=== PATIENT | female | born 1990 | race African-American/Black ===

== ENCOUNTER 2019-06-02 08:13 | Emergency (ER) | payer OTHER ==
--- OUTSIDE RECORDS SUMMARY | 2019-06-02 08:28 | XMS REPORT ---
:1990 [facility] Address [address] [place] [address] Dr. Ford [address] [place] [id number] Care Team Providers Name Role Phone Unavailable Unavailable Unavailable Problems This patient has no known problems. Allergies, Adverse Reactions, Alerts This patient has no known allergies or adverse reactions. Medications This patient has no known medications.
--- NOTE | 2019-06-02 09:40 | EDPHYS ---
Physician Documentation [facility] Name: Gill Gordon Age: 28 yrs Sex: Female : 1990 Arrival Date: 06/02/2019 Time: 08:19 Bed 17 Private MD: ED Physician Eduardo Serrato HPI: 06/02 08:48 This 28 yrs old Black Female presents to ER via Ambulatory with complaints of Cold jmm Symptoms, Flu Symptoms. 08:48 The patient or guardian reports cough, flu symptoms. Onset: The symptoms/episode jmm began/occurred gradually, 3 day(s) ago. Modifying factors: The symptoms are alleviated by nothing. Associated signs and symptoms: Pertinent positives: fever, rhinorrhea, sore throat. This is a 28 year old female with a history of PCOS that presents to the ED with complaints of cough, congestion, sore throat, body aches, fatigue beginning 3 days ago. patient states having a temp of 101 this past weekend. . 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 - Coronavirus screen:: The patient has NOT traveled to [place], [place], or [place] in the past 14 days. Proceed with normal triage process as indicated. - Social history:: Smoking status: Patient denies any tobacco usage or history of. - Ebola Screening: : Patient negative for fever greater than or equal to 101.5 degrees Fahrenheit, and additional compatible Ebola Virus Disease symptoms Patient denies exposure to infectious person Patient denies travel to an Ebola-affected area in the 21 days before illness onset No symptoms or risks identified at this time. ROS: 08:48 Cardiovascular: Negative for chest pain, palpitations, and edema. jmm 08:48 Constitutional: Positive for body aches, fever. 08:48 ENT: Positive for sore throat. 08:48 Cardiovascular: Positive for chest pain, with cough. 08:48 Respiratory: Positive for cough. 08:48 All other systems are negative. Exam: 08:48 Constitutional: This is a well developed, well nourished patient who is awake, alert, jmm and in no acute distress. Head/Face: atraumatic. Eyes: EOMI, no conjunctival erythema appreciated 08:48 Neck: Trachea midline, Supple Chest/axilla: Normal chest wall appearance and motion. 08:48 Abdomen/GI: Non distended, soft Back: Normal ROM Skin: General appearance color normal MS/ Extremity: Moves all extremities, no obvious deformities appreciated, no edema noted to the lower extremities Neuro: Awake and alert, normal gait Psych: Behavior is normal, Mood is normal, Patient is cooperative and pleasant 08:48 ENT: Posterior pharynx: erythema, that is mild. 08:48 Cardiovascular: Rate: normal, Rhythm: regular. 08:48 Respiratory: the patient does not display signs of respiratory distress, Respirations: normal, Breath sounds: are clear throughout. Vital Signs: 08:32 BP 137 / 86; Pulse 102; Resp 18 S; Temp 97.8; Pulse Ox 100% on R/A; Weight 95.25 kg; iw Height 5 ft. 0 in. (152.40 cm); Pain 7/10; 09:30 BP 132 / 80; Pulse 87; Resp 17; Pulse Ox 100% on R/A; sg 08:32 Body Mass Index 41.01 (95.25 kg, 152.40 cm) iw MDM: 08:37 Patient medically screened. [facility] 09:38 Data reviewed: vital signs, nurses notes. Counseling: I had a detailed discussion with caridad the patient and/or guardian regarding: the historical points, exam findings, and any diagnostic results supporting the discharge/admit diagnosis, the need for outpatient follow up, to return to the emergency department if symptoms worsen or persist or if there are any questions or concerns that arise at home. ED course: Patient is alert and non toxic in appearance in the ED. Patient advised to follow up with pcp and otherwise given strict return precautions. patient understood and agrees with the plan of care. . 06/02 08:42 Order name: Flu; Complete Time: 09:38 [facility] 06/02 08:42 Order name: Strep; Complete Time: 09:38 [facility] 06/02 09:12 Order name: Throat Culture EDMS Administered Medications: No medications were administered Disposition: 14:39 Co-signature as Attending Physician, Eduardo Serrato MD I agree with the assessment and [facility] plan of care. Disposition: 06/02/19 09:39 Discharged to Home. Impression: Acute upper respiratory infection, unspecified. - Condition is Stable. - Discharge Instructions: Upper Respiratory Infection, Adult. - Prescriptions for Prednisone 20 mg Oral Tablet - take 3 tablet by ORAL route once daily for 5 days; 15 tablet. - Work release form, Medication Reconciliation Form, Thank You Letter, Antibiotic Education, Prescription Opioid Use form. - Follow up: Private Physician; When: 2 - 3 days; Reason: Recheck today's complaints, Continuance of care, Re-evaluation by your physician. Signatures: Dispatcher [employer] Reno Song RN RN Eduardo Xiong MD MD cha Mickail, Joel, PA PA Sharla Marte, RN RN iw Corrections: (The following items were deleted from the chart) 09:53 09:39 06/02/2019 09:39 Discharged to Home. Impression: Acute upper respiratory sg infection, unspecified. Condition is Stable. Forms are Medication Reconciliation Form, Thank You Letter, Antibiotic Education, Prescription Opioid Use. Follow up: Private Physician; When: 2 - 3 days; Reason: Recheck today's complaints, Continuance of care, Re-evaluation by your physician. caridad
--- NOTE | 2019-06-02 09:40 | ER ---
Nurse's Notes [facility] Name: Gill Gordon Age: 28 yrs Sex: Female : 1990 Arrival Date: 06/02/2019 Time: 08:19 Bed 17 Private MD: Diagnosis: Acute upper respiratory infection, unspecified Presentation: 06/02 08:30 Presenting complaint: Patient states: cough, runny nose, chest pain with cough, iw pressure in head since Sunday, fever on Sunday but has now resolved. Transition of care: patient was not received from another setting of care. Onset of symptoms was May 30, 2019. Risk Assessment: Do you want to hurt yourself or someone else? Patient reports no desire to harm self or others. Initial Sepsis Screen: Does the patient meet any 2 criteria? No. Patient's initial sepsis screen is negative. Does the patient have a suspected source of infection? No. Patient's initial sepsis screen is negative. Care prior to arrival: None. 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 - Coronavirus screen:: The patient has NOT traveled to [place], [place], or [place] in the past 14 days. Proceed with normal triage process as indicated. - Social history:: Smoking status: Patient denies any tobacco usage or history of. - Ebola Screening: : Patient negative for fever greater than or equal to 101.5 degrees Fahrenheit, and additional compatible Ebola Virus Disease symptoms Patient denies exposure to infectious person Patient denies travel to an Ebola-affected area in the 21 days before illness onset No symptoms or risks identified at this time. Screenin:50 Abuse screen: Denies threats or abuse. Denies injuries from another. Nutritional sg screening: No deficits noted. Tuberculosis screening: No symptoms or risk factors identified. Never had TB. Fall Risk None identified. Assessment: 08:40 General: Appears in no apparent distress. well groomed, well developed, well nourished, sg Behavior is calm, cooperative, appropriate for age. Pain: Complains of pain in body aches Quality of pain is described as aching. Neuro: Level of Consciousness is awake, alert, obeys commands, Oriented to person, place, time, Speech is normal, Facial symmetry appears normal. Cardiovascular: Heart tones S1 S2 present Chest pain is denied. Respiratory: Airway is patent Respiratory effort is even, unlabored, Respiratory pattern is regular, symmetrical. Respiratory: Reports cough that is non-productive, dry. GI: No signs and/or symptoms were reported involving the gastrointestinal system. : No signs and/or symptoms were reported regarding the genitourinary system. EENT: Reports nasal congestion. Derm: Skin is intact, is healthy with good turgor, Skin is dry, Skin is normal. Musculoskeletal: Circulation, motion, and sensation intact. Range of motion: intact in all extremities. Vital Signs: 08:32 BP 137 / 86; Pulse 102; Resp 18 S; Temp 97.8; Pulse Ox 100% on R/A; Weight 95.25 kg; iw Height 5 ft. 0 in. (152.40 cm); Pain 7/10; 09:30 BP 132 / 80; Pulse 87; Resp 17; Pulse Ox 100% on R/A; sg 08:32 Body Mass Index 41.01 (95.25 kg, 152.40 cm) ED Course: 08:19 Patient arrived in ED. fj1 08:20 Ken Dominguez PA is PHCP. jmm 08:20 Eduardo Serrato MD is Attending Physician. jmm 08:30 Patient has correct armband on for positive identification. Bed in low position. Call sg light in reach. Pulse ox on. NIBP on. 08:31 Triage completed. iw 08:32 Arm band placed on. iw 08:55 Flu and/or RSV swab sent to lab. Strep swab sent to lab. sg 09:41 Reno Starks, BREA is Primary Nurse. sg 09:58 No provider procedures requiring assistance completed. Patient did not have IV access sg during this emergency room visit. Administered Medications: No medications were administered Outcome: 09:39 Discharge ordered by . jmm 09:50 Discharged to home ambulatory, with family. sg 09:50 Condition: good 09:50 Discharge instructions given to patient, Instructed on discharge instructions, follow up and referral plans. medication usage, safety practices, Demonstrated understanding of instructions, follow-up care, medications, Prescriptions given X 1. 09:53 Patient left the ED. sg Signatures: Reno Starks RN RN Ken Cartwright PA PA jmm Williams, Irene RN RN Vinicius Gordon fj1 Corrections: (The following items were deleted from the chart) 10:30 08:30 BP 132 / 80; Pulse 87bpm; Resp 17bpm; Pulse Ox 100% RA; sg sg
[2019-06-02 10:05] VITALS: BP 137/86; TEMP 97.8; O2SAT 100
== END 2019-06-02 09:53 | disposition home or self-care (01) ==
LOC: ER 08:13
DX: J06.9 Acute upper respiratory infection, unspecified (principal); Z88.1 Allergy status to other antibiotic agents
CPT/HCPCS: 87070; 87081; 87804; 99283

== ENCOUNTER 2019-12-18 11:02 | Emergency (ER) | payer OTHER ==
--- OUTSIDE RECORDS SUMMARY | 2019-12-18 11:10 | XMS REPORT | Continuity of Care Document ---
:1990 Author Organization [facility] t Address [address] [place] [address] Care Team Providers Name Role Phone Geronimo Arzate MD Attending Clinician Problems This patient has no known problems. Allergies, Adverse Reactions, Alerts This patient has no known allergies or adverse reactions. Medications This patient has no known medications. Procedures This patient has no known procedures. Encounters Start End Encounter Admission Attending Care Care Encounter Source Date/Time Date/Time Type Type Clinicians Facility Department ID 2019-05-24 2019-05-24 Refill Radha Arzate ARBELLE [id number] 00:00:00 00:00:00 Geronimo Rodriguez [id number] Tori [id number] Professnacho [id number] [facility] [address] Results This patient has no known results.
--- NOTE | 2019-12-18 12:08 | RAD REPORT ---
EXAM DESCRIPTION: Hilda Single View12/18/2019 11:38 am CLINICAL HISTORY: Cough COMPARISON: 2007 FINDINGS: The lungs appear clear of acute infiltrate. The heart is normal size IMPRESSION: No acute abnormalities displayed
--- NOTE | 2019-12-18 12:25 | EDPHYS ---
Physician Documentation [facility] Name: Gill Gordon Age: 29 yrs Sex: Female : 1990 Arrival Date: 12/18/2019 Time: 11:04 Bed 4 Private MD: Vinicius Bailey ED Physician Bal De HPI: 12/17 14:10 This 29 yrs old Black Female presents to ER via Ambulatory with complaints of Cough, kb Fever, Dizziness. 14:10 The patient or guardian reports cough, that is intermittent, described as mild, flu kb symptoms, myalgias. Onset: The symptoms/episode began/occurred 2 day(s) ago. Severity of symptoms: At their worst the symptoms were moderate, in the emergency department the symptoms are unchanged. Modifying factors: The symptoms are alleviated by nothing, the symptoms are aggravated by nothing. Associated signs and symptoms: The patient has no apparent associated signs or symptoms. The patient has not experienced similar symptoms in the past. The patient has not recently seen a physician. Pt reports her 's coworker is positive for COVID. States started having symptoms a few days ago, no taste or smell, he went to get tested and they did the blood test and told him it was negative. STates she started having a cough and feeling bad 2 days ago.. 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 - Social history:: Smoking status: Patient denies any tobacco usage or history of. ROS: 14:10 ENT: Negative for injury, pain, and discharge, Neck: Negative for injury, pain, and kb swelling, Cardiovascular: Negative for chest pain, palpitations, and edema, Abdomen/GI: Negative for abdominal pain, nausea, vomiting, diarrhea, and constipation, Back: Negative for injury and pain, MS/Extremity: Negative for injury and deformity, Skin: Negative for injury, rash, and discoloration, Neuro: Negative for headache, weakness, numbness, tingling, and seizure. 14:10 Constitutional: Positive for body aches, fatigue, malaise. 14:10 Respiratory: Positive for cough, Negative for dyspnea on exertion, hemoptysis, orthopnea, pleurisy, shortness of breath, sputum production, wheezing. Exam: 14:10 Constitutional: This is a well developed, well nourished patient who is awake, alert, kb and in no acute distress. Head/Face: Normocephalic, atraumatic. ENT: Nares patent. No nasal discharge, no septal abnormalities noted. Tympanic membranes are normal and external auditory canals are clear. Oropharynx with no redness, swelling, or masses, exudates, or evidence of obstruction, uvula midline. Mucous membranes moist. Neck: Trachea midline, no thyromegaly or masses palpated, and no cervical lymphadenopathy. Supple, full range of motion without nuchal rigidity, or vertebral point tenderness. No Meningismus. Chest/axilla: Normal chest wall appearance and motion. Nontender with no deformity. No lesions are appreciated. Cardiovascular: Regular rate and rhythm with a normal S1 and S2. No gallops, murmurs, or rubs. Normal PMI, no JVD. No pulse deficits. Respiratory: Lungs have equal breath sounds bilaterally, clear to auscultation and percussion. No rales, rhonchi or wheezes noted. No increased work of breathing, no retractions or nasal flaring. Abdomen/GI: Soft, non-tender, with normal bowel sounds. No distension or tympany. No guarding or rebound. No evidence of tenderness throughout. Skin: Warm, dry with normal turgor. Normal color with no rashes, no lesions, and no evidence of cellulitis. MS/ Extremity: Pulses equal, no cyanosis. Neurovascular intact. Full, normal range of motion. Neuro: Awake and alert, GCS 15, oriented to person, place, time, and situation. Cranial nerves II-XII grossly intact. Motor strength 5/5 in all extremities. Sensory grossly intact. Cerebellar exam normal. Normal gait. Vital Signs: 11:16 BP 140 / 87; Pulse 86; Resp 17 S; Temp 99.8(O); Pulse Ox 99% on R/A; Weight 98.43 kg jd3 (R); Height 5 ft. 0 in. (152.40 cm) (R); Pain 10/10; 12:21 BP 128 / 97; Pulse 88; Resp 17 S; Pulse Ox 99% on R/A; jd3 11:16 Body Mass Index 42.38 (98.43 kg, 152.40 cm) jd3 MDM: 11:11 Patient medically screened. kb 14:09 Data reviewed: vital signs, nurses notes. Data interpreted: Pulse oximetry: on room air kb is 99 %. Interpretation: normal. Counseling: I had a detailed discussion with the patient and/or guardian regarding: the historical points, exam findings, and any diagnostic results supporting the discharge/admit diagnosis, radiology results, the need for outpatient follow up, a family practitioner, to return to the emergency department if symptoms worsen or persist or if there are any questions or concerns that arise at home. 12/17 11:17 Order name: COVID-19 kb 12/17 11:17 Order name: Chest Single View XRAY; Complete Time: 12:23 kb Administered Medications: No medications were administered Disposition: 12/18/19 12:25 Discharged to Home. Impression: Acute upper respiratory infection, unspecified. - Condition is Stable. - Discharge Instructions: Viral Respiratory Infection, [id number], COVID-19. - Prescriptions for Albuterol Sulfate 90 mcg/actuation - inhale 1-2 puff by INHALATION route every 4-6 hours; 1 Inhaler. - Medication Reconciliation Form, Thank You Letter, Antibiotic Education, Prescription Opioid Use form. - Follow up: Emergency Department; When: As needed; Reason: Worsening of condition. Follow up: Vinicius Bailey MD; When: 2 - 3 days; Reason: Recheck today's complaints, Continuance of care, Re-evaluation by your physician. Addendum: 12/22/2019 08:24 Co-signature as Attending Physician, Bal De MD I agree with the assessment and k dr plan of care. 09:10 Addendum: Called patient \T\ 0910, notified of + COVID-19 test results, states not rn feeling better, seen at another ER yesterday, given abx/steroids/cough medication/nausea medication, but was not admitted. Return precautions given and understood. . Signatures: Dispatcher [employer] EDJuanis Griffin, NICK-C NICK-Ckb Bal De MD MD kdr Nieto, Roman, MD MD rn Davies, BREA Beyer RN jd3 Corrections: (The following items were deleted from the chart) 12/17 12:40 12:25 12/18/2019 12:25 Discharged to Home. Impression: Acute upper respiratory jd3 infection, unspecified. Condition is Stable. Forms are Medication Reconciliation Form, Thank You Letter, Antibiotic Education, Prescription Opioid Use. Follow up: Emergency Department; When: As needed; Reason: Worsening of condition. Follow up: Vinicius Bailey; When: 2 - 3 days; Reason: Recheck today's complaints, Continuance of care, Re-evaluation by your physician. kb
--- NOTE | 2019-12-18 12:25 | ER ---
Nurse's Notes [facility] Name: Gill Gordon Age: 29 yrs Sex: Female : 1990 Arrival Date: 12/18/2019 Time: 11:04 Bed 4 Private MD: Vinicius Bailey Diagnosis: Acute upper respiratory infection, unspecified Presentation: 12/17 11:18 Chief complaint: Patient states: "One of my husbands co-workers had COVID symptoms and jd3 he started having symptoms. I am now having symptoms. I am having body aches and fevers and a cough.". Coronavirus screen: cough unrelated to allergies, fever, muscle pain, Client presents with at least one sign or symptom that may indicate coronavirus-19. Standard/surgical mask placed on the client. Provider contacted for isolation considerations. Ebola Screen: Patient negative for fever greater than or equal to 101.5 degrees Fahrenheit, and additional compatible Ebola Virus Disease symptoms. Initial Sepsis Screen: Does the patient meet any 2 criteria? No. Patient's initial sepsis screen is negative. Does the patient have a suspected source of infection? No. Patient's initial sepsis screen is negative. Risk Assessment: Do you want to hurt yourself or someone else? Patient reports no desire to harm self or others. Onset of symptoms was December 18, 2019. 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 - Social history:: Smoking status: Patient denies any tobacco usage or history of. Screenin:39 Abuse screen: Denies threats or abuse. Nutritional screening: No deficits noted. jd3 Tuberculosis screening: No symptoms or risk factors identified. Fall Risk Gait- Normal/Bed Rest/Wheelchair (0 pts) Mental Status- Oriented to own ability (0 pts). Total Grant Fall Scale indicates No Risk (0-24 pts). Assessment: 11:21 General: Appears in no apparent distress. uncomfortable, Behavior is calm, cooperative, jd3 appropriate for age. Pain: Complains of pain in generalized aches and pains. Neuro: Level of Consciousness is awake, alert, obeys commands, Oriented to person, place, time, situation. Cardiovascular: Capillary refill < 3 seconds Patient's skin is warm and dry. Respiratory: Airway is patent Respiratory effort is even, unlabored, Respiratory pattern is regular, symmetrical, Denies cough, shortness of breath. GI: No signs and/or symptoms were reported involving the gastrointestinal system. : No signs and/or symptoms were reported regarding the genitourinary system. EENT: No signs and/or symptoms were reported regarding the EENT system. Derm: Skin is intact, Skin is dry, Skin is normal, Skin temperature is warm. Musculoskeletal: Circulation, motion, and sensation intact. Range of motion: intact in all extremities. 12:21 Reassessment: Patient appears in no apparent distress at this time. No changes from jd3 previously documented assessment. Patient and/or family updated on plan of care and expected duration. Pain level reassessed. Patient is alert, oriented x 3, equal unlabored respirations, skin warm/dry/pink. Vital Signs: 11:16 BP 140 / 87; Pulse 86; Resp 17 S; Temp 99.8(O); Pulse Ox 99% on R/A; Weight 98.43 kg jd3 (R); Height 5 ft. 0 in. (152.40 cm) (R); Pain 10/10; 12:21 BP 128 / 97; Pulse 88; Resp 17 S; Pulse Ox 99% on R/A; jd3 11:16 Body Mass Index 42.38 (98.43 kg, 152.40 cm) jd3 ED Course: 11:04 Patient arrived in ED. ag5 11:05 Vinicius Bailey MD is Private Physician. ag5 11:05 Juanis Gordon [facility]-C [facility]. kb 11:05 Bal De MD is Attending Physician. kb 11:15 Pepito Bell, BREA is Primary Nurse. jd3 11:20 Triage completed. jd3 11:21 Arm band placed on. jd3 11:39 Chest Single View XRAY In Process Unspecified. EDMS 12:24 Vinicius Bailey MD is Referral Physician. kb 12:39 Patient has correct armband on for positive identification. Bed in low position. Call jd3 light in reach. Side rails up X 1. Adult w/ patient. Pulse ox on. NIBP on. 12:39 No provider procedures requiring assistance completed. Patient did not have IV access jd3 during this emergency room visit. Administered Medications: No medications were administered Outcome: 12:25 Discharge ordered by . kb 12:39 Discharged to home ambulatory. jd3 12:39 Condition: stable 12:39 Discharge instructions given to patient, Instructed on discharge instructions, follow up and referral plans. medication usage, Demonstrated understanding of instructions, follow-up care, medications, Prescriptions given X 1. 12:40 Patient left the ED. jd3 Signatures: Dispatcher [employer] EDMS Juanis Gordon, DIRECTOR PROSPECT-C DIRECTOR PROSPECT-Pepito Osman RN RN jd3 [place] ag5 Corrections: (The following items were deleted from the chart) 11:21 11:16 BP 140 / 87; Pulse 86bpm; Resp 17bpm; Spontaneous; Pulse Ox 99% RA; Temp 99.8F jd3 Oral; jd3 11:24 11:18 Chief complaint: Patient states: "One of my co-workers had COVID symptoms and got jd3 the antibody test, but it came back negative. I am now having symptoms and think my co-workers test was wrong. I am having body aches and fevers." jd3
[2019-12-18 12:51] VITALS: TEMP 99.8; O2SAT 99
[2019-12-18 12:52] VITALS: BP 128/97
== END 2019-12-18 12:40 | disposition home or self-care (01) ==
LOC: ER 11:02
DX: U07.1 COVID-19 (principal); J98.8 Other specified respiratory disorders; Z88.1 Allergy status to other antibiotic agents; Z88.0 Allergy status to penicillin
CPT/HCPCS: 71045; 99283; U0002

== ENCOUNTER 2020-03-17 13:02 | Emergency (ER) | payer BC, OTHER ==
--- OUTSIDE RECORDS SUMMARY | 2020-03-17 13:05 | XMS REPORT | Clinical Summary ---
:1990 Author Organization [employer] Address [address] [place] [address] Care Team Providers Name Role Phone [facility]illo [facility], [facility] Provider Allergies Active Allergy Reactions Severity Noted Date Comments Amoxicillin Rash Low 12/23/2019 Penicillin V Rash Low 12/23/2019 Medications Medication Sig Dispensed Refills Start Date End Date Status metFORMIN Take 500 mg by 0 Activ e (GLUCOPHAGE) 500 mg mouth 2 (two) tablet times a day with meals. ascorbic acid, Take 1 tablet 30 tablet 0 12/29/2019 01/28/2020 vitamin C, (VITAMIN (500 mg total) C) 500 MG tablet by mouth daily for 30 days. enoxaparin (LOVENOX) Inject 0.4 mL 26 each 0 12/28/2019 09/0 09/2019 40 mg/0.4 mL syringe (40 mg total) under the skin every 12 (twelve) hours for 13 days. zinc sulfate Take 1 capsule 30 capsule 0 12/29/2019 01/28/2020 (ZINCATE) 220 (50) (220 mg total) mg capsule by mouth daily for 30 days. dexamethasone Take 1 tablet (6 9 tablet 0 12/28/2019 01/06/20 20 (DECADRON) 6 MG mg total) by tablet mouth daily with breakfast for 9 days. levoFLOXacin Take 1 tablet 4 tablet 0 12/28/2019 01/01/2020 E xpired (Levaquin) 750 MG (750 mg total) tablet by mouth daily for 4 days. Active Problems Problem Noted Date SOB (shortness of breath) 12/31/2019 COVID-19 virus infection 12/27/2019 Encounters Date Type Specialty Care Team Description 12/27/2019 - Hospital Encounter General Internal HasmukhJose COVID -19 virus 01/01/2020 Medicine Thalakulathu, infection (Ashleigh dail MD Dx) 12/27/2019 Travel 12/23/2019 Emergency Emergency Medicine Kenia Wang Acute bro nchitis due MD Armando to COVID-19 vir us (Primary Dx) 12/23/2019 Travel after 03/17/2019 Medical History Medical History Date Comments Diabetes mellitus (HCC) PCOS (polycystic ovarian syndrome) Social History Tobacco Use Types Packs/Day Years Used Date Never Assessed Alcohol Use Drinks/Week oz/Week Comments Defer Sex Assigned at Date Recorded Not on file Last Filed Vital Signs Vital Sign Reading Time Taken Comments Blood Pressure 98/59 01/01/2020 11:58 AM CDT Pulse 84 01/01/2020 3:00 PM CDT Temperature 36.7 C (98 F) 01/01/2020 11:58 AM CDT Respiratory Rate 16 01/01/2020 11:58 AM CDT Oxygen Saturation 96% 01/01/2020 11:58 AM CDT Inhaled Oxygen Concentration - - Weight 98.4 kg (216 lb 14.9 oz) 12/27/2019 4:08 AM CDT Height 152.4 cm (5') 12/27/2019 4:08 AM CDT Body Mass Index 42.37 12/27/2019 4:08 AM CDT Plan of Treatment Health Maintenance Due Date Last Done Comments DIABETES: RETINAL EYE EXAM 1998 DIABETIC FOOT EXAM 1998 URINE MICROALBUMIN 1998 CERVICAL CANCER SCREENING 2009 INFLUENZA VACCINE 12/06/2019 Procedures Procedure Name Priority Date/Time Associated Comments Diagnosis TTE COMPLETE, WO Routine 01/01/2020 1:50 Results for this CONTRAST, W DOPPLER PM CDT procedur e are in ([id number]) the results section. POC GLUCOSE Routine 01/01/2020 11:59 Results for this AM CDT procedure are i n the results section. POC GLUCOSE Routine 01/01/2020 5:44 Results for this AM CDT procedure are i n the results section. ESTIMATED GFR Routine 01/01/2020 5:23 Results fo r this AM CDT procedure are i n the results section. MAGNESIUM LEVEL Routine 01/01/2020 5:23 Results for this AM CDT procedure are i n the results section. BASIC METABOLIC PANEL Routine 01/01/2020 5:23 Re sults for this AM CDT procedure are i n the results section. POC GLUCOSE Routine 12/31/2019 4:57 Results for this PM CDT procedure are i n the results section. XR CHEST 1 VW PORTABLE Routine 12/31/2019 1:44 R esults for this PM CDT procedure are i n the results section. T4, FREE Routine 12/31/2019 1:00 Results for this PM CDT procedure are i n the results section. THYROID STIMULATING Routine 12/31/2019 1:00 Resu lts for this HORMONE PM CDT procedure are i n the results section. POC GLUCOSE Routine 12/31/2019 12:00 Results for this PM CDT procedure are i n the results section. POC GLUCOSE Routine 12/31/2019 5:53 Results for this AM CDT procedure are i n the results section. ESTIMATED GFR Routine 12/31/2019 4:00 Results fo r this AM CDT procedure are i n the results section. COMPREHENSIVE METABOLIC Routine 12/31/2019 4:00 Results for this PANEL AM CDT procedure are i n the results section. TROPONIN Timed 12/31/2019 12:30 Results for this AM CDT procedure are i n the results section. POC GLUCOSE Routine 12/30/2019 8:47 Results for this PM CDT procedure are i n the results section. TROPONIN Timed 12/30/2019 8:15 Results for this PM CDT procedure are i n the results section. TROPONIN Timed 12/30/2019 5:00 Results for this PM CDT procedure are i n the results section. ECG 12-LEAD Routine 12/30/2019 4:29 Results for this PM CDT procedure are i n the results section. POC GLUCOSE Routine 12/30/2019 4:24 Results for this PM CDT procedure are i n the results section. POC GLUCOSE Routine 12/30/2019 11:25 Results for this AM CDT procedure are i n the results section. MANUAL DIFFERENTIAL Routine 12/30/2019 10:00 Resu lts for this AM CDT procedure are i n the results section. CBC WITH PLATELET AND Routine 12/30/2019 10:00 Re sults for this DIFFERENTIAL AM CDT procedure are i n the results section. POC GLUCOSE Routine 12/30/2019 5:45 Results for this AM CDT procedure are i n the results section. ESTIMATED GFR Routine 12/30/2019 3:50 Results fo r this AM CDT procedure are i n the results section. COMPREHENSIVE METABOLIC Routine 12/30/2019 3:50 Results for this PANEL AM CDT procedure are i n the results section. POC GLUCOSE Routine 12/29/2019 7:36 Results for this PM CDT procedure are i n the results section. POC GLUCOSE Routine 12/29/2019 5:12 Results for this PM CDT procedure are i n the results section. POC GLUCOSE Routine 12/29/2019 11:20 Results for this AM CDT procedure are i n the results section. POC GLUCOSE Routine 12/29/2019 5:59 Results for this AM CDT procedure are i n the results section. ESTIMATED GFR Routine 12/29/2019 4:45 Results fo r this AM CDT procedure are i n the results section. COMPREHENSIVE METABOLIC Routine 12/29/2019 4:45 Results for this PANEL AM CDT procedure are i n the results section. POC GLUCOSE Routine 12/28/2019 8:44 Results for this PM CDT procedure are i n the results section. POC GLUCOSE Routine 12/28/2019 4:46 Results for this PM CDT procedure are i n the results section. POC GLUCOSE Routine 12/28/2019 12:04 Results for this PM CDT procedure are i n the results section. POC GLUCOSE Routine 12/28/2019 5:49 Results for this AM CDT procedure are i n the results section. MANUAL DIFFERENTIAL Routine 12/28/2019 4:40 Resu lts for this AM CDT procedure are i n the results section. ESTIMATED GFR Routine 12/28/2019 4:40 Results fo r this AM CDT procedure are i n the results section. COMPREHENSIVE METABOLIC Routine 12/28/2019 4:40 Results for this PANEL AM CDT procedure are i n the results section. CBC WITH PLATELET AND Routine 12/28/2019 4:40 Re sults for this DIFFERENTIAL AM CDT procedure are i n the results section. POC GLUCOSE Routine 12/27/2019 7:49 Results for this PM CDT procedure are i n the results section. POC GLUCOSE Routine 12/27/2019 5:02 Results for this PM CDT procedure are i n the results section. URINALYSIS SCREEN AND Routine 12/27/2019 4:15 Re sults for this MICROSCOPY, WITH REFLEX PM CDT proc edure are in TO CULTURE the results section. URINE CULTURE Routine 12/27/2019 4:15 Results fo r this PM CDT procedure are i n the results section. TROPONIN Timed 12/27/2019 4:10 Results for this PM CDT procedure are i n the results section. POC GLUCOSE Routine 12/27/2019 11:57 Results for this AM CDT procedure are i n the results section. BLOOD CULTURE, AEROBIC Routine 12/27/2019 7:00 R esults for this & ANAEROBIC AM CDT procedure are i n the results section. LDH Routine 12/27/2019 6:00 Results for this AM CDT procedure are i n the results section. FERRITIN LEVEL Routine 12/27/2019 6:00 Results f or this AM CDT procedure are i n the results section. CRP HIGH SENSITIVITY Routine 12/27/2019 6:00 Res ults for this AM CDT procedure are i n the results section. TROPONIN STAT 12/27/2019 6:00 Results for this AM CDT procedure are i n the results section. THYROID STIMULATING STAT 12/27/2019 6:00 Resu lts for this HORMONE AM CDT procedure are i n the results section. BLOOD CULTURE, AEROBIC Routine 12/27/2019 6:00 R esults for this & ANAEROBIC AM CDT procedure are i n the results section. D-DIMER Routine 12/27/2019 5:50 Results for this AM CDT procedure are i n the results section. LIPID PANEL Routine 12/27/2019 5:50 Results for this AM CDT procedure are i n the results section. HEMOGLOBIN A1C Routine 12/27/2019 5:50 Results f or this AM CDT procedure are i n the results section. ESTIMATED GFR Routine 12/27/2019 5:50 Results fo r this AM CDT procedure are i n the results section. LACTIC ACID LEVEL Routine 12/27/2019 5:50 Result s for this AM CDT procedure are i n the results section. PHOSPHORUS LEVEL Routine 12/27/2019 5:50 Results for this AM CDT procedure are i n the results section. MAGNESIUM LEVEL Routine 12/27/2019 5:50 Results for this AM CDT procedure are i n the results section. AMYLASE LEVEL Routine 12/27/2019 5:50 Results fo r this AM CDT procedure are i n the results section. B NATRIURETIC PEPTIDE Routine 12/27/2019 5:50 Re sults for this AM CDT procedure are i n the results section. CREATINE KINASE, TOTAL Routine 12/27/2019 5:50 R esults for this (CPK) AM CDT procedure are i n the results section. COMPREHENSIVE METABOLIC Routine 12/27/2019 5:50 Results for this PANEL AM CDT procedure are i n the results section. PARTIAL THROMBOPLASTIN Routine 12/27/2019 5:50 R esults for this TIME (PTT) AM CDT procedure are i n the results section. PROTHROMBIN TIME WITH Routine 12/27/2019 5:50 Re sults for this INR AM CDT procedure are i n the results section. HC COMPLETE BLD COUNT Routine 12/27/2019 5:50 Re sults for this W/AUTO DIFF AM CDT procedure are i n the results section. XR CHEST 1 VW PORTABLE Routine 12/27/2019 5:22 R esults for this AM CDT procedure are i n the results section. XR CHEST 1 VW PORTABLE STAT 12/23/2019 8:41 R esults for this PM CDT procedure are i n the results section. BLOOD CULTURE, AEROBIC Routine 12/23/2019 8:05 R esults for this & ANAEROBIC PM CDT procedure are i n the results section. COVID-19 QUALITATIVE STAT 12/23/2019 7:55 Res ults for this PCR PM CDT procedure are i n the results section. ESTIMATED GFR STAT 12/23/2019 7:45 Results fo r this PM CDT procedure are i n the results section. D-DIMER STAT 12/23/2019 7:45 Results for this PM CDT procedure are i n the results section. LACTIC ACID LEVEL, Timed 12/23/2019 7:45 Resul ts for this SEPSIS - NOW AND REPEAT PM CDT proc edure are in 2X EVERY 3 HOURS the results section. TROPONIN STAT 12/23/2019 7:45 Results for this PM CDT procedure are i n the results section. CREATINE KINASE, TOTAL STAT 12/23/2019 7:45 R esults for this (CPK) PM CDT procedure are i n the results section. COMPREHENSIVE METABOLIC STAT 12/23/2019 7:45 Results for this PANEL PM CDT procedure are i n the results section. HC COMPLETE BLD COUNT STAT 12/23/2019 7:45 Re sults for this W/AUTO DIFF PM CDT procedure are i n the results section. BLOOD CULTURE, AEROBIC Routine 12/23/2019 7:45 R esults for this & ANAEROBIC PM CDT procedure are i n the results section. ECG ED PRELIMINARY Routine 12/23/2019 7:38 Resul ts for this INTERPRETATION PM CDT procedure are in the results section. ECG 12-LEAD Routine 12/23/2019 7:37 Results for this PM CDT procedure are i n the results section. after 03/17/2019 Results Transthoracic Echocardiogram Complete, (w Contrast, Strain and 3D if needed) (01/01/2020 1:50 PM CDT) Pathologist Sig nature LA Volume Index 15.78 mL/m2 [facility] RA pressure 5.00 mmHg [facility] LA Vol 4C 29.00 ml [facility] RVSP 22.11 mmHg [facility] LA diam s 3.90 cm [facility] Aortic Root 2.95 cm [facility] D E excurs 1.80 [facility] E f slope 0.08 [facility] E prime lat 0.13 [facility] E cj sept 0.10 [facility] PV acc T slope 8.20 [facility] HCESTER BP EF 62.00 % [facility] LA VOL 2C 27.00 ml [facility] AoV Area, Vmax 3.41 cm2 [facility] AoV Area, VTI 4.02 cm2 [facility] AoV Mean PG 3.93 mmHg [facility] AoV Peak PG 7.79 mmHg [facility] AoV Vmax 1.40 m/s [facility] AoV VTI 0.21 m [facility] IVS,d 1.41 cm [facility] LV,d 4.16 cm [facility] LV EF,A2C 64.35 % [facility] LV EF,A4C 59.00 % [facility] LV EF,BP 62.03 % [facility] [place],d A2C 7.15 cm [facility] [place],d A4C 8.20 cm [facility] [place],s A2C 5.92 cm [facility] [place],s A4C 6.71 cm [facility] LV,s 2.81 cm [facility] LV SV,A2C 38.85 % [facility] LV SV,A4C 43.30 % [facility] LV Vol,d A2C 60.37 mL [facility] LV Vol,d A4C 73.39 ml [facility] LV Vol,d BP 71.13 ml [facility] LV Vol,s A2C 21.52 mL [facility] LV Vol,s A4C 30.09 ml [facility] LV Vol,s BP 27.01 nl [facility] LVOT Diam,S 2.37 cm [facility] LVOT Vmax 1.08 m/s [facility] LVOT VTI 0.19 m [facility] LVPWD,d 1.44 cm [facility] TR Vpeak 2.07 mm/s [facility] MV E A ratio 1.26 [facility] TR pk grad 15.70 mmHg [facility] E wave decelartion time 239.08 msec [facility] MV Peak A [place] 0.58 m/s [facility] MV valve area p 1/2 method 3.57 cm2 [facility] MV Peak E [place] 0.73 m/s [facility] MV stenosis pressure 1/2 time 61.58 ms [facility] AV LVOT peak gradient 4.65 mmHg [facility] LV SYS VOL 29.68 ml [facility] LV GRANGER VOL 77.01 ml [facility] LA area s A4C 13.41 cm2 [facility] LV SV Teich 2D 47.32 ml [facility] LVOT SI 43.39 ml/m2 [facility] AoV Cusp sep 2.32 [facility] AoV Vmn 0.93 [facility] IVS s 2D 1.50 [facility] LA Ao Ratio Mmode 1.33 [facility] LVOT Vmn 0.72 [facility] Pt Size 152.40 [facility] Pt Wt 97.98 [facility] Ao root annulus 2.95 cm [facility] PV AT 111.32 msec [facility] LVOT mean grad 2.30 mmHg [facility] LVPW s PLAX 1.51 cm [facility] MV Decel slope 3.06 m/s2 [facility] LA Vol MOD A4C 28.79 ml [facility] Velocity Ratio (V1/V2) 0.77 m/s [facility] EF 61.46 % [facility] E/A ratio 1.26 [facility] LVOT area 4.41 cm2 [facility] Specimen Narrative Performed At This result has an attachment that is no t available. Left ventricular systolic function is normal. [facility] There is mild left ventricular concentric hypertrop hy. Left Ventricular ejection fraction is 60 - 65%. Performing Organization Address City/State/ZIP Code Phon e Number [facility] [address] [place] [address], POC glucose (01/01/2020 11:59 AM CDT)Only the most recent of20 resultswithin the time period is included. Pathologist Sig nature POC glucose 141 (H) 65 - 99 mg/dL [facility] Comment: [facility] Fire Prevention Inspector Name: Victor Manuel Lee Device ID: [id number] Specimen Blood Performing Organization Address [facility]/ZIP [facility] Phon e Number [facility] DEPARTMENT OF PATHOLOGY AND [id number] [place] [address] Estimated GFR (01/01/2020 5:23 AM CDT)Only the most recent of7 resultswithin the time period is included. Pathologist [facility] Estimated GFR >=90 mL/min/1.73 [facility] Comment: m2 RAINBOW Catergory Units Interpretation HOS PITAL G1 >=90 Normal or high G2 60-89 Mildly decreased G3a 45-59 Mildly to moderately decreas ed G3b 30-44 Moderately to severely decre ased G4 15-29 Severely decreased G5 <15 Kidney failure The eGFR was calculated using the Chronic Kidney Disea se Epidemiology Collaboration (CKD-EPI) equation. Interpretation is based on recommendations of the National Kidney Foundation-Kidney Disease Outcomes Patricio lity Initiative (NKF-KDOQI) published in 2014. Specimen Performing Organization Address [facility] Phon e Number [facility] DEPARTMENT OF PATHOLOGY AND [address] [place] [id number] [place] [address] Magnesium level (01/01/2020 5:23 AM CDT)Only the most recent of2 resultswithin the time period is included. Pathologist Sig [facility] Magnesium 2.2 1.6 - 2.6 mg/dL [facility] Specimen Blood Performing Organization Address City/[facility]/ZIP [facility] Phon e Number [facility] DEPARTMENT OF PATHOLOGY AND [id number] [place] [address] [place], [place] [id number] [place] [id number] [place] [address] Basic metabolic panel (01/01/2020 5:23 AM CDT) Pathologist Sig nature Sodium 139 135 - 148 mEq/L [facility] Potassium 3.8 3.5 - 5.0 mEq/L [facility] Chloride 101 98 - 112 mEq/L [facility] CO2 29 24 - 31 mEq/L [facility] Anion gap 9@ANIO 7 - 15 mEq/L [facility] BUN 19 6 - 20 mg/dL [facility] Creatinine 0.90 0.50 - 0.90 mg/dL [facility] Glucose 100 (H) 65 - 99 mg/dL [facility] Calcium 9.1 8.3 - 10.2 mg/dL [facility] Specimen Blood Performing Organization Address City/[facility] Phon e Number [facility] DEPARTMENT OF PATHOLOGY AND [address] [place] [address] GENOMIC MEDICINE [facility] [address] [place], [place] [address] HOSPITAL XR Chest 1 Vw Portable (12/31/2019 1:44 PM CDT)Only the most recent of3 results within the time period is included. Specimen Narrative Performed At SINGLE VIEW CHEST, 12/31/2019 [facility] Clinical History: Covid pneumonia. Anoma ly of the pleura. Technique: Single, portable AP view ches t. Comparison: 12/27/2019 Impression: 1.Continued low lung volume. There is marginal improve ment in bilateral alveolar opacities consistent with evolving Covid pneu monia and atelectasis. 2.Probable underlying trace left pleural effusion. No sizable right effusion. No pneumothorax.. 3.Normal heart size and mediastinal cont our for technique. 4.Normal pulmonary vasculature. 5.Intact skeleton. Procedure Note Interface, Radiology Results Incoming - 12/31/2019 1:49 PM CDT SINGLE VIEW CHEST, 12/31/2019 Clinical History: Covid pneumonia. Anoma ly of the pleura. Technique: Single, portable AP view ches t. Comparison: 12/27/2019 Impression: 1.Continued low lung volume. There is ma rginal improvement in bilateral alveolar opacities consistent with evolving Covid pneumonia and atelectasis. 2.Probable underlying trace left pleural effusion. No sizable right effusion. No pneumothorax.. 3.Normal heart size and mediastinal cont our for technique. 4.Normal pulmonary vasculature. 5.Intact skeleton. Performing Organization Address City/State/ZIP Code Phon e Number [facility] [address] [place] [address] Thyroid stimulating hormone (12/31/2019 1:00 PM CDT)Only the most recent of2 resultswithin the time period is included. Pathologist Sig nature TSH 0.85 0.27 - 4.20 uIU/mL [facility] Specimen Blood Performing Organization Address City/[facility] Phon e Number [facility] DEPARTMENT OF PATHOLOGY AND [id number] [place] [address] [place], [place] [id number] [place] [address] MEDICINE [facility] [id number] [place] [address] T4, free (12/31/2019 1:00 PM CDT) Pathologist Sig [facility] T4, free 1.68 0.90 - 1.70 ng/dL [facility] Specimen Blood Performing Organization Address [facility] Phon e Number [facility] DEPARTMENT OF PATHOLOGY AND [id number] [place] [address] [place] [address] [facility] [id number] [place] [address] Comprehensive metabolic panel (12/31/2019 4:00 AM CDT)Only the most recent of6 resultswithin the time period is included. Sodium 140 135 - 148 [facility] mEq/L [facility] Potassium 3.9 3.5 - 5.0 [facility] mEq/L [facility] Chloride 101 98 - 112 [facility] mEq/L [facility] CO2 28 24 - 31 mEq/L [facility] Anion gap 11@ANIO 7 - 15 mEq/L [facility] BUN 18 6 - 20 mg/dL [facility] Creatinine 0.80 0.50 - 0.90 [facility] mg/dL [facility] Glucose 97 65 - 99 mg/dL [facility] Calcium 9.0 8.3 - 10.2 [facility] mg/dL [facility] Protein 7.0 6.3 - 8.3 [facility] Comment: g/dL [facility] [place] 4.6-7.0 g/dL 1 week 4.4-7.6 g/dL 7 months-1year 5.1-7.3 g/dL 1-2 years 5.6-7.5 g/dL >3 years 6.0-8.0 g/dL 18-150 6.3-8.3 g/dL Albumin 3.4 (L) 3.5 - 5.0 [facility] g/dL [facility] A/G ratio 0.9 0.7 - 3.8 [facility] Alkaline phosphatase 46 35 - 104 U/L [facility] AST 48 (H) 10 - 35 U/L [facility] ALT 91 (H) 5 - 50 U/L [facility] Total bilirubin 0.3 0.0 - 1.2 [facility] mg/dL [facility] Specimen Blood Performing Organization Address City/State/ZIP Code Phon e Number [facility] DEPARTMENT OF PATHOLOGY AND [address] [place] [address] GENOMIC MEDICINE [facility] [address] [place], [place] [address] HOSPITAL Troponin (12/31/2019 12:30 AM CDT)Only the most recent of6 resultswithin the time period is included. Troponin <0.006 0.000 - 0.040 [facility] Comment: ng/mL [facility] In patients suspected of having a myocardial infarctio n, along with all other appropriate clinical measures and actions includ ing ECG and other diagnostics as appropriate, measure Ultra TnI at 0 hrs and at 3 hrs. Myocardial infarction VERY LIKELY The 0 hr TnI level is > 0.10 ng/mL Myocardial infarction LIKELY The 0 hr TnI level is > 0.04 ng/mL and 3 hr level is i ncreased or decreased by at least 0.020 ng/mL Myocardial infarction VERY UNLIKELY Both the 0 hr and 3 hr TnI levels <= 0.04 ng/mL(within normal limits) OR 0 hr is > 0.04 ng/mL and 3 hr is increased OR decreased by less than 0.020 ng/mL Specimen Blood Performing Organization Address City/[facility]/ZIP [facility] Phon e Number [facility] DEPARTMENT OF PATHOLOGY AND [address] [place] [address] GENOMIC MEDICINE [facility] [address] [place], [place] [address] HOSPITAL ECG 12 lead (12/30/2019 4:29 PM CDT)Only the most recent of2 resultswithin the time period is included. Pathologist Sig nature Ventricular rate 57 [facility] Atrial rate 57 [facility] LA interval 148 [facility] QRSD interval 88 [facility] QT interval 424 [facility] QTC interval 412 [facility] P axis 1 46 [facility] QRS axis 1 -8 [facility] T wave axis -26 [facility] EKG impression Sinus bradycardia-Voltage cr iteria for left ventricular hypertrophy-T wave abnormality, consider anterior ischemia-Abnormal ECG-In automated comparison with ECG of 23-DEC-2019 19:37,-Vent. rate has decr [facility] eased BY 51 BPM-T wave inversion now evident in Anterior leads-Electronicall y Signed By Ede Mera MD ([id number]) on 12/30/2019 5:09:39 PM Specimen Narrative Performed At This result has an attachment that is no t available. Performing Organization Address City/[facility] Phon e Number [facility] MUSE [address] [place] [address] Manual differential (12/30/2019 10:00 AM CDT)Only the most recent of2 results within the time period is included. Manual differential PERFORMED [facility] Neutrophils 58.0 39.0 - 69.0 % [facility] Lymphocytes 31.0 25.0 - 45.0 % [facility] Monocytes 8.0 0.0 - 10.0 % [facility] [facility] Eosinophils 0.0 0.0 - 5.0 % [facility] Basophils 0.0 0.0 - 1.0 % [facility] Metamyelocytes 0 % [facility] Promyelocytes 0 % [facility] Reactive lymphocytes 3.0 [facility] Platelet slide review Mago adequate [facility] Specimen Performing Organization Address City/[facility] Phon e Number [facility] DEPARTMENT OF PATHOLOGY AND [address] [place] [address] GENOMIC MEDICINE [facility] [place] [address] CBC with platelet and differential (12/30/2019 10:00 AM CDT)Only the most recent of4 resultswithin the time period is included. Pathologist Sig nature WBC 10.39 4.50 - 11.00 k/uL [facility] RBC 3.84 (L) 4.20 - 5.50 m/uL [facility] HGB 11.7 (L) 12.0 - 16.0 g/dL [facility] HCT 37.9 37.0 - 47.0 % [facility] MCV 98.7 82.0 - 100.0 fL [facility] MCH 30.5 27.0 - 34.0 pg [facility] MCHC 30.9 (L) 31.0 - 37.0 g/dL [facility] RDW - SD 44.8 37.0 - 55.0 fL [facility] MPV 9.1 8.8 - 13.2 fL [facility] Platelet count 370 150 - 400 k/uL [facility] Nucleated RBC 0.00 /100 WBC [facility] Neutrophils 58.0 39.0 - 69.0 % [facility] Lymphocytes 31.0 25.0 - 45.0 % [facility] Monocytes 8.0 0.0 - 10.0 % [facility] Eosinophils 0.0 0.0 - 5.0 % [facility] Basophils 0.0 0.0 - 1.0 % [facility] Specimen Blood Performing Organization Address City/State/[facility] Phon e Number [facility] DEPARTMENT OF PATHOLOGY AND [address] [place] [address] GENOMIC MEDICINE [facility] [place] [address] Urinalysis screen and microscopy, with reflex to culture (12/27/2019 4:15 PM CDT) Specimen site Clean catch [facility] Color, UA Yellow [facility] Appearance, UA Clear [facility] Specific gravity, UA 1.025 1.001 - 1.035 [facility] pH, UA 5.0 5.0 - 8.5 [facility] Protein, UA 1+ (A) Negative [facility] Glucose, UA Negative Negative [facility] Ketones, UA Negative Negative [facility] Bilirubin, UA Negative Negative [facility] Blood, UA Negative Negative [facility] Nitrite, UA Negative Negative [facility] Urobilinogen, UA Negative <2.0 [facility] Leukocyte esterase, Negative Negative [facility] Epithelial cells, UA Many Few /HPF [facility] WBC, UA 0-5 0 - 4 /HPF [facility] RBC, UA 0-5 0 - 5 /HPF [facility] Bacteria, UA Few None seen [facility] Yeast, UA None seen [facility] Yeast with None seen [facility] pseudohyphae, UA [facility] Specimen Urine Performing Organization Address City/[facility] Phon e Number [facility] DEPARTMENT OF PATHOLOGY AND [address] [place] [address] [place] [address] GENOMIC MEDICINE [address] Urine culture (12/27/2019 4:15 PM CDT) Pathologist Sig nature Urine culture SEE COMMENTComment: [facility] Bacteriuria screen [facility] negative. Specimen Urine Performing Organization Address City/[facility] Phon e Number [facility] DEPARTMENT OF PATHOLOGY AND [address] [place] [address] [place] [address] GENOMIC MEDICINE [address] Blood culture, aerobic & anaerobic (12/27/2019 7:00 AM CDT)Only the most recent of4 resultswithin the time period is included. Blood culture No growth after 5 days of incubation. ANNALISA AMAYA isolate Comment: HOSPITAL Specimen Information Specimen Source: Blood Specimen Site: Unspecified Specimen Blood Performing Organization Address [facility] Phon e Number [facility] DEPARTMENT OF PATHOLOGY AND [address] [place] [address] [phone] [address] CRP high sensitivity (12/27/2019 6:00 AM CDT) CRP, high >30.00 mg/L [place] sensitivity Comment: [facility] Please note this test is different from the C-Reactive Protein HOSPITAL (CRP) assay. CRP is a nonspecific marker of inflammati on and its levels rise in the presence of conditions such as infection and inflammatory disorders. Persistent low levels of C RP can be measured with a high-sensitivity assay (hsCRP) and a re associated with increased risks for atherosclerotic di seases. High-Sensitivity CRP (hsCRP) results are used to assig n risk for stroke, acute myocardial infarction and peripheral vascular disease as follows: Low risk: < 1.00 mg/L Average risk: 1.00 - 3.00 mg/L High risk: > 3.00 - 10.00 mg/L Indeterminate: > 10.00 mg/L * *May be indicative of another source of inflammation or infection Specimen Blood Performing Organization Address [facility] Phon e Number [facility] DEPARTMENT OF PATHOLOGY AND [address] [place] [address] [phone] [address] LDH (12/27/2019 6:00 AM CDT) Pathologist Sig nature LDH 293 (H) 87 - 225 U/L [facility] Specimen Blood Performing Organization Address City/[facility]/ZIP [facility] Phon e Number [facility] DEPARTMENT OF PATHOLOGY AND [address] [place] [address] [facility] [address] [place] [address] HOSPITAL Ferritin level (12/27/2019 6:00 AM CDT) Pathologist Sig nature Ferritin level 762 (H) 13 - 150 ng/mL [facility] Specimen Blood Performing Organization Address City/[facility] Phon e Number [facility] DEPARTMENT OF PATHOLOGY AND [address] [place] [address] [phone] [address] Partial thromboplastin time, activated (12/27/2019 5:50 AM CDT) PTT 23.5 23.0 - 36.0 LAURY AMAYA Comment: [facility] PTT therapeutic range for unfractionated heparin is HOSPITAL 61.0-112.0 seconds which corresponds to Anti-Xa 0.3-0.7 U/ml. Specimen Blood Performing Organization Address City/[facility]/ZIP [facility] Phon e Number [facility] DEPARTMENT OF PATHOLOGY AND [address] [place] [address] [facility] [id number] [place] [address] Prothrombin time with INR (12/27/2019 5:50 AM CDT) [facility] Prothrombin time 14.6 (H) 11.5 - 14.5 [facility] INR 1.1 [place] Comment: [facility] International Normalized Ratio (INR) is a [facility] monitoring tool for patients who are stable on oral anticoagulant therapy. An INR of 2.0-3.0 is suggested for deep vein thrombosis/pulmonary embolism. Specimen Blood Performing Organization Address City/[facility] Phon e Number [facility] DEPARTMENT OF PATHOLOGY AND [address] [place] [address] [facility] [phone] [place] [address] D-dimer (12/27/2019 5:50 AM CDT)Only the most recent of2 resultswithin the time period is included. [facility] D-dimer <0.27 0.00 - 0.40 LAURY AMAYA Comment: ug/mL FEU RAINBOW Units are ug/ml Fibrinogen Equivalent Unit. HOSPITAL When combined with low clinical probability, D-dimer r esults of less than 0.5 ug/ml FEU have a good negative pred ictive value in excluding PE or DVT. For D-dimer results greater than 0.5 ug/ml FEU [facility] testing is indicated if PE or DVT is suspected clini niurka. Elevated D-dimer results have been reported in DVT, PE , and DIC cases and may indicate the presence of a clot. D-dimer results may be elevated due to old age, pregna ncy, inflammatory diseases, trauma, post-operative states, sepsis, and malignancies. Specimen Blood Performing Organization Address City/[facility]/ZIP [facility] Phon e Number [facility] DEPARTMENT OF PATHOLOGY AND [address] [place] [address] [facility] [address] [place] [phone] HOSPITAL Phosphorus level (12/27/2019 5:50 AM CDT) Pathologist Sig nature Phosphorus 3.1 2.4 - 4.5 mg/dL [facility] Specimen Blood Performing Organization Address City/[facility]/ZIP [facility] Phon e Number [facility] DEPARTMENT OF PATHOLOGY AND [address] [place] [address] [facility] [address] [place] [address] B natriuretic peptide (12/27/2019 5:50 AM CDT) Pathologist Sig nature BNP 10 0 - 100 pg/mL [facility] Specimen Blood Performing Organization Address City/[facility]/ZIP [facility] Phon e Number [facility] DEPARTMENT OF PATHOLOGY AND [address] [place] [id number] [facility] [address] [place] [phone] HOSPITAL Lactic acid level (12/27/2019 5:50 AM CDT) Pathologist Sig nature Lactic acid 0.9 0.5 - 2.2 mmol/L [facility] Specimen Blood Performing Organization Address City/[facility]/ZIP [facility] Phon e Number [facility] DEPARTMENT OF PATHOLOGY AND [address] [place] [address] [facility] [address] [place] [address] HOSPITAL Hemoglobin A1c (12/27/2019 5:50 AM CDT) Hemoglobin A1C 6.2 (H) 4.0 - 5.6 % [facility] Comment: RAINBOW HbA1c cutoffs for diagnosing diabetes: ANNALISA GAN 4.0% - 5.6% = normal 5.7% - 6.4% = increased risk for diabetes (prediabetes )9 >=6.5% = diabetes9 Goals for glycemic control (ADA 2016) < 7.0% Target for non adults with diabetes. More or less stringent targets may be appropriate for individual patients. <7.5% Target for Children and adolescents with type 1 diabetes. Specimen Blood Performing Organization Address City/[facility] Phon e Number [facility] DEPARTMENT OF PATHOLOGY AND [address] [place], [place] [phone] [place] [address] [address] [place] [address] Creatine kinase, total (CPK) (12/27/2019 5:50 AM CDT)Only the most recent of2 resultswithin the time period is included. Pathologist Sig nature Creatine kinase 82 26 - 192 U/L [facility] Specimen Blood Performing Organization Address City/[facility]/ZIP [facility] Phon e Number [facility] DEPARTMENT OF PATHOLOGY AND [address] [place] [address] [facility] [address] [place] [address] Amylase level (12/27/2019 5:50 AM CDT) Pathologist Sig nature Amylase 94 (H) 13 - 73 U/L [facility] Specimen Blood Performing Organization Address City/[facility] Phon e Number [facility] DEPARTMENT OF PATHOLOGY AND [address] [place], [place] [phone] [place] [address] [place] [address] Lipid panel (12/27/2019 5:50 AM CDT) Cholesterol 119 <200 mg/dL [facility] Triglycerides 116 <150 mg/dL [facility] HDL cholesterol 52 >40 mg/dL [facility] LDL cholesterol 44Comment: Result <100 mg/dL [place] obtained by direct [facility] LDL measurement [facility] Lipid panel [facility] interpretation Comment: [facility] Total Cholesterol (mg/dL) [facility] <200 Desirable 200-239 Borderline-high >=240 High Triglycerides (mg/dL) <150 Normal 150-199 Borderline-high 200-499 High >=500 Very high HDL Cholesterol (mg/dL) <40 Low (male) <40 Low (female) LDL Cholesterol (mg/dL) <100 Optimal 100-129 Near or above optimal 130-159 Borderline-high 160-189 High >=190 Very high Risk Catergories that modify LDL goals. Risk Catergories LDL goal (mg/d L) CHD and CHD risk equivalent <100 (10-year risk >20%) Multiple (2+) risk factors <130 (10-year risk =<20%) 0-1 risk factors <160 (<10-year risk) Defining levels of lipids in metabolic syndrome Triglycerides >=150 mg/dL HDL Cholesterol Men <40 mg /dL Women <40 mg/ dL Non-HDL cholesterol is a second target for therapy in persons with high triglycerides (>=200 mg/dL) Specimen Blood Performing Organization Address City/[facility] Phon e Number [facility] DEPARTMENT OF PATHOLOGY AND [address] [place] [phone] [place] [address] COVID-19 qualitative PCR (12/23/2019 7:55 PM CDT) Interpretation Positive results [place] are indicative of [facility] active infection HOSPITAL with 2019-nCoV but do not rule out bacterial infection or coinfection with other viruses. The agent detected may not be the definite cause of disease. COVID-19 qualitative Detected (A) Not-Detected [place] PCR result [facility] COVID-19 qualitative See link below for [place] PCR PDF Lab [facility] ReportComment: HOSPITAL Specimen Nasopharyngeal swab Performing Organization Address [facility] Phon e Number [facility] DEPARTMENT OF PATHOLOGY AND [address] [place], [place] [phone] [address] [facility] Lactic acid level, SEPSIS - Now and repeat 2x every 3 hours (12/23/2019 7:45 PM CDT) Pathologist Sig nature Lactic acid 2.0 0.5 - 2.2 mmol/L [facility] Specimen Blood Performing Organization Address [facility] Phon e Number [facility] DEPARTMENT OF PATHOLOGY AND [address] [place] [address] [facility] [phone] [place] [address] ECG ED Preliminary Interpretation - Not an Order (12/23/2019 7:38 PM CDT) Narrative Performed At Kenia Wang MD 12/24/2019 12: 20 PM ECG ED Preliminary Interpretation - Not an Order Performed by: Kenia Wang MD Authorized by: Kenia Wang MD ECG reviewed by ED Physician in the absence of a cardi ologist: yes ([id number]) Interpretation: Interpretation: abnormal Rate: ECG rate: 108 ECG rate assessment: tachycardic Rhythm: Rhythm: sinus tachycardia Ectopy: Ectopy: none QRS: QRS axis: Normal QRS intervals: Normal Conduction: Conduction: normal ST segments: ST segments: Normal T waves: T waves: normal Other findings: Other findings: LVH after 03/17/2019 Advance Directives For more information, please contact: [phone] Type Date Recorded Patient Program Architect Explanati on Advance Directives, Living Will 12/23/2019 7:56 PM and Medical Power of Network Communications Engineer
--- OUTSIDE RECORDS SUMMARY | 2020-03-17 13:07 | XMS REPORT | Continuity of Care Document ---
:1990 Author Organization [facility] t Address [facility] [place] [address] Care Team Providers Name Role Phone Leo Carrillo MD, Edjonnathane Primary Care Physician [phone] Only, Test Attending Clinician Unavailable Doctor Unassigned, Name Attending Clinician Unavailable Hasmukh ANDERSON, Lucy Attending Clinician Nurse, Urgent Attending Clinician Unavailable Obdulio RN, T Attending Clinician Unavailable Felipe ANDERSON, Armando Attending Clinician Human E COMMERCE MANAGER, F Attending Clinician Rodrigo ANDERSON, Akbar Attending Clinician Lori Pan Attending Clinician Huey ANDERSON, Geronimo Attending Clinician HASMUKH Admitting Clinician Unavailable Payers Payer Name Policy Type Policy Effective Date Expiration Date Sour ce Number AETNAAETNA [id number] [facility] [place] [id number] /05/2018-Present MO Problems Condition Condition Condition Status Onset Resolution Last Treating Co mments Source Name Details Category Date Date Treatment Clinician Date SOB SOB Disease Active [place] (shortness (shortness 8-26 Me thodi of breath) of breath) 00:00: st 00 COVID-19 COVID-19 Disease Active 2020-0 [place] virus virus 12-26 [facility] infection infection 00:00: st 00 Allergies, Adverse Reactions, Alerts Allergy Allergy Status Severity Reaction(s) Onset Inactive Treating Comm ents Source Name Type Date Date Clinician Penicill DA Active [place] 2020-0 [facility] [place] [facility] amoxicil DA Active ND 2020-0 [facility] braden 12-24 [place] [facility] d [facility] Amoxicil [place] Active Rash 0 [place] braden ty to 12-22 [facility] adverse 00:00: st reaction 00 s to drug Penicill Propensi Active Rash 2019-0 [place] in V ty to 12-22 [facility] adverse 00:00: st reaction 00 s to drug Social History Social Habit Start Date Stop Date Quantity Comments Source Sex Assigned At [facility] ethodist Alcohol intake 2019-12-27 2019-12-27 [facility] thodist 00:00:00 00:00:00 Medications Ordered Filled Start Stop Current Ordering Indication Dosage Frequency Signature Comments Components Source Medication Medication Date Date Medication? Clinician (SIG) Name Name metFORMIN 2019-0 Yes 500mg Q.5D Take 500 Linda ston (GLUCOPHAGE 8-27 mg by [facility] ) 500 mg 17:03: mouth 2 st tablet 20 (two) times a day with meals. ascorbic 2020-0 2020- No 500mg QD Take 1 [place] acid, 12-28 tablet [facility] vitamin C, 00:00: 23:59 ([address] (VITAMIN C) 00 :00 total) by 500 MG mouth tablet daily for 30 days. zinc 2020-0 2020- No 220mg QD Take 1 Nova sulfate 12-28 capsule [facility] (ZINCATE) 00:00: 23:59 ([address] 220 (50) mg 00 :00 total) by capsule mouth daily for 30 days. enoxaparin 2020-0 2020- No 40mg Q.5D Inject 0.4 Nova (LOVENOX) 12-27 09-05 mL (40 mg Meth fransisca 40 mg/0.4 00:00: 23:59 total) st mL syringe 00 :00 under the skin every 12 (twelve) hours for 13 days. dexamethaso 2020-0 2020- No 6mg QD Take 1 Linda palomo 12-27 tablet (6 [facility] (DECADRON) 00:00: 23:59 mg total) s t 6 MG tablet 00 :00 by mouth daily with breakfast for 9 days. levoFLOXaci 2019- No 750mg QD Take 1 Corwin lopez 12-27 tablet [facility] (Levaquin) 00:00: 23:59 ([address] 750 MG 00 :00 total) by tablet mouth daily for 4 days. Vital Signs Vital Name Observation Time Observation Value Comments Source Heart rate 2020-01-01 15:00:00 84 /min Avtar Echevarria Systolic blood 2020-01-01 11:58:10 98 mm[Hg] Estefanyto n [facility] pressure Diastolic blood 2020-01-01 11:58:10 59 mm[Hg] [place] on [facility] pressure Body temperature 2020-01-01 11:58:10 36.67 Shi Estefany ton [facility] Respiratory rate 2020-01-01 11:58:10 16 /min Estefany ton [facility] Oxygen saturation in 2020-01-01 11:58:10 96 /min [facility]tar Echevarria Arterial blood by Pulse oximetry Body height 2019-12-27 04:08:00 152.4 cm Avtar Echevarria Body weight 2019-12-27 04:08:00 98.4 kg Avtar Echevarria BMI 2019-12-27 04:08:00 42.37 kg/m2 [facility] Echevarria Procedures Procedure Date / Time Performing Clinician Source Performed TTE COMPLETE, WO 2020-01-01 13:50:00 Zachary Sawyer CONTRAST, W DOPPLER ([id number]) POC GLUCOSE 2020-01-01 11:59:00 Henry Noe Thalakulathu POC GLUCOSE 2020-01-01 05:44:00 Henry Noe Thalakularomariou BASIC METABOLIC PANEL 2020-01-01 05:23:00 Zachary Sawyer MAGNESIUM LEVEL 2020-01-01 05:23:00 Zachary Sawyer ESTIMATED GFR 2020-01-01 05:23:00 Zachary Sawyer POC GLUCOSE 2019-12-31 16:57:00 Herny Noe odsocrates Thalakulathu XR CHEST 1 VW PORTABLE 2019-12-31 13:44:13 Jaren Lawson on [facility] THYROID STIMULATING 2019-12-31 13:00:00 Zachary Sawyer [facility] HORMONE T4, FREE 2019-12-31 13:00:00 Zachary Sawyer POC GLUCOSE 2019-12-31 12:00:00 Henry Noe Meth odist Thalakulathu POC GLUCOSE 2019-12-31 05:53:00 Henry Noe Meth odist Thalakulathu COMPREHENSIVE METABOLIC 2019-12-31 04:00:00 Jaren Lawson [facility] PANEL ESTIMATED GFR 2019-12-31 04:00:00 Jaren Lawson Meth odist TROPONIN 2019-12-31 00:30:00 Zachary Sawyer POC GLUCOSE 2019-12-30 20:47:00 Henry Noe Armaan odist Thalakulathu TROPONIN 2019-12-30 20:15:00 Zachary Sawyer TROPONIN 2019-12-30 17:00:00 Zachary Sawyer ECG 12-LEAD 2019-12-30 16:29:25 Henry Noe Meth odist Thalakulathu POC GLUCOSE 2019-12-30 16:24:00 Henry Noe Meth odist Thalakulathu POC GLUCOSE 2019-12-30 11:25:00 Henry Noe Armaan odist Thalakulathu CBC WITH PLATELET AND 2019-12-30 10:00:00 Zachary Sawyer [facility] DIFFERENTIAL MANUAL DIFFERENTIAL 2019-12-30 10:00:00 Zachary Sawyerist POC GLUCOSE 2019-12-30 05:45:00 Henry Noe Meth odist Thalakulathu COMPREHENSIVE METABOLIC 2019-12-30 03:50:00 Jaren Lawson [facility] PANEL ESTIMATED GFR 2019-12-30 03:50:00 Jaren Lawson Meth odist POC GLUCOSE 2019-12-29 19:36:00 Henry Noe Meth odist Thalakulathu POC GLUCOSE 2019-12-29 17:12:00 Henry Noe Meth odist Thalakulathu POC GLUCOSE 2019-12-29 11:20:00 Henry Noe Meth odist Thalakulathu POC GLUCOSE 2019-12-29 05:59:00 Henry Noe Meth odist Thalakulathu COMPREHENSIVE METABOLIC 2019-12-29 04:45:00 Jaren Lawson [facility] PANEL ESTIMATED GFR 2019-12-29 04:45:00 Jaren Lawson Meth odist POC GLUCOSE 2019-12-28 20:44:00 Henry Noe Meth odist Thalakulathu POC GLUCOSE 2019-12-28 16:46:00 Henry Noe Meth odist Thalakulathu POC GLUCOSE 2019-12-28 12:04:00 Henry Noe odist Thalakulathu POC GLUCOSE 2019-12-28 05:49:00 Henry Noe odist Thalakulathu CBC WITH PLATELET AND 2019-12-28 04:40:00 Achuo, Kimberly hardin [facility] DIFFERENTIAL COMPREHENSIVE METABOLIC 2019-12-28 04:40:00 Jairo, Kimberly guadarrama [facility] PANEL ESTIMATED GFR 2019-12-28 04:40:00 Kimberly Gill Me thodist MANUAL DIFFERENTIAL 2019-12-28 04:40:00 Jairo, Kimberly lopez [facility] POC GLUCOSE 2019-12-27 19:49:00 Henry Noe odist Thalakulathu POC GLUCOSE 2019-12-27 17:02:00 Henry Noe odist Thalakulathu URINE CULTURE 2019-12-27 16:15:00 Kimberly Gill Me thodist URINALYSIS SCREEN AND 2019-12-27 16:15:00 [place], Kimberly Echevarria MICROSCOPY, WITH REFLEX TO CULTURE TROPONIN 2019-12-27 16:10:00 Kimberly Gill Me thodist POC GLUCOSE 2019-12-27 11:57:00 Henry Noe odist Thalakulathu BLOOD CULTURE, AEROBIC & 2019-12-27 07:00:00 Kimberly Gill ANAEROBIC BLOOD CULTURE, AEROBIC & 2019-12-27 06:00:00 Achuo, Kimberly Rolle new [facility] ANAEROBIC THYROID STIMULATING 2019-12-27 06:00:00 Achuo, Kimberly Chino n [facility] HORMONE TROPONIN 2019-12-27 06:00:00 Achuo, Kimberly Nova Me thodist CRP HIGH SENSITIVITY 2019-12-27 06:00:00 Achuo, Kimberly Peter on [facility] FERRITIN LEVEL 2019-12-27 06:00:00 Achuo, Kimberly Nova Me thodist LDH 2019-12-27 06:00:00 Achuo, Kimberly Nova Me thodist HC COMPLETE BLD COUNT 2019-12-27 05:50:00 Achuo, Kimberly Allison lashawn [facility] W/AUTO DIFF PROTHROMBIN TIME WITH INR 2019-12-27 05:50:00 Achuo, Kimberly Nova [facility] PARTIAL THROMBOPLASTIN 2019-12-27 05:50:00 Achuo, Kimberly Suazo Linda gibsno [facility] TIME (PTT) COMPREHENSIVE METABOLIC 2019-12-27 05:50:00 Achuo, Kimberly Olivia chiara [facility] PANEL CREATINE KINASE, TOTAL 2019-12-27 05:50:00 Achuo, Kimberly Lakeisha Linda gibson [facility] (CPK) B NATRIURETIC PEPTIDE 2019-12-27 05:50:00 Achuo, Kimberly Allison lashawn [facility] AMYLASE LEVEL 2019-12-27 05:50:00 Achuo, Kimberly Nova Me thodist MAGNESIUM LEVEL 2019-12-27 05:50:00 Achuo, Kimberly Nova Me thodist PHOSPHORUS LEVEL 2019-12-27 05:50:00 Achuo, Kimberly Nova M ethodist LACTIC ACID LEVEL 2019-12-27 05:50:00 Achuo, Kimberly Nova [facility] ESTIMATED GFR 2019-12-27 05:50:00 Achuo, Kimberly Nova Me thodist HEMOGLOBIN A1C 2019-12-27 05:50:00 Achuo, Kimberly Nova Me thodist LIPID PANEL 2019-12-27 05:50:00 Achuo, Kimberly Nova Me thodist D-DIMER 2019-12-27 05:50:00 Kimberly Gill Me thodist XR CHEST 1 VW PORTABLE 2019-12-27 05:22:00 Kimbelry Gillfarhan Echevarria XR CHEST 1 VW PORTABLE 2019-12-23 20:41:50 ReligiousKenia christine [facility] BLOOD CULTURE, AEROBIC & 2019-12-23 20:05:00 ReligiousKenia christine ANAEROBIC COVID-19 QUALITATIVE PCR 2019-12-23 19:55:00 ReligiousKenia christine BLOOD CULTURE, AEROBIC & 2019-12-23 19:45:00 ReligiousKenia christine ANAEROBIC HC COMPLETE BLD COUNT 2019-12-23 19:45:00 Kenia Wang on [facility] W/AUTO DIFF COMPREHENSIVE METABOLIC 2019-12-23 19:45:00 ReligiousKenia christine PANEL CREATINE KINASE, TOTAL 2019-12-23 19:45:00 Kenia Wang (CPK) TROPONIN 2019-12-23 19:45:00 Kenia Wang Met hodist LACTIC ACID LEVEL, SEPSIS 2019-12-23 19:45:00 ReligiousKenia christine - NOW AND REPEAT 2X EVERY 3 HOURS D-DIMER 2019-12-23 19:45:00 Kenia Wang Met hodist ESTIMATED GFR 2019-12-23 19:45:00 Kenia Wang Met hodist ECG ED PRELIMINARY 2019-12-23 19:38:52 Kenia Wang [facility] INTERPRETATION ECG 12-LEAD 2019-12-23 19:37:56 Kenia Wang Met hodist Plan of Care Planned Activity Planned Date Details Comments Source Future Scheduled 2019-12-06 INFLUENZA VACCINE Estefanyto n [facility] Test 00:00:00 [code = INFLUENZA VACCINE] Future Scheduled 2009 Screening for [facility] Me thodist Test 00:00:00 malignant neoplasm of cervix (procedure) [code = 743095203] Future Scheduled 1998 DIABETES: RETINAL EYE [place] [facility] Test 00:00:00 EXAM [code = DIABETES: RETINAL EYE EXAM] Future Scheduled 1998 DIABETIC FOOT EXAM Estefanyt on [facility] Test 00:00:00 [code = DIABETIC FOOT EXAM] Future Scheduled 1998 URINE MICROALBUMIN [place] [facility] Test 00:00:00 [code = URINE MICROALBUMIN] Encounters Start End Encounter Admission Attending Care Care Encounter Source Date/Time Date/Time Type Type Clinicians Facility Department ID 2020-01-16 2020-01-16 Laboratory Only, [facility] [id number] 11:51:57 12:06:57 Only Test [place] [id number] [place] 4.2.7.2.686 [place] [id number] 2020-01-16 2020-01-16 Orders Doctor JOSE [id number] 00:00:00 00:00:00 Only Unassigned, BARBARA 350.1.13.[address] [place] [address]686 [id number] 2019-12-27 2020-01-01 Inpatient HENRY NOE [facility] [id number] [place] 00:00:00 00:00:[address] 2019-12-25 2019-12-25 Telephone Nurse, [facility] [id number] 00:00:00 00:00:00 Urgent HEALTH 350.1.13.[address]68[facility] [id number] Primary & 370 Specialty Care 2019-12-24 2019-12-24 Letter JOSE Mak [id number] 00:00:00 00:00:00 (Out) Anju JIMENEZ 350.1.13.10 [facility] 42.7.2.686 [id number] 2019-12-23 2019-12-23 Telephone Human, [facility] [id number] 00:00:00 00:00:00 Shanice F Health 350.1.13.10 Specialty 2..2.686 [facility] [id number] [place] [id number] 2019-12-23 2019-12-23 Emergency ZOROASTRIAN, [facility] 064 [id number] [place] 00:00:00 00:00:[address] 2019-12-21 2019-12-21 Emergency Carlyle Wallace [facility] 1.2.84 [id number] [id number] 17:38:00 20:52:00 Phil Sylvester Michael 350.1.13.10 [place] 4.2.7.2.686 [place] [id number] 2019-12-21 2019-12-21 Orders Doctor JOSE [id number] 00:00:00 00:00:00 Only Unassigned, BARBARA 350.1.13.10 [place] [facility] 4.2.7.2.686 [id number] 2019-05-24 2019-05-24 Refill Radha Christine [facility] [id number] 00:00:00 00:00:00 Geronimo Rodriguez 350.1.13.10 [place] 4.2.7.2.686 Professio [id number] nal 134 Building Results Test Description Test Time Test Comments Results Result Comments Source Transthoracic Echocardiogram Complete, (w Contrast, St rain and 2020-01-01 15:38:37 3D if needed) Test Item Value Reference Range Interpretation Comme nts LA Volume Index (test code = 15.78 mL/m2 5468114131) RA pressure (test code = 9016294331) 5.00 mmHg LA Vol 4C (test code = 3656950023) 29.00 ml RVSP (test code = 6260941363) 22.11 mmHg LA diam s (test code = 4397484076) 3.90 cm Aortic Root (test code = 0222354410) 2.95 cm D E excurs (test code = 9982104987) 1.80 E f slope (test code = 2407606584) 0.08 E prime lat (test code = 3703214497) 0.13 E cj sept (test code = 5469294751) 0.10 PV acc T slope (test code = 8.20 1364571883) CHESTER BP EF (test code = 7083034364) 62.00 % LA VOL 2C (test code = 4406243194) 27.00 ml AoV Area, Vmax (test code = 3.41 cm2 1065031629) AoV Area, VTI (test code = 9913428481) 4.02 cm2 AoV Mean PG (test code = 3282249530) 3.93 mmHg AoV Peak PG (test code = 3696709712) 7.79 mmHg AoV Vmax (test code = 3374980287) 1.40 m/s AoV VTI (test code = 2957100760) 0.21 m IVS,d (test code = 0561897436) 1.41 cm LV,d (test code = 7612647465) 4.16 cm LV EF,A2C (test code = 5700861709) 64.35 % LV EF,A4C (test code = 5501835172) 59.00 % LV EF,BP (test code = 9215214830) 62.03 % Martinez Sarita,d A2C (test code = 7.15 cm 6208209971) Martinez Sarita,d A4C (test code = 8.20 cm 2154060927) Martinez Sarita,s A2C (test code = 5.92 cm 5732212121) Martinez Sarita,s A4C (test code = 6.71 cm 7139066703) LV,s (test code = 3111095061) 2.81 cm LV SV,A2C (test code = 2285825729) 38.85 % LV SV,A4C (test code = 3839476137) 43.30 % LV Vol,d A2C (test code = 4583052192) 60.37 mL LV Vol,d A4C (test code = 7914153857) 73.39 ml LV Vol,d BP (test code = 0390779282) 71.13 ml LV Vol,s A2C (test code = 4047011415) 21.52 mL LV Vol,s A4C (test code = 7811175594) 30.09 ml LV Vol,s BP (test code = 4897165334) 27.01 nl LVOT Diam,S (test code = 7714733953) 2.37 cm LVOT Vmax (test code = 1016146889) 1.08 m/s LVOT VTI (test code = 4969030561) 0.19 m LVPWD,d (test code = 1026769911) 1.44 cm TR Vpeak (test code = 7085508977) 2.07 mm/s MV E A ratio (test code = 4037241499) 1.26 TR pk grad (test code = 5063018684) 15.70 mmHg E wave decelartion time (test code = 239.08 msec 6521102265) MV Peak A Pablito (test code = 9627349991) 0.58 m/s MV valve area p 1/2 method (test code 3.57 cm2 = 2740335723) MV Peak E Pablito (test code = 5642637460) 0.73 m/s MV stenosis pressure 1/2 time (test 61.58 ms code = 3325841139) AV LVOT peak gradient (test code = 4.65 mmHg 1794171884) LV SYS VOL (test code = 5573237136) 29.68 ml LV GRANGER VOL (test code = 5802620666) 77.01 ml LA area s A4C (test code = 4112846681) 13.41 cm2 LV SV Teich 2D (test code = 47.32 ml 8071075699) LVOT SI (test code = 6293632683) 43.39 ml/m2 AoV Cusp sep (test code = 0380480766) 2.32 AoV Vmn (test code = 8985016158) 0.93 IVS s 2D (test code = 7228025901) 1.50 LA Ao Ratio Mmode (test code = 1.33 9648875684) LVOT Vmn (test code = 6418754998) 0.72 Pt Size (test code = 2793947995) 152.40 Pt Wt (test code = 5776868496) 97.98 Ao root annulus (test code = 2.95 cm 5760923353) PV AT (test code = 0240889036) 111.32 msec LVOT mean grad (test code = 2.30 mmHg 3635860049) LVPW s PLAX (test code = 2722574961) 1.51 cm MV Decel slope (test code = 3.06 m/s2 7978491057) LA Vol MOD A4C (test code = 28.79 ml 0442714425) Velocity Ratio (V1/V2) (test code = 0.77 m/s 4689) EF (test code = 2066970689) 61.46 % E/A ratio (test code = 2907621877) 1.26 LVOT area (test code = 0525419279) 4.41 cm2 TRUNG (test code = TRUNG) Left ventricular systolic function is normal. There is mild left ventricular concentric hypertrophy. Left Ventricular ejection fraction is 60 - 65%. [facility] [place] [place] [id number] 12:09:34 Test Item Value Reference Range Interpretation Comments POC glucose (test code = 141 mg/dL 65-99 H Ope rator Name: Victor Manuel [id number]) CodyDevice ID: [id number] Lab Interpretation (test Abnormal code = 75716-7) [facility] & rblwtfgna4665-10-10 11:03:03 Test Item Value Reference Range Interpretation Comments Blood culture No growth Specimen isolate (test after 5 days InformationSpe cimen code = 600-7) of Source: BloodS pecimen incubation. Site: Unspecifi ed [facility] metabolic [id number] 05:44:42 Test Item Value Reference Range Interpretation Comments Sodium (test code = 2951-2) 139 135- 148 mEq/L Potassium (test code = 2823-3) 3.8 3.5- 5.0 mEq/L Chloride (test code = 2075-0) 101 98- 112 mEq/L CO2 (test code = 8-9) 29 24- 31 mEq/L Anion gap (test code = 54005-8) 9@ANIO 7- 15 mEq/L BUN (test code = 3094-0) 19 mg/dL 6-20 Creatinine (test code = 2160-0) 0.90 mg/dL 0.5-0.9 Glucose (test code = 2345-7) 100 mg/dL 65-99 H Calcium (test code = 74380-3) 9.1 mg/dL 8.3-10.2 Lab Interpretation (test code = Abnormal 35675-8) [facility] [id number] 05:44:42 Test Item Value Reference Range Interpretation Comments Magnesium (test code = 34671-2) 2.2 mg/dL 1.6-2.6 [place] MethodistEstimated [id number] 05:44:42 Test Item Value Reference Range Interpretation Comments Estimated GFR (test >=90 mL/min/1.73 m2 [facility] Units code = 5488) InterpretationG 1 >=90 Normal or highG2 60-89 Mildly zgaxjvvqvS4p 45-59 Mildly to mode rately kobnqyothV3i 30-44 Moderately to severely decreasedG4 15-29 Severely decre asedG5 <15 Kidn ey failureThe eGFR was calculated siomara irizarry the Chronic Kidney Disease Epidemiology Co llaboration (CKD-EPI) equat ion. Interpretation is based on recommendations of the National Kidney Foundation-Kidn ey Disease Outcomes Qualit y Initiative (NKF-KDOQI) pub lished in 2014. [facility] MethodistXR Chest 1 Vw Ndunebpx5652-10-41 13:46:15Hm Interface, Radiology Results - 12/31/2019 1:49 PM CDTSINGLE VIEW CHEST, 12/31/2019Clinical History: Covid pneumonia. Anomaly of the pleura.Technique: Single, portable AP view chest.Comparison: 12/27/2019Impression:1.Continued low lung volume. There is marginal improvement in bilateral alveolar opacities consistent with evolving Covid pneumonia and atelectasis.2.Probable underlying trace left pleural effusion. No sizable right effusion. No pneumothorax..3.Normal heart size and mediastinal contour for technique.4.Normal pulmonary vasculature.5.Intact skeleton.Avtar EchevarriaT4, [id number] 13:44:33 Test Item Value Reference Range Interpretation Comments T4, free (test code = 3024-7) 1.68 ng/dL 0.9-1.7 Avtar EchevarriaThyroid stimulating [id number] 13:44:33 Test Item Value Reference Range Interpretation Comments TSH (test code = 3016-3) 0.85 0.27- 4.20 uIU/mL Avtar EchevarriaComprehensive metabolic [id number] 04:48:55 Test Item Value Reference Range Interpretation Comments Sodium (test code = 140 135- 148 mEq/L 2951-2) Potassium (test code = 3.9 3.5- 5.0 mEq/L 2823-3) Chloride (test code = 101 98- 112 mEq/L 5-0) CO2 (test code = 2027-) 28 24- 31 mEq/L Anion gap (test code = 11@ANIO 7- 15 mEq/L 65250-0) BUN (test code = 3094-0) 18 mg/dL 6-20 Creatinine (test code = 0.80 mg/dL 0.5-0.9 0-0) Glucose (test code = 97 mg/dL 65-99 2345-7) Calcium (test code = 9.0 mg/dL 8.3-10.2 24551-2) Protein (test code = 7.0 g/dL 6.3-8.3 -[place] n 2885-2) 4.6-7.0 g/dL1 week 4.4-7 .6 g/dL7 months-1y ear 5.1-7 .3 g/dL1-2 years 5.6-7 .5 g/dL>3 years 6.0-8 .0 g/tX04-141 6.3-8 .3 g/dL Albumin (test code = 3.4 g/dL 3.5-5 L 1751-7) A/G ratio (test code = 0.9 0.7-3.8 1759-0) Alkaline phosphatase 46 U/L 35-104 (test code = 6768-6) AST (test code = 1920-8) 48 U/L 10-35 H ALT (test code = 1742-6) 91 U/L 5-50 H Total bilirubin (test 0.3 mg/dL 0-1.2 code = 1974-2) Lab Interpretation (test Abnormal code = 49459-2) [place] VpajjhakhXpdswlut5702-36-43 01:24:10 Test Item Value Reference Range Interpretation Comments Troponin (test code = <0.006 0-0.04 [place] [address]-1) having a myocar dial infarction, mayco ng with all other appro priate clinical measur es and actions includi ng ECG and other diagnosti cs as appropriate, ks asure Ultra TnI at 0 hrs and at 3 hrs.Myocardia l infarction VERY LIKELYThe 0 hr TnI level is > 0.10 ng/mL --Myocardial in farction LIKELYThe 0 hr TnI level is > 0.04 ng/mL and 3 hr level is increa sed or decreased by at least 0.020 ng/mL -------Benjamin cardial infarct ion VERY UNLIKELYBoth th e 0 hr and 3 hr TnI levels <= 0.04 ng/mL(within no rmal limits) OR 0 hr is > 0.04 ng/mL and 3 hr is increased OR de creased by less than 0.020 ng/mL [facility] 12 [id number] 17:09:43 Test Item Value Reference Range Interpretation Comments Ventricular rate (test 57 code = 253) Atrial rate (test code 57 = 255) IL interval (test code 148 = 266) QRSD interval (test 88 code = 260) QT interval (test code 424 = 264) QTC interval (test code 412 = 265) P axis 1 (test code = 46 267) QRS axis 1 (test code = -8 268) T wave axis (test code -26 = 270) EKG impression (test Sinus code = 273) bradycardia-Voltage criteria for left ventricular hypertrophy-T wave abnormality, consider anterior ischemia-Abnormal ECG-In automated comparison with ECG of 23-DEC-2019 19:37,-Vent. rate has decreased BY 51 BPM-T wave inversion now evident in Anterior leads- [place] MethodistCB with platelet and bzgjxkvrcbnt1642-30-25 10:50:19 Test Item Value Reference Range Interpretation Comments WBC (test code = 15541-3) 10.39 4.50- 11.00 k/uL RBC (test code = 88628-4) 3.84 m/uL 4.2-5.5 L HGB (test code = 718-7) 11.7 g/dL 12-16 L HCT (test code = 4544-3) 37.9 % 37-47 MCV (test code = 787-2) 98.7 fL 82-100 MCH (test code = 785-6) 30.5 pg 27-34 MCHC (test code = 786-4) 30.9 g/dL 31-37 L RDW - SD (test code = 56394-8) 44.8 fL 37-55 MPV (test code = 61880-8) 9.1 fL 8.8-13.2 Platelet count (test code = 370 150- 400 k/uL 61397-8) Nucleated RBC (test code = 0.00 /100 WBC 00445-1) Neutrophils (test code = 51126-9) 58.0 % 39-69 Lymphocytes (test code = 63381-0) 31.0 % 25-45 Monocytes (test code = 96333-6) 8.0 % 0-10 Eosinophils (test code = 99251-7) 0.0 % 0-5 Basophils (test code = 01039-1) 0.0 % 0-1 Lab Interpretation (test code = Abnormal 90803-4) [place] MethodistManual ykbjepoqieov2812-19-16 10:50:19 Test Item Value Reference Range Interpretation Comments Manual differential (test code = PERFORMED 16485-5) Neutrophils (test code = 58.0 % 39-69 69668-9) Lymphocytes (test code = 31.0 % 25-45 64860-2) Monocytes (test code = 13698-2) 8.0 % 0-10 Eosinophils (test code = 0.0 % 0-5 99949-5) Basophils (test code = 95588-8) 0.0 % 0-1 Metamyelocytes (test code = 0 % 740-1) Promyelocytes (test code = 0 % 783-1) Reactive lymphocytes (test code 3.0 = 733-6) Platelet slide review (test code Mago adequate = 65482-9) [facility] [id number] 16:25:40 Test Item Value Reference Range Interpretation Comments Urine culture (test SEE COMMENT Bacteriu erma screen code = 8617479) negative. [facility], with reflex to culture 2019-12-27 16:25:37 Test Item Value Reference Range Interpretation Comments Specimen site (test code = Clean catch 7432168) Color, UA (test code = 5778-6) Yellow Appearance, UA (test code = Clear 5767-9) Specific gravity, UA (test code = 1.025 1.001-1.035 5811-5) pH, UA (test code = 5803-2) 5.0 5.0-8.5 Protein, UA (test code = 10235-5) 1+ Negative A Glucose, UA (test code = 95615-4) Negative Negative Ketones, UA (test code = 2514-8) Negative Negative Bilirubin, UA (test code = Negative Negative 5770-3) Blood, UA (test code = 5794-3) Negative Negative Nitrite, UA (test code = 5802-4) Negative Negative Urobilinogen, UA (test code = Negative <2.0 90216-1) Leukocyte esterase, UA (test code Negative Negative = 5799-2) Epithelial cells, UA (test code = Many Few /HPF 5787-7) WBC, UA (test code = 5821-4) 0-5 0- 4 /HPF RBC, UA (test code = 46595-3) 0-5 0- 5 /HPF Bacteria, UA (test code = Few None seen 31445-2) Yeast, UA (test code = 12107-3) None seen Yeast with pseudohyphae, UA (test None seen code = 73628-1) Lab Interpretation (test code = Abnormal 85882-0) [facility] high [id number] 14:11:52 Test Item Value Reference Range Interpretation Comments CRP, high sensitivity >30.00 mg/L Please note this test is (test code = 65028-3) differ ent from the C-Reactive Prot ein (CRP) assay. CRP is a nonspecific mar ker of inflammation an d its levels rise in the presence of con ditions such as infecti on and inflammatory di sorders. Persistent low levels of CRP can be min ured with a high-sensitiv ity assay (hsCRP) and ar e associated with increased risks for ather osclerotic diseases.High-S ensitivity CRP (hsCRP) res ults are used to assign risk for stroke, acute m yocardial infarction and peripheral vascular diseas e as follows:Low ris k: < 1.00 mg/LAverage ris k: 1.00 - 3.00 mg/LHigh r isk: > 3.00 - 10.00 mg/LIndetermina te: > 10.00 mg/L * *M ay be indicative of a nother source of infla mmation or infection [facility]Ferritin [id number] 11:44:23 Test Item Value Reference Range Interpretation Comments Ferritin level (test code = 2276-4) 762 ng/mL 13-150 H Lab Interpretation (test code = Abnormal 76453-6) [facility] PidyghaehX-[id number] 07:43:32 Test Item Value Reference Range Interpretation Comments D-dimer (test code <0.27 0.00- 0.40 ug/mL FEU U nits are ug/ml = 12284-2) Fibrinogen Equi valent Unit.When combi suleman with low clinical pr obability, D-dimer results of less than 0.5 ug/ml FEU have a good negative predictive value in exclud ing PE or DVT. For D-dim er results greater than 0. 5 ug/ml FEU further lindsey ting is indicated if PE or DVT is suspected clinically.Elev ated D-dimer results have been reported in DVT , PE, and DIC cases and m ay indicate the pr esence of a clot. D-dimer results may be elevated due to old age, pregna ncy, inflammatory di seases, trauma, post-op erative states, sepsis, and malignancies. [facility] MethodistProthrombin time with [id number] 07:43:32 Test Item Value Reference Range Interpretation Comments Prothrombin time (test 14.6 11.5- 14.5 sec H code = 5902-2) INR (test code = 1.1 The Interna tional 87379-8) Normalized Rati o (INR) is a therapeuti c monitoring tool for patients who ar e stable on oral anticoagulant t herapy. An INR of 2.0-3 .0 is suggested for d eep vein thrombosis/pulm onary embolism. Lab Interpretation Abnormal (test code = 81840-0) [facility]Partial thromboplastin time, lpakrlrep2584-14-45 07:43:32 Test Item Value Reference Range Interpretation Comments PTT (test code = 23.5 23.0- 36.0 [place] [address]-6) unfractionated heparin is61.0-112.0 se conds which corresponds to Anti-Xa0.3-0.7 U/ml. [facility] [id number] 07:08:52 Test Item Value Reference Range Interpretation Comments LDH (test code = 36766-4) 293 U/L 87-225 H Lab Interpretation (test code = Abnormal 09910-4) [facility] MethodistLactic acid [id number] 07:05:51 Test Item Value Reference Range Interpretation Comments Lactic acid (test code = 43513-7) 0.9 mmol/L 0.5-2.2 [facility] MethodistHemoglobin [id number] 07:04:34 Test Item Value Reference Range Interpretation Comments Hemoglobin A1C (test 6.2 % 4-5.6 H HbA1c c utoffs for code = 32477-6) diagnosing diabetes:4.0% - 5.6% = normal5.7% - 6.4% = increased risk for diabetes (prediabetes)9> =6.5% = hedlfuxo8Tmin s for glycemic contro l (ADA 2016)< 7.0% Ta rget for non adults with alejo betes. More or less stringent targe ts may be appropriate for individual radha ents. <7.5% Target for Children and adolescents wit h type 1 diabetes. Lab Interpretation (test Abnormal code = 19163-2) [facility] MethodistLipid [id number] 07:04:06 Test Item Value Reference Interpretation Comments Range Cholesterol (test 119 mg/dL <200 code = 2093-3) Triglycerides (test 116 mg/dL <150 code = 2571-8) HDL cholesterol 52 mg/dL >40 (test code = 2085-9) LDL cholesterol 44 mg/dL <100 Result obtai suleman by direct (test code = 2089-1) LDL rae surement Lipid panel SeeBelow Total Cholester ol (mg/dL) interpretation (test < 200 code = 64077-2) Desirable 200-239 Borderline -high >=240 Hi gh Triglyceri narcisa (mg/dL) <150 No rmal 150-199 Borderline-high 200-499 High >=500 Very high HDL Choles terol (mg/dL) <40 Low (male) < 40 Low (female) L DL Cholesterol (mg /dL) <100 Optimal 1 00-129 Near or above o ptimal 130-159 Borderline-high 160-189 High >=190 Very high Risk Cat ergories that modify LDL goals.Risk Catergories LDL goal (mg/dL )CHD and CHD risk equiva lent <100 (10-year risk >20%)Multiple ( 2+) risk factors < 130 (10-year risk = <20%)0-1 risk factors <160 (<10-ye ar risk) Defining levels of lipids in metabolic syndromeTriglyc erides > =150 mg/dLHDL Choles terol Men <40 mg/dL Women <40 mg/dL Non-HDL cholest magan is a second target f or therapy in personswith high triglycerides ( >=200 mg/dL) [facility]B natriuretic xmdybmi8551-33-14 06:40:48 Test Item Value Reference Range Interpretation Comments BNP (test code = 79268-5) 10 pg/mL 0-100 [facility] MethodistAmylase [id number] 06:39:28 Test Item Value Reference Range Interpretation Comments Amylase (test code = 1798-8) 94 U/L 13-73 H Lab Interpretation (test code = Abnormal 34613-7) [facility] MethodistCreatine kinase, total (CPK)2019-12-27 06:39:28 Test Item Value Reference Range Interpretation Comments Creatine kinase (test code = 2157-6) 82 U/L 26-192 [facility] MethodistPhosphorus [id number] 06:39:28 Test Item Value Reference Range Interpretation Comments Phosphorus (test code = 2777-1) 3.1 mg/dL 2.4-4.5 [facility] MethodistVITAMIN [id number] 18:12:00 Test Item Value Reference Range Interpretation Comments VITAMIN B12 (test code = VITB12) 1715 pg/mL 193-986 H [id number] 17:42:00 Test Item Value Reference Range Interpretation Comments HGBA1C% (test code = HGBA1C%) 6.3 %A1C 4.8-6.0 H ESTIMATED AVERAGE GLUCOSE (test 134 MG/DL code = EAG) - XR CHEST 1 [id number] 16:40:00 FAX: Lakesha Segal [phone] [place]: St: [facility] FAX: Mandi Murrieta MD [phone] Name: LIVE BAILEY [facility] : 1990 Age/S: 29/F [address] [facility] Unit #: [id number] Loc: [address] [place], [place] Phys: Lakesha Mena [address] Acct: [id number] Dis Date: Status: ADM IN PHONE #: [phone] Exam Date: 12/26/2019 1638 FAX #: [phone] Reason: COVID, resp failure EXAMS: CPT CODE: [id number] XR CHEST 1 V 06243 Dictation location: U19. CHEST, FRONTAL VIEW HISTORY: COVID, resp failure COMPARISON: None FINDINGS: The lungs are underinflated. There are bi lateral perihilar and basilar interstitial and airspace opacities. The heart size is normal. The bones are unremarkable. IMPRESSION: Bilateral pulmonary infiltrates greater towards the lung bases could relate to multifocal pneumonia including COVID. at 1640 Reported and signed by: Camille Law M.D. CC: Lakesha PIPER; Mandi Ortega MD Technologist: YENY SMITH Trnnmrd Date/Time/By: 12/26/2019 (1640) : By: [email or web address] PAGE 1 Signed Report FAX: Lakesha Segal [phone] [place]: St: [facility] FAX: Mandi Murrieta MD [phone] Name: LIVE BAILEY [facility] : 1990 Age/S: 29/F [address] [facility] D[facility] Unit #: [id number] Loc: E.[address] [place], [place] Phys: Lakesha Mena [address] Acct: [id number] Dis Date: Status: ADM IN PHONE #: [phone] Exam Date: 12/26/2019 1638 FAX #: [phone] Reason: COVID, resp failure EXAMS: CPT CODE: [id number] XR CHEST1 V 87043 <Continued> Orig Print D/T: S: 12/26/2019 (5826) PAGE 2 Signed ReportCBC W/AUTO [id number] 05:29:00 Test Item Value Reference Range Interpretation Comments WHITE BLOOD CELL (test code = 11.9 K/mm3 4.5-11.0 H WBC) RED BLOOD CELL (test code = 3.86 M/mm3 3.80-5.20 N RBC) HEMOGLOBIN (test code = HGB) 12.0 gm/dL 12.0-16.0 N HEMATOCRIT (test code = HCT) 38.4 % 36.0-48.0 N MEAN CELL VOLUME (test code = 99.5 UM3 82.0-99.0 H MCV) MEAN CELL HGB (test code = MCH) 31.1 UUG 25.5-32.5 N MEAN CELL HGB CONCETRATION 31.3 gm/dL 29.0-35.5 N (test code = MCHC) RED CELL DISTRIBUTION WIDTH 13.0 % 11.5-15.0 N (test code = RDW) RED CELL DISTRIBUTION WIDTH SD 47.5 fL 34.8-50.2 N (test code = RDW-SD) PLATELET COUNT (test code = 200 K/mm3 150-400 N PLT) MEAN PLATELET VOLUME (test code 9.9 fl 7.4-10.4 N = MPV) NEUTROPHIL % (test code = NT%) 87.5 % 49.0-76.0 H IMMATURE GRANULOCYTE % (test 0.8 % 0.0-0.4 H code = IG%) LYMPHOCYTE % (test code = LY%) 8.8 % 23.0-38.0 L MONOCYTE % (test code = MO%) 2.8 % 1.0-10.0 N EOSINOPHIL % (test code = EO%) 0.0 % 1.0-5.0 L BASOPHIL % (test code = BA%) 0.1 % 0.0-1.0 N NEUTROPHIL # (test code = NT#) 10.4 K/mm3 2.4-6.3 H IMMATURE GRANULOCYTE # (test 0.09 x10 3/uL 0.00-0.07 H code = IG#) LYMPHOCYTE # (test code = LY#) 1.1 K/mm3 1.2-4.0 L MONOCYTE # (test code = MO#) 0.3 K/mm3 0.0-0.6 N EOSINOPHIL # (test code = EO#) 0.0 K/MM3 0.0-0.7 N BASOPHIL # (test code = BA#) 0.0 K/mm3 0.0-0.2 N BASIC METABOLIC [id number] 05:17:00 Test Item Value Reference Range Interpretation Comments SODIUM (test code = NA) 138 mmol/l 134.0-147.0 N POTASSIUM (test code = K) 4.2 mmol/L 3.6-5.2 N CHLORIDE (test code = CL) 102 mmol/l 98.0-107.0 N CARBON DIOXIDE (test code = CO2) 29.3 mmol/l 21.0-33.0 N ANION GAP (test code = GAP) 10.9 0-20 N GLUCOSE (test code = GLU) 148 mg/dl 70.0-110.0 H BLOOD UREA NITROGEN (test code = 13 mg/dl 7.0-18.0 N BUN) CREATININE (test code = CREAT) 1.00 mg/dL 0.60-1.30 N GFR NON BLACK (test code = 69 mL/min 105-110 L GFRNONBLACK) GFR BLACK (test code = GFRBLACK) 83 mL/min 127-133 L CALCIUM (test code = CA) 8.6 mg/dl 8.0-10.5 N [id number] 05:17:00 Test Item Value Reference Range Interpretation Comments MAGNESIUM (test code = MAG) 2.0 mg/dl 1.8-2.4 N COVID-19 qualitative [id number] 06:03:16 Test Item Value Reference Range Interpretation Comments Interpretation (test Positive results code = 7728882) are indicative of active infection with 2019-nCoV but do not rule out bacterial infection or coinfection with other viruses. The agent detected may not be the definite cause of disease. COVID-19 qualitative Detected Not-Detected A PCR result (test code = 01004-5) COVID-19 qualitative See link below for C ase Number: PCR (test code = PDF Lab Report [id number]) Lab Interpretation Abnormal (test code = 04479-2) Avtar EchevarriaLactic acid level, SEPSIS - Now and repeat 2x every 3 hours 2019-12-23 20:33:24 Test Item Value Reference Range Interpretation Comments Lactic acid (test code = 26572-4) 2.0 mmol/L 0.5-2.2 [facility] Interpretation - Not an [id number] 19:38:52 Test Item Value Reference Range Interpretation Comments TRUNG (test code = TRUNG) Kenia Wang MD 12/24/2019 12:20 [facility] [place] Interpretation - Not an OrderPerformed by: Kenia Wang MDAuthorized by: Kenia Wang MD ECG reviewed by ED Physician in the absence of a carton counter feeder: yes (193) Interpretation: Interpretation: abnormal Rate: ECG rate: 108 ECG rate assessment: tachycardic Rhythm: Rhythm: sinus tachycardia Ectopy: Ectopy: none QRS: QRS axis: Normal QRS intervals: NormalConduction: Conduction: normal ST segments: ST segments: NormalT waves: T waves: normal Other findings: Other findings: LVH Lab Interpretation Abnormal (test code = 80320-7) Avtar Echevarria
--- OUTSIDE RECORDS SUMMARY | 2020-03-17 13:07 | XMS REPORT | Summary of Care ---
:1990 Author Organization [facility] - [facility] Address [address] [place] [address] Care Team Providers Name Role Phone Radha Arzate MD Primary Care Provider Reason for Referral Radiology Services (STAT) Status Reason Specialty Diagnoses / Referred By Referred To Procedures Contact Contact New Request Diagnostic Diagnoses Cough Phil Sylvester Radiology Procedures XR CHEST 1 VW COVID XR CHEST 1 VW Lori, PAC [id number] [place] [address] Reason for Visit Reason Comments Other "wants COVID swab again" Auth/Cert Status Reason Specialty Diagnoses / Referred By Referred To Procedures Contact Contact Emergency Medicine Diagnoses EXPOSURE TO COVID,SOB [facility] [address] [place] [address] Fax: Encounter Details Date Type Department Care Team Description 12/21/2019 Emergency [facility]-Emergency Carlyle Wallace MD [address] [facility] [id number] [place], [place] [id number] Pneumonia of left lower lobe due to infe ctious organism (Primary Dx); Department Phil Sylvester, PAC [address] [facility] [address] [place] [address] Cough; [address] [place] [address] Dr cross Suspected Covid-19 [place] [address] Allergies Active Allergy Reactions Severity Noted Date Comments Amoxicillin Swelling 01/22/2015 Unsure if it wa s amoxicillin but was taking this med ication when had significant tyron g reaction in 2014. Lips started to swel l. documented as of this encounter (statuses as of 12/21/2019) Medications Medication Sig Dispensed Refills Start Date End Date Status docusate calcium 240 Take 1 capsule by 30 capsule 1 04/15/2018 Active mg capsule mouth once daily as needed for Constipation. ibuprofen 600 mg Take 1 tablet by 30 tablet 1 04/24/2018 Active tablet mouth every 6 (six) hours as needed for Pain (scale 1-3) or Pain (scale 4-6). azithromycin 250 mg TAKE 2 TABLETS BY 0 10/15/2018 Active tablet MOUTH ON DAY 1 AND THEN TAKE 1 TABLET BY MOUTH ONCE A DAY ON DAY 2 THROUGH DAY 5 Nitrofurantoin&Nit. Take 1 capsule by 14 capsule 0 10/18/2018 Active Macrocryst 100 mg mouth 2 (two) capsuleIndications: times daily. Urinary tract infection without hematuria, site unspecified metFORMIN 500 mg Take 1 tablet by 60 tablet 2 04/16/2019 Active tablet mouth 2 (two) times daily with meals. albuterol 2.5 mg /3 mL Inhale 3 mL every 1 Box 0 0 Active (0.083 %) nebulizer 4 (four) hours as solutionIndications: needed for Suspected Covid-19 Wheezing or Virus Infection, Shortness of Pneumonia of left Breath. lower lobe due to infectious organism albuterol 90 Inhale 2 Puffs 8.5 g 0 12/21/2019 A ctive mcg/actuation every 4 (four) inhalerIndications: hours as needed Suspected Covid-19 for Wheezing or Virus Infection, Shortness of Pneumonia of left Breath. lower lobe due to infectious organism ibuprofen 600 mg Take 1 tablet by 30 tablet 0 12/21/2019 Active tabletIndications: mouth every 6 Suspected Covid-19 (six) hours as Virus Infection, needed for Pain Pneumonia of left (scale 4-6). lower lobe due to infectious organism benzonatate 200 mg Take 1 capsule by 20 capsule 0 12/21/2019 Active capsuleIndications: mouth 3 (three) Suspected Covid-19 times daily as Virus Infection, needed for Cough Pneumonia of left for up to 20 lower lobe due to doses. infectious organism predniSONE 20 mg 1 PO BID x 4 days 8 tablet 0 12/21/2019 Active tabletIndications: Suspected Covid-19 Virus Infection, Pneumonia of left lower lobe due to infectious organism azithromycin Take 1 tablet by 1 Package 0 12/21/2019 Active (ZITHROMAX Z-ZENAIDA) 250 mouth mg tabletIndications: SEE-INSTRUCTIONS. Suspected Covid-19 Take 500 mg day Virus Infection, 1, then 250 mg Pneumonia of left days 2 to 5. lower lobe due to infectious organism ondansetron (ZOFRAN Take 1 tablet by 10 tablet 0 12/21/2019 Active ODT) 4 mg mouth every 8 disintegrating (eight) hours as tabletIndications: needed for Nausea Suspected Covid-19 and Vomiting Virus Infection, (N/V). Pneumonia of left lower lobe due to infectious organism documented as of this encounter (statuses as of 12/21/2019) Active Problems Problem Noted Date wound infection 04/22/2018 GDM, class A2 03/11/2018 Previous section 03/11/2018 Left sided sciatica 02/21/2018 Encounter for supervision of high risk with history of , 12/26/2017 antepartum Thyroid disease affecting 08/28/2017 Obesity, Class III, BMI 40-49.9 (morbid obesity) 01/31 PCOS (polycystic ovarian syndrome) 12/30/2015 Family history of ovarian cancer 12/17/2015 documented as of this encounter (statuses as of 12/21/2019) Resolved Problems Problem Noted Date Resolved Date Gestational hypertension, third trimester 04/15/2018 05/16/2018 Liveborn , of vega , born in hospital by 04/12/2018 05/16/2018 delivery 39 weeks gestation of 04/11/2018 05/16/19 19 Abnormal glucose affecting 01/31/201810/2017 Obesity affecting , antepartum 12/26/2017 04/11/2018 Obesity in 08/28/2017 04/11/2018 Abnormal maternal glucose tolerance, antepartum 08/20/2017 04/11/2018 of unknown anatomic location 02/14/2017 0 12/26/2017 SAB (spontaneous ) 02/14/2017 12/26/2017 with uncertain viability, not applicable or 01/30/2017 12/26/2017 unspecified fetus Anovulation 11/28/2016 04/11/2018 Prediabetes 08/27/2016 04/11/2018 Pre-diabetes 02/01/2016 04/11/2018 Amenorrhea 02/01/2016 04/11/2018 Right ovarian cyst 12/30/2015 04/11/2018 Elevated blood pressure reading without diagnosis of 016 04/11/2018 hypertension Absence of menstruation 12/26/2015 04/11/2018 BV (bacterial vaginosis) 09/28/2015 04/11/2018 Screen for STD (sexually transmitted disease) 01/22/2015 04/11/2018 Well woman exam 01/22/2015 12/17/2015 Pre-conception counseling 01/22/2015 04/11/2018 Type 2 diabetes mellitus without complication 01/22/2015 12/26/2017 Morbid obesity 01/22/2015 04/11/2018 documented as of this encounter (statuses as of 12/21/2019) Immunizations Name Administration Dates Next Due Td 01/20/2015 documented as of this encounter Social History Tobacco Use Types Packs/Day Years Used Date Never Smoker 2 Smokeless Tobacco: Never Used Alcohol Use Drinks/Week oz/Week Comments Yes 4-5 Cans of beer 4.0 - 5.0 occasionally Sex Assigned at Date Recorded Not on file COVID-19 Exposure Response Date Recorded In the last month, have you been in contact with Yes 12/21/2019 5:23 PM CDT someone who was confirmed or suspected to have Coronavirus / COVID-19? documented as of this encounter Last Filed Vital Signs Vital Sign Reading Time Taken Comments Blood Pressure 121/90 12/21/2019 8:33 PM CDT Pulse 108 12/21/2019 8:33 PM CDT Temperature 39.5 C (103.1 F) 12/21/2019 8:48 PM CDT Respiratory Rate 25 12/21/2019 8:33 PM CDT Oxygen Saturation 98% 12/21/2019 8:33 PM CDT Inhaled Oxygen Concentration - - Weight 102.1 kg (225 lb) 12/21/2019 5:36 PM CDT Height 152.4 cm (5') 12/21/2019 8:33 PM CDT Body Mass Index 43.94 12/21/2019 5:36 PM CDT documented in this encounter Discharge Instructions AttachmentsThe following attachments cannot be sent through Care Everywhere. Pneumonia, Preventing (Namibian)Coronavirus Disease 2018: Caring for Yourself and Others ([place]amibian)documented in this encounter ED Notes Malka Willams RN - 12/21/2019 5:34 PM CDTPatient has been exposed to multiple people with COVID. States she is experiencing cough, chest wallpain after coughing, body aches and fever. She had a COVID swab 3days ago but states the results are not back yet and is requesting quicker results. Last Tylenol 1530 today. Ambulation test performed-SpO2 maintained at 98% and above during exertion. documented in this encounter Miscellaneous Notes ED Nurse Note - Kinjal Tan RN - 12/21/2019 8:49 PM CDTPt given printed and verbal discharge instructions regarding PNA of left lower lobe, cough, and suspected COVID 19 infection, encouraged hydration. Prescriptions provided. Discussed ibuprofen and to take with food to avoid GI distress. Discussed antibiotic therapy and to take until all completed unless adverse reaction occurs - if occurs, discontinue medication and follow up with pcp/seek medical attention. Pt verbalized understanding of instructions, pt awake alert oriented, resp reg unlabored, skin w/d, color appropriate for race, moves all ext well, pt encouraged to follow up with PCP. Advised to seek medical attention for new/prolonged/worsening of symptoms. Symptoms addressed. No adverse reaction to meds given in ER noted upon discharge. Pt leaving amb with steady gait, in no apparent distress. Patient provided work note for 14 days. documented in this encounter Plan of Treatment Name Type Priority Associated Diagnoses Date/Ti me CORONAVIRUS COVID-19 LAB STAT Cough 020 6:03 PM CDT TESTING Name Type Priority Associated Diagnoses Order S chedule CORONAVIRUS COVID-19 LAB STAT Cough STAT fo r 1 Occurrences TESTING starting 2019 until 12/21/2019 Health Maintenance Due Date Last Done Comments EYE EXAM 1998 LDL-C 1998 URINE MICROALBUMIN 1998 Depression Screening 2000 FOOT EXAM 2006 DTaP,Tdap,and Td Vaccines 07/22/2007 01/20/2015 (1 - Tdap) HgA1C 08/22/2018 02/21/2018, 08/17/2017, 03/20/2016, Additional history exists CREATININE (SERUM) 04/22/2019 04/22/2018, 04/11/2018, 02/07/2017, Additional history exists INFLUENZA VACCINE (#1) 2020 PAP SMEAR 08/17/2020 08/17/2017, 01/22/2015 PNEUMOCOCCAL 0-64 YEARS Aged Out No longe r eligible COMBINED SERIES based on patient 's age to complete this topic documented as of this encounter Procedures Procedure Name Priority Date/Time Associated Diagnosis Comme nts XR CHEST 1 VW COVID STAT 12/21/2019 6:21 PM Cough R esults for this CDT procedure are i n the results section. POCT TEST REY 12/21/2019 6:02 PM Cough R esults for this CDT procedure are i n the results section. EKG-12 LEAD Routine 12/21/2019 5:55 PM CDT NOTICE OF PRIVACY Routine 12/21/2019 5:22 PM PRACTICES CDT documented in this encounter Results XR CHEST 1 VW COVID (12/21/2019 6:21 PM CDT) Specimen Impressions Performed At PACS/VR/DOSE Left lower lobe opacity may represent infection the a ppropriate clinical setting. Disclaimer: Generally, the findings on c hest imaging in COVID-19 are not specific, and overlap with other infecti ons, including influenza, H1N1, SARS and MERS. According to the Centers for Disease Control (CDC) and the [employer], viral testing remains the only specific method of diagnosis even if CXR or CT findings are suggestiv e of COVID-19. Preliminary Report Dictated by Resident: Levy Richards I, Arvin Beltre MD., have reviewe d this study and agree with the above report. Narrative Performed At PROCEDURE: CHEST XRAY , PACS/VR/DOSE CLINICAL INDICATION: chest wall pain wit h cough COMPARISON: None FINDINGS: Lungs: The lungs are well-expanded with a focal consol idation at the left lung base obliterating the left hemidiaphragm. No pneu mothorax or pleural effusion. Prominent bilateral hilar emily ings. The cardiothoracic silhouette is unremar kable. No acute bony abnormality. Procedure Note [facility], Radiant Results Inft User - 2019 7:49 PM CDT PROCEDURE: CHEST XRAY , CLINICAL INDICATION: chest wall pain wit h cough COMPARISON: None FINDINGS: Lungs: The lungs are well-expanded with a focal consolidation at the left lung base obliterating the left hemidiap hragm. No pneumothorax or pleural effusion. Prominent bilateral hilar emily ings. The cardiothoracic silhouette is unremar kable. No acute bony abnormality. IMPRESSION Left lower lobe opacity may represent i nfection the appropriate clinical setting. Disclaimer: Generally, the findings on c hest imaging in COVID-19 are not specific, and overlap with other infecti ons, including influenza, H1N1, SARS and MERS. According to the Centers for Disease Con trol (CDC) and the [employer], viral testing remains the only specific method of diagnosis even if CXR or CT findings are suggestiv e of COVID-19. Preliminary Report Dictated by Resident: Arvin Awan MD., have reviewed this study and agree with the above report. Performing Organization Address City/State/Zipcode Phone Number PACS/VR/DOSE POCT TEST (12/21/2019 6:02 PM CDT) Pathologist Sig nature POCT PREG negative POCT PREG LOT # [id number] POCT PREG TEST DATE 12/04/2020 Specimen Urine - URINE, CLEAN CATCH documented in this encounter Visit Diagnoses Diagnosis Pneumonia of left lower lobe due to infe ctious organism - Primary Cough Suspected Covid-19 Virus Infection documented in this encounter Administered Medications Medication Order MAR Action Action Date Dose Rate Site azithromycin (ZITHROMAX) tablet Given 12/21/2019 8:35 PM CDT 50 0 mg 500 mg 500 mg, Oral, ONCE, 1 dose, 12/21/19 at 2115, REY, Reason for Anti-Infective: Documented Infection, Documented Infection Site: Respiratory, Duration of Therapy: 7 days, Reason for Anti-Infective: Documented Infection, Documented Infection Site: Respiratory ibuprofen (IBU) tablet 600 mg Given 12/21/2019 8:36 PM CDT 600 mg 600 mg, Oral, ONCE, 1 dose, 12/21/19 at 2130, REY documented in this encounter Additional Health Concerns Infection Onset Date Last Indicated Resolved Time COVID-19 Rule Out 12/21/2019 12/21/2019 documented as of this encounter documented as of this encounter
--- OUTSIDE RECORDS SUMMARY | 2020-03-17 13:07 | XMS REPORT | Summary of Care ---
:1990 Author Organization [facility] - Health Address [address] [place] [address] Care Team Providers Name Role Phone Radha Arzate MD Primary Care Provider Encounter Details Date Type Department Care Team Description 12/21/2019 Orders Only [facility] Doctor Unassigned, No [address] [facility] Name [place] [phone] Allergies Active Allergy Reactions Severity Noted Date [...] mouth 2 (two) times daily with meals. documented as of this encounter (statuses as [...] Gestational hypertension, third trimester 04/15/2018 05/16/2018 Liveborn infant, of vega , born in hospital by [...] Assigned at Date Recorded Not on file documented as of this encounter Last Filed Vital Signs Not on filedocumented in this encounter Plan of Treatment Health Maintenance Due Date [...] Name Priority Date/Time Associated Diagnosis Comme nts CONSENT/REFUSAL FOR Routine 12/21/2019 5:22 PM CDT DIAGNOSIS AND TREATMENT documented in this encounter Results Not on filedocumented in this encounter Insurance Payer Benefit Plan / Group Subscriber ID Effective Dates Phone Address Type AETNA AETNA [facility] C[facility] [id number] 2019-Present PPO documented as of this encounter
--- OUTSIDE RECORDS SUMMARY | 2020-03-17 13:07 | XMS REPORT | Summary of Care ---
:1990 Author Organization [facility] - [facility] Address [address] [place] [address] Care Team Providers Name Role Phone Radha Arzate MD Primary Care Provider Reason for Visit Reason Comments Results COVID19 + Encounter Details Date Type Department Care Team Description 12/23/[address] [facility] Adult Human, Jade Nicholas (COVID19 +) Primary Care- [facility] [address] [place] [address] [place] [address] [phone] Allergies Active Allergy Reactions Severity Noted Date Comments Amoxicillin Swelling 01/22/2015 Unsure if it wa s amoxicillin but was taking this med ication when had significant tyron g reaction in 2014. Lips started to swel l. documented as of this encounter (statuses as of 12/23/2019) Medications Medication Sig Dispensed Refills Start Date [...] as of this encounter (statuses as of 12/23/2019) Active Problems Problem Noted Date wound infection 04/22/2018 GDM, class A2 03/11/2018 Previous section 03/11/2018 Left sided sciatica 02/21/2018 Encounter for supervision of high risk with history of , 12/26/2017 antepartum Thyroid disease affecting 08/28/2017 Obesity, Class III, BMI 40-49.9 (morbid obesity) 01/31 PCOS (polycystic ovarian syndrome) 12/30/2015 Family history of ovarian cancer 12/17/2015 documented as of this encounter (statuses as of 12/23/2019) Resolved Problems Problem Noted Date Resolved Date [...] as of this encounter (statuses as of 12/23/2019) Immunizations Name Administration Dates Next Due Td [...] Signs Not on filedocumented in this encounter Miscellaneous Notes Telephone Encounter - Shanice Taylor FNP - 12/23/2019 8:13 PM CDTPhone call to patient for COVID-19 results. No answer. LM to call back at [phone] Shanice Taylor, MSN, CLINICAL APPLICATION SPECIALIST, CAMPAIGN ASSISTANT-C [place], [place] documented in this encounter Plan of Treatment Health [...] this topic documented as of this encounter Results Not on filedocumented in this encounter Additional Health Concerns Infection Onset Date Last Indicated Resolved Time COVID-19 Confirmed 12/21/2019 12/21/2019 documented as of this encounter Insurance Payer Benefit Plan / Group Subscriber ID Effective Dates Phone Address Type AETNA AETNA [facility] [id number] 2019-Present PPO documented as of this encounter
--- OUTSIDE RECORDS SUMMARY | 2020-03-17 13:08 | XMS REPORT | Summary of Care ---
:1990 Author Organization [facility] Address [address] [place] [address] Care Team Providers Name Role Phone Radha Arzate MD Primary Care Provider Reason for Visit Reason Comments Results Encounter Details Date Type Department Care Team Description 12/25/2019 Telephone [facility] Urgent Care Nurse, [facility] [address] [place], [place] [phone] Allergies Active Allergy Reactions Severity Noted Date Comments Amoxicillin Swelling 01/22/2015 Unsure if it wa s amoxicillin but was taking this med ication when had significant tyron g reaction in 2014. Lips started to swel l. documented as of this encounter (statuses as of 12/25/2019) Medications Medication Sig Dispensed Refills Start Date [...] as of this encounter (statuses as of 12/25/2019) Active Problems Problem Noted Date wound infection 04/22/2018 GDM, class A2 03/11/2018 Previous section 03/11/2018 Left sided sciatica 02/21/2018 Encounter for supervision of high risk with history of , 12/26/2017 antepartum Thyroid disease affecting 08/28/2017 Obesity, Class III, BMI 40-49.9 (morbid obesity) 01/31 PCOS (polycystic ovarian syndrome) 12/30/2015 Family history of ovarian cancer 12/17/2015 documented as of this encounter (statuses as of 12/25/2019) Resolved Problems Problem Noted Date Resolved Date [...] as of this encounter (statuses as of 12/25/2019) Immunizations Name Administration Dates Next Due Td [...] this encounter Miscellaneous Notes Telephone Encounter - Kim Collado RN - 12/25/2019 8:11 AM CDTThis Rn called patient. Patient verified identity with name and . Patient states she tested positive for COVID last week. Patient informed of the following. Your COVID 19 testing results were positive. Since this is not the first positive result you received, please be advised that it is unclear, at this time, how long the virus remains detectable in samples. It appears it could be weeks before a sample becomes negative. The date of your first positive test and your current symptoms will determine when you ma y discontinue quarantine. Please work with the [facility] for instructions. . [facility] recommends the symptom-based strategy for those who have symptoms and the time-based strategyfor those who do not have symptoms. Repeat testing is not routinely recommended for any reason due to the prolonged detection of the virus in samples without evidence of transmission. General guidance includes release from quarantine when the following conditions are met: ? At least 24 hours have passed since recovery defined as resolution of fever without the use of fever-reducing medications and ? Improvement in symptoms (e.g., cough, shortness of breath); and, ? At least 10 days have passed since symptoms first appeared or the first positive test if symptoms have not developed or worsened since testing, at which point, use date symptoms began. ? Continue to wear a face mask until 14 days have passed since your first test or first symptoms appeared. ? If you experience a worsening of symptoms or recover and then redevelop symptoms, please speak with a provider for further evaluation. Those in your household should remain in quarantine for 14 days to allow time for incubation, or, iftesting positive, should follow the above guidelines for discontinuing quarantine. Patient verbalized understanding, denies questions and thanked RN. Telephone Encounter - Kim Collado RN - 12/25/2019 6:58 AM CDTPatient as not reviewed lab, Ustreamt message has not been read. COVID positive. documented in this encounter Plan of Treatment [...] Effective Dates Phone Address Type AETNA AETNA [facility] [id number] 2019-Present PPO documented as of this encounter
--- OUTSIDE RECORDS SUMMARY | 2020-03-17 13:08 | XMS REPORT | Summary of Care ---
:1990 Author Organization [facility] - Health Address [address] [place] [address] Care Team Providers Name Role Phone Radha Arzate MD Primary Care Provider Encounter Details Date Type Department Care Team Description 01/16/2020 Orders Only [facility] Doctor Unassigned, No 301 [facility] Name [place] [phone] Allergies Active Allergy Reactions Severity Noted Date Comments Amoxicillin Swelling 01/22/2015 Unsure if it wa s amoxicillin but was taking this med ication when had significant tyron g reaction in 2014. Lips started to swel l. documented as of this encounter (statuses as of 01/16/2020) Medications Medication Sig Dispensed Refills Start Date [...] as of this encounter (statuses as of 01/16/2020) Active Problems Problem Noted Date wound infection 04/22/2018 GDM, class A2 03/11/2018 Previous section 03/11/2018 Left sided sciatica 02/21/2018 Encounter for supervision of high risk with history of , 12/26/2017 antepartum Thyroid disease affecting 08/28/2017 Obesity, Class III, BMI 40-49.9 (morbid obesity) 01/31 PCOS (polycystic ovarian syndrome) 12/30/2015 Family history of ovarian cancer 12/17/2015 documented as of this encounter (statuses as of 01/16/2020) Resolved Problems Problem Noted Date Resolved Date [...] as of this encounter (statuses as of 01/16/2020) Immunizations Name Administration Dates Next Due Td [...] month, have you been in contact with No / Unsure 01/16/2020 11:51 AM CDT someone who was confirmed or suspected [...] Name Priority Date/Time Associated Diagnosis Comme nts ASSIGNMENT OF BENEFITS Routine 01/16/2020 11:53 AM CDT documented in this encounter Results Not on filedocumented in this encounter Additional Health Concerns Infection Onset Date Last Indicated Resolved Time COVID-19 Confirmed 12/21/2019 12/21/2019 documented as of this encounter Insurance Payer Benefit Plan Subscriber ID Effective Dates Phone Address Type / Group BCBS OF BCBS [facility] [id number] 2020-Anthony [phone] [address] PPO/POS [place] [id number] [place] [address] documented as of this encounter
--- OUTSIDE RECORDS SUMMARY | 2020-03-17 13:08 | XMS REPORT | Summary of Care ---
:1990 Author Organization [facility] Address [address] [place] [id number] Care Team Providers Name Role Phone Radha Arzate MD Primary Care Provider Encounter Details Date Type Department Care Team Description 12/24/2019 Letter (Out) [facility] Anju Mak RN [address] [place] [phone] [place] [address] Allergies Active Allergy Reactions Severity Noted Date Comments Amoxicillin Swelling 01/22/2015 Unsure if it wa s amoxicillin but was taking this med ication when had significant tyron g reaction in 2014. Lips started to swel l. documented as of this encounter (statuses as of 12/24/2019) Medications Medication Sig Dispensed Refills Start Date [...] as of this encounter (statuses as of 12/24/2019) Active Problems Problem Noted Date wound infection 04/22/2018 GDM, class A2 03/11/2018 Previous section 03/11/2018 Left sided sciatica 02/21/2018 Encounter for supervision of high risk with history of , 12/26/2017 antepartum Thyroid disease affecting 08/28/2017 Obesity, Class III, BMI 40-49.9 (morbid obesity) 01/31 PCOS (polycystic ovarian syndrome) 12/30/2015 Family history of ovarian cancer 12/17/2015 documented as of this encounter (statuses as of 12/24/2019) Resolved Problems Problem Noted Date Resolved Date [...] as of this encounter (statuses as of 12/24/2019) Immunizations Name Administration Dates Next Due Td [...] Effective Dates Phone Address Type AETNA AETNA [facility] [id number] 2019-Present PPO documented as of this encounter
--- OUTSIDE RECORDS SUMMARY | 2020-03-17 13:09 | XMS REPORT | Summary of Care ---
:1990 Author Organization [facility] Address [address] [place] [address] Care Team Providers Name Role Phone Radha Arzate MD Primary Care Provider Reason for Visit Reason Comments LAB WORK Encounter Details Date Type Department Care Team Description 01/16/2020 Laboratory Only [facility] Giovanny Zimmer MD [address] [place] [address] [address] [place] [address] COVID-19 (Primary Phlebotomy Only, Adc Test Dx) Lab-[address] [id number] Allergies Active Allergy Reactions Severity Noted Date [...] filedocumented in this encounter Plan of Treatment Name Type Priority Associated Diagnoses Date/Ti me COVID-19 (PCR MOLECULAR LAB Routine COVID-19 01/05 12:05 PM CDT TESTING) Name Type Priority Associated Diagnoses Order S chedule COVID-19 (PCR MOLECULAR LAB Routine COVID-19 Expe cted: 01/16/2020, TESTING) Expires: 2020 Health Maintenance Due Date Last Done Comments [...] Results Not on filedocumented in this encounter Visit Diagnoses Diagnosis COVID-19 - Primary documented in this encounter Additional Health Concerns Infection Onset Date Last Indicated Resolved Time COVID-19 Confirmed 12/21/2019 12/21/2019 COVID-19 Rule Out 01/16/2020 01/16/2020 documented as of this encounter Insurance Payer Benefit Plan Subscriber ID Effective Dates Phone Address Type / Group [employer] [facility] [id number] 2020-Anthony [phone] [address] PPO/POS [id number] [place] [address] documented as of this encounter
[2020-03-17] MEDS ORDERED: DIAZEPAM 10 MG/2 ML INJ SYRINGE ONE (17:55)
[2020-03-17] MEDS ORDERED: FENTANYL CITR 100 MCG/2 ML ONE (17:55)
[2020-03-17] MEDS ORDERED: ONDANSETRON 4 MG/2 ML VIAL ONE (17:56)
[2020-03-17] MEDS ORDERED: KETOROLAC 30 MG/ML INJ ONE (17:56)
[2020-03-17] MEDS ORDERED: dexAMETHasone 10 MG/ML VIAL ONE (17:56)
--- NOTE | 2020-03-17 18:12 | RAD REPORT ---
EXAM DESCRIPTION: CT - Spine Lumbar Wo Con - 03/17/2020 5:50 pm CLINICAL HISTORY: back pain, injury, radicular pain COMPARISON: None. TECHNIQUE: Thin section axial imaging of the lumbar spine was performed. Sagittal and coronal recon struction images were generated and reviewed. All CT scans are performed using dose optimization technique as appropriate and may include automated exposure control or mA/KV adjustment according to patient size. FINDINGS: Lumbar bodies are normal in height and normal in alignment. No fracture changes. No lytic, sclerotic or expansile bony destructive change. There are no paraspinal soft tissue mass is present. No muscle hematoma or other paraspinal process seen. Central canal detail is inherently limited on CT imaging. However, no central spinal stenosis is pres ent. No disc herniation suspected. L5-S1 disc bulge changes are suspected. This does not cause a sign ificant degree of foraminal stenosis or appear to contact or displace nerve roots. IMPRESSION: Mild L5-S1 disc bulges suspected without resulting canal or foramen stenosis. No acute vertebral body finding. No perispinal hematoma, muscle injury or other paraspinal abnormalit y identifiable.
--- NOTE | 2020-03-17 19:08 | EDPHYS ---
Physician Documentation [facility] Name: Gill Gordon Age: 29 yrs Sex: Female : 1990 Arrival Date: 03/17/2020 Time: 13:05 Bed 18 Private MD: ED Physician Eduardo Serrato HPI: 03/17 17:22 This 29 yrs old Black Female presents to ER via Ambulatory with complaints of Back jmm Pain, Numbness - R arm and leg. 17:22 The patient presents with pain that is acute. Onset: The symptoms/episode jmm began/occurred acutely, 2 day(s) ago. The pain radiates to the right leg. Associated signs and symptoms: Pertinent negatives: abdominal pain, chest pain, constipation, dysuria, fever, headache, hematuria, incontinence, nausea, numbness, vomiting, weakness. The problem was sustained when bending over. This is a 29 year old female with a history of PCOS that presents to the ED with complaints of lower back pain which occurred while squatting over her toilet. Patient states she heard a loud pop and has had radiation to the right leg since. Denies bowel or bladder issues. . STAMP COLLECTOR: 22:14 LMP N/A - control method ll1 Historical: - Allergies: 13:47 Amoxicillin; aa5 13:47 PENICILLINS; aa5 - Home Meds: 13:47 metformin 500 mg Oral tr24 2 tabs once daily [Active]; aa5 - PMHx: 13:47 PCOS; aa5 - PSHx: 13:47 ; Cholecystectomy; aa5 - Immunization history:: Adult Immunizations up to date. - Social history:: Smoking status: Patient denies any tobacco usage or history of. ROS: 17:22 Constitutional: Negative for fever, chills, and weight loss, Cardiovascular: Negative jmm for chest pain, palpitations, and edema, Respiratory: Negative for shortness of breath, cough, wheezing, and pleuritic chest pain. 17:22 Back: Positive for pain at rest, flank pain. 17:22 MS/extremity: Positive for pain. 17:22 All other systems are negative. Exam: 17:22 Constitutional: This is a well developed, well nourished patient who is awake, alert, jmm and in no acute distress. Head/Face: atraumatic. Eyes: EOMI, no conjunctival erythema appreciated ENT: Moist Mucus Membranes Neck: Trachea midline, Supple Chest/axilla: Normal chest wall appearance and motion. Cardiovascular: Regular rate and rhythm. No edema appreciated Respiratory: Normal respirations, no respiratory distress appreciated Abdomen/GI: Non distended, soft 17:22 Back: pain, that is moderate, of the lumbar area, left low back and right low back. 17:22 Musculoskeletal/extremity: ROM: intact in all extremities. 17:22 Skin: Appearance: Color: normal in color. 17:22 Neuro: Orientation: is normal, Mentation: is normal, Memory: is normal. 17:22 Neuro: extensor hallucis longus intact bilaterally. 17:22 Psych: Behavior/mood is pleasant, cooperative. Vital Signs: 13:45 BP 122 / 71; Pulse 75; Resp 16; Temp 98.7; Pulse Ox 100% on R/A; Pain 10/10; aa5 19:20 BP 131 / 82; Pulse 78; Resp 16; Pulse Ox 98% on R/A; bb MDM: 17:22 Patient medically screened. [facility] 19:05 Data reviewed: vital signs, nurses notes. Counseling: I had a detailed discussion with caridad the patient and/or guardian regarding: the historical points, exam findings, and any diagnostic results supporting the discharge/admit diagnosis, radiology results, the need for outpatient follow up, to return to the emergency department if symptoms worsen or persist or if there are any questions or concerns that arise at home. 19:05 ED course: Patient is alert and non toxic in appearance in the ED. I do not suspect jmm cord compression/cauda equina. Pain relieved in the ED. Patient advised to follow up with pcp and otherwise given strict return precautions. Patient understood and agrees with the plan of care. . 03/17 17:30 Order name: CT Lumbar Spine Wo Con; Complete Time: 18:16 [facility] 03/17 17:30 Order name: Saline Lock; Complete Time: 18:24 [facility] Administered Medications: 18:32 Drug: Decadron - Dexamethasone 10 mg Route: IVP; Site: right antecubital; ll1 22:13 Follow up: Response: No adverse reaction; RASS: Alert and Calm (0) ll1 18:32 Drug: Ketorolac 30 mg Route: IVP; Site: right antecubital; ll1 22:13 Follow up: Response: No adverse reaction; RASS: Alert and Calm (0) ll1 18:33 Drug: fentaNYL (PF) 50 mcg {Note: rass0.} Route: IVP; Site: right antecubital; ll1 22:13 Follow up: Response: No adverse reaction; Pain is decreased; RASS: Alert and Calm (0) ll1 18:33 Drug: Zofran (Ondansetron) 4 mg Route: IVP; Site: right antecubital; ll1 22:13 Follow up: Response: No adverse reaction; RASS: Alert and Calm (0) ll1 18:33 Drug: Valium 2 mg Route: IVP; Site: right antecubital; ll1 22:13 Follow up: Response: No adverse reaction; RASS: Alert and Calm (0) ll1 Disposition: 03/18 05:30 Co-signature as Attending Physician, Eduardo Serrato MD I agree with the assessment and clarita plan of care. Disposition: 03/17/20 19:07 Discharged to Home. Impression: Strain of muscle, fascia and tendon of lower back, Sciatica, right side. - Condition is Stable. - Discharge Instructions: Back Pain, Adult, Sciatica. - Prescriptions for Ibuprofen 800 mg Oral Tablet - take 1 tablet by ORAL route every 8 hours As needed take with food; 30 tablet. Ultracet 37.5- 325 mg Oral Tablet - take 1 tablet by ORAL route every 6 hours - for up to 5 days; do not exceed 8 tablets per day.; 20 tablet. Zanaflex 4 mg Oral Tablet - take 1 tablet by ORAL route every 8 hours As needed; 20 tablet. - Medication Reconciliation Form, Thank You Letter, Antibiotic Education, Prescription Opioid Use, Work release form form. - Follow up: Private Physician; When: 2 - 3 days; Reason: Recheck today's complaints, Continuance of care, Re-evaluation by your physician. Signatures: Dispatcher [employer] Eduardo Coley MD MD cha Mickail, Joel, PA PA jmm Ballard, Brenda, RN RN bb Laura Hernandez RN RN aa5 Leonardo Oneill RN RN ll1 Corrections: (The following items were deleted from the chart) 03/17 19:23 19:07 03/17/2020 19:07 Discharged to Home. Impression: Strain of muscle, fascia and bb tendon of lower back; Sciatica, right side. Condition is Stable. Forms are Medication Reconciliation Form, Thank You Letter, Antibiotic Education, Prescription Opioid Use. Follow up: Private Physician; When: 2 - 3 days; Reason: Recheck today's complaints, Continuance of care, Re-evaluation by your physician. caridad
--- NOTE | 2020-03-17 19:08 | ER ---
Nurse's Notes [facility] Name: Gill Gordon Age: 29 yrs Sex: Female : 1990 Arrival Date: 03/17/2020 Time: 13:05 Bed 18 Private MD: Diagnosis: Strain of muscle, fascia and tendon of lower back;Sciatica, right side Presentation: 03/17 13:45 Chief complaint: [place] and heard a loud pop in lower back when she sat down on the aa5 toilet yesterday, c/o low back pain 02/13 that radiates to right leg. Coronavirus screen: At this time, the client does not indicate any symptoms associated with coronavirus-19. Ebola Screen: No symptoms or risks identified at this time. Initial Sepsis Screen: Does the patient meet any 2 criteria? No. Patient's initial sepsis screen is negative. Does the patient have a suspected source of infection? No. Patient's initial sepsis screen is negative. Risk Assessment: Do you want to hurt yourself or someone else? Patient reports no desire to harm self or others. Onset of symptoms was March 16, 2020. 13:45 Method Of Arrival: Ambulatory [facility] 13:45 Acuity: ÁNGELA 3 aa5 Triage Assessment: 22:12 General: Appears uncomfortable, Behavior is calm, cooperative, appropriate for age. ll1 Pain: Complains of pain in lumbar area. Musculoskeletal: Circulation, motion, and sensation intact. Capillary refill < 3 seconds, Range of motion: intact in all extremities. 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 - Social history:: Smoking status: Patient denies any tobacco usage or history of. Screenin:11 Abuse screen: Denies threats or abuse. Nutritional screening: No deficits noted. ll1 Tuberculosis screening: No symptoms or risk factors identified. Fall Risk Total Grant Fall Scale indicates No Risk (0-24 pts). Assessment: 19:20 Reassessment: Patient is alert, oriented x 3, equal unlabored respirations, skin bb warm/dry/pink. pt verbalized understanding of and agrees to plan of care discharge instructions given pt ambulated with steady gait to exit. 22:12 Neuro: Level of Consciousness is awake, alert, obeys commands, Oriented to person, ll1 place, time, situation, Appropriate for age. Vital Signs: 13:45 BP 122 / 71; Pulse 75; Resp 16; Temp 98.7; Pulse Ox 100% on R/A; Pain 10/10; aa5 19:20 BP 131 / 82; Pulse 78; Resp 16; Pulse Ox 98% on R/A; bb ED Course: 13:05 Patient arrived in ED. ds1 13:47 Triage completed. aa5 13:47 Arm band placed on. aa5 17:19 Ken Dominguez PA is PHCP. jmm 17:19 Eduardo Serrato MD is Attending Physician. jmm 17:21 Leonardo Oneill, BREA is Primary Nurse. ll1 17:50 CT Lumbar Spine Wo Con In Process Unspecified. EDMS 18:20 Inserted saline lock: 20 gauge in right antecubital area, using aseptic technique. dh3 19:23 No provider procedures requiring assistance completed. IV discontinued, intact, bb bleeding controlled, No redness/swelling at site. Pressure dressing applied. 22:12 Patient has correct armband on for positive identification. Bed in low position. Call ll1 light in reach. Side rails up X 1. Administered Medications: 18:32 Drug: Decadron - Dexamethasone 10 mg Route: IVP; Site: right antecubital; ll1 22:13 Follow up: Response: No adverse reaction; RASS: Alert and Calm (0) ll1 18:32 Drug: Ketorolac 30 mg Route: IVP; Site: right antecubital; ll1 22:13 Follow up: Response: No adverse reaction; RASS: Alert and Calm (0) ll1 18:33 Drug: fentaNYL (PF) 50 mcg {Note: rass0.} Route: IVP; Site: right antecubital; ll1 22:13 Follow up: Response: No adverse reaction; Pain is decreased; RASS: Alert and Calm (0) ll1 18:33 Drug: Zofran (Ondansetron) 4 mg Route: IVP; Site: right antecubital; ll1 22:13 Follow up: Response: No adverse reaction; RASS: Alert and Calm (0) 1 18:33 Drug: Valium 2 mg Route: IVP; Site: right antecubital; ll1 22:13 Follow up: Response: No adverse reaction; RASS: Alert and Calm (0) ll1 Outcome: 19:07 Discharge ordered by MD. mclean 19:23 Patient left the ED. january 19:23 Discharged to home ambulatory. [facility] 19:23 Condition: stable 19:23 Discharge instructions given to patient, Instructed on discharge instructions, follow up and referral plans. Demonstrated understanding of instructions, follow-up care. Signatures: Dispatcher [employer] EDKen Vaz PA PA jmm Sanford, Demi ds1 Jaky Scott, RN RN bb Laura Hernandez RN RN aa5 Glory Comer 3 Leonardo Oneill RN RN ll1
[2020-03-17 20:18] VITALS: BP 122/71; TEMP 98.7; O2SAT 100
== END 2020-03-17 19:23 | disposition home or self-care (01) ==
LOC: ER 13:02
DX: S39.012A Strain of muscle, fascia and tendon of lower back, initial encounter (principal); M54.31 Sciatica, right side; Z88.0 Allergy status to penicillin; Z88.1 Allergy status to other antibiotic agents
CPT/HCPCS: 72131; 96375; 96374; 99283; J3360; J3010; J1100; J2405

== ENCOUNTER 2021-06-24 16:07 | Emergency (ER) | payer BC ==
--- OUTSIDE RECORDS SUMMARY | 2021-06-24 16:12 | XMS REPORT | Continuity of Care Document ---
:1990 Author Organization [facility] t Address [address] [place] [address] Care Team Providers Name Role Phone Leo Carrillo MD, [facility] Primary Care Physician [phone] Ektyree, I Attending Clinician Unavailable Aquilino Ortega Attending Clinician Unavailable Kim Villarreal DO Attending Clinician Boubacar Ramirez MD Attending Clinician Only, Test Attending Clinician Unavailable Goran ANDERSON Attending Clinician GORAN Attending Clinician Unavailable Doctor Unassigned, Name Attending Clinician Unavailable Nurse, Urgent Attending Clinician Unavailable Obdulio GUIDRY, T Attending Clinician Unavailable Human MEDICAL CHIEF TECHNICIAN, F Attending Clinician Rodrigo ANDERSON, Akbar Attending Clinician Lori Pan Attending Clinician Huey ANDERSON, Cam Attending Clinician Aquilino Ortega Admitting Clinician Unavailable EKHAESE Admitting Clinician Unavailable Julieta Bailey Admitting Clinician Unavailable Payers Payer Name Policy Type Policy Number Effective Date Expiration Date Que [facility] [id number] 2019 00:00:00 [facility] [id number] 2020 00:00:00 REPLACED BY [facility] [id number] 2018 CHOICE 00:00:00 Problems Condition Condition Condition Status Onset Resolution Last Treating Co mments Source Name Details Category Date Date Treatment Clinician Date S/P S/P Disease Active [facility] gastric gastric 05-29 sleeve sleeve 00:00: Hospita procedure procedure 00 l Morbid Morbid Disease Active [facility] obesity obesity 05-29 st 00:00: Hospita 00 l Preoperati Preoperati Disease Active M ethodi ve testing ve testing 05-27 st 00:00: Hospita 00 l SOB SOB Disease Active [facility] (shortness (shortness 12-30 st of breath) of breath) 00:00: Ho spita 00 l COVID-19 COVID-19 Disease Active Metho di virus virus 12-26 st infection infection 00:00: Hosp jacek 00 l Disease Active 2017-05 [facility]ive rs wound wound 2-17 [place] [address] [place] [address] GDM, class GDM, class Disease Active 2017-05 U nivers A2 A2 1-05 ity of 00:00: [place] [address] Medical Branch Previous Previous Disease Active 2017-05 Unive rs 1-05 ity of section section 00:00: [place] [address] Medical Branch Left sided Left sided Disease Active 2017-05 U nivers sciatica sciatica 0-18 ity of 00:00: [address] Branch Encounter Encounter Disease Active Uni vers for for 8-22 [place] of supervis[place] of high 00 [facility] risk risk Branch with with history of history of , , antepartum antepartum Thyroid Thyroid Disease Active Univers disease disease 4-24 [place] affecting affecting [place] [facility] Obesity, Obesity, Disease Active Unive rs Class III, Class III, 9-27 it y of BMI BMI 00:00: [place] 40-49.9 40-49.9 00 Medical (morbid (morbid Branch obesity) obesity) PCOS PCOS Disease Active Univers (polycysti (polycysti 8-25 [place] of c ovarian c ovarian 00[place] syndrome) syndrome) 00 [facility] Branch Family Family Disease Active Univers history of history of 8-12 it y of ovarian ovarian 00:00: [place] cancer cancer 00 Medical Branch Allergies, Adverse Reactions, Alerts Allergy Allergy Status Severity Reaction(s) Onset Inactive Treating Comm ents Source Name Type Date Date Clinician [facility] DA Active U rash 2020-05 [facility] ins [facility] [place] [facility] d [facility] Penicill DA Active U 2020-05 [facility] ins 0-29 [place] 00:00: d 00 [facility] Center No Known DA Active U 2020-05 [facility] Allergie 0-27 [place] 00:00: d [facility] No Known DA Active U 2020-05 [facility] Allergie 0-27 [place] 00:00: d 00 [facility] Penicill DA Active [place] 2020-0 [facility] ins 8-20 [place] 00:00: d 00 [facility] amoxicil DA Active [place] 2019-0 [facility] braden 8-20 [place] 00:00: d 00 [facility] Penicill DA Active [place] RASH/BREAKOU 2020-0 [facility] ins T 8-20 [place] 00:00: d 00 [facility] amoxicil DA Active [place] RASH/BREAKOU 2020-0 HC A braden T 8-20 [place] 00:00: d 00 [facility] Amoxicil Propensi Active Rash 2019-0 Method i braden ty to 818 st adverse 00:00: Hospita reaction 00 l s to drug Penicill Propensi Active Rash 2019-0 Method i in V ty to 8-18 st adverse 00:00: Hospita reaction 00 l s to drug Amoxicil Propensi Active Swelling Unsure if U nivers braden ty to 01-22 it was ity of adverse 00:00: amoxicill [place] reaction 00 in but Medical s was Branch taking this medicatio n when had significa nt drug reaction in 2014. Lips started to swell. AMOXICIL DRUG Active Swelling Univer s BRADEN INGREDI 01-22 ity of 00:00: [place] 00 Medical Branch Family History Family Member Diagnosis Comments Start Date Stop Date Source Natural father No Known Problems Met [facility] Natural mother No Known Problems Met [facility] Social History Social Habit Start Date Stop Date Quantity Comments Source History SDOH [facility]ospita l History SDOH [facility] Drinks History SDPR [facility] Exposure to Not sure [facility] SARS-CoV-2 Hospital (event) Alcohol intake 2021-05-30 2021-05-30 Current drinker [facility] 00:00:00 00:00:00 of alcohol Hospital (finding) Tobacco use and 2021-05-20 2021-05-20 Smokeless tobacco [facility] exposure 00:00:00 00:00:00 non-user Hospital Alcohol Comment 2021-05-20 2021-05-20 Social [facility] 00:[facility]:00 Hospital Sex Assigned At [birth year] [facility] 00:00:00 [facility]00 [facility] Smoking Status Start Date Stop Date Source Never smoked tobacco [facility] Medications Ordered Filled Start Stop Current Ordering Indication Dosage Frequency Signature Comments Components Source Medication Medication Date Date Medication? Clinician (SIG) Name Name omeprazole 2021- Yes 40mg QD Take 20 mL [facility] (PRILOSEC) 05-30 ([address] 2 mg/mL 00:00: 05:59 total) by Hosp jacek oral 00 :00 mouth l suspension daily for 30 days. sucralfate 2021- Yes 1g Q.25D Take 10 mL [facility] (CARAFATE) 05-29 ([address] 100 mg/mL 00:00: 05:59 total) by Ho spita suspension 00 :00 mouth 4 l (four) times a day before meals and nightly for 30 days. metFORMIN 2021- No 500mg Q.5D Take 500 Me [facility] (GLUCOPHAGE 1-14 01-[address] ) 500 mg 12:36: 00:00 mouth 2 Hospi ta tablet 08 :00 (two) l times a day with meals. ibuprofen 2019- No 600mg 600 mg, Uni vers (IBU) 12-21 Oral, ity of tablet 600 02:30: 01:36 ONCE, 1 [place] mg 00 :00 dose, [facility] 12/21/19 at Branch 2130, REY azithromyci 2020-0 2020- No 500mg 500 mg, U nivers n 8-17 08-17 Oral, ity of (ZITHROMAX) 02:15: 01:35 [place]CE[place] 1 [place] tablet 500 00 :00 dose, [facility] mg 12/20/ at Branch 2115, REY
Re ason for Anti-Infec tive: Documented Infection< br>Documen bushra Infection Site: Respirator y
Durat ion of Therapy: 7 days<br&gt ;Reason for Anti-Infec tive: Documented Infection< br>Documen bushra Infection Site: Respirator y ibuprofen 2019-0 Yes [id number] 600mg Take 1 Univers 600 mg 8-16 tablet by ity of tablet 00:00: mouth [place] 00 every 6 Medical (six) Branch hours as needed for Pain (scale 4-6). benzonatate 2019-0 Yes [id number] 200mg Take 1 Univers 200 mg 8-16 capsule by ity of capsule 00:00: mouth 3 [place] 00 (three) Medical times Branch daily as needed for Cough for up to 20 doses. predniSONE 2019-0 Yes [id number] 1 PO BID x Univers 20 mg 8-16 4 days ity of tablet 00:00: [place] 00 Medical Branch azithromyci 2019-0 Yes [id number] 250mg Take 1 Univers n 8-16 tablet by ity of (ZITHROMAX 00:00: mouth [place] Z-ZENAIDA) 250 00 SEE-INSTRU Med ical mg tablet CTIONS. Branch Take 500 mg day 1, then 250 mg days 2 to 5. ondansetron 2019-0 Yes [id number] 4mg Take 1 Univers (ZOFRAN 8-16 tablet by ity of ODT) 4 mg 00:00: mouth [place] disintegrat 00 every 8 Medic al ing tablet (eight) Branch hours as needed for Nausea and Vomiting (N/V). albuterol 2019-0 Yes [id number] 2.5mg Inhale 3 Univers 2.5 mg /3 8-16 mL every 4 ity of mL (0.083 00:00: (four) [place] %) 00 hours as Medical nebulizer needed for Bran ch solution Wheezing or Shortness of Breath. albuterol 2019-0 Yes [id number] 2{puff} Inhale 2 Univers 90 8-16 Puffs ity of mcg/actuati 00:00: every 4 [place] on inhaler 00 (four) Medical hours as Branch needed for Wheezing or Shortness of Breath. ibuprofen 2020-0 Yes [id number] 600mg Take 1 Univers 600 mg 8-16 tablet by ity of tablet 00:00: mouth [place] 00 every 6 Medical (six) Branch hours as needed for Pain (scale 4-6). benzonatate 2020-0 Yes [id number] 200mg Take 1 Univers 200 mg 8-16 capsule by ity of capsule 00:00: mouth 3 [place] 00 (three) Medical times Branch daily as needed for Cough for up to 20 doses. predniSONE 2020-0 Yes [id number] 1 PO BID x Univers 20 mg 8-16 4 days ity of tablet 00:00: [place] 00 Medical Branch azithromyci 2020-0 Yes [id number] 250mg Take 1 Univers n 8-16 tablet by ity of (ZITHROMAX 00:00: mouth [place] Z-ZENAIDA) 250 00 SEE-INSTRU Med ical mg tablet CTIONS. Branch Take 500 mg day 1, then 250 mg days 2 to 5. ondansetron 2020-0 Yes [id number] 4mg Take 1 Univers (ZOFRAN 8-16 tablet by ity of ODT) 4 mg 00:00: mouth [place] disintegrat 00 every 8 Medic al ing tablet (eight) Branch hours as needed for Nausea and Vomiting (N/V). albuterol 2020-0 Yes [id number] 2.5mg Inhale 3 Univers 2.5 mg /3 8-16 mL every 4 ity of mL (0.083 00:00: (four) [place] %) 00 hours as Medical nebulizer needed for Bran ch solution Wheezing or Shortness of Breath. albuterol 2020-0 Yes [id number] 2{puff} Inhale 2 Univers 90 8-16 Puffs ity of mcg/actuati 00:00: every 4 [place] on inhaler 00 (four) Medical hours as Branch needed for Wheezing or Shortness of Breath. ibuprofen 2020-0 Yes [id number] 600mg Take 1 Univers 600 mg 8-16 tablet by ity of tablet 00:00: mouth [place] 00 every 6 Medical (six) Branch hours as needed for Pain (scale 4-6). benzonatate 2020-0 Yes [id number] 200mg Take 1 Univers 200 mg 8-16 capsule by ity of capsule 00:00: mouth 3 [place] 00 (three) Medical times Branch daily as needed for Cough for up to 20 doses. predniSONE 2020-0 Yes [id number] 1 PO BID x Univers 20 mg 8-16 4 days ity of tablet 00:00: [place] 00 Medical Branch azithromyci 2020-0 Yes [id number] 250mg Take 1 Univers n 8-16 tablet by ity of (ZITHROMAX 00:00: mouth [place] Z-ZENAIDA) 250 00 SEE-INSTRU Med ical mg tablet CTIONS. Branch Take 500 mg day 1, then 250 mg days 2 to 5. ondansetron 2020-0 Yes [id number] 4mg Take 1 Univers (ZOFRAN 8-16 tablet by ity of ODT) 4 mg 00:00: mouth [place] disintegrat 00 every 8 Medic al ing tablet (eight) Branch hours as needed for Nausea and Vomiting (N/V). albuterol 2020-0 Yes [id number] 2.5mg Inhale 3 Univers 2.5 mg /3 8-16 mL every 4 ity of mL (0.083 00:00: (four) [place] %) 00 hours as Medical nebulizer needed for Bran ch solution Wheezing or Shortness of Breath. albuterol 2020-0 Yes [id number] 2{puff} Inhale 2 Univers 90 8-16 Puffs ity of mcg/actuati 00:00: every 4 [place] on inhaler 00 (four) Medical hours as Branch needed for Wheezing or Shortness of Breath. ibuprofen 2020-0 Yes [id number] 600mg Take 1 Univers 600 mg 8-16 tablet by ity of tablet 00:00: mouth [place] 00 every 6 Medical (six) Branch hours as needed for Pain (scale 4-6). benzonatate 2020-0 Yes [id number] 200mg Take 1 Univers 200 mg 8-16 capsule by ity of capsule 00:00: mouth 3 [place] 00 (three) Medical times Branch daily as needed for Cough for up to 20 doses. predniSONE 2020-0 Yes [id number] 1 PO BID x Univers 20 mg 8-16 4 days ity of tablet 00:00: [place] 00 Medical Branch azithromyci 2020-0 Yes [id number] 250mg Take 1 Univers n 8-16 tablet by ity of (ZITHROMAX 00:00: mouth [place] Z-ZENAIDA) 250 00 SEE-INSTRU Med ical mg tablet CTIONS. Branch Take 500 mg day 1, then 250 mg days 2 to 5. ondansetron 2020-0 Yes [id number] 4mg Take 1 Univers (ZOFRAN 8-16 tablet by ity of ODT) 4 mg 00:00: mouth [place] disintegrat 00 every 8 Medic al ing tablet (eight) Branch hours as needed for Nausea and Vomiting (N/V). albuterol 2020-0 Yes [id number] 2.5mg Inhale 3 Univers 2.5 mg /3 8-16 mL every 4 ity of mL (0.083 00:00: (four) [place] %) 00 hours as Medical nebulizer needed for Bran ch solution Wheezing or Shortness of Breath. albuterol 2020-0 Yes [id number] 2{puff} Inhale 2 Univers 90 8-16 Puffs ity of mcg/actuati 00:00: every 4 [place] on inhaler 00 (four) Medical hours as Branch needed for Wheezing or Shortness of Breath. ibuprofen 2020-0 Yes [id number] 600mg Take 1 Univers 600 mg 8-16 tablet by ity of tablet 00:00: mouth [place] 00 every 6 Medical (six) Branch hours as needed for Pain (scale 4-6). benzonatate 2020-0 Yes [id number] 200mg Take 1 Univers 200 mg 8-16 capsule by ity of capsule 00:00: mouth 3 [place] 00 (three) Medical times Branch daily as needed for Cough for up to 20 doses. predniSONE 2020-0 Yes [id number] 1 PO BID x Univers 20 mg 8-16 4 days ity of tablet 00:00: [place] 00 Medical Branch azithromyci 2020-0 Yes [id number] 250mg Take 1 Univers n 8-16 tablet by ity of (ZITHROMAX 00:00: mouth [place] Z-ZENAIDA) 250 00 SEE-INSTRU Med ical mg tablet CTIONS. Branch Take 500 mg day 1, then 250 mg days 2 to 5. ondansetron 2020-0 Yes [id number] 4mg Take 1 Univers (ZOFRAN 8-16 tablet by ity of ODT) 4 mg 00:00: mouth [place] disintegrat 00 every 8 Medic al ing tablet (eight) Branch hours as needed for Nausea and Vomiting (N/V). albuterol 2020-0 Yes [id number] 2.5mg Inhale 3 Univers 2.5 mg /3 8-16 mL every 4 ity of mL (0.083 00:00: (four) [place] %) 00 hours as Medical nebulizer needed for Bran ch solution Wheezing or Shortness of Breath. albuterol 2020-0 Yes [id number] 2{puff} Inhale 2 Univers 90 8-16 Puffs ity of mcg/actuati 00:00: every 4 [place] on inhaler 00 (four) Medical hours as Branch needed for Wheezing or Shortness of Breath. ibuprofen 2020-0 Yes [id number] 600mg Take 1 Univers 600 mg 8-16 tablet by ity of tablet 00:00: mouth [place] 00 every 6 Medical (six) Branch hours as needed for Pain (scale 4-6). benzonatate 2020-0 Yes [id number] 200mg Take 1 Univers 200 mg 8-16 capsule by ity of capsule 00:00: mouth 3 [place] 00 (three) Medical times Branch daily as needed for Cough for up to 20 doses. predniSONE 2020-0 Yes [id number] 1 PO BID x Univers 20 mg 8-16 4 days ity of tablet 00:00: [place] 00 Medical Branch azithromyci 2020-0 Yes [id number] 250mg Take 1 Univers n 8-16 tablet by ity of (ZITHROMAX 00:00: mouth [place] Z-ZENAIDA) 250 00 SEE-INSTRU Med ical mg tablet CTIONS. Branch Take 500 mg day 1, then 250 mg days 2 to 5. ondansetron 2020-0 Yes [id number] 4mg Take 1 Univers (ZOFRAN 8-16 tablet by ity of ODT) 4 mg 00:00: mouth [place] disintegrat 00 every 8 Medic al ing tablet (eight) Branch hours as needed for Nausea and Vomiting (N/V). albuterol 2020-0 Yes [id number] 2.5mg Inhale 3 Univers 2.5 mg /3 8-16 mL every 4 ity of mL (0.083 00:00: (four) [place] %) 00 hours as Medical nebulizer needed for Bran ch solution Wheezing or Shortness of Breath. albuterol 2020-0 Yes [id number] 2{puff} Inhale 2 Univers 90 8-16 Puffs ity of mcg/actuati 00:00: every 4 [place] on inhaler 00 (four) Medical hours as Branch needed for Wheezing or Shortness of Breath. metFORMIN 2018-05 Yes 500mg Take 1 Unive rs 500 mg 2-11 tablet by ity of tablet 00:00: mouth (two) Medical times Branch daily with meals. metFORMIN 2018-05 Yes 500mg Take 1 Unive rs 500 mg 2-11 tablet by ity of tablet 00:00: mouth 2 (two) Medical times Branch daily with meals. metFORMIN 2018-05 Yes 500mg Take 1 Unive rs 500 mg 2-11 tablet by ity of tablet 00:00: mouth 2 (two) Medical times Branch daily with meals. metFORMIN 2018-05 Yes 500mg Take 1 Unive rs 500 mg 2-11 tablet by ity of tablet 00:00: mouth (two) Medical times Branch daily with meals. metFORMIN 2018-05 Yes 500mg Take 1 Unive rs 500 mg 2-11 tablet by ity of tablet 00:00: mouth 2 (two) Medical times Branch daily with meals. metFORMIN 2018-05 Yes 500mg Take 1 Unive rs 500 mg 2-11 tablet by ity of tablet 00:00: mouth (two) Medical times Branch daily with meals. metFORMIN 2018-05 Yes 500mg Take 1 Unive rs 500 mg 2-11 tablet by ity of tablet 00:00: mouth (two) Medical times Branch daily with meals. metFORMIN 2018-05 Yes 500mg Take 1 Unive rs 500 mg 2-11 tablet by ity of tablet 00:00: mouth 2 (two) Medical times Branch daily with meals. Nitrofurant 2019-0 Yes [id number] 100mg Take 1 Univers oin&Nit. 6-14 capsule by ity o f Macrocryst 00:00: mouth 2 [place] 100 mg 00 (two) Medical capsule times Branch daily. Nitrofurant 2019-0 Yes [id number] 100mg Take 1 Univers oin&Nit. 6-14 capsule by ity o f Macrocryst 00:00: mouth 2 [place] 100 mg 00 (two) Medical capsule times Branch daily. Nitrofurant 2019-0 Yes [id number] 100mg Take 1 Univers oin&Nit. 6-14 capsule by ity o f Macrocryst 00:00: mouth 2 [place] 100 mg 00 (two) Medical capsule times Branch daily. Nitrofurant 2019-0 Yes [id number] 100mg Take 1 Univers oin&Nit. 6-14 capsule by ity o f Macrocryst 00:00: mouth 2 [place] 100 mg 00 (two) Medical capsule times Branch daily. Nitrofurant 2018-0 Yes [id number] 100mg Take 1 Univers oin&Nit. 6-14 capsule by ity o f Macrocryst 00:00: mouth 2 [place] 100 mg 00 (two) Medical capsule times Branch daily. Nitrofurant 2018- Yes [id number] 100mg Take 1 Univers oin&Nit. 6-14 capsule by ity o f Macrocryst 00:00: mouth 2 [place] 100 mg 00 (two) Medical capsule times Branch daily. Nitrofurant 2018-0 Yes [id number] 100mg Take 1 Univers oin&Nit. 6-14 capsule by ity o f Macrocryst 00:00: mouth 2 [place] 100 mg 00 (two) Medical capsule times Branch daily. Nitrofurant 2018- Yes [id number] 100mg Take 1 Univers oin&Nit. 6-14 capsule by ity o f Macrocryst 00:00: mouth 2 [place] 100 mg 00 (two) Medical capsule times Branch daily. azithromyci Yes TAKE 2 Univ ers n 250 mg 6-11 TABLETS BY ity o f tablet 00:00: MOUTH ON DAY 1 AND Medical THEN TAKE Branch 1 TABLET BY MOUTH ONCE A DAY ON DAY 2 THROUGH DAY 5 azithromyci 2018-0 Yes TAKE 2 Univ ers n 250 mg 6-11 TABLETS BY ity o f tablet 00:00: MOUTH ON DAY 1 AND Medical THEN TAKE Branch 1 TABLET BY MOUTH ONCE A DAY ON DAY 2 THROUGH DAY 5 azithromyci 2018-0 Yes TAKE 2 Univ ers n 250 mg 6-11 TABLETS BY ity o f tablet 00:00: MOUTH ON DAY 1 AND Medical THEN TAKE Branch 1 TABLET BY MOUTH ONCE A DAY ON DAY 2 THROUGH DAY 5 azithromyci 2018-0 Yes TAKE 2 Univ ers n 250 mg 6-11 TABLETS BY ity o f tablet 00:00: MOUTH ON DAY 1 AND Medical THEN TAKE Branch 1 TABLET BY MOUTH ONCE A DAY ON DAY 2 THROUGH DAY 5 azithromyci 2018-0 Yes TAKE 2 Univ ers n 250 mg 6-11 TABLETS BY ity o f tablet 00:00: MOUTH ON DAY 1 AND Medical THEN TAKE Branch 1 TABLET BY MOUTH ONCE A DAY ON DAY 2 THROUGH DAY 5 azithromyci 2019-0 Yes TAKE 2 Univ ers n 250 mg 6-11 TABLETS BY ity o f tablet 00:00: MOUTH ON DAY 1 AND Medical THEN TAKE Branch 1 TABLET BY MOUTH ONCE A DAY ON DAY 2 THROUGH DAY 5 azithromyci 2019-0 Yes TAKE 2 Univ ers n 250 mg 6-11 TABLETS BY ity o f tablet 00:00: MOUTH ON DAY 1 AND Medical THEN TAKE Branch 1 TABLET BY MOUTH ONCE A DAY ON DAY 2 THROUGH DAY 5 azithromyci 2019-0 Yes TAKE 2 Univ ers n 250 mg 6-11 TABLETS BY ity o f tablet 00:00: MOUTH ON DAY 1 AND Medical THEN TAKE Branch 1 TABLET BY MOUTH ONCE A DAY ON DAY 2 THROUGH DAY 5 ibuprofen 2017-05 Yes 600mg Take 1 Unive rs 600 mg 2-19 tablet by ity of tablet 00:00: mouth every 6 Medical (six) Branch hours as needed for Pain (scale 1-3) or Pain (scale 4-6). ibuprofen 2017-05 Yes 600mg Take 1 Unive rs 600 mg 2-19 tablet by ity of tablet 00:00: mouth every 6 Medical (six) Branch hours as needed for Pain (scale 1-3) or Pain (scale 4-6). ibuprofen 2017-05 Yes 600mg Take 1 Unive rs 600 mg 2-19 tablet by ity of tablet 00:00: mouth every 6 Medical (six) Branch hours as needed for Pain (scale 1-3) or Pain (scale 4-6). ibuprofen 2017-05 Yes 600mg Take 1 Unive rs 600 mg 2-19 tablet by ity of tablet 00:00: mouth every 6 Medical (six) Branch hours as needed for Pain (scale 1-3) or Pain (scale 4-6). ibuprofen 2017-05 Yes 600mg Take 1 Unive rs 600 mg 2-19 tablet by ity of tablet 00:00: mouth 00 every 6 Medical (six) Branch hours as needed for Pain (scale 1-3) or Pain (scale 4-6). ibuprofen 2017-05 Yes 600mg Take 1 Unive rs 600 mg 2-19 tablet by ity of tablet 00:00: mouth [place] 00 every 6 Medical (six) Branch hours as needed for Pain (scale 1-3) or Pain (scale 4-6). ibuprofen 2017-05 Yes 600mg Take 1 Unive rs 600 mg 2-19 tablet by ity of tablet 00:00: mouth [place] 00 every 6 Medical (six) Branch hours as needed for Pain (scale 1-3) or Pain (scale 4-6). ibuprofen 2017-05 Yes 600mg Take 1 Unive rs 600 mg 2-19 tablet by ity of tablet 00:00: mouth [place] 00 every 6 Medical (six) Branch hours as needed for Pain (scale 1-3) or Pain (scale 4-6). docusate 2017-05 Yes 240mg Take 1 Univer s calcium 240 2-10 capsule by it y of mg capsule 00:00: mouth [place] 00 daily as Medical needed for Branch Constipati on. docusate 2017-05 Yes 240mg Take 1 Univer s calcium 240 2-10 capsule by it y of mg capsule 00:00: mouth once [place] 00 daily as Medical needed for Branch Constipati on. docusate 2017-05 Yes 240mg Take 1 Univer s calcium 240 2-10 capsule by it y of mg capsule 00:00: mouth once [place] 00 daily as Medical needed for Branch Constipati on. docusate 2017-05 Yes 240mg Take 1 Univer s calcium 240 2-10 capsule by it y of mg capsule 00:00: mouth once [place] 00 daily as Medical needed for Branch Constipati on. docusate 2017-05 Yes 240mg Take 1 Univer s calcium 240 2-10 capsule by it y of mg capsule 00:00: mouth once [place] 00 daily as Medical needed for Branch Constipati on. docusate 2017-05 Yes 240mg Take 1 Univer s calcium 240 2-10 capsule by it y of mg capsule 00:00: mouth once [place] 00 daily as Medical needed for Branch Constipati on. docusate 2017-05 Yes 240mg Take 1 Univer s calcium 240 2-10 capsule by it y of mg capsule 00:00: mouth once [place] 00 daily as Medical needed for Branch Constipati on. docusate 2017-05 Yes 240mg Take 1 Univer s calcium 240 2-10 capsule by it y of mg capsule 00:00: mouth once [place] 00 daily as Medical needed for Branch Constipati on. Immunizations Ordered Filled Immunization Date Status Comments Sourc e Immunization Name Name Td 2015-01-20 Completed University of 00:00:00 [facility] Td 2015-01-20 Completed University of 00:00:00 [facility] Td 2015-01-20 Completed University of 00:00:00 [facility] Td 2015-01-20 Completed University of 00:00:00 [facility] Td 2015-01-20 Completed University of 00:00:00 [facility] Td 2015-01-20 Completed University of 00:00:00 [facility] Td 2015-01-20 Completed University of 00:00:00 [facility] Td 2015-01-20 Completed University of 00:00:00 [facility] Vital Signs Vital Name Observation Time Observation Value Comments Source Body temperature 2019-12-22 01:48:29 39.5 [facility] Systolic blood 2019-12-22 01:33:05 121 mm[Hg] Univer sity of pressure [facility] Diastolic blood 2019-12-22 01:33:05 90 mm[Hg] Unive rsity of pressure [facility] Heart rate 2019-12-22 01:33:05 108 /min [facility] Respiratory rate 2019-12-22 01:33:05 25 /min [facility] Body height 2019-12-22 01:33:05 152.4 cm [facility] Oxygen saturation in 2019-12-22 01:33:05 98 /min [facility] Arterial blood by [facility] Pulse oximetry Branch Body weight 2019-12-21 22:36:00 102.059 kg [facility] BMI 2019-12-21 22:36:00 43.94 kg/m2 [facility] Body temperature 2019-12-22 01:48:29 [facility].5 [facility] 2019-12-22 01:33:05 121 mm[Hg] Univer sity of pressure [facility] Diastolic blood 2019-12-22 01:33:05 90 mm[Hg] Unive rsity of pressure [facility] Heart rate 2019-12-22 01:33:05 108 /min [facility] Respiratory rate 2019-12-22 01:33:05 25 /min [facility] Body height 2019-12-22 01:33:05 152.4 cm [facility] Oxygen saturation in 2019-12-22 01:33:05 98 /min [facility] Arterial blood by [facility] Pulse oximetry Branch Body weight 2019-12-21 22:36:00 102.059 kg [facility] BMI 2019-12-21 22:36:00 43.94 kg/m2 [facility] Systolic blood 2021-05-29 13:45:03 121 mm[Hg] [facility] pressure Diastolic blood 2021-05-29 13:45:03 67 mm[Hg] [facility] pressure Heart rate 2021-05-29 13:45:03 72 /min [facility] Body temperature 2021-05-29 13:45:03 36.83 Shi [facility] Respiratory rate 2021-05-29 13:45:03 16 /min [facility] Oxygen saturation in 2021-05-29 13:45:03 98 /min [facility] Arterial blood by Pulse oximetry Body height 2021-05-28 13:12:00 152.4 cm [facility] Body weight 2021-05-27 20:55:00 103.42 kg [facility] BMI 2021-05-27 20:55:00 44.53 kg/m2 [facility] Procedures Procedure Date / Time Performing Clinician Source Performed COVID-19 SEROLOGY 2021-05-29 10:45[facility] [place] COVID-19 ANTI-SPIKE IGG 2021-05-29 10:45:00 Lupillo [facility] ANTIBODY TITER [place] BASIC METABOLIC PANEL 2021-05-28 11:29:00 EksolomonseMaria Guadalupe [facility] HC COMPLETE BLD COUNT 2021-05-28 11:29:00 EkMaria Guadalupe clements [facility] W/AUTO DIFF [facility] ESTIMATED GFR 2021-05-28 11:29:00 [facility] POC GLUCOSE 2021-05-28 01:15:00 [facility] SURGICAL PATHOLOGY 2021-05-28 00:48:00 [facility] REQUEST Im[facility] NE AN ELECTIVE 2021-05-27 22:36:00 Delroy Gillespie [facility] ENDOTRACHEAL AIRWAY GASTRECTOMY, SLEEVE, 2021-05-27 22:29:00 [facility] LAPAROSCOPIC [facility] HCG QUALITATIVE, URINE 2021-05-27 21:11:00 [facility] SCREEN [facility] PROTHROMBIN TIME WITH 2021-05-27 21:11:00 [facility] INR [facility] ABO AND RH CONFIRMATION 2021-05-27 21:11:00 [facility] Im[facility] ECG PRE/POST OP 2021-05-23 21:07:22 [facility] BASIC METABOLIC PANEL 2021-05-23 21:01:00 [facility] ESTIMATED GFR 2021-05-23 21:01:00 [facility] COMPREHENSIVE METABOLIC 2021-05-23 21:01:00 [facility] PANEL Im[facility] COVID-19 QUALITATIVE 2021-05-23 21:01:00 [facility] RT-PCR [facility] TYPE AND SCREEN 2021-05-23 21:01:00 [facility] HEMOGLOBIN A1C 2021-05-23 21:01:00 [facility] CBC HEMOGRAM 2021-05-23 21:01:00 [facility] ASSIGNMENT OF BENEFITS 2020-01-16 16:53:23 Doctor Unassigned, No [facility] XR CHEST 1 VW COVID 2019-12-21 23:21:16 Phil Sylvester [facility] POCT TEST 2019-12-21 23:02:00 Phil Sylvester [facility] EKG-12 LEAD 2019-12-21 22:55:25 Phil Sylvester [facility] NOTICE OF PRIVACY 2019-12-21 22:22:54 Doctor Unassigned, No [facility] PRACTICES Name [facility] CONSENT/REFUSAL FOR 2019-12-21 22:22:40 Doctor Unassigned, No [facility] Plan of Care Planned Activity Planned Date Details Comments Source Future Scheduled 2021-06-07 DIABETES: RETINAL EYE [facility] Test 19:05:09 EXAM [code = DIABETES: RETINAL EYE EXAM] Future Scheduled 2021-06-07 DIABETIC FOOT EXAM [facility] Test 19:05:09 [code = DIABETIC FOOT EXAM] Future Scheduled 2021-06-07 URINE MICROALBUMIN [facility] Test 19:05:09 [code = URINE MICROALBUMIN] Future Scheduled 2021-06-07 Hepatitis C screening [facility] Test 19:05:09 (procedure) [code = 897506008] Future Scheduled 2021-06-07 [facility] Test 19:05:09 malignant neoplasm of cervix (procedure) [code = 676184704] Future Scheduled 2021-06-07 [facility]INE [facility] Test 19:05:09 [code = INFLUENZA VACCINE] Encounters Start End Encounter Admission Attending Care Care Encounter Source Date/Time Date/Time Type Type Clinicians Facility Department ID 2021-03-04 Emergency [facility] [id number] Univers 12:43:14 [facility] 2021-03-03 Inpatient Ekhaese, HCAPM ENDO [id number] [facility] 14:15:00 [place] [id number] [facility] 2021-03-02 Inpatient EL Ektyree, HCAPM ENDO [id number] [facility] 15:00:00 [place] [id number] [facility] 2019-12-25 Inpatient EM Ortega, HCAMN AAA [id number] [facility] 18:10:00 Mandi [facility] 2021-05-27 2021-05-29 Hospital Eksolomonse, 1.2.840.1 [id number] Methodi 14:31:00 12:49:00 Encounter Obrosie 80567.1.[address] [facility] 3.430.2.7 Hospi ta .3.710903 l .8 2021-05-27 2021-05-27 Surgery Ekhaese, 1.2.840.1 [id number] Methodi 16:25:00 19:20:[address] [facility] 3.430.2.7 Hospi ta .3.169891 l .8 2021-05-27 2021-05-27 Anesthesia Ashley, 1.2.840.1 [id number] Methodi 16:28:00 19:09:00 Event Lew 87548.1.[address] [place]ar 3.430.2.7 Hospit a .3.360206 l .8 2021-05-27 2021-05-27 Travel 1.2.840.1 1.2.844.381 [id number] Methodi 00:00:00 00:00:[address] 3.430.2.7 0.2.7.3.698 Ho spita .3.440811 084.8 l .8 2021-05-23 2021-05-23 Pre-Admiss Ekhaese, 1.2.840.1 [id number] Methodi 14:54:36 15:11:47 ion [place] [address]676.1.[address] Testing [facility] 3.430.2.7 Hospi ta .3.732918 l .8 2021-05-23 2021-05-23 Travel 1.2.840.1 1.2.188.657 5586 [id number] Methodi 00:00:00 00:00:[address] 3.430.2.7 0.2.7.3.698 Ho spita .3.229665 084.8 l .8 2021-05-20 2021-05-20 Travel 1.2.840.1 1.2.176.018 6216 [id number] Methodi 00:00:00 00:00:[address] 3.430.2.7 0.2.7.3.698 Ho spita .3.560630 084.8 l .8 2021-03-04 2021-03-04 Outpatient EL Cherelle, HCAPM DAYS [id number] [facility] 05:57:00 05:57:00 [place] [id number] [facility] 2021-03-04 2021-03-04 Outpatient EL Cherelle, [facility] DAYS [id number] [facility] 05:57:00 05:57:00 [place] 83 [facility] 2020-08-22 2020-08-22 Outpatient [facility] [id number] Univers 14:20:00 14:20:00 ity [facility] 2020-08-21 2020-08-21 Outpatient [facility] [id number] Univers 14:20:00 14:20:00 ity [facility] 2020-08-01 2020-08-01 Outpatient [facility] [id number] Univers 14:05:00 14:05:[address] [facility] 2020-01-16 2020-01-16 Laboratory Only, [facility] 1.2.840.114 [id number] 11:51:57 12:06:57 Only Test Erskine 350.1.13.10 [place] 4.2.7.2.686 [place] [id number] [facility] 2020-01-16 2020-01-16 Laboratory Only, Adc Test MAMB 1.2.840. 114 [id number] Univers 11:51:57 12:06:57 Only [facility]eness[facility]13.10 [facility] 4.2.7.2.686 [facility] [id number] [address] 2020-01-16 2020-01-16 Outpatient R [facility] [id number] Univers 11:45:00 11:45:00 [id number] ity [facility] 2020-01-16 2020-01-16 Outpatient R VENESSA ZIMMER [facility] [id number] Univers 11:45:00 11:45:[address] [facility] 2020-01-16 2020-01-16 Orders Doctor JOSE 1.2.840.114 [id number] 00:00:00 00:00:00 Only Unassigned, BARBARA 350.1.13.10 [facility] 4.2.7.2.686 [id number] 009 2020-01-16 2020-01-16 Orders Doctor JOES 1.2.840.114 [id number] Univers 00:00:00 00:00:00 Only Unassigned, BARBARA 350.1.13.10 ity of [facility] 4.2.7.2.686 [place] as [id number] [facility] 009 Branch 2019-12-25 2019-12-25 Telephone Nurse, [place] [facility] 1.2.840.114 7 [id number] 00:00:00 00:00:00 Urgent HEALTH 350.1.13.10 [place] 4.2.7.2.686 [facility] [id number] Primary & 370 Specialty Care 2019-12-25 2019-12-25 Telephone Nurse, [facility] 1.2.840.114 [id number] Univers 00:00:00 00:00:00 Urgent HEALTH 350.1.13.10 it y of [place] 4.2.7.2.686 [facility] [id number] [facility] Primary & 370 Branch Specialty Care 2019-12-24 2019-12-24 Letter JOSE Mak 1.2.840.114 [id number] 00:00:00 00:00:00 (Out) Anju CONNOLLYY 350.1.13.10 HOSPITAL 4.2.7.2.686 [id number] 019 2019-12-24 2019-12-24 Letter JOSE Mak 1.2.840.114 [id number] Univers 00:00:00 00:00:00 (Out) Anju King BARBARA 350.1.13.10 it y of HOSPITAL 4.2.7.2.686 [place] as [id number] [facility] 019 Branch 2019-12-23 2019-12-23 Telephone Human, [facility] 1.2.595.836 [id number] 00:00:00 00:00:00 Shanice F Health 350.1.13.10 Specialty 4.2.7.2.686 Care [id number] [place] [address] 2019-12-23 2019-12-23 Telephone Human, [facility] 1.2.955.175 [id number] Univers 00:00:00 00:00:00 [facility] 350.1.13.10 ity of Specialty 4.2.7.2.686 [facility] [id number] [facility] [address] 2019-12-21 2019-12-21 Emergency Carlyle Wallace [facility] 1.2.84 0.114 [id number] 17:38:00 20:52:00 Phil Sylvester 350.1.13.10 [place] 4.2.7.2.686 [place] [id number] [facility] 2019-12-21 2019-12-21 Emergency Carllye Wallace [facility] 1.2.84 0.114 [id number] [facility] 17:38:00 20:52:00 Phil Sylvester 350.1.13.10 ity of [place] 4.2.7.2.686 [facility] [id number] [facility] [address] 2019-12-21 2019-12-21 Orders Doctor JOSE 1.2.840.114 [id number] 00:00:00 00:00:00 Only Unassigned, BARBARA 350.1.13.10 [place] [facility] 4.2.7.2.686 [id number] 009 2019-12-21 2019-12-21 Orders Doctor JOSE 1.2.840.114 [id number] Univers 00:00:00 00:00:00 Only Unassigned, BARBARA 350.1.13.10 ity of [place] [facility] 4.2.7.2.686 [facility] [id number] [facility] 009 Branch 2019-12-18 2019-12-18 Outpatient R [facility] [id number] Univers 13:00:00 13:00:00 ity of [facility] 2019-12-18 2019-12-18 Outpatient R [facility] [id number] Univers 11:40:00 11:40:00 [id number] ity of [facility] 2019-05-24 2019-05-24 Radha Alcala [facility] 1.2.017.597 [id number] 0254 00:00:00 00:00:00 Cam Erskine 350.1.13.10 [place] 4.2.7.2.686 Professio [id number] nal 134 Building 2019-05-24 2019-05-24 RefRadha Ledezma [facility] 1.2.115.609 [id number] 0254 Univers 00:00:00 00:00:00 Cam Erskine 350.1.13.10 i [place] [phone] Pr dical [facility] 134 [facility] Results Test Description Test Time Test Comments Results Result Comments Source Surgical pathology request 2021-05-31 19:31:28 Test Item Value Reference Range Interpretation Comme nts Case number (test code = [id number]) [id number] Surgical pathology report (test code = See link below for PDF Lab R eport 9431) Result status (test code = 9833788) This is Final Report for [id number] 7501-12 [facility] [id number] 01:16:51 Test Item Value Reference Range Interpretation Comments POC glucose (test 97 mg/dL 65-99 Rattling [employer] Tender N denisha: Salgado code = 46243-8) AimeeDevice ID: [id number] [facility] and Rh [id number] 22:30:00 Test Item Value Reference Range Interpretation Comments ABO grouping (test code = 883-9) O Rh type (test code = 29926-3) POS [facility] Pre/Post [id number] 20:21:24 Test Item Value Reference Range Interpretation Comments Ventricular rate (test code = 253) Atrial rate (test code = 255) NE interval (test code = 266) QRSD interval (test code = 260) QT interval (test code = 264) QTC interval (test code = 265) P axis 1 (test code = 267) QRS axis 1 (test code = 268) T wave axis (test code = 270) EKG impression (test Normal sinus code = 273) rhythm-Voltage criteria for left ventricular hypertrophy-In automated comparison with ECG of 30-DEC-2019 16:29,-T wave inversion no longer evident in Anterior leads- [facility] and [id number] 23:00:00 Test Item Value Reference Range Interpretation Comments ABO grouping (test code = 883-9) O Rh type (test code = 67055-8) POS Antibody screen (gel) (test code = NEG 890-4) [facility]2021-11-01 12:00:00 Test Item Value Reference Range Interpretation Comments SURG (test code = SURG) -----RUN DATE: 03/07/21 [facility] PAGE 1 RUN TIME: 1200 Specimen Inquiry RUN USER: INTERFACE -----PATIENT: LIVE BAILEY LOC: JoselitoDSU U #: [id number] AGE/SX: 30/F ROOM: RE03/04/21[facility] DR: Maria Guadalupe Villarreal DO : 88 BED: DIS: STATUS: ANK[facility] TLOC: ----- SPEC #: [id number] RECD: 03/04/21 STATUS: JAILENE PINA #: [id number] JADEN: 03/04/[address] [facility] [address]: Maria Guadalupe Villarreal DO ENTERED: 03/04/21 SP TYPE: SURG OTHR DR: Vinicius Bailey MD ORDERED: ALBLUE/3, SURG PATH LVL 4/3, PATH STAIN GROU/3 COPIES TO: [place] [address] [address] [facility] [address] [place] [address] Vinicius Bailey MD [address] [address] HISTOLOGY: TISSUE ID BLK PCS AYALA LEV PROCEDURE DISPOSITION ____ ___ ___ ___ STOMACH, NOS A 1 2 STOMACH, NOS B 1 2 GE JUNCTION C 1 2 PROCEDURES: ALBLUE (03/04/21) SURG PATH LVL 4 (03/04/21) PATH STAIN GROU (03/04/21) TISSUES: A. STOMACH, NOS - POLYP ON PYLORUS B. STOMACH, NOS - ANTRUM C. GASTROESOPHAGEAL JUNCTION - GE JUNCTION CPT CODES CPT CODE(S): 86539K4 , 68045L3 , 56724P9 , , , , FINAL DIAGNOSIS A. Stomach, pylorus, biopsy: MILD REACTIVE GASTROPATHY NO HELICOBACTER IDENTIFIED NO EVIDENCE OF INTESTINAL METAPLASIA, DYSPLASIA OR MALIGNANCY B. Stomach, antrum, biopsy: CONTINUED ON NEXT PAGE -----RUN DATE: 03/07/21 [facility] PAGE 2 RUN TIME: 1200 Specimen Inquiry RUN USER: INTERFACE -----SPEC #: [id number] PATIENT: LIVE BAILEY #[id number] (Continued) FINAL DIAGNOSIS (Continued) MILD CHRONIC INACTIVE GASTRITIS NO HELICOBACTER IDENTIFIED NO EVIDENCE OF INTESTINAL METAPLASIA, DYSPLASIA OR MALIGNANCY C. Gastroesophageal junction, biopsy: SQUAMOUS MUCOSA WITH NO SIGNIFICANT HISTOPATHOLOGIC FINDINGS GROSS DESCRIPTION A. Polyp on pylorus. Received in formalin is a marcos tissue fragment, 0.4 cm, all as A. /ba/misael B. Antrum. Received in formalin is a marcos tissue fragment, 0.3 cm, all as B. /ba/misael C. GE junction. Received in formalin is a marcos tissue fragment, 0.5 cm, all as C. /ba/misael Grossing performed at [facility] Pathology, [address] [place] [address], [address], [place] [address]. Nutrition Intern: Chandan Obregon M.D. MICROSCOPIC DESCRIPTION A. Polyp on pylorus. Sections of antral-type gastric mucosa with mild foveolar hyperplasia, vascular congestion, and lymphoplasmacytic infiltrate in the lamina propria. No ulcer or active inflammation identified. No evidence of gastric polyp identified. No Helicobacter organisms identified on Diff-Quik stain. No intestinal metaplasia is seen on H E and PAS/Alcian blue stains. No evidence of dysplasia or malignancy. B. Antrum. Fragments of antral-type gastric mucosa with mild increase in lymphoplasmacytic infiltrate in the lamina propria. No active inflammation identified. No Helicobacter organisms identified on H E and Diff-Quik stain. No intestinal metaplasia is seen on H E and PAS/Alcian blue stains. No evidence of dysplasia or malignancy. C. GE junction. Fragments of squamous mucosa with no significant inflammation identified. No columnar mucosa present. No viral inclusions seen. No fungal organisms identified on PAS stain. No intestinal metaplasia identified on Alcian blue stain. No evidence of dysplasia or malignancy. /misael -------- Signed SIGNATURE ON FILE Rachael Chavez 03/07/21 1200 ----- END OF REPORT BASIC METABOLIC [id number] 16:48:00 Test Item Value Reference Range Interpretation Comments SODIUM (test code = NA) 139 mmol/L 134-147 N POTASSIUM (test code = 3.7 mmol/L 3.4-5.0 N K) CHLORIDE (test code = 108 mmol/L 100-108 N CL) CARBON DIOXIDE (test 26 mmol/L 21-32 N code = CO2) ANION GAP (test code = 5.0 GAP calc 4.0-15.0 N GAP) GLUCOSE (test code = 109 MG/DL 70-110 N GLU) BLOOD UREA NITROGEN 11 MG/DL 7-18 N (test code = BUN) GLOMERULAR FILTRATION >=60 max estimate >60 RATE (test code = GFR) estGFR CREATININE (test code = 0.9 MG/DL 0.6-1.0 N CREAT) CALCIUM (test code = CA) 9.1 MG/DL 8.5-10.1 N HCG SERUM [id number] 16:48:00 Test Item Value Reference Range Interpretation Comments HCG SERUM QUAL (test SERUM NEGATIVE SCREEN NEGATIVE code = HCGQL) CBC W/AUTO [id number] 16:42:00 Test Item Value Reference Range Interpretation Comments WHITE BLOOD CELL (test code = 7.2 K/mm3 3.5-11.0 N WBC) RED BLOOD CELL (test code = 4.06 M/mm3 4.70-6.10 L RBC) HEMOGLOBIN (test code = HGB) 12.7 G/DL 10.4-14.9 N HEMATOCRIT (test code = HCT) 41.2 % 31.5-44.1 N MEAN CELL VOLUME (test code = 101.5 Fl 84.5-98.6 H MCV) MEAN CELL HGB (test code = MCH) 31.3 pg 27.0-34.2 N MEAN CELL HGB CONCETRATION 30.8 G/DL 31.5-34.0 L (test code = MCHC) RED CELL DISTRIBUTION WIDTH 12.2 SD 11.5-14.5 N (test code = RDW) PLATELET COUNT (test code = 270 K/mm3 150-450 N PLT) MEAN PLATELET VOLUME (test code 9.50 fL 7.0-10.5 N = MPV) NEUTROPHIL % (test code = NT%) 53.8 % 40-76 N IMMATURE GRANULOCYTE % (test 0.3 % 0.0-5.0 N code = IG%) LYMPHOCYTE % (test code = LY%) 40.1 % 20.5-51.1 N MONOCYTE % (test code = MO%) 5.0 % 1.7-9.3 N EOSINOPHIL % (test code = EO%) 0.4 % 0.0-6.0 N BASOPHIL % (test code = BA%) 0.4 % 0.0-2.0 N NUCLEATED RBC % (test code = 0.0 /100WBC% 0.0-1.0 N NRBC%) NEUTROPHIL # (test code = NT#) 3.8 K/mm3 1.8-7.6 N IMMATURE GRANULOCYTE # (test 0.02 x10 3/uL 0.00-0.03 N code = IG#) LYMPHOCYTE # (test code = LY#) 2.9 K/mm3 0.6-3.2 N MONOCYTE # (test code = MO#) 0.4 K/mm3 0.3-1.1 N EOSINOPHIL # (test code = EO#) 0.0 K/mm3 0.0-0.4 N BASOPHIL # (test code = BA#) 0.0 K/mm3 0.0-0.1 N NUCLEATED RBC # (test code = 0.0 K/mm3 0.0-0.1 N NRBC#) MANUAL DIFF REQUIRED (test code NO DIFF/SCN CRITERIA = MDIFF) COVID 19 INHOUSE [id number] 16:27:00 Test Item Value Reference Range Interpretation Comments COVID 19 INHOUSE AG NEGATIVE Negative Per manu facturer, (test code = negative result s should [id number]) be treated aspr esumptive and, if inconsi stent with clinical signs andsymptoms or necessary for patient man agement, should betested with an alternative mol ecular assay. Negative resultsdo not preclude SA RS-CoV-2 infection and s hould not be usedas the s ole basis for patient man agement decisions. Neg ative results should be considered in t he context of apatient's r ecent exposures, hist ory, presence of cli nicalsigns and symptoms co nsistent with COVID-19. VITAMIN [id number] 18:12:00 Test Item Value Reference Range Interpretation Comments VITAMIN B12 (test code = VITB12) 1715 pg/mL 193-986 H [id number] 17:42:00 Test Item Value Reference Range Interpretation Comments HGBA1C% (test code = HGBA1C%) 6.3 %A1C 4.8-6.0 H ESTIMATED AVERAGE GLUCOSE (test 134 MG/DL code = EAG) - XR CHEST 1 [id number] 16:40:00 FAX: Lakesha Segal [phone] [place]: St: ADM FAX: Mandi Murrieta MD [phone] Name: LIVE BAILEY [facility] : 1990 Age/S: 29/F [address] [facility] [address] Unit #: [id number] Loc: E.240 [place], [place] Phys: Lakesha Mena [address] Acct: E [id number] Dis Date: Status: ADM IN PHONE #: [phone] Exam Date: 12/26/2019 1638 FAX #: [phone] Reason: COVID, resp failure EXAMS: CPT CODE: [id number] XR CHEST 1 V 44599 Dictation location: U19. CHEST, FRONTAL VIEW HISTORY: [...] PIPER; Mandi Ortega MD Technologist: YENY SMITH Trntxrd Date/Time/By: 12/26/2019 (1640) : By: [email or web address] PAGE 1 Signed Report FAX: Lakesha Segal [phone] [place]: St: [facility] FAX: Mandi Murrieta MD [phone] Name: LIVE BAILEY : 1990 Age/S: 29/F [address] [facility] [address] Unit #: [id number] Loc: E.[address] [place], [place] Phys: Lakesha Mena [address] Acct: [id number] Dis Date: Status: ADM IN PHONE #: [phone] Exam Date: 12/26/2019 1638 FAX #: [phone] Reason: COVID, resp failure EXAMS: CPT CODE: [id number] XR CHEST1 V 99009 <Continued> Orig Print D/T: S: 12/26/2019 (8725) PAGE 2 Signed ReportCBC W/AUTO [id number] 05:29:00 Test Item Value Reference Range Interpretation [...] BA#) 0.0 K/mm3 0.0-0.2 N BASIC METABOLIC [id number] 05:17:00 Test Item Value Reference Range Interpretation [...] code = CA) 8.6 mg/dl 8.0-10.5 N [id number] 05:17:00 Test Item Value Reference Range Interpretation Comments MAGNESIUM (test code = MAG) 2.0 mg/dl 1.8-2.4 N XR CHEST 1 VW [id number] 00:47:59 Left lower lobe opacity may represent infection the appropriate clinicalsetting. Disclaimer: Generally, the findings on chest imaging in COVID-19 are notspecific, and overlap with other infections, including influenza, H1N1,SARS and MERS. According to the Centers for Disease Control (CDC) and the [employer], viral testing remains the only specific method of diagnosiseven if CXR orCT findings are suggestive of COVID-19. Preliminary Report Dictated by Resident: Arvin Awan MD., have reviewed this study and agree with theabove report.PROCEDURE: CHEST XRAY , CLINICAL INDICATION: chest wall pain with cough COMPARISON: None FINDINGS: Lungs: The lungs are well-expanded with a focal consolidation at the leftlung base obliterating the left hemidiaphragm. No pneu mothorax or pleuraleffusion. Prominent bilateral hilar markings. The cardiothoracic silhouette is unremarkable. No acute bony abnormality. [facility], Radiant Results Inft User - 12/21/2019 7:49 PM CDTPROCEDURE: CHEST XRAY , CLINICAL INDICATION: chest wall pain with cough COMPARISON: NoneFINDINGS:Lungs: The lungs are well-expanded with a focal consolidation at the leftlung base obliterating the left hemidiaphragm. No pneumothorax or pleuraleffusion. Prominent bilateral hilar markings.The cardiothoracic silhouette is unremarkable.No acute bony abnormality.IMPRESSION Left lower lobe opacity may represent infection the appropriate clinicalsetting.Disclaimer: Generally, the findings on chest imaging in COVID-19 are notspecific, and overlap with other infections, including influenza, H1N1,SARS and MERS.According to the Centers for Disease Control (CDC) and the [employer], viral testing re ochoa the only specific method of diagnosiseven if CXR or CT findings are suggestive of COVID-19. Preliminary Report Dictated by Resident: Arvin Sorto MD., have reviewed this study and agree with theabove report. [facility] [id number] 23:02:00 Test Item Value Reference Range Interpretation Comments POCT PREG (test code = 1605) negative POCT PREG LOT # (test code = 3575) [id number] POCT PREG TEST DATE (test 12/04/2020 code = 3576) Lab Interpretation (test code = Normal 49401-3) [facility]
[2021-06-24 17:19] LABS: Absolute Lymphocytes (CBC) 2.4 K/uL (0.7-4.9); Hematocrit 32.7 % (36.0-45.0); Lymphocytes % 44.4 % (15.3-44.8); MPV 9.2 fL (7.6-11.3); RBC Red Blood Cell Count 3.48 M/uL (3.86-4.86)
[2021-06-24 17:33] LABS: BUN Blood Urea Nitrogen 14 mg/dL (7-18); Bicarbonate 27 mmol/L (21-32); Glucose Level 94 mg/dL (74-106); Potassium 3.6 mmol/L (3.5-5.1); Sodium Level 142 mmol/L (136-145)
--- NOTE | 2021-06-24 18:11 | RAD REPORT ---
EXAM DESCRIPTION: US - Pelvis Complete - 06/24/2021 6:02 pm CLINICAL HISTORY: Vaginal bleeding COMPARISON: 2017 FINDINGS: Limited examination as the bladder is poorly distended. The uterus measures 10 x 4 x 5 centimeters. An obvious fibroid is not seen. The endometrial stripe measures 3 millimeters. Left ovary is normal in size echotexture containing a prominent follicle. A 6.3 x 3.5 x 4 centimeter structure is present within the right adnexal. Left adnexal unremarkable IMPRESSION: 6.3 x 3.5 x 4 centimeter structure within the right adnexa. It is uncertain if this repr esents right ovary. It is recommended that the patient have an endovaginal sonogram for further evalu ation.
--- NOTE | 2021-06-24 19:05 | RAD REPORT ---
EXAM DESCRIPTION: US - Transvaginal Study Probe - 06/24/2021 6:57 pm CLINICAL HISTORY: Vaginal bleeding COMPARISON: Transabdominal pelvic ultrasound same date FINDINGS: Uterus is retroverted. Nabothian cysts within the cervix. Uterus measures 8 x 4 x 5 centim eters. Endometrial stripe is normal thickness. A fibroid is not seen. The ovaries are normal in size and echotexture. Prominent follicle left ovary. 2.1 centimeter right o varian cyst. Right and left adnexal unremarkable No significant free fluid is seen. IMPRESSION: 2.1 centimeter right ovarian cyst without significant free fluid
--- NOTE | 2021-06-24 19:24 | ER ---
Nurse's Notes [facility] Name: Gill Gordon Age: 30 yrs Sex: Female : 1990 Arrival Date: 06/24/2021 Time: 16:12 Bed 14 Private MD: Diagnosis: Other ovarian cysts;Abnormal uterine and vaginal bleeding, unspecified Presentation: 06/24 16:15 Chief complaint: Patient states: Gastric sleeve 05/27/21. I have a control implant ld1 in my arm, I had not had a period in three years. After my gastric sleeve I have been bleeding and passing large blood clots. Pt reports being anemic, feeling dizzy and tired. States she has been on her period for three weeks. Coronavirus screen: At this time, the client does not indicate any symptoms associated with coronavirus-19. Ebola Screen: No symptoms or risks identified at this time. Initial Sepsis Screen: Does the patient meet any 2 criteria? No. Patient's initial sepsis screen is negative. Does the patient have a suspected source of infection? No. Patient's initial sepsis screen is negative. Risk Assessment: Do you want to hurt yourself or someone else? Patient reports no desire to harm self or others. Onset of symptoms was June 24, 2021. 16:15 Method Of Arrival: Ambulatory ld1 16:15 Acuity: ÁNGELA 3 ld1 16:18 Chief complaint:. ld1 Triage Assessment: 16:17 General: Appears in no apparent distress. comfortable, Behavior is calm, cooperative, ld1 appropriate for age. Pain: Denies pain. Neuro: Level of Consciousness is awake, alert, obeys commands, Oriented to person, place, time, situation, Reports dizziness. Respiratory: Airway is patent Respiratory effort is even, unlabored. GI: Abdomen is round non-distended. : Reports vaginal bleeding that is bright red, with clots. 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 - Social history:: Smoking status: Patient denies any tobacco usage or history of. Screenin:05 Abuse screen: Denies threats or abuse. Denies injuries from another. Nutritional ww screening: No deficits noted. Tuberculosis screening: No symptoms or risk factors identified. Fall Risk None identified. Assessment: 17:05 General: Appears in no apparent distress. comfortable, Behavior is calm, cooperative. ww Pain: Complains of pain in groin and suprapubic area. Neuro: Level of Consciousness is awake, alert, obeys commands, Oriented to person, place, time, situation, Moves all extremities. Gait is steady. Cardiovascular: Capillary refill < 3 seconds Patient's skin is warm and dry. Respiratory: Airway is patent Respiratory effort is even, unlabored, Respiratory pattern is regular, symmetrical. GI: Abdomen is non-distended, Reports cramping. : Urine is blood tinged, Reports vaginal bleeding that is. Derm: No signs and/or symptoms reported regarding the dermatologic system. Skin is intact, Skin is pink, warm \T\ dry. 18:23 Reassessment: Patient appears in no apparent distress at this time. No changes from ww previously documented assessment. Patient and/or family updated on plan of care and expected duration. Pain level reassessed. Patient is alert, oriented x 3, equal unlabored respirations, skin warm/dry/pink. transporting to ultrasound. Vital Signs: 16:15 BP 127 / 72; Pulse 79; Resp 18; Temp 98.2(TE); Pulse Ox 99% on R/A; Weight 97.52 kg; ld1 Height 5 ft. 0 in. (152.40 cm); Pain 0/10; 19:34 BP 111 / 65 RA Sitting (auto/lg); Pulse 64 MON; Resp 16 S; Temp 98.9(O); Pulse Ox 100% sv1 on R/A; Pain 0/10; 16:15 Body Mass Index 41.99 (97.52 kg, 152.40 cm) ld1 ED Course: 16:12 Patient arrived in ED. mr 16:17 Triage completed. ld1 16:17 Juanis Gordon FNP-C is [facility]. kb 16:17 Alex Jurado MD is Attending Physician. kb 16:17 Arm band placed on right wrist. ld1 16:48 Wood, Stephani, RN is Primary Nurse. ww 17:03 Basic Metabolic Panel Sent. ww 17:03 CBC with Diff Sent. ww 17:05 Patient has correct armband on for positive identification. Bed in low position. Call ww light in reach. Side rails up X 1. 17:05 Inserted saline lock: 20 gauge in left antecubital area, using aseptic technique. Blood ww collected. 18:02 US Pelvis Complete In Process Unspecified. EDMS 18:57 US Transvaginal Study (Probe) In Process Unspecified. EDMS 19:43 No provider procedures requiring assistance completed. sv1 Administered Medications: No medications were administered Outcome: 19:23 Discharge ordered by MD. kb 19:43 Discharged to home ambulatory. sv1 19:43 Condition: good 19:43 Discharge instructions given to patient. 19:48 Patient left the ED. sv1 Signatures: Dispatcher [employer] EDMS Juanis Gordon, PURNIMA BAR MACHINE OPERATOR MULTIPLE SPINDLE-Citlali Kapadia Lauren, RN RN ld1 Reno Sung RN RN sv1 Stephani Carmichael, RN RN ww Corrections: (The following items were deleted from the chart) 16:19 16:15 Chief complaint: Patient states: Gastric sleeve 05/27/21. I have a control ld1 implant in my arm, I had not had a period in three years. After my gastric sleeve I have been bleeding and passing large blood clots. Pt reports being anemic. ld1
--- NOTE | 2021-06-24 19:24 | EDPHYS ---
Physician Documentation [facility] Name: Gill Gordon Age: 30 yrs Sex: Female : 1990 Arrival Date: 06/24/2021 Time: 16:12 Bed 14 Private MD: ED Physician Alex Jurado HPI: 06/24 19:29 This 30 yrs old Black Female presents to ER via Ambulatory with complaints of Vaginal kb Bleeding. 19:29 The patient presents with vaginal bleeding that is moderate, with clots. Onset: The kb symptoms/episode began/occurred 3 week(s) ago. Modifying factors: The symptoms are alleviated by nothing, the symptoms are aggravated by nothing. Associated signs and symptoms: Pertinent positives: vaginal bleeding. Severity of symptoms: At their worst the symptoms were moderate, in the emergency department the symptoms are unchanged. The patient's method of control includes nexplanon. The patient has not experienced similar symptoms in the past. The patient has not recently seen a physician. Pt reports vaginal bleeding for 3 weeks that is getting worse with more clots. 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 - Social history:: Smoking status: Patient denies any tobacco usage or history of. ROS: 19:27 Constitutional: Negative for fever, chills, and weight loss. kb 19:27 : Positive for vaginal bleeding. 19:27 All other systems are negative. Exam: 19:27 Constitutional: This is a well developed, well nourished patient who is awake, alert, kb and in no acute distress. Head/Face: Normocephalic, atraumatic. Cardiovascular: Regular rate and rhythm with a normal S1 and S2. No gallops, murmurs, or rubs. No pulse deficits. Respiratory: Respirations even and unlabored. No increased work of breathing. Talking in full sentences Abdomen/GI: Soft, non-tender. No distention Skin: Warm, dry with normal turgor. Normal color. MS/ Extremity: Pulses equal, no cyanosis. Neurovascular intact. Full, normal range of motion. Neuro: Awake and alert, GCS 15, oriented to person, place, time, and situation. Moves all extremities. Normal gait. Psych: Awake, alert, with orientation to person, place and time. Behavior, mood, and affect are within normal limits. Vital Signs: 16:15 BP 127 / 72; Pulse 79; Resp 18; Temp 98.2(TE); Pulse Ox 99% on R/A; Weight 97.52 kg; ld1 Height 5 ft. 0 in. (152.40 cm); Pain 0/10; 19:34 BP 111 / 65 RA Sitting (auto/lg); Pulse 64 MON; Resp 16 S; Temp 98.9(O); Pulse Ox 100% sv1 on R/A; Pain 0/10; 16:15 Body Mass Index 41.99 (97.52 kg, 152.40 cm) ld1 MDM: 16:19 Patient medically screened. kb 19:28 Data reviewed: vital signs, nurses notes. Data interpreted: Pulse oximetry: on room air kb is 99 %. Interpretation: normal. Counseling: I had a detailed discussion with the patient and/or guardian regarding: the historical points, exam findings, and any diagnostic results supporting the discharge/admit diagnosis, lab results, radiology results, the need for outpatient follow up, an OB/Gyne specialist, to return to the emergency department if symptoms worsen or persist or if there are any questions or concerns that arise at home. ED course: Pt educated to take iron supplement and keep appt with Dr Emerson scheduled for Sunday. 06/24 16:37 Order name: CBC with Diff kb 06/24 16:37 Order name: Basic Metabolic Panel kb 06/24 16:37 Order name: US Pelvis Complete; Complete Time: 18:17 kb 06/24 16:38 Order name: CBC with Automated Diff; Complete Time: 17:54 EDMS 06/24 16:38 Order name: Basic Metabolic Panel; Complete Time: 17:38 EDMS 06/24 18:17 Order name: US Transvaginal Study (Probe); Complete Time: 19:07 kb 06/24 16:37 Order name: IV Start; Complete Time: 17:02 kb Administered Medications: No medications were administered Disposition: 06/25 07:08 Co-signature as Attending Physician, Alex Jurado MD I agree with the assessment and rn plan of care. Attestation: The patient's history, exam findings, diagnostics, and a summary of any interventions or procedures was reviewed in detail with Juanis FELTON. Disposition Summary: 06/24/21 19:23 Discharge Ordered Location: Home kb Condition: Stable kb Diagnosis - Other ovarian cysts kb - Abnormal uterine and vaginal bleeding, unspecified kb Followup: kb - With: Private Physician - When: 2 - 3 days - Reason: Recheck today's complaints, Continuance of care, Re-evaluation by your physician Followup: kb - With: Emergency Department - When: As needed - Reason: Worsening of condition Discharge Instructions: - Discharge Summary Sheet kb - Ovarian Cyst, [id number] kb - Abnormal Uterine Bleeding, [id number] kb Forms: - Medication Reconciliation Form kb - Thank You Letter kb - Antibiotic Education kb - Prescription Opioid Use kb Signatures: Dispatcher [employer] EDMS Juanis Gordon, PURNIMA ROMERO-CkAlex Trejo MD MD rn Dibbern, Lauren RN RN ld1
[2021-06-24 19:56] VITALS: BP 111/65; TEMP 98.9; O2SAT 100
== END 2021-06-24 19:48 | disposition home or self-care (01) ==
LOC: ER 16:07
DX: N83.291 Other ovarian cyst, right side (principal); Z88.0 Allergy status to penicillin; Z88.1 Allergy status to other antibiotic agents
CPT/HCPCS: 36415; 76830; 76856; 80048; 85025; 99283

== ENCOUNTER 2021-06-25 14:58 | Emergency (ER) | payer BC ==
--- OUTSIDE RECORDS SUMMARY | 2021-06-25 15:04 | XMS REPORT | Continuity of Care Document ---
:1990 Author Organization [facility] t Address 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 2020 00:00:00 [facility] [id number] 2018 CHOICE 00:00:00 Problems Condition Condition Condition Status Onset Resolution Last Treating Co mments Source Name Details Category Date Date Treatment Clinician Date S/P S/P Disease Active Methodi gastric gastric 05-29 sleeve sleeve 00:00: Hospita procedure procedure 00 l Morbid Morbid Disease Active Methodi obesity obesity 05-29 00:00: Hospita 00 l Preoperati Preoperati Disease Active M ethodi ve testing ve testing 05-27 00:00: Hospita 00 l SOB SOB Disease Active Methodi (shortness (shortness 8 st of breath) of breath) 00:00: Ho spita 00 l COVID-19 COVID-19 Disease Active Metho di virus virus 12-26 st infection infection 00:00: Hosp jacek 00 l Disease Active 2017-05 Unive rs wound wound 2-17 [place] GDM, class GDM, class Disease Active 2017-05 U nivers A2 A2 1-05 ity of 00:00: [place] [id number] Medical Branch Previous Previous Disease Active 2017-05 Unive rs 1-05 ity of section section 00:00: [place] [facility] Left sided Left sided Disease Active 2017-05 U jarrod sciatica sciatica 0-18 ity of 00:00: [place] 00 Medical Branch Encounter Encounter Disease Active Uni vers for for 8-22 [place] of supervis[place] of high 00 [facility] risk risk Branch with with history of history of , , antepartum antepartum Thyroid Thyroid Disease Active Univers disease disease 4-24 [place] of affecting affecting [place] [facility] Obesity, Obesity, Disease Active Unive rs Class III, Class III, 9-27 it y of BMI BMI 00:00: [place] 40-49.9 40-49.9 00 Medical (morbid (morbid Branch obesity) obesity) PCOS PCOS Disease Active Univers (polycysti (polycysti 8-25 it y of c ovarian c ovarian 00:[place] syndrome) syndrome) 00 [facility] Branch Family Family Disease Active Univers history of history of 8-12 it y of ovarian ovarian 00:00: [place] cancer cancer 00 Medical Branch Allergies, Adverse Reactions, Alerts Allergy Allergy Status Severity Reaction(s) Onset Inactive Treating Comm ents Source Name Type Date Date Clinician Penicill DA Active U rash 2020-05 [facility] ins 0-29 [place] 00:00: d 00 [facility] Penicill DA Active U 2020-05 [facility] ins 0-29 [place] 00:00: d [facility] No Known DA Active U 2020-05 [facility] Allergie 0-27 [place] s 00:00: d [facility] No Known DA Active U 2020-05 [facility] Allergie 0-27 [place] s 00:00: d 00 [facility] Penicill DA Active [place] 2020-0 [facility] ins 8-20 [place] 00:00: d 00 [facility] amoxicil DA Active [place] 2019-0 [facility] braden 8-20 [place] 00:00: d 00 [facility] Penicill DA Active [place] RASH/BREAKOU 2020-0 HC A ins T 8-20 [place] 00:00: d 00 [facility] amoxicil DA Active [place] RASH/BREAKOU 2020-0 HC A braden T 8-20 [place] 00:00: d 00 [facility] Penicill Propensi Active Rash 0 Method i in V ty to 8-18 st adverse 00:00: Hospita reaction 00 l s to drug Amoxicil Propensi Active Rash 0 Method i braden ty to 818 st [...] Source Natural father No Known Problems [facility] Natural mother No Known Problems [facility] Social History Social Habit Start Date Stop Date Quantity Comments Source History SDOH [facility] Frequency Hospita l History SDOH [facility] Std [facility] Drinks History SDOH [facility] Binge [facility] Exposure to Not sure [facility] SARS-CoV-2 Hospital (event) Alcohol intake 2021-05-30 2021-05-30 Current drinker [facility] dist 00:00:00 00:00:00 of alcohol Hospital (finding) Tobacco use and 2021-05-20 2021-05-20 Smokeless tobacco [facility] exposure 00:00:00 00:00:00 non-user Hospital Alcohol Comment 2021-05-20 2021-05-20 [facility] 00:[facility]:00 Hospital Sex Assigned At [birth year] [facility] 00:00:[facility] Smoking Status Start Date Stop Date Source Never smoked tobacco [facility] Medications Ordered Filled Start Stop [...] Medical 12/21/19 at Branch 2130, REY azithromyci 2019- No 500mg 500 mg, U nivers n 8-17 08-17 Oral, ity of (ZITHROMAX) 02:15: 01:35 [place] 500 [place] :00 dose, [facility] mg 12/21/19 at Branch 2115, REY
Re ason for Anti-Infec tive: Documented Infection< br>Documen bushra Infection Site: Respirator y
Durat ion of Therapy: 7 days<br&gt ;Reason for Anti-Infec tive: Documented Infection< br>Documen bushra Infection Site: Respirator y ibuprofen 2020-0 Yes [id number] 600mg Take 1 Univers 600 mg 8-16 tablet by ity of tablet 00:00: mouth [place] 00 every 6 Medical (six) Branch hours as needed for Pain (scale 4-6). benzonatate 2020-0 Yes [id number] 200mg Take 1 Univers 200 mg 8-16 capsule by ity of capsule 00:00: mouth 3 [place] 00 (three) Medical times Branch daily as needed for Cough for up to 20 doses. predniSONE 2019-0 Yes [id number] 1 PO BID x Univers 20 mg 8-16 4 days ity of tablet 00:00: [place] 00 Medical Branch azithromyci 2020-0 Yes [id number] 250mg Take 1 Univers n 8-16 tablet by ity of (ZITHROMAX 00:00: mouth [place] Z-ZENAIDA) 250 00 SEE-INSTRU Med ical mg tablet CTIONS. Branch Take 500 mg day 1, then 250 mg days 2 to 5. ondansetron 2020-0 Yes [id number] 4mg Take 1 Univers (ZOFRAN 8-16 tablet by ity of ODT) 4 mg 00:00: mouth [place] disintegrat 00 every 8 Medic al ing tablet (eight) Branch hours as needed for Nausea and Vomiting (N/V). albuterol 2020-0 Yes [id number] 2.5mg Inhale 3 Univers 2.5 mg /3 8-16 mL every 4 ity of mL (0.083 00:00: (four) [place] %) 00 hours as Medical nebulizer needed for Bran ch solution Wheezing or Shortness of Breath. albuterol 2020-0 Yes [id number] 2{puff} Inhale 2 Univers 90 8-16 Puffs ity of mcg/actuati 00:00: every 4 [place] as on inhaler 00 (four) Medical hours as Branch needed for Wheezing or Shortness of Breath. ibuprofen 2020-0 Yes [id number] 600mg Take 1 Univers 600 mg 8-16 tablet by ity of tablet 00:00: mouth [place] 00 every 6 Medical (six) Branch hours as needed for Pain (scale 4-6). benzonatate 2020-0 Yes [id number] 200mg Take 1 Univers 200 mg 8-16 capsule by ity of capsule 00:00: mouth 3 [place] 00 (three) Medical times Branch daily as needed for Cough for up to 20 doses. predniSONE 2020-0 Yes [id number] 1 PO BID x Univers 20 mg 8-16 4 days ity of tablet 00:00: [place] 00 Medical Branch azithromyci 2020-0 Yes [id number] 250mg Take 1 Univers n 8-16 tablet by ity of (ZITHROMAX 00:00: mouth [place] Z-ZENAIDA) 250 00 SEE-INSTRU Med ical mg tablet CTIONS. Branch Take 500 mg day 1, then 250 mg days 2 to 5. ondansetron 2020-0 Yes [id number] 4mg Take 1 Univers (ZOFRAN 8-16 tablet by ity of ODT) 4 mg 00:00: mouth [place] disintegrat 00 every 8 Medic al ing tablet (eight) Branch hours as needed for Nausea and Vomiting (N/V). albuterol 2020-0 Yes [id number] 2.5mg Inhale 3 Univers 2.5 mg /3 8-16 mL every 4 ity of mL (0.083 00:00: (four) [place] %) 00 hours as Medical nebulizer needed for Bran ch solution Wheezing or Shortness of Breath. albuterol 2020-0 Yes [id number] 2{puff} Inhale 2 Univers 90 8-16 Puffs ity of mcg/actuati 00:00: every 4 [place] as on inhaler 00 (four) Medical hours as Branch needed for Wheezing or Shortness of Breath. ibuprofen 2020-0 Yes [id number] 600mg Take 1 Univers 600 mg 8-16 tablet by ity of tablet 00:00: mouth [place] 00 every 6 Medical (six) Branch hours as needed for Pain (scale 4-6). benzonatate 2020-0 Yes [id number] 200mg Take 1 Univers 200 mg 8-16 capsule by ity of capsule 00:00: mouth 3 [place] 00 (three) Medical times Branch daily as needed for Cough for up to 20 doses. predniSONE 2020-0 Yes [id number] 1 PO BID x Univers 20 mg 8-16 4 days ity of tablet 00:00: [place] 00 Medical Branch azithromyci 2020-0 Yes [id number] 250mg Take 1 Univers n 8-16 tablet by ity of (ZITHROMAX 00:00: mouth [place] Z-ZENAIDA) 250 00 SEE-INSTRU Med ical mg tablet CTIONS. Branch Take 500 mg day 1, then 250 mg days 2 to 5. ondansetron 2020-0 Yes [id number] 4mg Take 1 Univers (ZOFRAN 8-16 tablet by ity of ODT) 4 mg 00:00: mouth [place] disintegrat 00 every 8 Medic al ing tablet (eight) Branch hours as needed for Nausea and Vomiting (N/V). albuterol 2020-0 Yes [id number] 2.5mg Inhale 3 Univers 2.5 mg /3 8-16 mL every 4 ity of mL (0.083 00:00: (four) [place] %) 00 hours as Medical nebulizer needed for Bran ch solution Wheezing or Shortness of Breath. albuterol 2020-0 Yes [id number] 2{puff} Inhale 2 Univers 90 8-16 Puffs ity of mcg/actuati 00:00: every 4 [place] as on inhaler 00 (four) Medical hours as Branch needed for Wheezing or Shortness of Breath. ibuprofen 2020-0 Yes [id number] 600mg Take 1 Univers 600 mg 8-16 tablet by ity of tablet 00:00: mouth [place] 00 every 6 Medical (six) Branch hours as needed for Pain (scale 4-6). benzonatate 2020-0 Yes [id number] 200mg Take 1 Univers 200 mg 8-16 capsule by ity of capsule 00:00: mouth 3 [place] 00 (three) Medical times Branch daily as needed for Cough for up to 20 doses. predniSONE 2020-0 Yes [id number] 1 PO BID x Univers 20 mg 8-16 4 days ity of tablet 00:00: [place] 00 Medical Branch azithromyci 2020-0 Yes [id number] 250mg Take 1 Univers n 8-16 tablet by ity of (ZITHROMAX 00:00: mouth [place] Z-ZENAIDA) 250 00 SEE-INSTRU Med ical mg tablet CTIONS. Branch Take 500 mg day 1, then 250 mg days 2 to 5. ondansetron 2020-0 Yes [id number] 4mg Take 1 Univers (ZOFRAN 8-16 tablet by ity of ODT) 4 mg 00:00: mouth [place] disintegrat 00 every 8 Medic al ing tablet (eight) Branch hours as needed for Nausea and Vomiting (N/V). albuterol 2020-0 Yes [id number] 2.5mg Inhale 3 Univers 2.5 mg /3 8-16 mL every 4 ity of mL (0.083 00:00: (four) [place] %) 00 hours as Medical nebulizer needed for Bran ch solution Wheezing or Shortness of Breath. albuterol 2020-0 Yes [id number] 2{puff} Inhale 2 Univers 90 8-16 Puffs ity of mcg/actuati 00:00: every 4 [place] as on inhaler 00 (four) Medical hours as Branch needed for Wheezing or Shortness of Breath. ibuprofen 2020-0 Yes [id number] 600mg Take 1 Univers 600 mg 8-16 tablet by ity of tablet 00:00: mouth [place] 00 every 6 Medical (six) Branch hours as needed for Pain (scale 4-6). benzonatate 2020-0 Yes [id number] 200mg Take 1 Univers 200 mg 8-16 capsule by ity of capsule 00:00: mouth 3 [place] 00 (three) Medical times Branch daily as needed for Cough for up to 20 doses. predniSONE 2020-0 Yes [id number] 1 PO BID x Univers 20 mg 8-16 4 days ity of tablet 00:00: [place] 00 Medical Branch azithromyci 2020-0 Yes [id number] 250mg Take 1 Univers n 8-16 tablet by ity of (ZITHROMAX 00:00: mouth [place] Z-ZENAIDA) 250 00 SEE-INSTRU Med ical mg tablet CTIONS. Branch Take 500 mg day 1, then 250 mg days 2 to 5. ondansetron 2020-0 Yes [id number] 4mg Take 1 Univers (ZOFRAN 8-16 tablet by ity of ODT) 4 mg 00:00: mouth [place] disintegrat 00 every 8 Medic al ing tablet (eight) Branch hours as needed for Nausea and Vomiting (N/V). albuterol 2020-0 Yes [id number] 2.5mg Inhale 3 Univers 2.5 mg /3 8-16 mL every 4 ity of mL (0.083 00:00: (four) [place] %) 00 hours as Medical nebulizer needed for Bran ch solution Wheezing or Shortness of Breath. albuterol 2020-0 Yes [id number] 2{puff} Inhale 2 Univers 90 8-16 Puffs ity of mcg/actuati 00:00: every 4 [place] as on inhaler 00 (four) Medical hours as Branch needed for Wheezing or Shortness of Breath. ibuprofen 2020-0 Yes [id number] 600mg Take 1 Univers 600 mg 8-16 tablet by ity of tablet 00:00: mouth [place] 00 every 6 Medical (six) Branch hours as needed for Pain (scale 4-6). benzonatate 2020-0 Yes [id number] 200mg Take 1 Univers 200 mg 8-16 capsule by ity of capsule 00:00: mouth 3 [place] 00 (three) Medical times Branch daily as needed for Cough for up to 20 doses. predniSONE 2019-0 Yes [id number] 1 PO BID x Univers 20 mg 8-16 4 days ity of tablet 00:00: [place] 00 Medical Branch azithromyci 2020-0 Yes [id number] 250mg Take 1 Univers n 8-16 tablet by ity of (ZITHROMAX 00:00: mouth [place] Z-ZENAIDA) 250 00 SEE-INSTRU Med ical mg tablet CTIONS. Branch Take 500 mg day 1, then 250 mg days 2 to 5. ondansetron 2019-0 Yes [id number] 4mg Take 1 Univers (ZOFRAN 8-16 tablet by ity of ODT) 4 mg 00:00: mouth [place] disintegrat 00 every 8 Medic al ing tablet (eight) Branch hours as needed for Nausea and Vomiting (N/V). albuterol 2020-0 Yes [id number] 2.5mg Inhale 3 Univers 2.5 mg /3 8-16 mL every 4 ity of mL (0.083 00:00: (four) [place] %) 00 hours as Medical nebulizer needed for Bran ch solution Wheezing or Shortness of Breath. albuterol 2020-0 Yes [id number] 2{puff} Inhale 2 Univers 90 8-16 Puffs [...] Medical times Branch daily with meals. Nitrofurant 2018-0 Yes [id number] 100mg Take 1 Univers oin&Nit. 6-14 capsule by ity o f Macrocryst 00:00: mouth 2 [place] 100 mg 00 (two) Medical capsule times Branch daily. Nitrofurant 2018-0 Yes [id number] 100mg Take 1 Univers oin&Nit. 6-14 capsule by ity o f Macrocryst 00:00: mouth 2 [place] 100 mg 00 (two) Medical capsule times Branch daily. Nitrofurant 2018-0 Yes [id number] 100mg Take 1 Univers oin&Nit. 6-14 capsule by ity o f Macrocryst 00:00: mouth 2 [place] 100 mg 00 (two) Medical capsule times Branch daily. Nitrofurant 2018-0 Yes [id number] 100mg Take 1 Univers oin&Nit. 6-14 capsule by ity o f Macrocryst 00:00: mouth 2 [place] 100 mg 00 (two) Medical capsule times Branch daily. Nitrofurant 2019-0 Yes [id number] 100mg Take 1 Univers oin&Nit. 6-14 capsule by ity o f Macrocryst 00:00: mouth 2 [place] 100 mg 00 (two) Medical capsule times Branch daily. Nitrofurant 2018- Yes [id number] 100mg Take 1 Univers oin&Nit. 6-14 capsule by ity o f Macrocryst 00:00: mouth 2 [place] 100 mg 00 (two) Medical capsule times Branch daily. Nitrofurant 2018-0 Yes [id number] 100mg Take 1 Univers oin&Nit. 6-14 capsule by ity o f Macrocryst 00:00: mouth 2 [place] mg 00 (two) Medical capsule times Branch daily. Nitrofurant 2018- Yes [id number] 100mg Take 1 Univers oin&Nit. 6-14 capsule [...] ON DAY 2 THROUGH DAY 5 azithromyci 2018- Yes TAKE 2 Univ ers n 250 mg 6-11 TABLETS BY ity o f tablet 00:00: MOUTH ON DAY 1 AND Medical THEN TAKE Branch 1 TABLET BY MOUTH ONCE A DAY ON DAY 2 THROUGH DAY 5 azithromyci 2018- Yes TAKE 2 Univ ers n 250 [...] ON DAY 2 THROUGH DAY 5 azithromyci 2018- Yes TAKE 2 Univ ers n 250 [...] Name Td 2015-01-20 Completed University of 00:00:00 [facility] Branch Td 2015-01-20 Completed University of 00:00:00 [place] [facility] Td 2015-01-20 Completed University of 00:00:00 [facility] Branch Td 2015-01-20 Completed University of 00:00:00 [facility] Branch Td 2015-01-20 Completed University of 00:00:00 [facility] Branch Td 2015-01-20 Completed University of 00:00:00 [facility] Branch Td 2015-01-20 Completed University of 00:00:00 [facility] [place] [facility] Td 2015-01-20 Completed University of 00:00:00 [facility] [place] [facility] Vital Signs Vital Name Observation Time Observation Value Comments Source Body temperature 2019-12-22 01:48:29 39.5 [facility]olic blood 2019-12-22 01:33:05 121 mm[Hg] Univer sity of pressure [facility] [place] [facility] Diastolic blood 2019-12-22 01:33:05 90 mm[Hg] Unive rsity of pressure [facility] [place] [facility] Heart rate 2019-12-22 01:33:05 108 /min [facility] ty [facility] Respiratory rate 2019-12-22 01:33:05 25 /min [facility] Body height 2019-12-22 01:33:05 152.4 cm [facility] Oxygen saturation in 2019-12-22 01:33:05 98 /min [facility] Arterial blood by [facility] Pulse oximetry [place] Body weight 2019-12-21 22:36:00 102.059 kg [facility] BMI 2019-12-21 22:36:00 43.94 kg/m2 [facility] Body temperature 2019-12-22 01:48:29 39.5 Shi Univ ersity of [facility] [place] [facility] Systolic blood 2019-12-22 01:33:05 121 mm[Hg] Univer sity of pressure [facility] [place] [facility] Diastolic blood 2019-12-22 01:33:05 90 mm[Hg] Unive rsity of pressure [facility] [place] [facility] Heart rate 2019-12-22 01:33:05 108 /min Universi ty [facility] Respiratory rate 2019-12-22 01:33:05 25 /min [facility] Body height 2019-12-22 01:33:05 152.4 cm [facility] Oxygen saturation in 2019-12-22 01:33:05 98 /min [facility] Arterial blood by [facility] Pulse oximetry [place] Body weight 2019-12-21 22:36:00 102.059 kg [facility] BMI 2019-12-21 22:36:00 43.94 kg/m2 [facility] Systolic blood 2021-05-29 13:45:03 121 mm[Hg] [facility] pressure Diastolic blood 2021-05-29 13:45:03 67 mm[Hg] [facility] pressure Heart rate 2021-05-29 13:45:03 72 /min [facility] Body temperature 2021-05-29 13:45:03 36.83 Shi [facility] Respiratory rate 2021-05-29 13:45:03 16 /min [facility] Oxygen saturation in 2021-05-29 13:45:03 98 /min [facility] Arterial blood by Pulse oximetry Body height 2021-05-28 13:12:[address] [facility] Body weight 2021-05-27 20:55:[address] [facility] BMI 2021-05-27 20:55:00 44.53 kg/m2 [facility] Procedures Procedure Date / Time Performing Clinician Source Performed COVID-19 SEROLOGY 2021-05-29 10:45:00 [facility] PATIENT SURVEILLANCE [place] COVID-19 ANTI-SPIKE IGG 2021-05-29 10:45:00 [place] ANTIBODY TITER [place] BASIC METABOLIC PANEL 2021-05-28 11:29:00 EkMaria Guadalupe clements [facility] Imariabe HC COMPLETE BLD COUNT 2021-05-28 11:29:00 Maria Guadalupe Villarreal [facility] W/AUTO DIFF [facility] ESTIMATED GFR 2021-05-28 11:29:00 [facility] POC GLUCOSE 2021-05-28 01:15:00 [facility] SURGICAL PATHOLOGY 2021-05-28 00:48:00 [facility] REQUEST Im[facility] HI AN ELECTIVE 2021-05-27 22:36:00 [facility] ENDOTRACHEAL AIRWAY GASTRECTOMY, SLEEVE, 2021-05-27 22:29:00 [facility] [place] [facility] LAPAROSCOPIC [facility] HCG QUALITATIVE, URINE 2021-05-27 21:11:00 [facility] SCREEN Im[facility]abe PROTHROMBIN TIME WITH 2021-05-27 21:11:00 [facility] INR Im[facility] ABO AND RH CONFIRMATION 2021-05-27 21:11:00 [facility] ECG PRE/POST OP 2021-05-23 21:07:22 [facility] Imariabe BASIC METABOLIC PANEL 2021-05-23 21:01:00 [facility] Imariabe ESTIMATED GFR 2021-05-23 21:01:00 [facility] Im[facility] COMPREHENSIVE METABOLIC 2021-05-23 21:01:00 [facility] PANEL Im[facility] COVID-19 QUALITATIVE 2021-05-23 21:01:00 [facility] RT-PCR Im[facility] TYPE AND SCREEN 2021-05-23 21:01:00 [facility] HEMOGLOBIN A1C 2021-05-23 21:01:00 [facility] CBC HEMOGRAM 2021-05-23 21:01:00 [facility] ASSIGNMENT OF BENEFITS 2020-01-16 16:53:23 Doctor Unassigned, No [facility] XR CHEST 1 VW COVID 2019-12-21 23:21:16 Phil Sylvester [facility] POCT TEST 2019-12-21 23:02:00 Phil Sylvester [facility] EKG-12 LEAD 2019-12-21 22:55:25 Higinio, K Lori University o f [facility] [place] [facility] NOTICE OF PRIVACY 2019-12-21 22:22:54 [facility] CONSENT/REFUSAL FOR 2019-12-21 22:22:40 [facility] Unassigned, [facility] Plan of Care Planned Activity Planned Date Details Comments Source Future Scheduled 2021-06-07 DIABETES: RETINAL EYE [facility] Hospital Test 19:05:09 EXAM [code = DIABETES: RETINAL EYE EXAM] Future Scheduled 2021-06-[address] [facility] Hospital Test 19:05:09 [code = DIABETIC FOOT EXAM] Future Scheduled 2021-06-[address] [facility] Hospital Test 19:05:09 [code = URINE MICROALBUMIN] Future Scheduled 2021-06-07 Hepatitis C screening [facility] Test 19:05:09 (procedure) [code = 582689810] Future Scheduled 2021-06-07 [facility] Test 19:05:09 malignant neoplasm of cervix (procedure) [code = 389059404] Future Scheduled 2021-06-07 INFLUENZA VACCINE [facility] Test 19:05:09 [code = INFLUENZA VACCINE] Encounters Start End Encounter Admission Attending Care Care Encounter Source Date/Time Date/Time Type Type Clinicians Facility Department ID 2021-03-04 Emergency [facility] [id number] [facility] Ektyree, HCAPM ENDO [id number] [facility] 14:15:[address] [place] [id number] [facility] 2021-03-02 Inpatient EL Ektyree, HCAPM ENDO [id number] [facility] 15:00:[address] [place] [id number] [facility] 2019-12-25 Inpatient EM Ortega, HCAMN AAA [id number] [facility] 18:10:00 Mandi [facility] 2021-05-27 2021-05-29 Hospital Eksolomonse, 1.2.840.1 [id number] Methodi 14:31:00 12:49:00 Encounter [place] [id number] [facility] 3.430.2.7 Hospi ta .3.634392 l .8 2021-05-27 2021-05-27 Surgery Ekhaese, 1.2.840.1 [id number] Methodi 16:25:00 19:20:[address] [place] [id number] [facility] 3.430.2.7 Hospi ta .3.597621 l .8 2021-05-27 2021-05-27 Anesthesia Ashley, 1.2.840.1 [id number] Methodi 16:28:00 19:09:00 Event [place] 04299.1.[address] Boubacar 3.430.2.7 Hospit a .3.901422 l .8 2021-05-27 2021-05-27 Travel 1.2.840.1 [id number] [id number] Methodi 00:00:00 00:00:[address] 3.430.2.7 0.2.7.3.698 Ho spita .3.644800 084.8 l .8 2021-05-23 2021-05-23 Pre-Admiss Ekhaese, 1.2.840.1 [id number] Methodi 14:54:36 15:11:47 ion [place] 08157.1.[address] Testing [facility] 3.430.2.7 Hospi ta .3.848263 l .8 2021-05-23 2021-05-23 Travel 1.2.840.1 1.2.744.672 [id number] Methodi 00:00:00 00:00:[address] 3.430.2.7 0.2.7.3.698 Ho spita .3.527553 084.8 l .8 2021-05-20 2021-05-20 Travel 1.2.840.1 1.2.094.221 [id number] Methodi 00:00:00 00:00:[address] 3.430.2.7 0.2.7.3.698 Ho spita .3.316955 084.8 l .8 2021-03-04 2021-03-04 Outpatient EL Cherelle, HCAPM DAYS [id number] [facility] 05:57:00 05:57:00 [place] [id number] [facility] 2021-03-04 2021-03-04 Outpatient EL Cherelle, HCAPM DAYS [id number] [facility] 05:57:00 05:57:00 [place] 83 [facility] 2020-08-22 2020-08-22 Outpatient [facility] [id number] Univers 14:20:00 14:20:00 ity [facility] 2020-08-21 2020-08-21 Outpatient [facility] [id number] Univers 14:20:00 [facility]20[facility] 2020-08-01 Outpatient [facility] [id number] Univers 14:05:00 14:05:00 [facility] 2020-01-16 2020-01-16 Laboratory Only, [facility] Test [facility] 1.2.840. 114 [id number] Univers 11:51:57 12:06:57 Only Venessa Zimmer [facility].13.10 [facility] 4.2.7.2.686 [facility] [phone] [address] 2020-01-16 2020-01-16 Laboratory Only, [facility] 1.2.840.114 [id number] 11:51:57 12:06:57 Only Test Michael 350.1.13.10 [place] [address] [place] [address] [phone] [facility] 2020-01-16 2020-01-16 Outpatient R [facility] [id number] Univers 11:45:00 11:45:00 [id number] [facility] 2020-01-16 2020-01-16 Outpatient R VENESSA ZIMMER [facility] [id number] Univers 11:45:00 11:45:00 [facility] 2020-01-16 2020-01-16 Orders Doctor GARCIA 1.2.840.114 [id number] Univers 00:00:00 00:00:00 Only Unassigned, BARBARA 350.1.13.10 ity of [place] [facility] 4.2.7.2.686 [place] as [phone] [facility] [address] 2020-01-16 2020-01-16 Orders Doctor JOSE 1.2.840.114 [id number] 00:00:00 00:00:00 Only Unassigned, BARBARA 350.1.13.10 [place] [facility] 4.2.7.2.686 [id number] 009 2019-12-25 2019-12-25 Telephone Nurse, [place] [facility] 1.2.840.114 [id number] Univers 00:00:00 00:00:00 Urgent HEALTH 350.1.13.10 it y of [place] 4.2.7.2.686 [facility] [phone] [facility] Primary & [address] Branch Specialty Care 2019-12-25 2019-12-25 Telephone Nurse, [place] [facility] 1.2.840.114 [id number] 00:00:00 00:00:00 Urgent HEALTH 350.1.13.10 [place] 4.2.7.2.686 [place] [phone] Primary & 370 Specialty Care 2019-12-24 2019-12-24 Letter JOSE Mak 1.2.840.114 [id number] Univers 00:00:00 00:00:00 (Out) Anju Christine CONNOLLYY 350.1.13.10 it y of HOSPITAL 4.2.7.2.686 [place] [phone] [facility] 0[address] Branch 2019-12-24 2019-12-24 Letter JOSE Mak 1.2.840.114 [id number] 00:00:00 00:00:00 (Out) Anju King BARBAR[facility] 350.1.13.10 HOSPITAL [phone] [id number] 2019-12-23 2019-12-23 Telephone Human, [facility] 1.2.230.407 [id number] Univers 00:00:00 00:00:00 [facility] 350.1.13.10 ity of Specialty 4.2.7.2.686 [place] Care - [phone] [facility] [address] Branch 2019-12-23 2019-12-23 Telephone Human, [facility] 1.2.508.177 [id number] 00:00:00 00:00:00 [facility] 350.1.13.10 Specialty 4.2.7.2.686 [facility] - [phone] [place] 2019-12-21 2019-12-21 Emergency Carlyle Wallace [facility] 1.2.84 0.114 [id number] Univers 17:38:00 20:52:00 Phil Sylvester 350.1.13.10 ity of [place] 4.2.7.2.686 [facility] [phone] [place] 844254 [place] 2019-12-21 2019-12-21 Emergency Carlyle Wallace [facility] 1.2.84 0.114 [id number] 17:38:00 20:52:00 Phil Sylvester 350.1.13.10 [place] 4.2.7.2.686 [place] [phone] [facility] 2019-12-21 2019-12-21 Orders Doctor GARCIA 1.2.840.114 [id number] Univers 00:00:00 00:00:00 Only Unassigned, BARBARA 350.1.13.10 ity of [place] [facility] 4.2.7.2.686 [place] [phone] [facility] 009 [place] 2019-12-21 2019-12-21 Orders Doctor JOSE 1.2.840.114 [id number] 00:00:00 00:00:00 Only Unassigned, BARBARA 350.1.13.10 [place] [facility] 4.2.7.2.686 [id number] 009 2019-12-18 2019-12-18 Outpatient R [facility] [id number] Univers 13:00:00 13:00:00 ity of [facility] [place] [facility] 2019-12-18 2019-12-18 Outpatient R [facility] [id number] Univers 11:40:00 11:40:00 [id number] ity of [facility] [place] [facility] 2019-05-24 2019-05-24 Radha Alcala [facility] 1.2.466.573 [id number] Univers 00:00:00 00:00:00 Geronimo Rodriguez 350.1.13.10 i [place] of [place]7.2.686 [place] [phone] [place] dical nal [address] Building 2019-05-24 2019-05-24 Radha Alcala [facility] 1.2.354.632 [id number] 00:00:00 00:00:00 Geronimo Rodriguez 350.1.13.10 [place] 4.2.7.2.686 Professio [phone] [facility] 134 [facility] Results Test Description Test Time Test Comments Results Result Comments Source Surgical pathology request 2021-05-31 19:31:28 Test Item Value Reference Range Interpretation Comme nts Case number (test code = [id number]) [id number] Surgical pathology report (test code = See link below for PDF Lab R eport 6770) Result status (test code = 9565901) This is Final Report for [id number] 7501-12 [facility] [id number] 01:16:51 Test Item Value Reference Range Interpretation Comments POC glucose (test 97 mg/dL 65-99 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 and [id number] 23:00:00 Test Item Value Reference Range Interpretation Comments ABO grouping (test code = 883-9) O Rh type (test code = 03188-0) POS Antibody screen (gel) (test code = NEG 890-4) [facility]2021-11-01 12:00:00 Test Item Value Reference Range Interpretation Comments SURG (test code = SURG) -----RUN DATE: 03/07/21 [facility] PAGE 1 RUN TIME: 1200 Specimen Inquiry RUN USER: INTERFACE -----PATIENT: LIVE BAILEY LOC: BIGG U #: [id number] AGE/SX: 30/F ROOM: RE03/04/21[facility] DR: Maria Guadalupe Villarreal DO : 86 BED: DIS: STATUS: ANKITA [facility] TLOC: ----- SPEC #: [id number] RECD: 03/04/21 STATUS: JAILNEE PINA #: [id number] JADEN: 03/04/21 [facility] DR: Maria Guadalupe Villarreal I DO ENTERED: 03/04/21 SP TYPE: SURG OTHR DR: Vinicius Bailey MD ORDERED: ALBLUE/3, SURG PATH LVL 4/3, PATH STAIN GROU/3 COPIES TO: [place] [address] [facility] [address] [place] [address] Vinicius Bailey MD [address] [place] [address] HISTOLOGY: TISSUE ID BLK PCS AYALA LEV PROCEDURE DISPOSITION ____ ___ ___ ___ STOMACH, NOS A 1 2 STOMACH, NOS B 1 2 GE JUNCTION C 1 2 PROCEDURES: ALBLUE (03/04/21) SURG PATH LVL 4 (03/04/21) PATH STAIN GROU (03/04/21) TISSUES: A. STOMACH, NOS - POLYP ON PYLORUS B. STOMACH, NOS - ANTRUM C. GASTROESOPHAGEAL JUNCTION - GE JUNCTION CPT CODES CPT CODE(S): 72603D7 , 29824T8 , 66601X4 , , , , FINAL DIAGNOSIS A. Stomach, pylorus, biopsy: MILD REACTIVE GASTROPATHY NO HELICOBACTER IDENTIFIED NO EVIDENCE OF INTESTINAL METAPLASIA, DYSPLASIA OR MALIGNANCY B. Stomach, antrum, biopsy: CONTINUED ON NEXT PAGE -----RUN DATE: 03/07/21 [facility] PAGE 2 RUN TIME: 1200 Specimen Inquiry RUN USER: INTERFACE -----SPEC #: [id number] PATIENT: LIVE BAILEY #[id number] (Continued) FINAL DIAGNOSIS (Continued) MILD CHRONIC INACTIVE [...] all as C. /ba/misael Grossing performed at [facility] Pathology, [address] [place] [address], [address], [place] [address]. Nursing Center Tutor: Chandan Obregon M.D. MICROSCOPIC DESCRIPTION A. Polyp [...] 1200 ----- END OF REPORT BASIC METABOLIC [id number] 16:48:00 Test Item Value Reference Range Interpretation [...] CA) 9.1 MG/DL 8.5-10.1 N HCG SERUM [id number] 16:48:00 Test Item Value Reference Range Interpretation Comments HCG SERUM QUAL (test SERUM NEGATIVE SCREEN NEGATIVE code = HCGQL) CBC W/AUTO [id number] 16:42:00 Test Item Value Reference Range Interpretation [...] DIFF/SCN CRITERIA = MDIFF) COVID 19 INHOUSE [id number] 16:27:00 Test Item Value Reference Range Interpretation Comments COVID 19 INHOUSE AG NEGATIVE Negative Per manu facturer, (test code = negative result s should [id number]) be treated aspr esumptive and, if inconsi [...] and symptoms co nsistent with COVID-19. VITAMIN [id number] 18:12:00 Test Item Value Reference Range Interpretation Comments VITAMIN B12 (test code = VITB12) 1715 pg/mL 193-986 H [id number] 17:42:00 Test Item Value Reference Range Interpretation Comments HGBA1C% (test code = HGBA1C%) 6.3 %A1C 4.8-6.0 H ESTIMATED AVERAGE GLUCOSE (test 134 MG/DL code = EAG) - XR CHEST 1 [id number] 16:40:00 FAX: Lakesha Segal [phone] [place]: St: [facility] FAX: Mandi Murrieta MD [phone] Name: LIVE BAILEY [facility] : 1990 Age/S: 29/F [address] [facility] Unit #: [id number] Loc: E.240 [place], [place] Phys: Lakesha Mena [address] Acct: [id number] Dis Date: Status: ADM IN PHONE #: [phone] Exam Date: 12/26/2019 1638 FAX #: [phone] Reason: COVID, resp failure EXAMS: CPT CODE: [id number] XR CHEST 1 V 18271 Dictation location: U19. CHEST, FRONTAL VIEW HISTORY: [...] Camille Law M.D. CC: Lakesha PIPER; Mandi Otrega MD Technologist: YENY SMITH [facility] Date/Time/By: 12/26/2019 (1640) : By: [email or web address] PAGE 1 Signed Report FAX: Lakesha Segal [phone] [place]: St: [facility] FAX: Mandi Murrieta MD [phone] Name: LIVE BAILEY [facility] : 1990 Age/S: 29/F [address] [employer] Unit #: [id number] Loc: E.[address] [place], [place] Phys: Lakesha Mena [address] Acct: [id number] Dis Date: Status: ADM IN PHONE #: [phone] Exam Date: 12/26/2019 1638 FAX #: [phone] Reason: COVID, resp failure EXAMS: CPT CODE: [id number] XR CHEST1 V 00287 <Continued> Orig Print D/T: S: 12/26/2019 (8977) PAGE 2 Signed ReportCBC W/AUTO [id number] 05:29:00 Test Item Value Reference Range Interpretation [...] BA#) 0.0 K/mm3 0.0-0.2 N BASIC METABOLIC [id number] 05:17:00 Test Item Value Reference Range Interpretation [...] code = CA) 8.6 mg/dl 8.0-10.5 N [id number] 05:17:00 Test Item Value Reference Range Interpretation Comments MAGNESIUM (test code = MAG) 2.0 mg/dl 1.8-2.4 N XR CHEST 1 VW [id number] 00:47:59 Left lower lobe opacity may represent infection the appropriate clinicalsetting. Disclaimer: Generally, the findings on chest imaging in COVID-19 are notspecific, and overlap with other infections, including influenza, H1N1,SARS and MERS. According to the Centers for Disease Control (CDC) and the [employer], viral testing remains the only specific method of diagnosiseven if CXR orCT findings are suggestive of COVID-19. Preliminary Report Dictated by Resident: Levy Richards I, Peeyush ?Patt, MD., have reviewed this study and agree [...] Centers for Disease Control (CDC) and the [place], viral testing re ochoa the only specific method of diagnosiseven if CXR or CT findings are suggestive of COVID-19. Preliminary Report Dictated by Resident: Arvin Sorto MD., have reviewed this study and agree with theabove report. [facility] [id number] 23:02:00 Test Item Value Reference Range Interpretation Comments POCT PREG (test code = 1605) negative POCT PREG LOT # (test code = 3575) [id number] POCT PREG TEST DATE (test 12/04/2020 code = 3576) Lab Interpretation (test code = Normal 73944-8) [facility]
[2021-06-25 15:55] LABS: Absolute Lymphocytes (CBC) 2.7 K/uL (0.7-4.9); Hematocrit 31.2 % (36.0-45.0); RBC Red Blood Cell Count 3.29 M/uL (3.86-4.86)
[2021-06-25 15:57] LABS: BUN Blood Urea Nitrogen 14 mg/dL (7-18); Bicarbonate 28 mmol/L (21-32); Glucose Level 111 mg/dL (74-106); Potassium 3.4 mmol/L (3.5-5.1); Sodium Level 141 mmol/L (136-145)
[2021-06-25] MEDS ORDERED: ESTROGENS,CONJ 25 MG IV ONE (16:46)
[2021-06-25] MEDS ORDERED: POTASSIUM CL SA 10 MEQ TAB PO ONE (16:46)
--- NOTE | 2021-06-25 17:20 | EDPHYS ---
Physician Documentation [facility] Name: Gill Gordon Age: 30 yrs Sex: Female : 1990 Arrival Date: 06/25/2021 Time: 15:01 Bed 30 Private MD: Vinicius Bailey ED Physician Alex Jurado HPI: 06/25 16:06 This 30 yrs old Black Female presents to ER via Ambulatory with complaints of Vaginal jr8 Bleeding. 16:06 The patient has not experienced similar symptoms in the past. The patient has been jr8 recently seen by a physician:. This is a 30-year-old female that was recently seen yesterday in the emergency room for dysfunctional uterine bleeding. Had a CBC and chemistries completed along with ultrasound without significant finding. No structural abnormality of the uterus or adnexa noted. Hemoglobin at that time was 10.9. Went to [place] today for follow-up as she was still having bleeding with having to change pads every 30 minutes. Office blood work showed a hemoglobin of 9.2. Was referred to the emergency room at that time to make sure she did not need a transfusion.. 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 - Social history:: Smoking status: Patient denies any tobacco usage or history of. ROS: 16:06 Eyes: Negative for injury, pain, redness, and discharge, ENT: Negative for injury, jr8 pain, and discharge, Neck: Negative for injury, pain, and swelling, Cardiovascular: Negative for chest pain, palpitations, and edema, Respiratory: Negative for shortness of breath, cough, wheezing, and pleuritic chest pain, Abdomen/GI: Negative for abdominal pain, nausea, vomiting, diarrhea, and constipation, Back: Negative for injury and pain, MS/Extremity: Negative for injury and deformity, Skin: Negative for injury, rash, and discoloration, Neuro: Negative for headache, weakness, numbness, tingling, and seizure. 16:06 : Positive for vaginal bleeding, menstrual abnormality. Exam: 16:06 Constitutional: This is a well developed, well nourished patient who is awake, alert, jr8 and in no acute distress. Eyes: Pupils equal round and reactive to light, extra-ocular motions intact. Lids and lashes normal. Conjunctiva and sclera are non-icteric and not injected. Cornea within normal limits. Periorbital areas with no swelling, redness, or edema. ENT: Nares patent. No nasal discharge, no septal abnormalities noted. Tympanic membranes are normal and external auditory canals are clear. Oropharynx with no redness, swelling, or masses, exudates, or evidence of obstruction, uvula midline. Mucous membranes moist. Cardiovascular: Regular rate and rhythm with a normal S1 and S2. No gallops, murmurs, or rubs. Normal PMI, no JVD. No pulse deficits. Respiratory: Lungs have equal breath sounds bilaterally, clear to auscultation and percussion. No rales, rhonchi or wheezes noted. No increased work of breathing, no retractions or nasal flaring. Abdomen/GI: Soft, non-tender, with normal bowel sounds. No distension or tympany. No guarding or rebound. No evidence of tenderness throughout. Back: No spinal tenderness. No costovertebral tenderness. Full range of motion. Skin: Warm, dry with normal turgor. Normal color with no rashes, no lesions, and no evidence of cellulitis. MS/ Extremity: Pulses equal, no cyanosis. Neurovascular intact. Full, normal range of motion. Neuro: Awake and alert, GCS 15, oriented to person, place, time, and situation. Cranial nerves II-XII grossly intact. Motor strength 5/5 in all extremities. Sensory grossly intact. Vital Signs: 15:05 BP 125 / 69; Pulse 72; Resp 18; Temp 98.4(TE); Pulse Ox 100% on R/A; Weight 97.07 kg; ab2 Height 5 ft. 0 in. (152.40 cm); Pain 8/10; 16:35 BP 99 / 64; Pulse 61; Resp 16; Pulse Ox 95% on R/A; ss7 17:00 BP 107 / 72; Pulse 62; Resp 18; Pulse Ox 95% ; ss7 15:05 Body Mass Index 41.79 (97.07 kg, 152.40 cm) ab2 MDM: 15:14 Patient medically screened. 8 17:17 Data reviewed: vital signs, nurses notes, lab test result(s), and as a result, I will jr8 discharge patient. Data interpreted: Pulse oximetry: on room air is 95 %. Interpretation: normal. Counseling: I had a detailed discussion with the patient and/or guardian regarding: the historical points, exam findings, and any diagnostic results supporting the discharge/admit diagnosis, lab results, the need for outpatient follow up, an OB/Gyne specialist, to return to the emergency department if symptoms worsen or persist or if there are any questions or concerns that arise at home. ED course: No gross hemorrhage hear. Only 0.5 drop in H/H from yesterday which is quite a bit different from [facility] labs. Patient given IV premarin here. If still bleeding told to come back within 12 hours for another IV infusion of premarin. Otherwise if decreasing to f/u with OB which she is suppose to have an appointment with this Sunday . 06/25 15:16 Order name: CBC with Diff; Complete Time: 15:59 06/25 15:16 Order name: Basic Metabolic Panel; Complete Time: 15:59 [facility] 06/25 15:16 Order name: TS; Complete Time: 16:28 [facility] 06/25 15:18 Order name: IV; Complete Time: 15:33 [facility] Administered Medications: 17:00 Drug: Premarin 25 mg Route: IV; Rate: calculated rate; Site: right antecubital; [facility] 17:52 Follow up: Response: No adverse reaction; IV Status: Completed infusion [facility] 17:17 Drug: Potassium Chloride Liquid 40 mEq Route: PO; 7 17:51 Follow up: Response: No adverse reaction 7 Disposition: 18:25 Co-signature as Attending Physician, Alex Jurado MD I agree with the assessment and rn plan of care. Attestation: The patient's history, exam findings, diagnostics, and a summary of any interventions or procedures was reviewed in detail with Champ PIPER. Disposition Summary: 06/25/21 17:19 Discharge Ordered Location: Home jr Problem: new jr8 Symptoms: have improved jr8 Condition: Stable jr8 Diagnosis - Abnormal uterine and vaginal bleeding, unspecified jr8 Followup: jr8 - With: Elly Emerson MD - When: 2 - 3 days - Reason: Recheck today's complaints, Continuance of care, Re-evaluation by your physician Discharge Instructions: - Discharge Summary Sheet jr8 - Abnormal Uterine Bleeding jr8 - Dysfunctional Uterine Bleeding jr8 Forms: - Medication Reconciliation Form jr8 - Thank You Letter jr8 - Antibiotic Education jr8 - Prescription Opioid Use jr8 Signatures: Dispatcher [employer] EDMS Alex Jurado MD MD rn Roszak, Josh, PA PA jr8 Lucas Mcclellan 2 Inna Smith RN RN ss7
--- NOTE | 2021-06-25 17:20 | ER ---
Nurse's Notes [facility] Name: Gill Gordon Age: 30 yrs Sex: Female : 1990 Arrival Date: 06/25/2021 Time: 15:01 Bed 30 Private MD: Vinicius Bailey Diagnosis: Abnormal uterine and vaginal bleeding, unspecified Presentation: 06/25 15:05 Chief complaint: Patient states: " I have been having bleeding for 3 weeks, began after ab2 my gastric sleeve surgery. I was seen here yesterday for the same thing but you guys didn't find anything. Over the night I thought the bleeding got worse so I went to [place] this morning and they sent me here telling me I needed blood. Im changing my pad every 30 minutes". Coronavirus screen: Vaccine status: Patient reports receiving the 2nd dose of the covid vaccine. Client denies travel out of the [place] in the last 14 days. At this time, the client does not indicate any symptoms associated with coronavirus-19. Ebola Screen: Patient negative for fever greater than or equal to 101.5 degrees Fahrenheit, and additional compatible Ebola Virus Disease symptoms Patient denies exposure to infectious person. Patient denies travel to an Ebola-affected area in the 21 days before illness onset. No symptoms or risks identified at this time. Initial Sepsis Screen: Does the patient meet any 2 criteria? No. Patient's initial sepsis screen is negative. Does the patient have a suspected source of infection? No. Patient's initial sepsis screen is negative. Risk Assessment: Do you want to hurt yourself or someone else? Patient reports no desire to harm self or others. Onset of symptoms is unknown. 15:05 Method Of Arrival: Ambulatory ab2 15:05 Acuity: ÁNGELA 3 ab2 Triage Assessment: 15:12 General: Appears in no apparent distress. comfortable, Behavior is calm, cooperative, ab2 appropriate for age. Pain: Complains of pain in right lower quadrant and left lower quadrant. : Reports vaginal bleeding that is bright red, with clots, heavy flow. 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 - Social history:: Smoking status: Patient denies any tobacco usage or history of. Screenin:41 Abuse screen: Denies threats or abuse. Nutritional screening: No deficits noted. ss7 Tuberculosis screening: No symptoms or risk factors identified. Fall Risk IV access (20 points). Assessment: 15:39 General: Appears in no apparent distress. comfortable, Behavior is calm, cooperative, ss7 appropriate for age. Cardiovascular: No deficits noted. Heart tones S1 S2. Respiratory: No deficits noted. Breath sounds are clear bilaterally. GI: No deficits noted. Abdomen is round obese, Bowel sounds present X 4 quads. : Reports vaginal bleeding that is bright red, with clots, Pt states from 9pm to 3am she soaked 5 pads. Currently wearing a diaper due to persistent vaginal bleeding. EENT: No deficits noted. Derm: No deficits noted. Musculoskeletal: No deficits noted. Vital Signs: 15:05 BP 125 / 69; Pulse 72; Resp 18; Temp 98.4(TE); Pulse Ox 100% on R/A; Weight 97.07 kg; ab2 Height 5 ft. 0 in. (152.40 cm); Pain 8/10; 16:35 BP 99 / 64; Pulse 61; Resp 16; Pulse Ox 95% on R/A; ss7 17:00 BP 107 / 72; Pulse 62; Resp 18; Pulse Ox 95% ; ss7 15:05 Body Mass Index 41.79 (97.07 kg, 152.40 cm) ab2 ED Course: 15:01 Patient arrived in ED. mr 15:01 Vinicius Bailey MD is Private Physician. mr 15:12 Triage completed. ab2 15:13 Arm band placed on right wrist. ab2 15:14 Champ Arias PA is PHCP. jr8 15:14 Alex Jurado MD is Attending Physician. jr8 15:32 TS Sent. ss7 15:32 Basic Metabolic Panel Sent. ss7 15:33 CBC with Diff Sent. ss7 15:39 TS Sent. ss7 15:39 Basic Metabolic Panel Sent. ss7 15:39 CBC with Diff Sent. ss7 15:41 Patient has correct armband on for positive identification. Bed in low position. Call 7 light in reach. 15:41 Inserted saline lock: 20 gauge in right antecubital area, using aseptic technique. 7 15:42 No provider procedures requiring assistance completed. ss7 17:19 Elly Emerson MD is Referral Physician. jr8 17:53 Patient did not have IV access during this emergency room visit. intact. ss7 Administered Medications: 17:00 Drug: Premarin 25 mg Route: IV; Rate: calculated rate; Site: right antecubital; 7 17:52 Follow up: Response: No adverse reaction; IV Status: Completed infusion ss7 17:17 Drug: Potassium Chloride Liquid 40 mEq Route: PO; 7 17:51 Follow up: Response: No adverse reaction 7 Outcome: 17:19 Discharge ordered by . jr8 17:35 Discharged to home ambulatory. ss7 17:35 Condition: good 17:35 Discharge instructions given to patient. 17:54 Patient left the ED. 7 Signatures: Citlali Bustamante Josh, PA PA jr8 Lucas Mcclellan Shana, RN RN ss7
[2021-06-25 18:19] VITALS: TEMP 98.4
[2021-06-25 18:22] VITALS: O2SAT 95
[2021-06-25 18:23] VITALS: BP 107/72
== END 2021-06-25 17:54 | disposition home or self-care (01) ==
LOC: ER 14:58
DX: N93.9 Abnormal uterine and vaginal bleeding, unspecified (principal); Z88.0 Allergy status to penicillin; Z88.1 Allergy status to other antibiotic agents
CPT/HCPCS: 96365; 85025; 80048; 36415; 86900; 86850; 86901; 99283; J1410

== ENCOUNTER 2023-01-05 17:44 | Emergency (ER) | payer BC, OTHER ==
--- OUTSIDE RECORDS SUMMARY | 2023-01-05 17:53 | XMS REPORT | Continuity of Care Document ---
:[address] [facility] t Address [address] [place] [address] Care Team Providers Name Role Phone Leo Carrillo MD, Vinicius Márquez Primary Care Physician [phone] [email or web address] Attending Clinician Unavailable Doctor Unassigned, Agenda Attending Clinician Unavailable JAYESH OAKES Attending Clinician Unavailable Jayesh Oakes MD Attending Clinician Jayesh Oakes Attending Clinician Unavailable Luke Werner DO Attending Clinician [phone] Ashley ANDERSON, Lew Hamlin Attending Clinician [phone] DO LUKE WERNER Attending Clinician Unavailab le Luke Werner I Attending Clinician Unavailable Only, Adc Test Attending Clinician Unavailable Giovanny Zimmer MD Attending Clinician GIOVANNY ZIMMER Attending Clinician Unavailable Mandi Ortega Attending Clinician Unavailable HENRY GUTIERREZ Attending Clinician Unavailable Nurse, [place] [facility] Attending Clinician Unavailable Obdulio GUIDRY, Anju King Attending Clinician Unavailable MD KEISHA ROPER Attending Clinician Unavailable KEISHA ROPER Attending Clinician Unavailable 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, Shanice Waterman Attending Clinician Carlyle Wallace MD Attending Clinician Phil Pan Attending Clinician Radha Arzate MD Attending Clinician [email or web address] Admitting Clinician Unavailable JAYESH OAKES Admitting Clinician Unavailable Jayesh Oakes Admitting Clinician Unavailable Vinicius Bailey Admitting Clinician Unavailable EKHAESE, OBONORUMA Admitting Clinician Unavailable EKBRANDONSE DO OBONORUMA IMARIABE Admitting Clinician UnavailMandi Lemus Admitting Clinician Unavailable HENRY GUTIERREZ Admitting Clinician Unavailable MD KEISHA ROPER Admitting Clinician Unavailable Payers Payer Name Policy Type Policy Number Effective Date Expiration Date Que BACK [facility] [id number] 2019 00:00:00 [facility] [id number] 2022 PLANS - OPEN 00:00:00 ACCESS [facility] [id number] 2020 00:00:00 ON LICENSE OF [facility] [id number] 2018 CHOICE 00:00:00 Problems Condition Condition Condition [...] SOB SOB Disease Active [facility] (shortness (shortness 8-26 st of breath) of breath) 00:00: [facility] 00 l COVID-19 COVID-19 Disease Active Metho di virus virus 8-22 st infection infection 00:00: [facility] 00 l Disease Active 2017-05 Unive rs wound wound 2-17 [place] [facility] [place] GDM, class GDM, class Disease Active 2017-05 U nivers A2 A2 1-05 ity of 00:00: [place] [facility] Previous Previous Disease Active 2017-05 Unive rs 1-05 ity of section section 00:00: [place] [id number] Medical Branch Left sided Left sided Disease Active 2017-05 U nivers sciatica sciatica 0-18 ity of 00:00: [place] [address] Medical Branch Encounter Encounter Disease Active Uni vers for for 8-22 ity of supervisio supervisio 00:00: Abraham francis n of high n of high 00 [facility] risk risk [place] with with history of history of , , antepartum antepartum Thyroid Thyroid Disease Active [facility] disease disease 4-24 [place] of affecting affecting [place] [facility] Obesity, Obesity, Disease Active Unive rs Class III, Class III, 9-27 it y of BMI BMI 00:00: [place] 40-49.9 40-49.9 00 Medical (morbid (morbid Branch obesity) obesity) Obesity, Obesity, Disease Active Unive rs Class III, Class III, 9-27 it y of BMI BMI 00:00: [place] 40-49.9 40-49.9 00 Medical (morbid (morbid Branch obesity) obesity) PCOS PCOS Disease Active Univers (polycysti (polycysti 8-25 it y of c ovarian c ovarian 00:[place] syndrome[place] syndrome[place] 00 [facility] Family Family Disease Active Univers history of history of 8-12 it y of ovarian ovarian 00:00: [place] cancer cancer 00 [facility] Allergies, Adverse Reactions, Alerts Allergy Allergy Status Severity Reaction(s) Onset Inactive Treating Comm ents Source Name Type Date Date Clinician amoxicil DA Active U UNKNOWN [facility] 4[facility]03 [place] 00:00: d 00 Medical [place] Penicill DA Active U rash 2020-05 [facility] ins 0-29 [place] 00:00: d 00 [facility] Penicill DA Active U 2020-05 [facility] ins 0-29 [place] 00:[facility]: d 00 [facility] No Known DA Active U 2020-05 [facility] Allergie 0-27 [place] [facility] 00:[facility]: d [facility] No Known DA Active U 2020-05 [facility] Allergie 0-27 [place] [facility] 00:[facility]: d 00 [facility] Penicill DA Active IN 2020-0 [facility] ins 8-20 [place] 00:[facility]: d 00 [facility] amoxicil DA Active IN 2020-0 [facility] braden 8-20 [place] 00:[facility]: d 00 [facility] Penicill DA Active IN RASH/BREAKOU 2020-0 HC A ins T 8-20 [place] 00:00: d 00 [facility] Center amoxicil DA Active IN RASH/BREAKOU 2019-0 HC A braden T 8-20 [place] 00:00: d 00 [facility] Center Amoxicil Propensi Active Rash 2019-0 Method i braden ty to 12-22 st adverse 00:00: Hospita reaction 00 l s to drug Penicill Propensi Active Rash 2019-0 Method i in V ty to 18 st adverse 00:00: Hospita reaction 00 l [...] s BRADEN INGREDI 01-22 ity of 00:00: [place] 00 Medical Branch Family History Family Member Diagnosis Comments Start Date Stop Date Source Natural father No Known Problems Met [facility] Natural mother No Known Problems Met [facility] Social History Social Habit Start Date Stop Date Quantity Comments Source History SDOH [facility]ism Alcohol Frequency Hospita l History SDOH [facility] Alcohol Std Drinks Hospit al History SDOH [facility] Alcohol Binge Hospital Exposure to Not sure [facility] SARS-CoV-2 (event) Hospit al History of tobacco Cigarette Smoker [facility] Gender identity [facility] Sexual orientation [facility] History of Social 2022-07-22 2022-07-[address] function 00:00:00 00:00:00 Hospital Alcohol intake 2021-05-30 2021-05-30 Current drinker Metho dist 00:00:00 00:00:00 of alcohol Hospital (finding) Tobacco use and 2021-05-20 2021-05-20 Smokeless Zoroastrianism exposure 00:00:00 00:00:00 tobacco non-user Hospital Alcohol Comment 2021-05-20 2021-05-20 Social [facility]rianism 00:00:00 00:00:00 Hospital Sex Assigned At [birth year] [facility] 00:00:00 00:00:00 Hospital Smoking Status Start Date Stop Date Source Never smoked tobacco [facility]spital Medications Ordered Filled Start Stop Current Ordering Indication Dosage Frequency Signature Comments Components Source Medication Medication Date Date Medication? Clinician (SIG) Name Name iopamidol No [id number] 70mL 70 mL, Univers (ISOVUE 08-18 Intravenou ity o f 370-500 mL) 18:44: 18:45 s, ONCE, 1 [place] injection 00 :00 dose, On Medica l 70 mL Fri Branch 08/18/22 at 1400, Routine omeprazole No 40mg QD Take 20 mL Methodi (PRILOSEC) 05-30- ([address] 2 mg/mL 00:00: 05:59 total) by Hosp j[facility] oral 00 :00 mouth l suspension daily for 30 days. omeprazole 2021- No 40mg QD Take 20 mL [facility] (PRILOSEC) 05-30-24 ([address] 2 mg/mL 00:00: 05:59 total) by Hosp jace[facility] oral 00 :00 mouth l suspension daily for 30 days. sucralfate 2021- No 1g Q.25D Take 10 mL [facility] (CARAFATE) 05-29- ([address] 100 mg/mL 00:00: 05:59 total) by Ho sp[facility] suspension 00 :00 mouth 4 l (four) times a day before meals and nightly for 30 days. sucralfate 2021- No 1g Q.25D Take 10 mL [facility] (CARAFATE) 05-29-23 ([address] 100 mg/mL 00:00: 05:59 total) by Ho [facility] suspension 00 :00 mouth 4 l (four) times a day before meals and nightly for 30 days. metFORMIN 2021- No 500mg Q.5D Take 500 Me thodi (GLUCOPHAGE 1-14 01-[address] ) 500 mg 12:36: 00:00 mouth 2 Hospi ta tablet 08 :00 (two) l times a day with meals. metFORMIN 0 2021- No 500mg Q.5D Take 500 Me thodi (GLUCOPHAGE 1-14 01-[address] ) 500 mg 12:36: 00:00 mouth 2 Hospi ta tablet 08 :00 (two) l times a day with meals. ibuprofen 2019-2019- No 600mg 600 mg, Uni vers (IBU) 12-21 Oral, ity of tablet 600 02:30: 01:36 ONCE, 1 [place] mg 00 :00 dose, [place] [facility] 12/21/19 at Branch 2130, REY azithromyci 2019- No 500mg 500 mg, U nivers n 12-21 Oral, ity of (ZITHROMAX) 02:15: 01:35 [place]CE[place] 1 [place] tablet 500 00 :00 dose, [facility] mg 12/21/19 at Branch 2115, REY
Re ason for Anti-Infec tive: Documented Infection< br>Documen bushra Infection Site: Respirator y
Durat ion of Therapy: 7 days<br&gt ;Reason for Anti-Infec tive: Documented Infection< br>Documen bushra Infection Site: Respirator y ibuprofen 2019-0 Yes [id number] 600mg Take 1 Univers 600 mg 8-16 tablet by ity of tablet 00:00: mouth [place] 00 every 6 Medical (six) Branch hours as needed for Pain (scale 4-6). benzonatate 2019-0 Yes [id number] 200mg Take 1 Univers 200 mg 8-16 capsule by ity of capsule 00:00: mouth 3 [place] 00 (three) Medical times Branch daily as needed for Cough for up to 20 doses. predniSONE 2019-0 Yes [id number] 1 PO BID x Univers 20 mg 8-16 4 days ity of tablet 00:00: [place] 00 Medical Branch azithromyci 2019-0 Yes [id number] 250mg Take 1 Univers n 8-16 tablet by ity of (ZITHROMAX 00:00: mouth [place] Z-ZENAIDA) 250 00 SEE-INSTRU Med ical mg tablet CTIONS. Branch Take 500 mg day 1, then 250 mg days 2 to 5. ondansetron 2020-0 Yes [id number] 4mg Take 1 Univers (ZOFRAN 8-16 tablet by ity of ODT) 4 mg 00:00: mouth [place] disintegrat 00 every 8 Medic al ing tablet (eight) Branch hours as needed for Nausea and Vomiting (N/V). albuterol 2020-0 Yes [id number] 2.5mg Inhale 3 Univers 2.5 mg /3 8-16 mL every 4 ity of mL (0.083 00:00: (four) [place] %) 00 hours as Medical nebulizer needed for Bran ch solution Wheezing or Shortness of Breath. albuterol 2020-0 Yes [id number] 2{puff} Inhale 2 Univers 90 8-16 Puffs ity of mcg/actuati 00:00: every 4 [place] on inhaler 00 (four) Medical hours as Branch needed for Wheezing or Shortness of Breath. ibuprofen 2020-0 Yes [id number] 600mg Take 1 Univers 600 mg 8-16 tablet by ity of tablet 00:00: mouth [place] 00 every 6 Medical (six) Branch hours as needed for Pain (scale 4-6). benzonatate 2020-0 Yes [id number] 200mg Take 1 Univers 200 mg 8-16 capsule by ity of capsule 00:00: mouth 3 [place] 00 (three) Medical times Branch daily as needed for Cough for up to 20 doses. predniSONE 2020-0 Yes [id number] 1 PO BID x Univers 20 mg 8-16 4 days ity of tablet 00:00: [place] 00 Medical Branch azithromyci 2020-0 Yes [id number] 250mg Take 1 Univers n 8-16 tablet by ity of (ZITHROMAX 00:00: mouth [place] Z-ZENAIDA) 250 00 SEE-INSTRU Med ical mg tablet CTIONS. Branch Take 500 mg day 1, then 250 mg days 2 to 5. ondansetron 2020-0 Yes [id number] 4mg Take 1 Univers (ZOFRAN 8-16 tablet by ity of ODT) 4 mg 00:00: mouth [place] disintegrat 00 every 8 Medic al ing tablet (eight) Branch hours as needed for Nausea and Vomiting (N/V). albuterol 2020-0 Yes [id number] 2.5mg Inhale 3 Univers 2.5 mg /3 8-16 mL every 4 ity of mL (0.083 00:00: (four) [place] %) 00 hours as Medical nebulizer needed for Bran ch solution Wheezing or Shortness of Breath. albuterol 2020-0 Yes [id number] 2{puff} Inhale 2 Univers 90 8-16 Puffs ity of mcg/actuati 00:00: every 4 [place] on inhaler 00 (four) Medical hours as Branch needed for Wheezing or Shortness of Breath. ibuprofen 2020-0 Yes [id number] 600mg Take 1 Univers 600 mg 8-16 tablet by ity of tablet 00:00: mouth [place] 00 every 6 Medical (six) Branch hours as needed for Pain (scale 4-6). benzonatate 2020-0 Yes [id number] 200mg Take 1 Univers 200 mg 8-16 capsule by ity of capsule 00:00: mouth 3 [place] 00 (three) Medical times Branch daily as needed for Cough for up to 20 doses. predniSONE 2019-0 Yes [id number] 1 PO BID x Univers 20 mg 8-16 4 days ity of tablet 00:00: [place] 00 Medical Branch azithromyci 2020-0 Yes [id number] 250mg Take 1 Univers n 8-16 tablet by ity of (ZITHROMAX 00:00: mouth [place] Z-ZENAIDA) 250 00 SEE-INSTRU Med ical mg tablet CTIONS. Branch Take 500 mg day 1, then 250 mg days 2 to 5. ondansetron 2020-0 Yes [id number] 4mg Take 1 Univers (ZOFRAN 8-16 tablet by ity of ODT) 4 mg 00:00: mouth [place] disintegrat 00 every 8 Medic al ing tablet (eight) Branch hours as needed for Nausea and Vomiting (N/V). albuterol 2020-0 Yes [id number] 2.5mg Inhale 3 Univers 2.5 mg /3 8-16 mL every 4 ity of mL (0.083 00:00: (four) [place] %) 00 hours as Medical nebulizer needed for Bran ch solution Wheezing or Shortness of Breath. albuterol 2020-0 Yes [id number] 2{puff} Inhale 2 Univers 90 8-16 Puffs ity of mcg/actuati 00:00: every 4 [place] on inhaler 00 (four) Medical hours as Branch needed for Wheezing or Shortness of Breath. ibuprofen 2020-0 Yes [id number] 600mg Take 1 Univers 600 mg 8-16 tablet by ity of tablet 00:00: mouth [place] 00 every 6 Medical (six) Branch hours as needed for Pain (scale 4-6). benzonatate 2020-0 Yes [id number] 200mg Take 1 Univers 200 mg 8-16 capsule by ity of capsule 00:00: mouth 3 [place] 00 (three) Medical times Branch daily as needed for Cough for up to 20 doses. predniSONE 2020-0 Yes [id number] 1 PO BID x Univers 20 mg 8-16 4 days ity of tablet 00:00: [place] 00 Medical Branch azithromyci 2020-0 Yes [id number] 250mg Take 1 Univers n 8-16 tablet by ity of (ZITHROMAX 00:00: mouth [place] Z-ZENAIDA) 250 00 SEE-INSTRU Med ical mg tablet CTIONS. Branch Take 500 mg day 1, then 250 mg days 2 to 5. ondansetron 2020-0 Yes [id number] 4mg Take 1 Univers (ZOFRAN 8-16 tablet by ity of ODT) 4 mg 00:00: mouth [place] disintegrat 00 every 8 Medic al ing tablet (eight) Branch hours as needed for Nausea and Vomiting (N/V). albuterol 2020-0 Yes [id number] 2.5mg Inhale 3 Univers 2.5 mg /3 8-16 mL every 4 ity of mL (0.083 00:00: (four) [place] %) 00 hours as Medical nebulizer needed for Bran ch solution Wheezing or Shortness of Breath. albuterol 2020-0 Yes [id number] 2{puff} Inhale 2 Univers 90 8-16 Puffs ity of mcg/actuati 00:00: every 4 [place] as on inhaler 00 (four) Medical hours as Branch needed for Wheezing or Shortness of Breath. ibuprofen 2020-0 Yes [id number] 600mg Take 1 Univers 600 mg 8-16 tablet by ity of tablet 00:00: mouth [place] 00 every 6 Medical (six) Branch hours as needed for Pain (scale 4-6). benzonatate 2020-0 Yes [id number] 200mg Take 1 Univers 200 mg 8-16 capsule by ity of capsule 00:00: mouth 3 [place] 00 (three) Medical times Branch daily as needed for Cough for up to 20 doses. predniSONE 2020-0 Yes [id number] 1 PO BID x Univers 20 mg 8-16 4 days ity of tablet 00:00: [place] 00 Medical Branch azithromyci 2020-0 Yes [id number] 250mg Take 1 Univers n 8-16 tablet by ity of (ZITHROMAX 00:00: mouth [place] Z-ZENAIDA) 250 00 SEE-INSTRU Med ical mg tablet CTIONS. Branch Take 500 mg day 1, then 250 mg days 2 to 5. ondansetron 2020-0 Yes [id number] 4mg Take 1 Univers (ZOFRAN 8-16 tablet by ity of ODT) 4 mg 00:00: mouth [place] disintegrat 00 every 8 Medic al ing tablet (eight) Branch hours as needed for Nausea and Vomiting (N/V). albuterol 2020-0 Yes [id number] 2.5mg Inhale 3 Univers 2.5 mg /3 8-16 mL every 4 ity of mL (0.083 00:00: (four) [place] %) 00 hours as Medical nebulizer needed for Bran ch solution Wheezing or Shortness of Breath. albuterol 2020-0 Yes [id number] 2{puff} Inhale 2 Univers 90 8-16 Puffs ity of mcg/actuati 00:00: every 4 [place] as on inhaler 00 (four) Medical hours as Branch needed for Wheezing or Shortness of Breath. ibuprofen 2020-0 Yes [id number] 600mg Take 1 Univers 600 mg 8-16 tablet by ity of tablet 00:00: mouth [place] 00 every 6 Medical (six) Branch hours as needed for Pain (scale 4-6). benzonatate 2020-0 Yes [id number] 200mg Take 1 Univers 200 mg 8-16 capsule by ity of capsule 00:00: mouth 3 [place] 00 (three) Medical times Branch daily as needed for Cough for up to 20 doses. predniSONE 2020-0 Yes [id number] 1 PO BID x Univers 20 mg 8-16 4 days ity of tablet 00:00: [place] 00 Medical Branch azithromyci 2020-0 Yes [id number] 250mg Take 1 Univers n 8-16 tablet by ity of (ZITHROMAX 00:00: mouth [place] Z-ZENAIDA) 250 00 SEE-INSTRU Med ical mg tablet CTIONS. Branch Take 500 mg day 1, then 250 mg days 2 to 5. ondansetron 2020-0 Yes [id number] 4mg Take 1 Univers (ZOFRAN 8-16 tablet by ity of ODT) 4 mg 00:00: mouth [place] disintegrat 00 every 8 Medic al ing tablet (eight) Branch hours as needed for Nausea and Vomiting (N/V). albuterol 2020-0 Yes [id number] 2.5mg Inhale 3 Univers 2.5 mg /3 8-16 mL every 4 ity of mL (0.083 00:00: (four) [place] %) 00 hours as Medical nebulizer needed for Bran ch solution Wheezing or Shortness of Breath. albuterol 2020-0 Yes [id number] 2{puff} Inhale 2 Univers 90 8-16 Puffs ity of mcg/actuati 00:00: every 4 [place] as on inhaler 00 (four) Medical hours as Branch needed for Wheezing or Shortness of Breath. ibuprofen 2020-0 Yes [id number] 600mg Take 1 Univers 600 mg 8-16 tablet by ity of tablet 00:00: mouth [place] 00 every 6 Medical (six) Branch hours as needed for Pain (scale 4-6). benzonatate 2020-0 Yes [id number] 200mg Take 1 Univers 200 mg 8-16 capsule by ity of capsule 00:00: mouth 3 [place] 00 (three) Medical times Branch daily as needed for Cough for up to 20 doses. predniSONE 2020-0 Yes [id number] 1 PO BID x Univers 20 mg 8-16 4 days ity of tablet 00:00: [place] 00 Medical Branch azithromyci 2020-0 Yes [id number] 250mg Take 1 Univers n 8-16 tablet by ity of (ZITHROMAX 00:00: mouth [place] Z-ZENAIDA) 250 00 SEE-INSTRU Med ical mg tablet CTIONS. Branch Take 500 mg day 1, then 250 mg days 2 to 5. ondansetron 2020-0 Yes [id number] 4mg Take 1 Univers (ZOFRAN 8-16 tablet by ity of ODT) 4 mg 00:00: mouth [place] disintegrat 00 every 8 Medic al ing tablet (eight) Branch hours as needed for Nausea and Vomiting (N/V). albuterol 2020-0 Yes [id number] 2.5mg Inhale 3 Univers 2.5 mg /3 8-16 mL every 4 ity of mL (0.083 00:00: (four) [place] %) 00 hours as Medical nebulizer needed for Bran ch solution Wheezing or Shortness of Breath. albuterol 2020-0 Yes [id number] 2{puff} Inhale 2 Univers 90 8-16 Puffs ity of mcg/actuati 00:00: every 4 [place] as on inhaler 00 (four) Medical hours as Branch needed for Wheezing or Shortness of Breath. ibuprofen 2020-0 Yes [id number] 600mg Take 1 Univers 600 mg 8-16 tablet by ity of tablet 00:00: mouth [place] 00 every 6 Medical (six) Branch hours as needed for Pain (scale 4-6). benzonatate 2020-0 Yes [id number] 200mg Take 1 Univers 200 mg 8-16 capsule by ity of capsule 00:00: mouth 3 [place] 00 (three) Medical times Branch daily as needed for Cough for up to 20 doses. predniSONE 2020-0 Yes [id number] 1 PO BID x Univers 20 mg 8-16 4 days ity of tablet 00:00: [place] 00 Medical Branch azithromyci 2020-0 Yes [id number] 250mg Take 1 Univers n 8-16 tablet by ity of (ZITHROMAX 00:00: mouth [place] Z-ZENAIDA) 250 00 SEE-INSTRU Med ical mg tablet CTIONS. Branch Take 500 mg day 1, then 250 mg days 2 to 5. ondansetron 2020-0 Yes [id number] 4mg Take 1 Univers (ZOFRAN 8-16 tablet by ity of ODT) 4 mg 00:00: mouth [place] disintegrat 00 every 8 Medic al ing tablet (eight) Branch hours as needed for Nausea and Vomiting (N/V). albuterol 2020-0 Yes [id number] 2.5mg Inhale 3 Univers 2.5 mg /3 8-16 mL every 4 ity of mL (0.083 00:00: (four) [place] %) 00 hours as Medical nebulizer needed for Bran ch solution Wheezing or Shortness of Breath. albuterol 2020-0 Yes [id number] 2{puff} Inhale 2 Univers 90 8-16 Puffs ity of mcg/actuati 00:00: every 4 [place] as on inhaler 00 (four) Medical hours as Branch needed for Wheezing or Shortness of Breath. ibuprofen 2020-0 Yes [id number] 600mg Take 1 Univers 600 mg 8-16 tablet by ity of tablet 00:00: mouth [place] 00 every 6 Medical (six) Branch hours as needed for Pain (scale 4-6). benzonatate 2020-0 Yes [id number] 200mg Take 1 Univers 200 mg 8-16 capsule by ity of capsule 00:00: mouth 3 [place] 00 (three) Medical times Branch daily as needed for Cough for up to 20 doses. predniSONE 2019-0 Yes [id number] 1 PO BID x Univers 20 mg 8-16 4 days ity of tablet 00:00: [place] 00 Medical Branch azithromyci 2020-0 Yes [id number] 250mg Take 1 Univers n 8-16 tablet by ity of (ZITHROMAX 00:00: mouth [place] Z-ZENAIDA) 250 00 SEE-INSTRU Med ical mg tablet CTIONS. Branch Take 500 mg day 1, then 250 mg days 2 to 5. ondansetron 2019-0 Yes [id number] 4mg Take 1 Univers (ZOFRAN 8-16 tablet by ity of ODT) 4 mg 00:00: mouth [place] disintegrat 00 every 8 Medic al ing tablet (eight) Branch hours as needed for Nausea and Vomiting (N/V). albuterol 2019-0 Yes [id number] 2.5mg Inhale 3 Univers 2.5 mg /3 8-16 mL every 4 ity of mL (0.083 00:00: (four) [place] %) 00 hours as Medical nebulizer needed for Bran ch solution Wheezing or Shortness of Breath. albuterol 2019-0 Yes [id number] 2{puff} Inhale 2 Univers 90 8-16 Puffs ity of mcg/actuati 00:00: every 4 [place] as on inhaler 00 (four) Medical hours as Branch needed for Wheezing or Shortness of Breath. metFORMIN 2018-05 Yes 500mg Take 1 Unive rs 500 mg 2-11 tablet by ity of tablet 00:00: mouth 2 [place] 00 (two) Medical times Branch daily with meals. metFORMIN 2018-05 Yes 500mg Take 1 Unive rs 500 mg 2-11 tablet by ity of tablet 00:00: mouth 2 [place] 00 (two) Medical times Branch daily with meals. metFORMIN 2018-05 Yes 500mg Take 1 Unive rs 500 mg 2-11 tablet by ity of tablet 00:00: mouth 2 [place] 00 (two) Medical times Branch daily with meals. [...] Branch daily with meals. Nitrofurant 2018-0 Yes [id number] 100mg Take 1 Univers oin&Nit. 6-14 capsule by ity o f Macrocryst 00:00: mouth [place] 100 mg 00 (two) Medical capsule times Branch daily. Nitrofurant 2018-0 Yes [id number] 100mg Take 1 Univers oin&Nit. 6-14 capsule by ity o f Macrocryst 00:00: mouth 2 [place] 100 mg 00 (two) Medical capsule times Branch daily. Nitrofurant 2018-0 Yes [id number] 100mg Take 1 Univers oin&Nit. 6-14 capsule by ity o f Macrocryst 00:00: mouth 2 [place] 100 mg 00 (two) Medical capsule times Branch daily. Nitrofurant 2018-0 Yes [id number] 100mg Take 1 Univers oin&Nit. 6-14 capsule by ity o f Macrocryst 00:00: mouth 2 [place] 100 mg 00 (two) Medical capsule times Branch daily. Nitrofurant 2019-0 Yes [id number] 100mg Take 1 Univers oin&Nit. 6-14 capsule by ity o f Macrocryst 00:00: mouth 2 [place] 100 mg 00 (two) Medical capsule times Branch daily. Nitrofurant 2019-0 Yes [id number] 100mg Take 1 Univers oin&Nit. 6-14 capsule by ity o f Macrocryst 00:00: mouth 2 [place] 100 mg 00 (two) Medical capsule times Branch daily. Nitrofurant 2019-0 Yes [id number] 100mg Take 1 Univers oin&Nit. 6-14 capsule by ity o f Macrocryst 00:00: mouth 2 [place] 100 mg 00 (two) Medical capsule times Branch daily. Nitrofurant 2019-0 Yes [id number] 100mg Take 1 Univers oin&Nit. 6-14 capsule by ity o f Macrocryst 00:00: mouth 2 [place] 100 mg 00 (two) Medical capsule times Branch daily. Nitrofurant 2019-0 Yes [id number] 100mg Take 1 Univers oin&Nit. 6-14 capsule by ity o f Macrocryst 00:00: mouth 2 [place] 100 mg 00 (two) Medical capsule times Branch daily. Nitrofurant 2018-0 Yes [id number] 100mg Take 1 Univers oin&Nit. 6-14 capsule by ity o f Macrocryst 00:00: mouth 2 [place] 100 mg 00 (two) Medical capsule times Branch daily. Nitrofurant 2019-0 Yes [id number] 100mg Take 1 Univers oin&Nit. 6-14 capsule by ity o f Macrocryst 00:00: mouth 2 [place] 100 mg 00 (two) Medical capsule times Branch daily. azithromyci 2019-0 Yes TAKE 2 Univ ers [...] ON DAY 2 THROUGH DAY 5 azithromyci 0 Yes TAKE 2 Univ ers n 250 mg 6-11 TABLETS BY ity o f tablet 00:00: MOUTH ON DAY 1 AND Medical THEN TAKE Branch 1 TABLET BY MOUTH ONCE A DAY ON DAY 2 THROUGH DAY 5 azithromyci Yes TAKE 2 Univ ers n [...] ON DAY 2 THROUGH DAY 5 ibuprofen 2018- Yes 600mg Take 1 Unive rs 600 [...] (scale 1-3) or Pain (scale 4-6). ibuprofen 2018- Yes 600mg Take 1 Unive rs 600 mg 2-19 tablet by ity of tablet 00:00: mouth [place] 00 every 6 Medical (six) Branch hours as needed for Pain (scale 1-3) or Pain (scale 4-6). ibuprofen 2017- Yes 600mg Take 1 Unive rs 600 [...] Immunizations Ordered Filled Immunization Date Status Comments [facility] e Immunization Name Name SARS-COV-2 COVID-19 2020-08-21 Completed Unive rsity of PFIZER VACCINE 00:00:00 [facility] [place] [facility] SARS-COV-2 COVID-19 2020-08-21 Completed Unive rsity of PFIZER VACCINE 00:00:00 [facility] [place] [facility] SARS-COV-2 COVID-19 2020-08-21 Completed Unive rsity of PFIZER VACCINE 00:00:00 [facility] [place] [facility] SARS-COV-2 COVID-19 2020-08-01 Completed Unive rsity of PFIZER VACCINE 00:00:00 [facility] [place] [facility] SARS-COV-2 COVID-19 2020-08-01 Completed Unive rsity of PFIZER VACCINE 00:00:00 [facility] SARS-COV-2 COVID-19 2020-08-01 Completed Unive rsity of PFIZER VACCINE 00:00:00 [facility] Td 2015-01-20 Completed University of 00:00:00 [facility] Td 2015-01-20 Completed University of 00:00:00 [facility] Td 2015-01-20 Completed University of 00:00:00 [facility] Td 2015-01-20 Completed University of 00:00:00 [facility] TD, NOS 2015-01-20 Completed University of 00:00:00 [facility] TD, NOS 2015-01-20 Completed University of 00:00:00 [facility] TD, NOS 2015-01-20 Completed University of 00:00:00 [facility] Td 2015-01-20 Completed University of 00:00:00 [facility] Td 2015-01-20 Completed University of 00:00:00 [facility] Td 2015-01-20 Completed University of 00:00:00 [facility] Td 2015-01-20 Completed University of 00:00:00 [facility] Vital Signs Vital Name Observation Time Observation Value Comments Source Body temperature 2019-12-22 01:48:29 39.5 Shi [facility] [place] [facility] Systolic blood 2019-12-22 01:33:05 121 mm[Hg] Univer sity of pressure [facility] Diastolic blood 2019-12-22 01:33:05 90 mm[Hg] Unive rsity of pressure [facility] Heart rate 2019-12-22 01:33:05 108 /min [facility] Respiratory rate 2019-12-22 01:33:05 25 /min [facility] [place] [facility] Body height 2019-12-22 01:33:05 152.4 cm [facility] Oxygen saturation in 2019-12-22 01:33:05 98 /min University of Arterial blood by [facility] Pulse oxim[facility] Branch Body weight 2019-12-21 22:36:00 102.059 kg [facility] BMI 2019-12-21 22:36:00 43.94 kg/m2 [facility] Body temperature 2019-12-22 01:48:29 39.5 Shi [facility] [place] [facility] Systolic blood 2019-12-22 01:33:05 121 mm[Hg] Univer sity of pressure [facility] Diastolic blood 2019-12-22 01:33:05 90 mm[Hg] Unive rsity of pressure [facility] Heart rate 2019-12-22 01:33:05 108 /min [facility] Respiratory rate 2019-12-22 01:33:05 25 /min [facility] Body height 2019-12-22 01:33:05 152.4 cm [facility] [place] [facility] Oxygen saturation in 2019-12-22 01:33:05 98 /min [facility] Arterial blood by [facility]xim[facility] Body weight 2019-12-21 22:36:00 102.059 kg [facility] [place] [facility] BMI 2019-12-21 22:36:00 43.94 kg/m2 [facility] Systolic blood 2021-05-29 13:45:03 121 mm[Hg] [facility] pressure Diastolic blood 2021-05-29 13:45:03 67 mm[Hg] [facility] pressure Heart rate 2021-05-29 13:45:03 72 /min [facility] Body temperature 2021-05-29 13:45:03 36.83 Shi [facility] Respiratory rate 2021-05-29 13:45:03 16 /min [facility] Oxygen saturation in 2021-05-29 13:45:03 98 /min [facility] Arterial blood by Pulse oximetry Body height 2021-05-28 13:12:00 152.4 cm [facility] Body weight 2021-05-27 20:55:00 103.42 kg [facility] BMI 2021-05-27 20:55:00 44.53 kg/m2 [facility] Procedures Procedure Date / Time Performing Clinician Source Performed REFERRAL- 2022-08-23 05:01:00 Doctor Unassigned, No [facility] REQUEST/RESPONSE Name Medical Branch CT CHEST PULMONARY 2022-08-18 18:53:56 Jayesh Oakes [facility] ANGIOGRAM Medical Branch HB CREATININE 2022-08-18 18:31:00 Jayesh Oakes [facility] SERUM/BLOOD FOR IMAGING Medical Branch ASSIGNMENT OF BENEFITS 2022-08-18 17:58:53 Doctor Unassigned, No [facility] Name Medical Branch [id number] 2022-08-10 00:00:00 BOB [facility] [id number] 2022-08-10 00:00:00 BOB [facility] [id number] 2022-08-10 [facility] ZZCOVID-19 SEROLOGY 2021-05-29 10:45:00 Drarel Wesley [facility] PATIENT SURVEILLANCE [place] VALORIE-19 ANTI-SPIKE 2021-05-29 10:45:00 Darrel Wesley [facility] IGG ANTIBODY TITER [place] BASIC METABOLIC PANEL 2021-05-28 11:29:00 Ekhaese, [place] Met [facility] HC COMPLETE BLD COUNT 2021-05-28 11:29:00 Ekhaese, [place] Met [facility] W/AUTO DIFF [facility] ESTIMATED GFR 2021-05-28 11:29:00 [facility] POC GLUCOSE 2021-05-28 01:15:00 [facility] SURGICAL PATHOLOGY 2021-05-28 00:48:00 [facility] REQUEST [facility] GA AN ELECTIVE 2021-05-27 22:36:00 Delroy Gillespie ospital ENDOTRACHEAL AIRWAY GASTRECTOMY, SLEEVE, 2021-05-27 22:29:00 [facility] LAPAROSCOPIC [facility] HCG QUALITATIVE, URINE 2021-05-27 21:11:00 [facility] SCREEN [facility] PROTHROMBIN TIME WITH 2021-05-27 21:11:00 [facility] INR [facility] ABO AND RH CONFIRMATION 2021-05-27 21:11:00 [facility] BY PROTOCOL [facility] ECG PRE/POST OP 2021-05-23 21:07:22 [facility] BASIC METABOLIC PANEL 2021-05-23 21:01:00 [facility] ESTIMATED GFR 2021-05-23 21:01:00 [facility] COMPREHENSIVE METABOLIC 2021-05-23 21:01:00 [facility] PANEL [facility] COVID-19 QUALITATIVE 2021-05-23 21:01:00 [facility] RT-PCR [facility] TYPE AND SCREEN 2021-05-23 21:01:00 [facility] HEMOGLOBIN A1C 2021-05-23 21:01:00 [facility] CBC HEMOGRAM 2021-05-23 21:01:00 [facility] ASSIGNMENT OF BENEFITS 2020-01-16 16:53:23 Doctor Unassigned, No [facility] XR CHEST 1 VW COVID 2019-12-21 23:21:16 Phil Sylvester [facility] POCT TEST 2019-12-21 23:02:00 Phil Sylvester [facility] EKG-12 LEAD 2019-12-21 22:55:25 Phil Sylvester [place] [facility] NOTICE OF PRIVACY 2019-12-21 22:22:54 Doctor Unassigned, No [facility] CONSENT/REFUSAL FOR 2019-12-21 22:22:40 Doctor Unassigned, No [facility] Plan of Care Planned Activity Planned Date Details Comments Source Future Scheduled 2023-01-01 [facility] Test 03:28:55 (procedure) [code = 707310329] Future Scheduled 2023-01-01 [facility] Test 03:28:55 malignant neoplasm of cervix (procedure) [code = 213041335] Future Scheduled 2023-01-01 COVID-19 VACCINE (4 - [facility] Test 03:28:55 Pfizer series) [code = COVID-19 VACCINE (4 - Pfizer series)] Future Scheduled 2023-01-01 INFLUENZA VACCINE (#1) [facility] 03:28:55 [code = INFLUENZA VACCINE (#1)] Future Scheduled 2022-08-07 [facility] Test 09:57:16 (procedure) [code = 608726939] Future Scheduled 2022-08-07 [facility] Test 09:57:16 malignant neoplasm of cervix (procedure) [code = 154035292] Future Scheduled 2022-08-07 COVID-19 VACCINE (4 - [facility] Test 09:57:16 Booster for Pfizer series) [code = COVID-19 VACCINE (4 - Booster for Pfizer series)] Future Scheduled 2022-08-07 [facility]ACCINE [facility] Test 09:57:16 [code = INFLUENZA VACCINE] Future Scheduled 2022-05-15 Pneumococcal Vaccine: [facility] Test 11:17:31 Pediatrics (0 to 5 Years) and At-Risk Patients (6 to 64 Years) (1 - PCV) [code = Pneumococcal Vaccine: Pediatrics (0 to 5 Years) and At-Risk Patients (6 to 64 Years) (1 - PCV)] Future Scheduled 2022-05-15 DIABETES: RETINAL EYE [facility] Test 11:17:31 EXAM [code = DIABETES: RETINAL EYE EXAM] Future Scheduled 2022-05-15 DIABETIC FOOT EXAM [facility] Test 11:17:31 [code = DIABETIC FOOT EXAM] Future Scheduled 2022-05-15 URINE MICROALBUMIN [facility] Test 11:17:31 [code = URINE MICROALBUMIN] Future Scheduled 2022-05-15 [facility] C [facility] Test 11:17:31 (procedure) [code = 565501866] Future Scheduled 2022-05-15 [facility] Test 11:17:31 malignant neoplasm of cervix (procedure) [code = 511707037] Future Scheduled 2022-05-15 COVID-19 VACCINE (4 - [facility] Test 11:17:31 Booster for Pfizer series) [code = COVID-19 VACCINE (4 - Booster for Pfizer series)] Future Scheduled 2022-05-15 INFLUENZA [facility]ACCINE [facility] Test 11:17:31 [code = INFLUENZA VACCINE] Future Scheduled 2021-06-07 [facility]ABETES: [facility] 19:05:09 EXAM [code = DIABETES: RETINAL EYE EXAM] Future Scheduled 2021-06-07 DIABETIC FOOT EXAM [facility] Test 19:05:09 [code = DIABETIC FOOT EXAM] Future Scheduled 2021-06-07 [facility] 19:05:09 [code = URINE MICROALBUMIN] Future Scheduled 2021-06-07 [facility] 19:05:09 (procedure) [code = 620305450] Future Scheduled 2021-06-07 [facility] Test 19:05:09 malignant neoplasm of cervix (procedure) [code = 526158365] Future Scheduled 2021-06-07 INFLUENZA VACCINE [facility] Test 19:05:09 [code = INFLUENZA VACCINE] Encounters Start End Encounter Admission Attending Care Care Encounter Source Date/Time Date/Time Type Type Clinicians Facility Department ID 2021-03-04 Emergency [facility] [id number] Univers 12:43:14 [facility] 2022-12-01 2022-12-01 Outpatient GC_GCBZW_Arslan PRIV PRIV [id number] [facility] 00:00:00 00:00:00 diyala_S [id number] Medic al 2022-11-30 2022-11-30 Outpatient GC_GCBZW_Arslan PRIV PRIV [id number] [facility] 00:00:00 00:00:00 diyala_S [id number] Medic al 2022-08-23 2022-08-23 Orders Doctor JOSE 1.2.840.114 [id number] Univers 00:00:00 00:00:00 Only Unassigned, BARBARA 350.1.13.10 ity of Agenda [facility] 4.2.7.2.686 [place] [id number] [facility] 009 Branch 2022-08-18 2022-08-18 [id number] Univers 12:59:57 23:59:00 JAYESH ity [facility] 2022-08-18 2022-08-18 [facility] 1.2.840.114 [id number] Univers 12:59:57 23:59:00 Encounter Jayeshbecky PLATA 350.1.13.10 ity [facility] 4.2.7.2.686 [facility] [id number] [facility] 801 Branch 2022-08-18 2022-08-18 Orders Doctor JOSE 1.2.840.114 [id number] Univers 00:00:00 00:00:00 Only Unassigned, BARBARA 350.1.13.10 ity of Agenda [facility] 4.2.7.2.686 [place] [id number] [facility] 009 Branch 2022-08-10 2022-08-12 Inpatient RADHA Oakes HCAPM MEDI.01 [id number] [facility] 08:25:00 18:39:00 Jayesh 26 [facility] 2022-05-18 2022-05-18 Outpatient [facility] [id number] [facility] 05:50:00 05:50:00 Jayesh 70 [facility] 2021-05-27 2021-05-29 [facility], 1.2.840.1 [id number] Methodi 14:31:00 12:49:00 Encounter [place] [address].1.[address] [facility] 3.430.2.7 Hospi ta .3.789131 l .8 2021-05-27 2021-05-27 Surgery Ekhaese, 1.2.840.1 [id number] [facility] 16:25:00 19:20:[address] [facility] 3.430.2.7 Hospi ta .3.589102 l .8 2021-05-27 2021-05-27 Anesthesia Ashley, 1.2.840.1 [id number] [facility] 16:28:00 19:09:00 Event [place] 49603.1.[address] [facility] 3.430.2.7 Hospit a .3.720455 l .8 2021-05-27 2021-05-27 Travel 1.2.840.1 1.2.739.293 4334 [id number] [facility] 00:00:00 00:00:[address] 3.430.2.7 0.2.7.3.698 Ho spita .3.291560 084.8 l .8 2021-05-23 2021-05-23 Pre-Admiss Ekhaese, 1.2.840.1 [id number] Methodi 14:15:00 15:11:47 ion [place] [address]994.1.[address] Testing [facility] 3.430.2.7 Hospi ta .3.987873 l .8 2021-05-23 2021-05-23 Travel 1.2.840.1 1.2.696.860 5505 [id number] Methodi 00:00:00 00:00:[address] 3.430.2.7 0.2.7.3.698 Ho spita .3.733227 084.8 l .8 2021-05-20 2021-05-20 Travel 1.2.840.1 1.2.630.259 7044 764583 Methodi 00:00:00 00:00:[address] 3.430.2.7 0.2.7.3.698 Ho spita .3.074114 084.8 l .8 2021-03-04 2021-03-04 Inpatient RADHA Werner, [id number] [facility] 05:57:00 05:57:00 [place] 83 [facility] 2020-08-22 2020-08-22 Outpatient [facility] [id number] Univers 14:20:00 14:20:00 ity [facility] 2020-08-21 2020-08-21 Outpatient [facility] [id number] Univers 14:20:00 14:20:00 ity [facility] 2020-08-01 2020-08-01 Outpatient [facility] [id number] Univers 14:05:00 14:05:00 ity [facility] 2020-01-16 2020-01-16 Laboratory Only, [facility] 1.2.840.114 7 [id number] 11:51:57 12:06:57 Only Test [place] 350.1.13.10 [place] 4.2.7.2.686 [place] [id number] [facility] 2020-01-16 2020-01-16 Laboratory Only, Adc Test [facility] 1.2.840. 114 [id number] Univers 11:51:57 12:06:57 Only Giovanny Zimmer 350.1.13.10 ity [facility] 4.2.7.[address] [place] [id number] 2020-01-16 2020-01-16 Outpatient R GIOVANNY ZIMMER [facility] [id number] Univers 11:45:00 11:45:00 ity [facility] 2020-01-16 2020-01-16 Orders Doctor GARCIA 1.2.840.114 [id number] 00:00:00 00:00:00 Only Unassigned, BARBARA 350.1.13.10 Agenda [facility] 4.2.7.2.686 [id number] 009 2020-01-16 2020-01-16 Orders Doctor JOSE 1.2.840.114 [id number] Univers 00:00:00 00:00:00 Only Unassigned, BARBARA 350.1.13.10 ity of [place] 4.2.7.2.686 [place] [phone] [facility] 009 Branch 2019-12-25 2020-01-01 Inpatient PAKO Ortega, HCAMN AAA [id number] [facility] 18:10:00 23:03:02 Mandi 11 [facility] 2019-12-27 2020-01-01 Inpatient [facility] [id number] [place] 00:00:00 00:00:[address] 2019-12-25 2019-12-25 Telephone Nurse, [facility] 1.2.840.114 [id number] [facility] 00:00:00 00:00:00 Urgent HEALTH 350.1.13.10 it y [facility] [place] 4.2.7.2.686 [facility] [id number] [facility] Primary & 370 Branch Specialty Care 2019-12-25 2019-12-25 Telephone Nurse, [facility] 1.2.840.114 [id number] 00:00:00 00:00:00 Urgent HEALTH 350.1.13.[address] [place] [address] [place] [address] [id number] Primary & 370 Specialty Care 2019-12-24 2019-12-24 Letter JOSE Mak 1.2.840.114 [id number] [facility] 00:00:00 00:00:00 (Out) Anju JIMENEZ 350.1.13.10 it y of HOSPITAL 4.2.7.2.686 [place] [phone] [facility] 019 Branch 2019-12-24 2019-12-24 Letter JOSE Mak 1.2.840.114 [id number] 00:00:00 00:00:00 (Out) Anju JIMENEZ 350.1.13.10 HOSPITAL 4.2.7.2.686 [id number] [facility] 2019-12-23 2019-12-23 Emergency DRUZE[facility] [id number] 99 [place] 00:00:00 00:00:[address] 2019-12-23 2019-12-23 Telephone Human, [facility] 1.2.442.696 [id number] [facility] 00:00:00 00:00:00 Shanice Waterman [facility] 350.1.13.10 ity of Specialty 4.2.7.2.686 [place] - [phone] [address] 2019-12-23 2019-12-23 Telephone Human, [facility] 1.2.549.014 [id number] 00:00:00 00:00:00 Shanice Waterman [facility] 350.1.13.10 Specialty 4.2.7.2.686 Care - [id number] [place] [address] 2019-12-21 2019-12-21 Emergency Carlyle Wallace [facility] 1.2.84 0.114 [id number] [facility] 17:38:00 20:52:00 Phil Sylvester 350.1.13.10 ity of [place] 4.2.7.2.686 [facility] [id number] [address] 2019-12-21 2019-12-21 Emergency Carlyle Wallace [facility] 1.2.84 0.114 [id number] 17:38:00 20:52:00 Phil Sylvester 350.1.13.10 [place] 4.2.7.2.686 [place] [id number] [facility] 2019-12-21 2019-12-21 Orders Doctor JOSE 1.2.840.114 [id number] Univers 00:00:00 00:00:00 Only Unassigned, BARBARA 350.1.13.10 ity of [place] [facility] 4.2.7.2.686 [facility] [id number] [address] 2019-12-21 2019-12-21 Orders Doctor JOSE 1.2.840.114 [id number] 00:00:00 00:00:00 Only Unassigned, BARBARA 350.1.13.10 [facility] 4.2.7.2.686 [id number] 009 2019-12-18 2019-12-18 Outpatient R [facility] [id number] Univers 13:00:00 13:00:00 ity of [facility] 2019-05-24 2019-05-24 Radha Alcala [facility] 1.2.154.892 [id number] Univers 00:00:00 00:00:00 Geronimo Plata 350.1.13.10 i ty of [place] 4.2.7.2.686 Shahram millard Professio [id number] Ok dical nal 134 [facility] 2019-05-24 2019-05-24 Refill Radha Arzate [facility] 1.2.516.328 [id number] 00:00:00 00:00:00 Geronimo [place] 350.1.13.10 [place] 4.2.7.2.686 Professio [id number] [address] Results Test Description Test Time Test Comments Results Result Comments Source POCT CREATININE 2022-08-18 20:35:14 Test Item Value Reference Range Interpretation Comme nts POCT Creatinine (test code = 9248903522) 0.8 mg/dL 0.5-1.1 Lab Interpretation (test code = 16389-4) [facility] [id number] 13:33:00 Test Item Value Reference Range Interpretation Comments WHITE BLOOD CELL (test code = 5.1 K/mm3 3.5-11.0 N WBC) RED BLOOD CELL (test code = 2.96 M/mm3 4.70-6.10 L RBC) HEMOGLOBIN (test code = HGB) 9.2 G/DL 10.4-14.9 L HEMATOCRIT (test code = HCT) 28.6 % 31.5-44.1 L MEAN CELL VOLUME (test code = 96.6 Fl 84.5-98.6 N MCV) MEAN CELL HGB (test code = MCH) 31.1 pg 27.0-34.2 N MEAN CELL HGB CONCETRATION 32.2 G/DL 31.5-34.0 N (test code = MCHC) RED CELL DISTRIBUTION WIDTH 13.0 SD 11.5-14.5 N (test code = RDW) PLATELET COUNT (test code = 195 K/mm3 150-450 N PLT) MEAN PLATELET VOLUME (test code 10.60 fL 7.0-10.5 H = MPV) NEUTROPHIL % (test code = NT%) 33.2 % 40-76 L IMMATURE GRANULOCYTE % (test 0.2 % 0.0-5.0 N code = IG%) LYMPHOCYTE % (test code = LY%) 57.0 % 20.5-51.1 H MONOCYTE % (test code = MO%) 7.2 % 1.7-9.3 N EOSINOPHIL % (test code = EO%) 1.6 % 0.0-6.0 N BASOPHIL % (test code = BA%) 0.8 % 0.0-2.0 N NUCLEATED RBC % (test code = 0.0 /100WBC% 0.0-1.0 N NRBC%) NEUTROPHIL # (test code = NT#) 1.7 K/mm3 1.8-7.6 L IMMATURE GRANULOCYTE # (test 0.01 x10 3/uL 0.00-0.03 N code = IG#) LYMPHOCYTE # (test code = LY#) 2.9 K/mm3 0.6-3.2 N MONOCYTE # (test code = MO#) 0.4 K/mm3 0.3-1.1 N EOSINOPHIL # (test code = EO#) 0.1 K/mm3 0.0-0.4 N BASOPHIL # (test code = BA#) 0.0 K/mm3 0.0-0.1 N NUCLEATED RBC # (test code = 0.0 K/mm3 0.0-0.1 N NRBC#) MANUAL DIFF REQUIRED (test code NO DIFF/SCN CRITERIA = MDIFF) [id number] 14:45:00 Test Item Value Reference Range Interpretation Comments SURGICAL (test code = SR) RUN DATE: 08/11/22 [facility] PAGE 1 RUN TIME: 1445 Specimen Inquiry RUN USER: INTERFACE PATIENT: LIVE GORDON LOC: MARIAH Reynolds #: [id number] AGE/SX: 32/F ROOM: MARQUISE RE08/10/22REG DR: Jayesh Oakes MD : 88 BED: 1 DIS: STATUS: ADM IN TLOC: SPEC #: [id number] RECD: 08/10/22 STATUS: JAILENE RE #: [id number] JADEN: 08/10/[address]: Jayesh Oakes MD ENTERED: 08/10/22 SP TYPE: SURGICAL OTHR DR: Vinicius Bailey MD, Christina O NPORDERED: [id number], ANATOMIC SPEC, SPECIMEN TRACK COPIES TO: Jayesh Oakes MD [address] [id number] Vinicius Bailey MD [address] [place] [id number] Ariana Garces NYLON OPERATOR [facility] [place] [address] PROCEDURES: [id number] (08/11/22-1443) SPECIMEN TRACK (08/10/22) TISSUES: A. UTERUS - UTERUS W/ CERVIX, RIGHT OVARY FINAL DIAGNOSIS UTERUS, CERVIX, RIGHT OVARY AND PARTIAL FALLOPIAN TUBE, TOTAL HYSTERECTOMY AND RIGHTSALPINGO/OOPHORECTOMY: - Cervix without dysplasia. - Benign endocervical polyp, 1.8 cm in greatest dimension. - No endometrium present. - No myometrial lesion.- Unremarkable serosa.- Right ovary with multiple follicles. - Unremarkable fimbriated fallopian tube. - Specimen 84 g. GROSS DESCRIPTION Uterus with right ovary. Received is a uterus with attached right ovary and partialfallopian tube. The uterus weighs 84 g and measures cornu to cornu 6 cm, posterior toanterior 4.5 cm and fundus to cervix 9.5 cm. The cervix measures 2.5 x 2.2 cm with acervical os transverse diameter of 0.6 cm. The uterus is bivalved to reveal a cervical CONTINUED ON NEXT PAGE RUN DATE: 08/11/22 [facility] PAGE 2 RUN TIME: 1445 Specimen Inquiry RUN USER: INTERFACE SPEC #: [id number] PATIENT: LIVE GORDON #[id number] (Continued) GROSS DESCRIPTION (Continued) canal of 3.5 cm in length. T here is a cervical canal polyp attached to the posterior canal measuring 1.8 x 1.2 x 1 cm.The lower cervical canal is stenosis. The endometrial cavity measures 3.2 x 2 cm andcovered by a nonviable appearing endometrium of 0.2 cm. The uterine wall has a maximumthickness of 2.3 cm. Sectioning of the uterine wall reveals no lesions. Uterine wall isslightly trabeculated. The right ovary measures 3.8 x 2.7 x 1.3 cm. There are multiplemicrocyst filled with clear fluid measuring up to 0.5 cm. No papillary excrescences are. There is a adhered segment of tube with fimbriated end measuring 2.5 cm in length and has adiameter 0.5. The serosal surface is smooth along the posterior reflection. A1 posterior cervixA2 anterior cervixA3 posterior endomyometriumA4 anterior endomyometrium A 5-A6 cervical canal polypA7 trabeculated surfaceA8 posterior reflection A9-A11 multiple sections of ovary including cyst and corpus luteum A 12 fallopian tube cut surface with fimbriated end Technical tissue processing and slide preparation performed at [facility],[place] [address] , [place] [address] Immunohistochemistry: This test was developed and its performance characteristicsdetermined by this laboratory. It has not been approved nor does it need approval by the USFDA. Appropriate positive and negative controls are reviewed and judged to be acceptable.This laboratory is certified under the Clinical Laboratory Improvement Amendments (CLIA-88)as qualified to perform high complexity clinical laboratory testing. MICROSCOPIC DESCRIPTION Microscopic examination is performed and the findings are incorporated into the finaldiagnosis. Please see diagnosis for findings. Signed SIGNATURE ON FILE Maira Lua 08/11/22 1445 END OF REPORT CBC W/AUTO [id number] 04:24:00 Test Item Value Reference Range Interpretation Comments WHITE BLOOD CELL (test code = 8.0 K/mm3 3.5-11.0 N WBC) RED BLOOD CELL (test code = 2.91 M/mm3 4.70-6.10 L RBC) HEMOGLOBIN (test code = HGB) 9.2 G/DL 10.4-14.9 L HEMATOCRIT (test code = HCT) 27.8 % 31.5-44.1 L MEAN CELL VOLUME (test code = 95.5 Fl 84.5-98.6 N MCV) MEAN CELL HGB (test code = MCH) 31.6 pg 27.0-34.2 N MEAN CELL HGB CONCETRATION 33.1 G/DL 31.5-34.0 N (test code = MCHC) RED CELL DISTRIBUTION WIDTH 12.5 SD 11.5-14.5 N (test code = RDW) PLATELET COUNT (test code = 159 K/mm3 150-450 N PLT) MEAN PLATELET VOLUME (test code 9.70 fL 7.0-10.5 N = MPV) NEUTROPHIL % (test code = NT%) 55.3 % 40-76 N IMMATURE GRANULOCYTE % (test 0.3 % 0.0-5.0 N code = IG%) LYMPHOCYTE % (test code = LY%) 38.1 % 20.5-51.1 N MONOCYTE % (test code = MO%) 5.5 % 1.7-9.3 N EOSINOPHIL % (test code = EO%) 0.5 % 0.0-6.0 N BASOPHIL % (test code = BA%) 0.3 % 0.0-2.0 N NUCLEATED RBC % (test code = 0.0 /100WBC% 0.0-1.0 N NRBC%) NEUTROPHIL # (test code = NT#) 4.4 K/mm3 1.8-7.6 N IMMATURE GRANULOCYTE # (test 0.02 x10 3/uL 0.00-0.03 N code = IG#) LYMPHOCYTE # (test code = LY#) 3.0 K/mm3 0.6-3.2 N MONOCYTE # (test code = MO#) 0.4 K/mm3 0.3-1.1 N EOSINOPHIL # (test code = EO#) 0.0 K/mm3 0.0-0.4 N BASOPHIL # (test code = BA#) 0.0 K/mm3 0.0-0.1 N NUCLEATED RBC # (test code = 0.0 K/mm3 0.0-0.1 N NRBC#) MANUAL DIFF REQUIRED (test code NO DIFF/SCN CRITERIA = MDIFF) URINALYSIS [id number] 15:21:00 Test Item Value Reference Range Interpretation Comments UA GLUCOSE DIPSTICK (test NEGATIVE mg/dL NEG code = DGLUU) UA BILIRUBIN DIPSTICK (test NEGATIVE mg/dL NEG code = BILU) UA KETONE DIPSTICK (test 1+ mg/dL NEG code = KETU) UA SPECIFIC GRAVITY (test 1.025 SG 1.005-1.030 code = SGU) UA BLOOD DIPSTICK (test TRACE mg/DL NEG A code = ISRAEL) UA PH DIPSTICK (test code = 6.0 pH UNITS 5.0-7.0 CHUCK) UA PROTEIN DIPSTICK (test NEGATIVE mg/dL NEG code = PROU) UA UROBILINIOGEN DIPSTICK 0.2 mg/dL <2.0 (test code = URO) UA NITRITE DIPSTICK (test NEGATIVE SCREEN NEG code = LADONNA) UA LEUKOCYTE ESTERASE NEGATIVE Leuk/mcL NEGATIVE DIPSTICK (test code = LEUU) Urine Specimen Type: Clean CatchUR HCG [id number] 15:21:00 Test Item Value Reference Range Interpretation Comments UR HCG QUAL (test code = HCGQLU) NEGATIVE NEGATIVE Urine Specimen Type: Clean CatchCBC W/AUTO [id number] 15:11:00 Test Item Value Reference Range Interpretation Comments WHITE BLOOD CELL (test code = 7.2 K/mm3 3.5-11.0 N WBC) RED BLOOD CELL (test code = 4.04 M/mm3 4.70-6.10 L RBC) HEMOGLOBIN (test code = HGB) 12.9 G/DL 10.4-14.9 N HEMATOCRIT (test code = HCT) 39.1 % 31.5-44.1 N MEAN CELL VOLUME (test code = 96.8 Fl 84.5-98.6 N MCV) MEAN CELL HGB (test code = MCH) 31.9 pg 27.0-34.2 N MEAN CELL HGB CONCETRATION 33.0 G/DL 31.5-34.0 N (test code = MCHC) RED CELL DISTRIBUTION WIDTH 12.3 SD 11.5-14.5 N (test code = RDW) PLATELET COUNT (test code = 264 K/mm3 150-450 N PLT) MEAN PLATELET VOLUME (test code 9.10 fL 7.0-10.5 N = MPV) NEUTROPHIL % (test code = NT%) 36.4 % 40-76 L IMMATURE GRANULOCYTE % (test 0.1 % 0.0-5.0 N code = IG%) LYMPHOCYTE % (test code = LY%) 56.3 % 20.5-51.1 H MONOCYTE % (test code = MO%) 6.8 % 1.7-9.3 N EOSINOPHIL % (test code = EO%) 0.1 % 0.0-6.0 N BASOPHIL % (test code = BA%) 0.3 % 0.0-2.0 N NUCLEATED RBC % (test code = 0.0 /100WBC% 0.0-1.0 N NRBC%) NEUTROPHIL # (test code = NT#) 2.6 K/mm3 1.8-7.6 N IMMATURE GRANULOCYTE # (test 0.01 x10 3/uL 0.00-0.03 N code = IG#) LYMPHOCYTE # (test code = LY#) 4.0 K/mm3 0.6-3.2 H MONOCYTE # (test code = MO#) 0.5 K/mm3 0.3-1.1 N EOSINOPHIL # (test code = EO#) 0.0 K/mm3 0.0-0.4 N BASOPHIL # (test code = BA#) 0.0 K/mm3 0.0-0.1 N NUCLEATED RBC # (test code = 0.0 K/mm3 0.0-0.1 N NRBC#) MANUAL DIFF REQUIRED (test code NO DIFF/SCN CRITERIA = MDIFF) [id number] 11:08:00 Test Item Value Reference Range Interpretation Comments SURGICAL (test code = SR) RUN DATE: 05/23/22 [facility] PAGE 1 RUN TIME: 1108 Specimen Inquiry RUN USER: INTERFACE PATIENT: LIVE GORDON LOC: JoselitoRACQUEL U #: [id number] AGE/SX: 31/F ROOM: RE05/18/22[facility] DR: Jayesh Oakes MD : 88 BED: DIS: STATUS: [place] [facility] [place]: SPEC #: [id number] RECD: 05/18/22 STATUS: JAILENE PINA #: [id number] JADEN: 05/18/[address] [facility] [address]: Jayesh Oakes MD ENTERED: 05/18/221042 SP TYPE: SURGICAL OTHR DR: Vinicius Bailey MD, Christina O NPORDERED: 51994/2, ANATOMIC SPEC, SPECIMEN TRACK COPIES TO: Jayesh Oakes MD [address] [address] Vinicius Bailey MD [address] [place] [address] Ariana Garces NP [address] [place] [address] PROCEDURES: 88751 (05/23/22-1108) SPECIMEN TRACK (05/18/22-104) TISSUES: A. FALLOPIAN TUBE, BILATERAL - BILATERAL TUBES FINAL DIAGNOSIS FALLOPIAN TUBES, BILATERAL, STERILIZATION:- Fallopian tubes, cross-sectioned without pathologic alteration. GROSS DESCRIPTION Bilateral fallopian tubes. Received in the same container are two segments of fallopiantubes with fimbriated ends. Laterality not specified. The first segment measures 4 cm inlength and has a diameter of 0.8 cm. Cut section of fallopian tube with entire bisectedfimbriated end is submitted as A1. The second segment of fallopian tube with fimbriatedend measures 5 cm in length and has a diameter of 1 cm. Cut section of second fallopiantube with entire bisected fimbriated end are submitted as A2. Technical tissue processing and slide preparation performed at [employer], [place] [address] CONTINUED ON NEXT PAGE RUN DATE: 05/23/22 [facility] PAGE 2 RUN TIME: 1108 Specimen Inquiry RUN USER: INTERFACE SPEC #: [id number]:[id number] PATIENT: LIVE GORDON #[id number] (Continued) MICROSCOPIC DESCRIPTION Microscopic examination is performed and the findings are incorporated into the finaldiagnosis. Please see diagnosis for findings. Signed SIGNATURE ON FILE Maira Lua 05/23/22 1108 END OF REPORT COVID 19 INHOUSE [id number] 15:57:00 Test Item Value Reference Range Interpretation Comments COVID 19 INHOUSE AG NEGATIVE Negative Per manu facturer, (test code = negative result s should [id number]) be treated aspr esumptive and, if inconsi stent with clinical signs andsymptoms or necessary for patient man agement, should betested with an alternative mol ecular assay. Negative resultsdo not preclude SA RS-CoV-2 infection and s hould not be usedas the s ole basis for patient man agement decisions. Nega tive results should be considered in t he context of apatient's r ecent exposures, hist ory, presence of cli nicalsigns and symptoms co nsistent with COVID-19. URINALYSIS [id number] 15:51:00 Test Item Value Reference Range Interpretation Comments UA GLUCOSE DIPSTICK (test NEGATIVE mg/dL NEG code = DGLUU) UA BILIRUBIN DIPSTICK (test NEGATIVE mg/dL NEG code = BILU) UA KETONE DIPSTICK (test NEGATIVE mg/dL NEG code = KETU) UA SPECIFIC GRAVITY (test 1.020 SG 1.005-1.030 code = SGU) UA BLOOD DIPSTICK (test 2+ mg/DL NEG A code = ISRAEL) UA PH DIPSTICK (test code = 6.0 pH UNITS 5.0-7.0 CHUCK) UA PROTEIN DIPSTICK (test NEGATIVE mg/dL NEG code = PROU) UA UROBILINIOGEN DIPSTICK 0.2 mg/dL <2.0 (test code = URO) UA NITRITE DIPSTICK (test NEGATIVE SCREEN NEG code = LADONNA) UA LEUKOCYTE ESTERASE NEGATIVE Leuk/mcL NEGATIVE DIPSTICK (test code = LEUU) Urine Specimen Type: Clean CatchUR HCG [id number] 15:51:00 Test Item Value Reference Range Interpretation Comments UR HCG QUAL (test code = HCGQLU) NEGATIVE NEGATIVE Urine Specimen Type: Clean CatchCBC W/AUTO [id number] 15:47:00 Test Item Value Reference Range Interpretation Comments WHITE BLOOD CELL (test code = 5.4 K/mm3 3.5-11.0 N WBC) RED BLOOD CELL (test code = 3.83 M/mm3 4.70-6.10 L RBC) HEMOGLOBIN (test code = HGB) 12.1 G/DL 10.4-14.9 N HEMATOCRIT (test code = HCT) 37.1 % 31.5-44.1 N MEAN CELL VOLUME (test code = 96.9 Fl 84.5-98.6 N MCV) MEAN CELL HGB (test code = MCH) 31.6 pg 27.0-34.2 N MEAN CELL HGB CONCETRATION 32.6 G/DL 31.5-34.0 N (test code = MCHC) RED CELL DISTRIBUTION WIDTH 13.1 SD 11.5-14.5 N (test code = RDW) PLATELET COUNT (test code = 236 K/mm3 150-450 N PLT) MEAN PLATELET VOLUME (test code 9.80 fL 7.0-10.5 N = MPV) NEUTROPHIL % (test code = NT%) 34.6 % 40-76 L IMMATURE GRANULOCYTE % (test 0.2 % 0.0-5.0 N code = IG%) LYMPHOCYTE % (test code = LY%) 56.6 % 20.5-51.1 H MONOCYTE % (test code = MO%) 7.6 % 1.7-9.3 N EOSINOPHIL % (test code = EO%) 0.4 % 0.0-6.0 N BASOPHIL % (test code = BA%) 0.6 % 0.0-2.0 N NUCLEATED RBC % (test code = 0.0 /100WBC% 0.0-1.0 N NRBC%) NEUTROPHIL # (test code = NT#) 1.9 K/mm3 1.8-7.6 N IMMATURE GRANULOCYTE # (test 0.01 x10 3/uL 0.00-0.03 N code = IG#) LYMPHOCYTE # (test code = LY#) 3.1 K/mm3 0.6-3.2 N MONOCYTE # (test code = MO#) 0.4 K/mm3 0.3-1.1 N EOSINOPHIL # (test code = EO#) 0.0 K/mm3 0.0-0.4 N BASOPHIL # (test code = BA#) 0.0 K/mm3 0.0-0.1 N NUCLEATED RBC # (test code = 0.0 K/mm3 0.0-0.1 N NRBC#) MANUAL DIFF REQUIRED (test code NO DIFF/SCN CRITERIA = MDIFF) Surgical pathology [id number] 19:31:28 Test Item Value Reference Range Interpretation Comments Case number (test code = [id number]) Surgical pathology See link below for report (test code = PDF Lab Report 2255) Result status (test code This is Final Report = [id number]) [id number] [facility] [id number] 19:31:28 Test Item Value Reference Range Interpretation Comments Case number (test code = [id number]) Surgical pathology See link below for report (test code = PDF Lab Report 2255) Result status (test code This is Final Report = [id number]) for [id number] [facility] [id number] 01:16:51 Test Item Value Reference Range Interpretation Comments POC glucose (test 97 mg/dL 65-99 Wool Dyer N denisha: Salgado code = 86109-7) AimeeDevice ID: [id number] [facility] [id number] 01:16:51 Test Item Value Reference Range Interpretation Comments POC glucose (test 97 mg/dL 65-99 Wool Dyer N denisha: Salgado code = 42463-8) AimeeDevice ID: [id number] [facility] and [id number] 22:30:00 Test Item Value Reference Range Interpretation Comments ABO grouping (test code = 883-9) O Rh type (test code = 97495-0) POS [facility] and [id number] 22:30:00 Test Item Value Reference Range Interpretation Comments ABO grouping (test code = 883-9) O Rh type (test code = 99003-0) POS [facility] Pre/Post [id number] 20:21:24 Test Item Value Reference Range Interpretation Comments Ventricular rate (test code = 253) Atrial rate (test code = 255) GA interval (test code = 266) QRSD interval [...] inversion no longer evident in Anterior leads- [facility] Pre/Post [id number] 20:21:24 Test Item Value Reference Range Interpretation Comments Ventricular rate (test code = 253) Atrial rate (test code = 255) GA interval (test code = 266) QRSD interval [...] inversion no longer evident in Anterior leads- [facility] RNA [Presence] in Respiratory specimen by DEEPALI with probe [id number] 03:42:30 Test Item Value Reference Range Interpretation Comments SARS-CoV-2 (COVID-19) RNA Not detected Not-Detected [Presence] in Respiratory specimen by DEEPALI with probe detection (test code = 14887-6) Whether patient is employed in a healthcare setting (test code = 46219-0) Whether the patient has symptoms related to condition of interest (test code = 32522-8) Patient was hospitalized because of this condition (test code = 39390-2) Whether the patient was admitted to intensive care unit (ICU) for condition of interest (test code = 87829-6) Whether patient resides in a congregate care setting (test code = 58069-6) [facility] and [id number] 23:00:00 Test Item Value Reference Range Interpretation Comments ABO grouping (test code = 883-9) O Rh type (test code = 30917-2) POS Antibody screen (gel) (test code = NEG 890-4) [facility] and [id number] 23:00:00 Test Item Value Reference Range Interpretation Comments ABO grouping (test code = 883-9) O Rh type (test code = 98874-6) POS Antibody screen (gel) (test code = NEG 890-4) [facility]2021-11-01 12:00:00 Test Item Value Reference Range Interpretation Comments SURG (test code = SURG) -----RUN DATE: 03/07/21 [facility] - LAB PAGE 1 RUN TIME: 1200 Specimen Inquiry RUN USER: INTERFACE -----PATIENT: LIVE GORDON LOC: BIGG U #: [id number] AGE/SX: 30/F ROOM: RE03/04/21[facility] DR: Luke Werner DO : 86 BED: DIS: STATUS: [facility] TLOC: ----- SPEC #: [id number] RECD: 03/04/21 STATUS: JAILENE REQ #: [id number] JADEN: 03/04/[address] [facility] [address]: Luke Werner DO ENTERED: 03/04/21 SP TYPE: SURG OTHR DR: Vinicius Bailey MD ORDERED: ALBLUE/3, SURG PATH LVL 4/3, PATH STAIN GROU/3 COPIES TO: [place] [address] [facility] [address] [place] [address] Vinicius Bailey MD [address] [place] [address] HISTOLOGY: TISSUE ID BLK PCS AYALA LEV PROCEDURE DISPOSITION ____ ___ ___ ___ STOMACH, NOS A 1 2 STOMACH, NOS B 1 2 GE JUNCTION C 1 2 PROCEDURES: ALBLUE (03/04/21) SURG PATH LVL 4 (03/04/21) PATH STAIN GROU (03/04/21) TISSUES: A. STOMACH, NOS - POLYP ON PYLORUS B. STOMACH, NOS - ANTRUM C. GASTROESOPHAGEAL JUNCTION - GE JUNCTION CPT CODES CPT CODE(S): 28655T2 , 05109V5 , 34303J7 , , , , FINAL DIAGNOSIS A. Stomach, pylorus, biopsy: MILD REACTIVE GASTROPATHY NO HELICOBACTER IDENTIFIED NO EVIDENCE OF INTESTINAL METAPLASIA, DYSPLASIA OR MALIGNANCY B. Stomach, antrum, biopsy: CONTINUED ON NEXT PAGE -----RUN DATE: 03/07/21 [facility] PAGE 2 RUN TIME: 1200 Specimen Inquiry RUN USER: INTERFACE -----SPEC #: [id number] PATIENT: LIVE GORDON #[id number] (Continued) FINAL DIAGNOSIS (Continued) MILD CHRONIC INACTIVE [...] all as C. /ba/misael Grossing performed at [facility] Pathology, [address] [place] [address], [address], [place] [address]. Rodbuster: Chandan Obregon M.D. MICROSCOPIC DESCRIPTION A. Polyp [...] 1200 ----- END OF REPORT BASIC METABOLIC [id number] 16:48:00 Test Item Value Reference Range Interpretation [...] CA) 9.1 MG/DL 8.5-10.1 N HCG SERUM [id number] 16:48:00 Test Item Value Reference Range Interpretation Comments HCG SERUM QUAL (test SERUM NEGATIVE SCREEN NEGATIVE code = HCGQL) CBC W/AUTO [id number] 16:42:00 Test Item Value Reference Range Interpretation [...] DIFF/SCN CRITERIA = MDIFF) COVID 19 INHOUSE [id number] 16:27:00 Test Item Value Reference Range Interpretation Comments COVID 19 INHOUSE AG NEGATIVE Negative Per manu facturer, (test code = negative result s should [id number]) be treated aspr esumptive and, if inconsi stent with clinical signs andsymptoms or necessary for patient man agement, should betested with an alternative mol ecular assay. Negative resultsdo not preclude SA RS-CoV-2 infection and s hould not be usedas the s ole basis for patient man agement decisions. Nega tive results should be considered in t he context of apatient's r ecent exposures, hist ory, presence of cli nicalsigns and symptoms co nsistent with COVID-19. VITAMIN [id number] 18:12:00 Test Item Value Reference Range Interpretation Comments VITAMIN B12 (test code = VITB12) 1715 pg/mL 193-986 H [id number] 17:42:00 Test Item Value Reference Range Interpretation Comments HGBA1C% (test code = HGBA1C%) 6.3 %A1C 4.8-6.0 H ESTIMATED AVERAGE GLUCOSE (test 134 MG/DL code = EAG) - XR CHEST 1 [id number] 16:40:00 FAX: Lakesha Segal [phone] [place]: St: [facility] FAX: Mandi Murrieta MD [phone] ---- Name: LIVE GORDON [facility] : 1990 Age/S: 29/F [address] [facility] Unit #: [id number] Loc: [address] Phys: Lakesha Mena [address] Acct: [id number] Dis Date: Status: ADM IN PHONE #: [phone] Exam Date: 12/26/2019 1638 FAX #: [phone] Reason: COVID, resp failure EXAMS: CPT CODE: [id number] XR CHEST 1 V 19225 Dictation location: U19. CHEST, FRONTAL VIEW HISTORY: COVID, resp failure COMPARISON: None FINDINGS: The lungs are underinflated. There are bilateral perihilar and basilar interstitial and airspace opacities. The heart size is normal. The bones are unremarkable. IMPRESSION: Bilateral pulmonary infiltrates greater towards the lung bases could relate to multifocal pneumonia including COVID. at 1640 Reported and signed by: Camille Law M.D. CC: Lakesha PIPER; Mandi Ortega MD Techno logist: YENY CHURCHILLICOTT Trnscrd Date/Time/By: 12/26/2019 (1640) : By: [email or web address] PAGE 1 Signed ReportFAX: Lakesha Segal [phone] [place]: St: ADM FAX: Mandi Murrieta MD [phone] ----- Name: LIVE GORDON [facility] : 1990 Age/S: 29/F [address] [facility] Unit #: [id number] Loc: [address] [place] [address] Phys: Lakesha Mena [address] Acct: [id number] Dis Date: Status: ADM IN PHONE #: [phone] Exam Date: 12/26/2019 1638 FAX #: [phone] Reason: COVID, resp failure EXAMS: CPT CODE: [id number] XR CHEST 1 V 91259 (Continued) Orig Print D/T: S: 12/26/2019 (1643) PAGE 2 Signed ReportCBC W/AUTO [id number] 05:29:00 Test Item Value Reference Range Interpretation [...] BA#) 0.0 K/mm3 0.0-0.2 N BASIC METABOLIC [id number] 05:17:00 Test Item Value Reference Range Interpretation [...] code = CA) 8.6 mg/dl 8.0-10.5 N [id number] 05:17:00 Test Item Value Reference Range Interpretation Comments MAGNESIUM (test code = MAG) 2.0 mg/dl 1.8-2.4 N SARS-CoV-2 (COVID-19) RNA [Presence] in Respiratory specimen by DEEPALI with probe [id number] 06:02:40 Test Item Value Reference Range Interpretation Comments SARS-CoV-2 (COVID-19) RNA [Presence] Detected Not-Detected in Respiratory specimen by DEEPALI with probe detection (test code = 75173-2) [facility] CHE[facility] 1 VW [id number] 00:47:59 Left lower lobe opacity may represent infection the appropriate clinicalsetting. Disclaimer: Generally, the findings on chest imaging in COVID-19 are notspecific, and overlap with other infections, including influenza, H1N1,SARS and MERS. According to the Centers for Disease Control (CDC) and the [employer], viral testing remains the only [...] No pneumothorax or pleuraleffusion. Prominent bilateral hilar markings. The cardiothoracic silhouette is unremar kable. No acute bony abnormality. [facility], Radiant Results Inft User - 12/21/2019 7:49 PM CDTPROCEDURE:CHEST XRAY , CLINICAL INDICATION: chest wall pain [...] Centers for Disease Control (CDC) and the [employer], viral testing remains the only specific method of diagnosiseven if CXR or CT findings are suggestive of COVID-19. Preliminary Report Dictated by Resident: Arvin Sorto MD., have reviewed this study and agree with theabove report.[facility] [id number] 23:02:00 Test Item Value Reference Range Interpretation Comments POCT PREG (test code = 1605) negative POCT PREG LOT # (test code = 3575) [id number] POCT PREG TEST DATE (test 12/04/2020 code = 3576) Lab Interpretation (test code = Normal 64029-7) [facility] Notes Date/Time Note Provider Source 2022-09-24 19:47:00-00:00 [id number] [address] PATIENT NAME: LIVE GORDON ADMIT DATE: 08/10/22 ACCOUNT NO: [id number] ROOM NO: [facility] AGE: 32 REPORT TYPE: DISCHARGE SUMMARY SEX: F ADMITTING PHYSICIAN: Jayesh Oakes MD ATTENDING PHYSICIAN: Jayesh Oakes MD ADMISSION DATE: 08/10/2022 08:25:00 DISCHARGE DATE: 08/12/2022 18:39:00 The patient was electively admitted afte r an abdominal hysterectomy, bilateral salpingectomy. On postop day #1, she was getting intravenous pain control. Her Grayson catheter was removed with voiding. She was given a regular diet. Her pain control has not been adequate on day #2, sh e continued to have a significant amount of pain. She need IV and oral pain control with narcotics and NSAIDs. She was able to walk around and ambu lated and voids without any problems; however, her pain control was suboptim al, and so we started her on round the clock NSAIDs followed by oral narcotic and p.r.n. intravenous pain medication. On postop day#2, she was passing fla tus, able to ambulate well. Incision looked clean, dry and intact. H er hemoglobin was stable. She was then discharged home with oral pain medication. DISCHARGE MEDICATIONS: Discharge medications wer e Dauphin 1-2 tablets every 6 hours as needed for pain. NSAIDs, ibuprofen 400- 600 mg with food every 6 hours as needed for pain as well, 1-week postop. Appointment was made for followup and she was given all the appropriate d ischarge instructions and added in sheet and discharged home. Dictated By: Jayesh Oakes MD Date Dictated: 09/24/2022 19:47:27 Date Transcribed: 09/24/2022 22:55:25 MERRITT/MARCELLUS/TICO/GRACIE Receipt ID: [id number] Authenticated and Edited by Jayesh Oakes MD On 10/05/22 3:42:10 PM at 0343 PATIENT NAME: LIVE GORDON 026 2022-08-12 12:36:00-00:00 [id number] [address] PATIENT NAME: LIVE GORDON ADMIT DATE: 08/10/22 ACCOUNT NO: [id number] ROOM NO: L.PO7 AGE: 32 REPORT TYPE: PROGRESS NOTE SEX: F ADMITTING PHYSICIAN: Jayesh Oakes MD ATTENDING PHYSICIAN: Jayesh Oakes MD DATE: 08/11/2022 HISTORY OF PRESENT ILLNESS: Postop day #2, statu s post abdominal hysterectomy and right oophorectomy. Pain control has been mo derate with oral pain medication using hydrocodone . On postop day #1, the patient was on Dilaudid and this was discontinued from IV to oral pain meds, ibuprofen q. 6 hours p.r.n., tolerating diet, voiding, complaining of mild va ginal bleeding, has changed 2 pads today with mild bleeding on them, has used a few pads yesterday as well, but no heavy bleeding, emptying, and notices blo od when wiping. No bowel movement and passing flatus. No nausea, vomiting . She thinks that she has some nausea only when sh e takes her pain medication. PHYSICAL EXAMINATION: VITAL SIGNS: Temperature 97.9, pulse is 79, bloo d pressure 92/60, respiratory rate 15, and pulse ox 100 on room air. GENERAL: The patient appears to be in no acute d istress. No significant pain either. NECK: Unremarkable. ABDOMEN: Soft, nondistended. Minimally and appro priately tender around the incision. EXTREMITIES: No edema or calf tenderness. The abdominal binder and zuly ssing were removed and then the patient was examined vaginally. Some very small amount of blood on e glove. Vaginal cuff intact. No clots. ASSESSMENT AND PLAN: Postop day #2 from abdomina l hysterectomy. Pain control is moderate. Continue oral pain medicati on. The patient has requested Dilaudid because that actually worked for her in the past and she reports that her pain is not as optimally well controlled on oral pain medication as it was on IV Dilaudid, but this was explained that as a proce ss towards recovery and discharge. The patient understands this and she will get narcotic oral pain medication for home; every 6-hour ibuprofen use is highly encouraged. Mild vaginal bleeding, not concerned at this time; however, we will check CBC, start her on oral iron once her bowel start movi ng at home and monitor the bleeding. She has been given instructions that i f she soaks a pad in an hour, then she will call me and re ach us through the office phone number or go to the nearest ER. All the instruct ions have been printed out for the patient; has not had a bowel movement and is complaining that she has not had a bowel movement even since Sunday, which was 3 days prior to her procedure, so we will give her PATIENT NAME: LIVE GORDON 026 Senokot 2 tablets and start her on Colace. Ambul ation with assistance, can shower today, and she will b e discharged after her blood count results have come back and as discussed that her pain control is a dequate. She has a 1-week followup appointment at the office. All the inst ructions printed out for the patient. No other concerns at this time. If the blood count is lower, and we want to monitor this, she may stay over 1 more d ay. Dictated By: Jayesh Oakes MD Date Dictated: 08/12/2022 12:36:10 Date Transcribed: 08/12/2022 15:26:20 [facility] Receipt ID: [id number] Authenticated by Jayesh Oakes MD On 08/31 05:18:08 PM at 0518 PATIENT NAME: LIVE GORDON 026 2022-08-11 08:21:00-00:00 [phone] [address] PATIENT NAME: LIVE GORDON ADMIT DATE: 08/10/22 ACCOUNT NO: [id number] ROOM NO: L.PO7 AGE: 32 REPORT TYPE: OPERATIVE REPORT SEX: F ADMITTING PHYSICIAN: Jayesh Oakes MD ATTENDING PHYSICIAN: Jayesh Oakes MD OPERATION DATE: 08/10/2022 PREOPERATIVE DIAGNOSES: AUB-A/O, dysmenorrhea, r ight lower quadrant pain and pelvic pain. POSTOPERATIVE DIAGNOSES: AUB-A/O, dysmenorrhea, right lower quadrant pain and pelvic pain. PROCEDURES PERFORMED: Total abdominal hysterecto my, right oophorectomy, lysis of bladder and uterine adhesions to the anterior abdominal wall. SURGEON: Jayesh Oakes MD EQUIPMENT SUPERINTENDENT: Goldie Forde. ANESTHESIA: General endotracheal. FINDINGS: Bladder adhesions significant, right ovary unremarkable. No evidence of any gross endometriosis, which is consistent with her previous findings. Left ovary completely unremarkable and left inta ct. A lower midline incision was made and closure was done with the help of 0 PDS, double-looped on the fascia, subcutaneous tissues with 3-0 ch romic, and 4-0 Vicryl for subcuticular closure. COMPLICATIONS: No complications. SPECIMENS REMOVED: Uterus and right ovary. FLUIDS: 1000. URINE OUTPUT: 100 mL APPROACH: Open laparotomy. WOUND CLASS: Clean, contaminated. PATIENT CONDITION: Stable and sent to Med/Surg. INDICATIONS: A 32-year-old with significant blee ding and pain, underwent an ablation after failing an IUD and medical treatm ent, laparoscopy for salpingectomy and then exploration for endometri osis, which was negative. PATIENT NAME: LIVE GORDON 026 DESCRIPTION OF PROCEDURE: After the ablation and the salpingectomy, the patient's bleeding did not improve, significant bleeding and pain was present throughout the time. She was given depot medroxyprogesterone, despite which her bleeding has not slowed down, but has no t stopped. More than 3 months from her ablation, she requested to have definitive treat ment with hysterectomy though discussed this and she had significant concerns about doing the laparoscopic procedure due to past experi ences in her family who had complications from this. She was explained that this procedure was [TIME: 03:03] performed despite understanding the complication rates. The patien t wanted to proceed with an open hysterectomy, which she was then consented for understanding the complications of laparotomy scar and hea ling pain. She was then brought to the hospital [TIME: 03:27] taken back to the OR and placed in supine fashion on the operating table. General anesthes ia was given. She was placed in supine fashion on the operating table. A frog leg prep was done in the periurethral area. A Grayson was placed and then she was placed in a fully supine position. Abdomen prepped with ChloraP rep. Ancef was given and the procedure was started. She was draped in a sterile fashion. A lower mi dline incision made with a 10 blade. Fascia was incised in a similar fashion, [TIME: 04:06] and the Bovie. Significant scar seen at the fascial level, especially in the lower part where the skin seemed to be attached to the fasc ia, there were some fascial defect in the left lateral m ost aspect of the prior Pfannenstiel scar. I stayed above the scar for the most part excepti ng for the lowest portion of the [TIME: 04:33] incision causing the scar. The fascia was held with Ana clamps on both s ides to make sure that the rectus muscle was also divided appropria tely before making posterior incision, entering the peritoneum and taking this extensio n on the way to encompass the entire length of the incision. Once the peritoneal cavity was entered, a small Lucas retractor was used an d inserted in placed. Bowel was tucked with 2 moist laps. The patient was placed in T-ema and proce dure was started. A 0 Vicryl suture was placed for retraction of the fundus i n the rtziah-uz-pruxl fashion and held on a clamp and then started with the right round ligament [TIME: 05:32] LigaSure was used to take this do wn. The peritoneal [TIME: 05:41] superior and inferior to it to make windows, taking the full round ligament down and pedicle was completely isolated. Then, in a similar fashion, posterior peritoneum was opened up. Th e peritoneum between the broad ligament on the side and the peritoneum posteriorly to isolate the IP after identifying the ureter and giving [TIME: 06:15] laterally . This was taken down with the help of the LigaSure again, and the ovary had become rhoda e, the rest of the peritoneal dissection performed with monopolar caut yumiko. Then, the broad ligament inferior to the round ligament was ta jeannine down with the help of the Bovie after dissecting it open and from the bladder adhesion s. After entering the cavity, omental adhesions were present and these were ta jeannine down with the help of the monopolar and uterine adhesions were present to the anterior abdominal wall, which were taken down again with the Bovie, care fully dissecting the bladder away from the uterus and all the bladder adhesio ns taken down, then the round ligament was taken down as dictated above. Coming down to the anterior wall of the vagina, here the peritoneum was opened up to create a bladder flap in the usual fashion. Dissection was performed with monopolar as well as [TIME: 07:13] develop a nice bladder flap and retracted inferiorly. The spleen was quite nice and the bladder pillars were carefully dissected free from the adhesions and the entire bladder dissected away on both sides and the l eft round ligament was isolated, peritoneal openings PATIENT NAME: LIVE GORDON 026 were made as needed, taken d own with the help of the LigaSure. The uteroovarian ligament on the left side wa s taken down with the help of the LigaSure as well. Peritoneum was dissected posteriorly all the way to the level of the uterosacrals and then went on dissecting the ant erior peritoneum where there were adhesions of the anterior portion of the bl adder. These were taken down and [TIME: 07:57] dissection on both sides went down all the way to the level of the lower part of the vagina on the per itoneum. Then, vessels taken down with the help of Mona clamps on both side s, cut and tied with 0 Vicryl sutures and using Mona stitch. Once both of th luci were tied, the cardinal ligaments were taken down with the help of Koche r clamps; 3 bites on the left side, 2 bites on the right side and then Mona clamp pedicles were tied down with the help of 0 Vicryl sutures. Then, the vag inal cuff was taken with the help of curved Heaneys on th e cuff, first on the right side. Once the colpotomy was performed with the Farnaz scissor s and this was taken towards the left. The left was clamped as well including the utero sacral, maintaining as much vaginal length as possible. The uterus was separ ated from the vagina, and specimen handed out with the right ovary advertising sales associate d. Ana clamps were used to h old the anterior and posterior wall of the vagina in the center. Then, a Mona stitch on both ends w ere placed. Then, the vaginal wall was sutured together in cluding the fascial structures on both anterior and posterior fay so as to maintain a good support. Zcvjgd-gw-aauwy sutures were placed here x3 in the center. Hemostasis was alfredo cked after loosing the angles from the retracting sutures. There was e xcellent hemostasis. Pressure was held and wound was irrigated and suctioned. Then, the Lucas retractor and sponges were removed and counts were correct. Peritoneum was closed with the help of 3-0 Vicryl in a continuous running fashion. Fasc ia closed with the help of looped PDS in a continuous running fashi on, irrigated the subcutaneous tissue, it was closed with the help of 3-0 chromic in 2 layers. Three interrupted sutures at each layer and then 4-0 Vicryl contin uous running subcuticular suture. The patient was recovered from anesthesi a. COUNTS: Instrument and sponge counts were correc t. ESTIMATED BLOOD LOSS: 25 mL. She was taken to PACU in stable condition with a Grayson in place. PLAN: Plan is to keep her for 2 days and discharge her after she has good pain control. Grayson was removed and she has been read y. Dictated By: Jayesh Oakes MD Date Dictated: 08/11/2022 08:21:52 Date Transcribed: 08/11/2022 16:13:26 MERRITT/MARCELLUS/CLAUDIA/KOL Receipt ID: [id number] Authenticated by Jayesh Oakes MD On 08/31 05:18:04 PM at 0518 PATIENT NAME: LIVE GORDON 026 2022-08-10 10:09:00-00:00 [facility] ([facility]) Brief Op Note REPORT#:[id number] REPORT STATUS: Signed DATE:08/10/22 TIME:1009 PATIENT: LIVE GORDON UNIT #: [id number] ROOM/BED: [place] [address] : 88 AGE: 32 SEX: F ATTEND: Sa sathish Oakes MD ADM AUTHOR: Jayesh Oakes MD * ALL edits or amendments must be made on the [employer]/computer document * Op/Inv Proc Note - Brief Pre-procedure diagnosis: AUB-A/O/, Dysmenorrhea, RLQ pain, pelvic pain Post-procedure diagnosis: same as pre procedure dx Procedures performed: YYEO, Right oophorectomy, lysis of bladder uterin e adhesions Primary Surgeon: idania Tyre Builder(s): Goldie Forde Anesthesia: general anesthesia Findings: bladder adhesions Complications: none Estimated blood loss in ml's: 25 Specimens removed/altered: none (uterus and rt o vary) Fluids: 1000 Urine output: 100 Approach: open Wound class: clean-contaminated Disposition: MEDSURG Counts: Sponge count: correct Instrument count: correct Needle count: correct Electronically Signed by Jayesh Oakes MD o n 08/10/22 at 1013 [facility] #: [id number] END OF REPORT 2022-05-18 10:43:00-00:00 [id number] [facility] [address] [place] [address] PATIENT NAME: LIVE GORDON ADMIT DATE: 05/18/22 ACCOUNT NO: [id number] ROOM NO: AGE: 31 REPORT TYPE: OPERATIVE REPORT SEX: F ADMITTING PHYSICIAN: ATTENDING PHYSICIAN: Jayesh Oakes MD OPERATION DATE: 05/18/2022 PREOPERATIVE DIAGNOSES: Menorrhagia (AUB-O/A), d ysmenorrhea, dyspareunia, expansion of 5 days, and iron deficiency anemia. POSTOPERATIVE DIAGNOSES: Menorrhagia (AUB-O/A), dysmenorrhea, dyspareunia, expansion of 5 days, iron deficiency anemia, and uterine adhesions. PROCEDURES PERFORMED: 1. Hysteroscopy, endometrial ablation with MyoSu re. 2. Diagnostic laparoscopy, bilateral salpingecto my. SURGEON: Jayesh Oakes MD EQUIPMENT SUPERINTENDENT: Romina Stewart. ANESTHESIA: General endotracheal. FINDINGS: 1. Myometrial adhesions to the anterior abdomina l wall and left lateral wall, most likely contributing to her pain. No endomet riosis. 2. Ablation was optimal, length, 4 cm, width 2.6 cm, power 57 young and T was 120 seconds equals 2 minutes. Ovaries were unrem arkable and tubes as well. ESTIMATED BLOOD LOSS: 25 mL. COMPLICATIONS: None. DRAINS: None. SPECIMENS: Tubes. URINE OUTPUT: 100. FLUIDS: 1700 mL. APPROACH: Laparoscopic. PATIENT CONDITION: Stable. INDICATIONS: The patient is a 31-year-old female, 2 C-sections, has significant bleeding. Transvaginal ultrasound for en dometrial evaluation was unremarkable. PATIENT NAME: LIVE GORDON 070 She had an IUD that was inserted and this did no t help her bleeding. She has iron deficiency anemia from her bleeding. Discussed about benefits and risks of medical treatments. She did decide to have a kahlil gical procedure. Ablation versus hysterectomy were all reviewed. Definitely the most conservative ways to start with an ablation; however, in a 31 -year-old. It was discussed that there is a higher chance of recurrence of bleeding or persistence or recurrence of pain. After understanding this, the radha ent still wanted to proceed with this. She also wanted permanent sterilization with yassine pingectomy. DESCRIPTION OF PROCEDURE: After informed consent was reverified, she was taken back to the OR, placed in a supine fashion on th e operating table. General anesthesia was given. She was placed in dorsal l ithotomy position using Alexx stirrups. Timeout was done. Abdomen was prepped with ChloraPrep and the vulva, vagina, and perineum with Betadine. The patient was draped in a sterile fashion. Then, after timeout was done, positioni ng was checked and SCDs were started. Speculum placed to expose th e cervix and grasped with a single tooth tenaculum. Diagnostic hysteroscope was introduced into the uterine cavity with measurements. The cavity length was 4 cm after m easuring the mesh into the fundus and to the internal os and calculation. T his was entered. The NovaSure device was primed, then placed into the uterine cavity and deployed. The width was 2.6 cm. The cervical os was occluded with oc cluder. Cavity integrity test was done and passed without any issues. Then, th e ablation cycle was started and completed without any interruption for 2 min utes. After the device was undeployed and removed, hysteroscope was reintro duced. There was excellent ablation effect in the global endometrial cavity . Scope was pulled out after rinsing out the clots and the diagnostic VCare i ntroduced into the uterus and fixed in place. A Grayson was placed to drain the bladder and odette ched for drainage. This area was draped. A 1 cm infraumbilical incision made with a scalp el using open laparoscopy technique. Fascia was incised, tagged wi th 0 Vicryl sutures and the peritoneum entered sharply. There were adhesions right belo w the umbilical incision, but once the trocar was pulled out slightly, I was a ble to get past it. Five suprapubic and left lower qu adrant ports were placed under direct vision. Then, salpingectomy was performed in the usual fashion using the LigaSure and the specimen was handed off for permanent pathology. Ovaries were unremarkable. Posterior peritoneum was completely unremarkable . No evidence of any endometriosis. However, significant myometrial tissue was tethe red to the anterior abdominal wall to the lateral wall, especially on the left side and this could be likely the reason for her pain and so this is nothing t hat could be taken care of at this time. No endometriosis in the anterior cul- de-sac as well. All the peritoneal cavity was irrigated and suctioned. A ll the trocars were removed under direct vision. Marcaine was inject ed at the fascia and skin, both at the entry and exit of the trocars. The umbil ical incision was closed after gas was desufflated and Libra was removed with a 0 Vicr yl sutures tied to each other that were used for tagging the edges. All skin i ncisions closed with interrupted 4-0 Vicryl sutures. Grayson and VCare were removed. Instrument, needle, and sponge counts were correct at the en d of case. The patient PATIENT NAME: LIVE GORDON 070 tolerated the procedure well. She was recovered from anesthesia and taken to the PACU in stable condition. The family debrief ed about her findings. We will discuss during her postoperative period that if her pain has not significantly improved, then she may be a good c andidate for considering hysterectomy because of the myometrial adhesions that were tethered to the anterior abdominal wall and left lateral wall. Dictated By: Jayesh Oakes MD Date Dictated: 05/18/2022 10:43:14 Date Transcribed: 05/18/2022 18:10:27 MERRITT/LEIGH ANN/TICO Receipt ID: [id number] Authenticated by Jayesh Oakes MD On 05/25 06:06:44 PM at 0606 PATIENT NAME: LIVE GORDON 070 2022-05-18 10:01:00-00:00 [facility] ([facility]) Brief Op Note REPORT#:[id number] REPORT STATUS: Signed DATE:05/18/22 TIME:1001 PATIENT: LIVE GORDON UNIT #: [id number] ROOM/BED: : 88 AGE: 31 SEX: F ATTEND: Sa sathish Oakes MD ADM AUTHOR: Jayesh Oakes MD * ALL edits or amendments must be made on the [employer]/computer document * Op/Inv Proc Note - Brief Pre-procedure diagnosis: Menorrhagia(AUB-O/A), dysmenorrhea, REJI, dyspare unia Post-procedure diagnosis: same as pre procedure dx, uterine adhesions Procedures performed: Hysteroscopy Endometrial ablation with Novasure, Laparoscopy, bilateral salpingectomy Primary Surgeon: Idania Tyre Builder(s): Nat Anesthesia: general anesthesia Findings: myometrial adhesions to anterior abdominal wall and the left lateral wall, no endometriosis, ablation optimal L=4, W=2.6 P=57W T=2min, ovaries normal Complications: none Estimated blood loss in ml's: none Specimens removed/altered: tubes Drain(s): None Fluids: 1700 lr Urine output: 100 Approach: laparoscopic Wound class: clean Disposition: plan to D/C home Counts: Sponge count: correct Instrument count: correct Electronically Signed by Jayesh Oakes MD o n 05/18/22 at 1005 [facility] #: [id number] END OF REPORT 2021-03-04 07:34:00-00:00 [id number] [address] PATIENT NAME: LIVE GORDON ADMIT DATE: 1 ACCOUNT NO: [id number] ROOM NO: AGE: 30 REPORT TYPE: ENDOSCOPY REPORT SEX: F ADMITTING PHYSICIAN: ATTENDING PHYSICIAN: Luke Werner I DO Patient Name: Live Gordon Procedure Date: 02/05 7:34 AM Date of : 1990 Gender: Female Attending MD: Luke Werner MD Procedure: Upper GI endoscopy Indications: Heartburn Providers: Luke Werner MD (Doctor) Referring MD: Luke Werner MD Requesting Provider: Complications: No immediate complications. Procedure: Pre-Anesthesia Assessment: - The risks and benefits of the procedure and t he sedation options and risks were discussed with the patient. All questions were answered and inform ed consent was obtained. - Patient identification and proposed procedure were verified prior to the procedure by the physici an. The procedure was verified in the endoscopy suite. - The anesthesia plan was to use moderate sedation/analgesia (conscious sedation). After obtaining informed consent, the endoscope was passed under direct vision. Throughout the proc edure, the patient's blood pressure, pulse, and oxygen saturations were monitored continuously. The En doscope was introduced through the mouth, and advanced to the second part of duodenum. The upper GI endoscopy was accomplished with ease. The patient tolerated t he procedure well. The patient tolerated the proce dure fairly well. Findings: The [Site] was normal. Biopsies were taken with a cold forceps for histology. A medium-sized hiatal hernia was present. Biops ies were taken with a cold forceps for histology. Polyp at the Pyloru s. Estimated blood loss was minimal. The second portion of the duodenum was normal. The examined duodenum was normal. PATIENT NAME: LIVE GORDON 683 Impression: - Normal lower third of esophagus. B iopsied. - Medium-sized hiatal hernia. Biopsy taken at t he Antrum. Polyp at the Pylorus. Biopsy taken. - Normal second portion of the duodenum. - Normal examined duodenum. Dr. Luke Werner Luke Werner MD 03/04/2021 8:24:04 AM This report has been signed electronically. Number of Addenda: 0 Note Initiated On: 03/04/2021 7:34 AM Estimated Blood Loss: Estimated blood loss was minimal. [id number] [facility] [place] [address] Provation {[id number] ProVation FT PDF at 0824 PATIENT NAME: LIVE GORDON 683 2019-12-26 15:05:00-00:00 [facility] ([facility]) Hospitalist History Physical REPORT#:[id number] REPORT STATUS: Signed DATE:12/26/19 TIME: 1505 PATIENT: LIVE GORDON UNIT #: [id number] ROOM/BED: [place] [address] : 88 AGE: 29 SEX: F ATTEND: Yaima Ortega MD ADM AUTHOR: Lakesha Mena * ALL edits or amendments must be made on the [facility]/computer document * History of Present Illness HPI Chief complaint: COVID PNA Resp failure HPI: Ms. Gordon is a 29-year-old female who is a dir ect admit for reports of Jonathan positive and shortness of br eath with respiratory failure. Patient reports this has been ongoing for the las t several days and she is having failed improvement. [facility] she could not tolerate being at home without any further help. There is limited infor mation on arrival as patient was admitted and not gone to the emergency room. BMP this morning was unremarkable and CBC showed a elevated w rodolfo blood cell count of 11.9. Patient was admitted has been seen and examined and bertram t reviewed. Patient is complaining of pain and aski ng for more pain medication. Patient denies feeling any better and still relies on supplemental oxyg en at 2 to 4 L/min.. Informant/historian: patient History Past medical history: Reports: Diabetes mellitus. Additional surgical history: Denies Family history: Reports: Hypertension. Alcohol use: Denies EtOH use Drug use: Denies recreational drugs Smoking status for patients 13 years old or olde r: Never Smoker Medication/Allergy-Vaccine Hx Home Medications: metFORMIN (GLUCOPHAGE) 500 MG PO BID Allergies: Coded Allergies: Penicillins (Mild, RASH/BREAKOUT 12/25/19) amoxicillin (Mild, RASH/BREAKOUT 12/25/19) Review of Systems Constitutional: Reports: fever, generalized weakness. Denies: ch ills, fatigue, lethargy. Skin: Denies: abrasion, bruising, diaphoresis. Allergy/Immun: Denies: allergic reaction, anaphylaxis, itching. Eyes: Denies: redness, discharge, itching. ENT: Denies: earache, mouth pain, nose bleeding, sore throat. Respiratory: Reports: JUDGE (dyspnea on exertion), non producti ve cough, SOB. Cardiovascular: Denies: JUDGE (dyspnea on exertion), edema, palpit ations. GI: Denies: abdominal pain, nausea, vomiting. : Denies: flank pain, frequency, hematuria, noctur ia. Musculoskeletal: Denies: arthritis, extremity pain, extremity swe lling, joint swelling. Heme: Denies: adenopathy, bleeding, bruising. Endocrine: Denies: cold intolerance, heat intolerance, poly dipsia, polyphagia. Neuro: Reports: headache. Denies: bladder dysfunction, confusion, dizziness, focal weakness, lightheaded, numbness, seizure. Psych: Denies: agitation, anxiety, change in mental sta tus. All systems rev neg: except as marked Objective General VS/I O: Vital Signs: Date Time Temp Pulse Resp B/P B/P Pulse O2 O2 Flow FiO2 Mean Ox Delivery Rate 12/25 1505 98.6 79 18 100/68 79.1 96 Room air 12/25 1236 98.2 85 18 95/70 78.7 97 Nasal cannula 12/25 0944 93 Nasal 5.496030 40 cannula 12/25 0643 98.6 81 18 128/84 98.3 93 Nasal 4.00 0000 cannula 12/25 0347 98.4 86 19 116/83 93.8 94 12/25 0046 98.4 85 18 107/71 83.1 94 12/24 2341 93 Nasal 3.308626 cannula 12/24 2258 96.8 87 18 108/73 84 Nasal 3.761714 94 cannula 12/24 2046 Nasal 3.329434 cannula 12/24 1835 98.5 103 20 129/79 95 94 Nasal 3.000 000 cannula 24 hour I O ending at 0700: 12/25 0700 12/24 1900 Intake Total 240 Output Total 350 Balance -110 Intake, Oral 240 Output, Urine 350 Patient 98.63 kg 98.636 kg Weight Weight Bed scale Stated/Reported Measurement Method Patient Weight Weight (lb): 217 Weight (oz): 7.07 Weight (kg): 98.630 Physical Exam General appearance: alert, awake Head/Eyes: atraumatic, EOMI, normocephalic ENT: moist mucosal membranes, normal nose, mary l sinus Neck: non-tender, no masses or swelling Cardiovascular: normal heart sounds, regular rat e rhythm, no murmur Respiratory: aerating well, clear to auscultatio n, symmetric expansion Abdomen: non-tender, soft, no distention Rectal: deferred Extremities: no calf tenderness, no edema Musculoskeletal: no midline vertebral tend, no m uscle spasm, no paraspinal tenderness Neuro/NAVAL AIRCREWMAN AVIONICS: alert, oriented X 3, CNII-XII intact Skin: dry, intact, no rash Psychiatry: normal affect Results Findings/Data: Laboratory Tests 12/25 344 Chemistry Sodium (134.0 - 147.0 mmol/l) 138 Potassium (3.6 - 5.2 mmol/L) 4.2 Chloride (98.0 - 107.0 mmol/l) 102 Carbon Dioxide (21.0 - 33.0 mmol/l) 29.3 Anion Gap (0 - 20) 10.9 BUN (7.0 - 18.0 mg/dl) 13 Creatinine (0.60 - 1.30 mg/dL) 1.00 Est GFR ( Amer) (127 - 133 mL/min) 83 L Est GFR (Non-Af Amer) (105 - 110 mL/min) 69 L Glucose (70.0 - 110.0 mg/dl) 148 H Calcium (8.0 - 10.5 mg/dl) 8.6 Magnesium (1.8 - 2.4 mg/dl) 2.0 Laboratory Tests 12/25 0345 Hematology WBC (4.5 - 11.0 K/mm3) 11.9 H RBC (3.80 - 5.20 M/mm3) 3.86 Hgb (12.0 - 16.0 gm/dL) 12.0 Hct (36.0 - 48.0 %) 38.4 MCV (82.0 - 99.0 UM3) 99.5 H MCH (25.5 - 32.5 UUG) 31.1 MCHC (29.0 - 35.5 gm/dL) 31.3 RDW (11.5 - 15.0 %) 13.0 Plt Count (150 - 400 K/mm3) 200 MPV (7.4 - 10.4 fl) 9.9 Neut % (Auto) (49.0 - 76.0 %) 87.5 H Lymph % (Auto) (23.0 - 38.0 %) 8.8 L Bingham % (Auto) (1.0 - 10.0 %) 2.8 Eos % (Auto) (1.0 - 5.0 %) 0.0 L Baso % (Auto) (0.0 - 1.0 %) 0.1 Neut # (Auto) (2.4 - 6.3 K/mm3) 10.4 H Lymph # (Auto) (1.2 - 4.0 K/mm3) 1.1 L Bingham # (Auto) (0.0 - 0.6 K/mm3) 0.3 Eos # (Auto) (0.0 - 0.7 K/MM3) 0.0 Baso # (Auto) (0.0 - 0.2 K/mm3) 0.0 Immature Gran % (0.0 - 0.4 %) 0.8 H Immature Gran # (0.00 - 0.07 x10 3/uL) 0.09 H Diagnosis, Assessment Plan Hospital course to date: 1. Acute Resp failure- COVID +. Suppl O2 with weaning. Dexamethasone. Lovenox. 2. PNA- COVID; as above. 3. DM2- Home meds and ISS. Check A1c. Plan discussed with: patient, nurse Electronically Signed by Lakesha Mena on 0 12/26/19 at 1516 [facility] #:[id number] END OF REPORT
[2023-01-05] MEDS ORDERED: NA CHLORIDE 0.9% 1,000 ML ONE (18:21)
[2023-01-05 18:26] LABS: Absolute Lymphocytes (CBC) 3.1 K/uL (0.7-4.9); Hematocrit 31.8 % (36.0-45.0); Lymphocytes % 53.8 % (15.3-44.8); MPV 7.1 fL (7.6-11.3); Platelets 193 thou/uL (152-406); RBC Red Blood Cell Count 3.35 M/uL (3.86-4.86)
[2023-01-05 18:30] LABS: Protime INR 1.05
[2023-01-05 18:50] LABS: ALT/SGPT 24 U/L (13-56); AST/SGOT 11 U/L (15-37); Albumin 3.4 g/dL (3.4-5.0); Alkaline Phosphatase 53 U/L (45-117); BUN Blood Urea Nitrogen 10 mg/dL (7-18); Bicarbonate 27 mEq/L (21-32); Bilirubin Total 0.1 mg/dL (0.2-1.0); Glomerular Filtration Rate 98 ml/min (=/>90); Glucose Level 112 mg/dL (74-106); Magnesium 2.1 mg/dL (1.6-2.4); Potassium 3.6 mEq/L (3.5-5.1); Protein, Total 6.6 g/dL (6.4-8.2); Sodium Level 142 mEq/L (136-145); Troponin High Sensitivity 3.2 pg/mL (<58.9)
[2023-01-05 18:51] LABS: Bilirubin Direct < 0.1 mg/dL (0-0.2); Bilirubin Indirect, Calculated ND mg/dL (0.2-0.8)
--- NOTE | 2023-01-05 19:25 | RAD REPORT ---
EXAM DESCRIPTION: CT - Head Brain Wo Cont - 01/05/2023 6:45 pm CLINICAL HISTORY: Dizziness;Syncope Headache, drowsiness, dizziness COMPARISON: <Comparisons> TECHNIQUE: All CT scans are performed using dose optimization technique as appropriate and may inclu de automated exposure control or mA/KV adjustment according to patient size. FINDINGS: No intracranial hemorrhage, hydrocephalus or extra-axial fluid collection.Subtle diminishe d density measuring 3 cm is noted right occipital pole. The paranasal sinuses and mastoids are clear. The calvarium is intact. IMPRESSION: No acute intracranial abnormality. Subtle diminished density measuring 3 cm in the righ t occipital pole could be related to artifact or a true abnormality. Recommend MRI brain followup, wh ich could be performed on a nonemergent basis.
--- NOTE | 2023-01-05 19:28 | RAD REPORT ---
EXAM DESCRIPTION: RAD - Chest Single View - 01/05/2023 6:56 pm CLINICAL HISTORY: syncope Chest pain. COMPARISON: Chest Single View dated 12/18/2019; CHEST SINGLE VIEW dated 09/30/2007 FINDINGS: Portable technique limits examination quality. The lungs are grossly clear. The heart is normal in size. No displaced fractures. IMPRESSION: No acute intrathoracic process suspected.
[2023-01-05] MEDS ORDERED: HYDROCODONE/APAP 5/325 MG TAB ONE (19:54)
--- NOTE | 2023-01-05 20:51 | RAD REPORT ---
EXAM DESCRIPTION: CT - Head angio - 01/05/2023 8:37 pm CLINICAL HISTORY: SYNCOPE Headache, drowsiness COMPARISON: <Comparisons> TECHNIQUE: CT angiography of the head was performed with MIPs. All CT scans are performed using dose optimization technique as appropriate and may include automated exposure control or mA/KV adjustment according to patient size. FINDINGS: No evidence of large vessel occlusion. No evidence of aneurysm is detected. No flow-limiti ng stenosis or vascular malformation identified. Antegrade flow is seen in the vertebral arteries. The vertebral arteries are codominant. The visualized dural venous sinuses are patent. IMPRESSION: No significant flow abnormality is detected.
[2023-01-05 20:58] LABS: Specific Gravity 1.014 (1.005-1.030); Urine Bilirubin NEGATIVE (Negative); Urine Blood Negative (Negative); Urine Clarity Clear (Clear); Urine Color Colorless (Yellow); Urine Glucose NEGATIVE (Negative); Urine Protein NEGATIVE (Negative); Urine Urobilinogen Normal (Normal)
--- NOTE | 2023-01-05 21:00 | EDPHYS ---
Physician Documentation [facility] Name: Gill Gordon Age: 32 yrs Sex: Female : 1990 Arrival Date: 01/05/2023 Time: 17:44 Bed 7 Private MD: ED Physician Alex Jurado HPI: 01/05 19:20 This 32 yrs old Black Female presents to ER via EMS with complaints of Syncope. rn 19:20 The patient has experienced syncope. Onset: The symptoms/episode began/occurred just rn prior to arrival. Duration: This was a single episode. Associated injury: The patient did not suffer any apparent associated injury. Associated signs and symptoms: Pertinent positives: weakness, Pertinent negatives: abdominal pain, chest pain, seizure, shortness of breath. Current symptoms: Currently, the patient is not experiencing any symptoms. The patient has experienced similar episodes in the past. reports got home from work and patient had a syncopal episode. Patient has had multiple syncopal episodes in past. Patient states 3 days of feeling ill, thought she had COVID but tested negative today. Reports headache, nasal congestion, cough, diarrhea and nausea. No injuries from syncope. Son and deny any seizure-like activity.. Historical: - Allergies: 18:02 Amoxicillin; ko1 18:02 PENICILLINS; ko1 - PMHx: 18:02 PCOS; ko1 - PSHx: 18:02 gastric sleeve; ko1 - Immunization history:: Adult Immunizations up to date. - Social history:: Smoking status: Patient denies any tobacco usage or history of. - Family history:: not pertinent. - Hospitalizations: : No recent hospitalization is reported. ROS: 19:20 Constitutional: Negative for fever, chills, and weight loss, Eyes: Negative for injury, rn pain, redness, and discharge, ENT: Positive for congestion Neck: Negative for injury, pain, and swelling, Cardiovascular: Negative for chest pain, palpitations, and edema, Respiratory: Positive for cough, negative for shortness of breath Abdomen/GI: Positive for nausea and diarrhea, negative for abdominal pain Back: Negative for injury and pain, MS/Extremity: Negative for injury and deformity, Skin: Negative for injury, rash, and discoloration, Neuro: Positive for headache and generalized weakness Exam: 19:20 Constitutional: This is a well developed, well nourished patient who is awake, alert, rn and in no acute distress. Head/Face: Normocephalic, atraumatic. Eyes: Pupils equal round and reactive to light, extra-ocular motions intact ENT: Dry mucous membranes Cardiovascular: Bradycardic, regular. No pulse deficits. Respiratory: No increased work of breathing, no retractions or nasal flaring. Abdomen/GI: Soft, nontender Skin: Warm, dry MS/ Extremity: Pulses equal, no cyanosis. Neuro: Awake and alert, GCS 15, oriented to person, place, time, and situation. Cranial nerves II-XII grossly intact. Motor strength 5/5 in all extremities. Sensory grossly intact. Cerebellar exam normal. 20:08 ECG was reviewed by the Attending Physician. rn Vital Signs: 18:02 BP 118 / 66; Pulse 53; Resp 16; Temp 98.8(T); Pulse Ox 100% ; ko1 19:00 BP 108 / 77; Pulse 55; Resp 16; Pulse Ox 96% ; bp 19:45 Weight 73.94 kg (M); rv 20:01 BP 104 / 69; Pulse 58; Resp 15; Pulse Ox 100% ; bp 21:55 BP 123 / 81; Pulse 61; Resp 16; Temp 98; Pulse Ox 100% on R/A; rv [place] Coma Score: 21:55 Eye Response: spontaneous(4). Motor Response: obeys commands(6). Verbal Response: rv oriented(5). Total: 15. MDM: 17:49 Patient medically screened. rn 20:53 Differential Diagnosis: cardiac arrhythmia, cerebrovascular accident, idiopathic rn syncope, vasovagal episode, dehydration. Data reviewed: vital signs, nurses notes, lab test result(s), EKG, radiologic studies, CT scan, and as a result, I will admit patient. 20:59 Counseling: I had a detailed discussion with the patient and/or guardian regarding the rn historical points, exam findings, and any diagnostic results supporting the discharge/admit diagnosis, lab results, radiology results, the need for outpatient follow up, to return to the emergency department if symptoms worsen or persist or if there are any questions or concerns that arise at home. Special discussion: I discussed with the patient/guardian in detail that at this point there is no indication for admission to the hospital. It is understood, however, that if the symptoms persist or worsen the patient needs to return immediately for re-evaluation. 01/05 18:01 Order name: Basic Metabolic Panel; Complete Time: 19:17 rn 01/05 18:01 Order name: CBC with Diff; Complete Time: 19:17 rn 01/05 18:01 Order name: Hepatic Function; Complete Time: 19:17 rn 01/05 18:01 Order name: Magnesium; Complete Time: 19:17 rn 01/05 18:01 Order name: Protime (+inr); Complete Time: 19:17 rn 01/05 18:01 Order name: Ptt, Activated; Complete Time: 19:17 rn 01/05 18:01 Order name: Troponin High Sensitivity; Complete Time: 19:17 rn 01/05 18:01 Order name: Urinalysis w/ reflexes; Complete Time: 21:12 rn 01/05 18:01 Order name: CT Head Brain wo Cont; Complete Time: 19:36 rn 01/05 18:01 Order name: Chest Single View XRAY; Complete Time: 19:36 rn 01/05 19:37 Order name: CT Head Angio; Complete Time: 20:53 rn 01/05 18:01 Order name: EKG; Complete Time: 18:02 rn 01/05 18:01 Order name: Cardiac monitoring; Complete Time: 18:08 rn 01/05 18:01 Order name: EKG - Nurse/Tech; Complete Time: 18:52 rn 01/05 18:01 Order name: IV Saline Lock; Complete Time: 18:08 rn 01/05 18:01 Order name: Labs collected and sent; Complete Time: 18:17 rn 01/05 18:01 Order name: O2 Per Protocol; Complete Time: 18:08 rn 01/05 18:01 Order name: O2 Sat Monitoring; Complete Time: 18:08 rn EC:08 Rate is 60 beats/min. Rhythm is regular. QRS [place] is Normal. CT interval is normal. QRS rn interval is normal. QT interval is normal. No Q waves. T waves are Normal. No ST changes noted. Clinical impression: Normal ECG. Interpreted by me. Reviewed by me. Administered Medications: 18:17 Drug: NS 0.9% IV 1000 ml Route: IV; Rate: 1000 ml; Site: left antecubital; ko1 21:55 Follow up: IV Status: Completed infusion; IV Intake: 1000ml rv 19:46 Drug: HYDROcodone-acetaminophen PO 5 mg-325 mg 1 tabs Route: PO; rv 21:55 Follow up: Response: No adverse reaction rv Disposition Summary: 01/05/23 21:00 Discharge Ordered Location: Home rn Problem: new rn Symptoms: have improved rn Condition: Stable rn Diagnosis - Syncope rn Followup: rn - With: Private Physician - When: As needed - Reason: Recheck today's complaints, Re-evaluation by your physician Discharge Instructions: - Discharge Summary Sheet rn - Syncope rn Forms: - Medication Reconciliation Form rn - Thank You Letter rn - 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
--- NOTE | 2023-01-05 21:00 | ER ---
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 She has been having cold like symptoms for a week. She came home and sat down at the table and the next thing she knew she woke up to EMS and her standing over her. Coronavirus screen: congestion, fatigue, headache. Ebola Screen: No symptoms or risks identified at this time. Initial Sepsis Screen: Does the patient meet any 2 criteria? No. Patient's initial sepsis screen is negative. Does the patient have a suspected source of infection? No. Patient's initial sepsis screen is negative. Risk Assessment: Do you want to hurt yourself or someone else? Patient reports no desire to harm self or others. Onset of symptoms was January 05, 2023. 15:45 Method Of Arrival: EMS: [facility] ko1 15:45 Acuity: ÁNGELA 3 ko1 18:07 Care prior to arrival: IV initiated. 20 GA, in the left antecubital area. ko1 Triage Assessment: 18:02 General: Appears in no apparent distress. comfortable, Behavior is calm, cooperative, ko1 appropriate for age. Pain: Complains of pain in top of head and forehead. Historical: - Allergies: 18:02 Amoxicillin; ko1 18:02 PENICILLINS; ko1 - PMHx: 18:02 PCOS; ko1 - PSHx: 18:02 gastric sleeve; ko1 - Immunization history:: Adult Immunizations up to date. - Social history:: Smoking status: Patient denies any tobacco usage or history of. - Family history:: not pertinent. - Hospitalizations: : No recent hospitalization is reported. Screenin:[address] [facility] ED Fall Risk Assessment (Adult) History of falling in the last 3 months, ko1 including since admission No falls in past 3 months (0 pts) Confusion or Disorientation No (0 pts) Intoxicated or Sedated No (0 pts) Impaired Gait No (0 pts) Mobility Assist Device Used No (0 pt) Altered Elimination No (0 pt) Score/Fall Risk Level 0 - 2 = Low Risk Oriented to surroundings, Maintained a safe environment, Educated pt \T\ family on fall prevention, incl call for assistance when getting out of bed, Assessed \T\ reinforced patient's understanding of fall precautions, Provided non-skid footwear, Hourly rounding (assess needs \T\ fall precautionary measures) done, Used ambulatory aids as needed (educated on \T\ assisted with), Used gait belt as appropriate. Abuse screen: Denies threats or abuse. Denies injuries from another. Nutritional screening: No deficits noted. Tuberculosis screening: No symptoms or risk factors identified. Assessment: 18:06 Neuro: Reports headache frontal area. Cardiovascular: No deficits noted. ko1 Cardiovascular: Reports syncope. Respiratory: No deficits noted. GI: Reports diarrhea. : No deficits noted. EENT: No deficits noted. Derm: No deficits noted. Musculoskeletal: No deficits noted. 19:00 Reassessment: Patient appears in no apparent distress at this time. Patient is alert, bp oriented x 3, equal unlabored respirations, skin warm/dry/pink. Vital Signs: 18:02 BP 118 / 66; Pulse 53; Resp 16; Temp 98.8(T); Pulse Ox 100% ; ko1 19:00 BP 108 / 77; Pulse 55; Resp 16; Pulse Ox 96% ; bp 19:45 Weight 73.94 kg (M); rv 20:01 BP 104 / 69; Pulse 58; Resp 15; Pulse Ox 100% ; bp 21:55 BP 123 / 81; Pulse 61; Resp 16; Temp 98; Pulse Ox 100% on R/A; rv [place] Coma Score: 21:55 Eye Response: spontaneous(4). Motor Response: obeys commands(6). Verbal Response: rv oriented(5). Total: 15. ED Course: 17:47 Patient arrived in ED. eb 17:49 Alex Jurado MD is Attending Physician. rn 17:57 Camila Dhaliwal, BREA is Primary Nurse. ko1 18:02 Triage completed. ko1 18:02 Arm band placed on right wrist. Patient placed in an exam room, on a stretcher, on ko1 pulse oximetry, Patient notified of wait time. 18:05 Patient has correct armband on for positive identification. Placed in gown. Bed in low ko1 position. Call light in reach. Side rails up X2. Pulse ox on. NIBP on. Door closed. Noise minimized. Lights dimmed. Warm blanket given. 18:05 Maintain EMS IV. Dressing intact. Good blood return noted. Site clean \T\ dry. Gauge \T\ ko 1 site: 20g Left AC. 18:17 Basic Metabolic Panel Sent. ko1 18:17 CBC with Diff Sent. ko1 18:17 Hepatic Function Sent. ko1 18:17 Magnesium Sent. ko1 18:17 Protime (+inr) Sent. ko1 18:17 Ptt, Activated Sent. ko1 18:17 Troponin High Sensitivity Sent. ko1 18:48 CT Head Brain wo Cont In Process Unspecified. EDMS 18:58 Chest Single View XRAY In Process Unspecified. EDMS 20:37 CT Head Angio In Process Unspecified. EDMS 21:55 No provider procedures requiring assistance completed. IV discontinued, intact, rv bleeding controlled, No redness/swelling at site. Pressure dressing applied. 21:56 Provided Education on: migraine. rv Administered Medications: 18:17 Drug: NS 0.9% IV 1000 ml Route: IV; Rate: 1000 ml; Site: left antecubital; ko1 21:55 Follow up: IV Status: Completed infusion; IV Intake: 1000ml rv 19:46 Drug: HYDROcodone-acetaminophen PO 5 mg-325 mg 1 tabs Route: PO; rv 21:55 Follow up: Response: No adverse reaction rv Medication: 21:56 VIS not applicable for this client. rv Intake: 21:55 IV: 1000ml; Total: 1000ml. rv Outcome: 21:00 Discharge ordered by . rn 21:55 Discharged to home ambulatory, with family. rv 21:55 Condition: improved 21:55 Discharge instructions given to patient, Instructed on discharge instructions, follow up and referral plans. Demonstrated understanding of instructions, follow-up care. 21:56 Patient left the ED. rv Signatures: Dispatcher [employer] EDMS Alex Jurado MD MD rn Peltier, Brian, RN RN Caridad Simeon Ronaldo RN RN rv Camila Dhaliwal, RN RN ko1
[2023-01-05 22:10] VITALS: O2SAT 100
[2023-01-05 22:11] VITALS: BP 123/81; TEMP 98
--- NOTE | 2023-01-06 14:37 | EKG ---
Test Date: 2023-01-05 Test Time: 18:38:26 Staffing Coordinator: BRIDGETTE MEASUREMENT RESULTS: Intervals: Rate: 60 DC: 162 QRSD: 74 QT: 384 QTc: 384 [place]: P: 54 DC: 162 QRS: 15 T: 17 INTERPRETIVE STATEMENTS: Normal sinus rhythm Normal ECG Compared to ECG 05/01/2011 09:01:11 Left ventricular hypertrophy no longer present ST (T wave) deviation no longer present Electronically Signed On 01-06-23 14:36:13 CDT by Roberto Uribe
== END 2023-01-05 21:56 | disposition home or self-care (01) ==
LOC: ER 17:44
DX: R55 Syncope and collapse (principal); R51.9 Headache, unspecified; R53.1 Weakness; Z88.0 Allergy status to penicillin; Z88.1 Allergy status to other antibiotic agents
CPT/HCPCS: 96361; 93005; 85025; 80048; 36415; 83735; 85610; 80076; 85730; 81003; 84484; 70450; 70496; 71045; 96360; 99284; J7030

== ENCOUNTER 2023-11-27 14:49 | Emergency (ER) | payer OTHER ==
[2023-11-27] MEDS ORDERED: DIAZEPAM 5 MG TABLET ONE ×2 (15:35→20:39)
[2023-11-27] MEDS ORDERED: HYDROCODONE/APAP 5/325 MG TAB ONE (15:35)
[2023-11-27] MEDS ORDERED: LORazepam 2 MG/ML VIAL ONE (18:45)
--- NOTE | 2023-11-27 20:23 | ER ---
Nurse's Notes [facility] Name: Gill Gordon Age: 33 yrs Sex: Female : 1990 Arrival Date: 11/27/2023 Time: 14:49 Bed 12 Private MD: Diagnosis: Low back pain;Other intervertebral disc degeneration, lumbar region;Other intervertebral disc displacement, lumbosacral region Presentation: 11/26 15:01 Initial Sepsis Screen: Does the patient meet any 2 criteria? No. Patient's initial mb9 sepsis screen is negative. Does the patient have a suspected source of infection? No. Patient's initial sepsis screen is negative. 15:05 Coronavirus screen: Vaccine status: Patient reports receiving the 2nd dose of the covid mb9 vaccine. Ebola Screen: No symptoms or risks identified at this time. Risk Assessment: Do you want to hurt yourself or someone else? Patient reports no desire to harm self or others. Onset of symptoms was November 27, 2023. 15:05 Acuity: ÁNGELA 4 9 15:05 Method Of Arrival: Ambulatory [facility] 15:05 Chief complaint: Patient states: c/o back pain causing unsteady gait and has fallen me1 twice in the past two weeks. 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 Rec'd a steroid injection at [facility]. Coronavirus screen:. Ebola Screen: No symptoms or risks identified at this time. Risk Assessment: Do you want to hurt yourself or someone else? Patient reports no desire to harm self or others. Onset of symptoms is unknown. 15:05 Method Of Arrival: Ambulatory [facility] 15:05 Acuity: ÁNGELA 4 me1 Historical: - Allergies: 15:00 Amoxicillin; mb9 15:00 PENICILLINS; mb9 - PMHx: 15:00 PCOS; mb9 - PSHx: 15:00 gastric sleeve; mb9 - Immunization history:: Adult Immunizations up to date. - Infectious Disease History:: Denies. - Social history:: Smoking status: Patient denies any tobacco usage or history of. Screenin:04 [facility] ED Fall Risk Assessment (Adult) History of falling in the last 3 months, mb9 including since admission Yes- fall prone (multiple falls) (3 pts) Confusion or Disorientation No (0 pts) Intoxicated or Sedated No (0 pts) Impaired Gait No (0 pts) Mobility Assist Device Used No (0 pt) Altered Elimination No (0 pt) Score/Fall Risk Level 3 or more points = High Risk Oriented to surroundings, Maintained a safe environment, Educated pt \\T\\ family on fall prevention, incl call for assistance when getting out of bed. Abuse screen: Denies threats or abuse. Nutritional screening: No deficits noted. Tuberculosis screening: No symptoms or risk factors identified. Assessment: 15:05 General: Appears in no apparent distress. Behavior is calm, cooperative. Pain: mb9 Complains of pain in back Pain currently is 10 out of 10 on a pain scale. Quality of pain is described as sharp, shooting, Pain began gradually, Is continuous. Neuro: [place] Agitation-Sedation Scale (RASS): 0 - Alert and Calm Level of Consciousness is awake, alert, obeys commands, Oriented to person, place, time, situation, Appropriate for age. Cardiovascular: Patient's skin is warm and dry. Respiratory: Airway is patent Respiratory effort is even, unlabored, Respiratory pattern is regular, symmetrical. GI: No signs and/or symptoms were reported involving the gastrointestinal system. : No signs and/or symptoms were reported regarding the genitourinary system. EENT: No signs and/or symptoms were reported regarding the EENT system. Derm: Skin is pink, warm \\T\\ dry. Musculoskeletal: Range of motion: intact in all extremities. 17:39 Reassessment: No changes from previously documented assessment. Patient and/or family mb9 updated on plan of care and expected duration. Pain level reassessed. Patient is alert, oriented x 3, equal unlabored respirations, skin warm/dry/pink. 18:51 Reassessment: MRI at bedside to take pt. pt states, "I'm claustrophobic." ERP notified. mb9 New orders at this time. 18:54 Reassessment: Spoke to Cody from MRI about pt being ready for scan. mb9 19:30 Reassessment: Pt taken to MRI via wheelchair. mb9 20:26 Reassessment: No changes from previously documented assessment. Patient and/or family mb9 updated on plan of care and expected duration. Pain level reassessed. Patient is alert, oriented x 3, equal unlabored respirations, skin warm/dry/pink. 20:26 Reassessment: Discharge pending MRI results. mb9 Vital Signs: 15:04 BP 143 / 87; Pulse 84; Resp 16; Temp 98; Pulse Ox 100% ; Pain 10/10; mb9 15:05 Weight 72.57 kg; Height 5 ft. 0 in. ; Pain 10/10; me1 16:34 BP 128 / 74; Pulse 80; Resp 16; Pulse Ox 100% on R/A; mb9 20:47 BP 146 / 86; Pulse 74; Resp 18; Pulse Ox 100% on R/A; mb9 15:05 Body Mass Index 31.25 (72.57 kg, 152.4 cm) me1 15:04 Pain Scale: Adult mb9 15:05 Pain Scale: Adult me1 ED Course: 14:52 Patient arrived in ED. mg5 14:58 Luiz Brewster DO is Attending Physician. ms3 15:00 Citlali Jacob, BREA is Primary Nurse. mb9 15:00 Arm band placed on. mb9 15:01 Placed in gown. Bed in low position. Call light in reach. Side rails up X 1. Provided mb9 Education on: press call light if needing anything. Client placed on continuous cardiac and pulse oximetry monitoring. NIBP monitoring applied. Door closed. Noise minimized. Warm blanket given. Pillow given. 15:06 Triage completed. mb9 15:06 No provider procedures requiring assistance completed. mb9 17:57 Attending Physician role handed off by Luiz Brewster DO ms3 17:57 Eduardo Serrato MD is Attending Physician. ms3 18:31 Patient requests pain medication. mb9 18:53 Inserted saline lock: 20 gauge in right antecubital area, using aseptic technique. mb9 Blood collected. Flushed with 10 mL NS. 19:30 Patient moved to MRI via wheelchair. mb9 20:15 MRI Lumbar Spine wo Con In Process Unspecified. EDMS 20:46 Reuben Sequeira MD is Referral Physician. clarita 20:46 Den Falcon MD is Referral Physician. clarita 21:15 IV discontinued, intact, bleeding controlled, No redness/swelling at site. Pressure mb9 dressing applied. Administered Medications: 15:37 Drug: HYDROcodone-acetaminophen PO 5 mg-325 mg 1 tabs PO once Route: PO; mb9 16:33 Follow up: Response: No adverse reaction mb9 15:37 Drug: Diazepam PO 5 mg PO once Route: PO; mb9 16:34 Follow up: Response: No adverse reaction mb9 18:53 Drug: Ativan IVP 2 mg IVP once Route: IVP; Site: right antecubital; mb9 20:33 Follow up: Response: No adverse reaction mb9 20:38 Drug: Ondansetron IVP 4 mg IVP once; over 2 minutes Route: IVP; Site: right antecubital;mb9 21:15 Follow up: Response: No adverse reaction mb9 20:40 Drug: Decadron - Dexamethasone IVP 10 mg IVP once Route: IVP; Site: right antecubital; mb9 21:15 Follow up: Response: No adverse reaction mb9 20:46 Drug: Ketorolac IVP 30 mg IVP once Route: IVP; Site: right antecubital; mb9 21:15 Follow up: Response: No adverse reaction mb9 20:46 Drug: Diazepam PO 5 mg PO once Route: PO; mb9 21:15 Follow up: Response: No adverse reaction mb9 20:47 Drug: morphine IVP or IV 4 mg IVP once over 4 mins Route: IVP; Infused Over: 4 mins; mb9 Site: right antecubital; 21:15 Follow up: Response: No adverse reaction mb9 Medication: 15:01 VIS not applicable for this client. mb9 Outcome: 20:22 Discharge ordered by . clarita 21:16 Discharged to home via wheelchair, with family, mb9 21:16 Condition: stable 21:16 Discharge instructions given to patient, family, Instructed on discharge instructions, follow up and referral plans. Demonstrated understanding of instructions, follow-up care, medications, Prescriptions given X 4, 21:16 Patient left the ED. mb9 Signatures: Dispatcher [employer] Eduardo Coley MD MD cha Sims, Marcus, DO DO ms3 Citlali Jacob RN RN mb9 Denise Dunn RN RN 1 Paulina Alexis mg5 Corrections: (The following items were deleted from the chart) 15:09 15:05 Chief complaint: Patient states: c/o back pain causing unsteady gait and has me1 fallen twice in the past two weeks. me1
--- NOTE | 2023-11-27 20:23 | EDPHYS ---
Physician Documentation [facility] Name: Gill Gordon Age: 33 yrs Sex: Female : 1990 Arrival Date: 11/27/2023 Time: 14:49 Bed 12 Private MD: YESSI Physician Eduardo Serrato HPI: 11/26 15:29 This 33 yrs old Black Female presents to ER via Ambulatory with complaints of Back Pain.ms3 16:45 This 33 yrs old Black Female presents to ER via Ambulatory with complaints of Back Pain.ms3 16:45 33-year-old female with past medical history of PCOS presents to the pain and numbness ms3 in her back that goes to her legs has been ongoing for months. Patient states the discomfort is a 9/10. Patient states she was seen at [facility] today and given a steroid and Toradol injection. Patient was told she needed an MRI as she has bulging disks. Patient states she has seen Dr. Farrell and was recommended to have injections and they were not covered by her insurance. She denies any alleviating factors. Patient states she has taken pain medication and muscle relaxers without relief.. Historical: - Allergies: 15:00 Amoxicillin; mb9 15:00 PENICILLINS; mb9 - PMHx: 15:00 PCOS; mb9 - PSHx: 15:00 gastric sleeve; mb9 - Immunization history:: Adult Immunizations up to date. - Infectious Disease History:: Denies. - Social history:: Smoking status: Patient denies any tobacco usage or history of. ROS: 16:45 Constitutional: Negative for fever, and chills. Cardiovascular: Negative for chest ms3 pain, and palpitations. Respiratory: Negative for shortness of breath, cough, wheezing, and pleuritic chest pain, Abdomen/GI: Negative for abdominal pain, nausea, vomiting, diarrhea, and constipation, 16:45 MS/Extremity: Negative for injury and deformity, 16:45 Back: Positive for Pain, Exam: 16:45 Constitutional: This is a well developed, well nourished patient who is awake, alert, ms3 and in no acute distress. Head/Face: Normocephalic, atraumatic. Cardiovascular: Regular rate and rhythm with a normal S1 and S2. No gallops, murmurs, or rubs. Normal PMI, no JVD. No pulse deficits. Respiratory: Lungs have equal breath sounds bilaterally, clear to auscultation and percussion. No rales, rhonchi or wheezes noted. No increased work of breathing, no retractions or nasal flaring. Abdomen/GI: Soft, non-tender, with normal bowel sounds. No distension or tympany. No guarding or rebound. No evidence of tenderness throughout. MS/ Extremity: Pulses equal, no cyanosis. Neurovascular intact. Full, normal range of motion. Vital Signs: 15:04 BP 143 / 87; Pulse 84; Resp 16; Temp 98; Pulse Ox 100% ; Pain 10/10; mb9 15:05 Weight 72.57 kg; Height 5 ft. 0 in. ; Pain 10/10; me1 16:34 BP 128 / 74; Pulse 80; Resp 16; Pulse Ox 100% on R/A; mb9 20:47 BP 146 / 86; Pulse 74; Resp 18; Pulse Ox 100% on R/A; mb9 15:05 Body Mass Index 31.25 (72.57 kg, 152.4 cm) me1 15:04 Pain Scale: Adult mb9 15:05 Pain Scale: Adult me1 MDM: 15:22 Patient medically screened. ms3 16:45 Differential diagnosis: Neoplasm Osteoarthritis ruptured disc, vertebral fracture. ms3 17:15 External Records Reviewed: Outside ED record: CT lumbar without contrast performed ms3 11/27/2023 at 12:21 PM at [facility] [place] impression: Diffuse spondylosis without acute abnormality. Arthrosis and possible sacroiliitis of the left SI joint. MRI may be of further benefit. Likely intraosseous hemangioma measuring 14 mm involving the right side of L3 although nonemergent MRI may be of further benefit. 17:57 Transition of care: After a detail discussion of the patient's case, care is ms3 transferred to Eduardo Serrato MD. 20:37 Data reviewed: vital signs, nurses notes, lab test result(s), radiologic studies, MRI. clarita Consideration of Admission/Observation Escalation of care including admission/observation considered. I considered the following discharge prescriptions or medication management in the emergency department Medications were administered in the Emergency Department. See MAR. Independent interpretation of the following test(s) in the Emergency Department MRI: My interpretation is mri lumbar. Test considered but Not performed: Labs: no cbc , no comp met. Care significantly affected by the following chronic conditions: Obesity, pcos. Counseling: I had a detailed discussion with the patient and/or guardian regarding the historical points, exam findings, and any diagnostic results supporting the discharge/admit diagnosis. 11/26 15:22 Order name: MRI Lumbar Spine wo Con; Complete Time: 20:34 ms3 11/26 18:53 Order name: IV Saline Lock; Complete Time: 18:53 mb9 Administered Medications: 15:37 Drug: HYDROcodone-acetaminophen PO 5 mg-325 mg 1 tabs PO once Route: PO; mb9 16:33 Follow up: Response: No adverse reaction mb9 15:37 Drug: Diazepam PO 5 mg PO once Route: PO; mb9 16:34 Follow up: Response: No adverse reaction mb9 18:53 Drug: Ativan IVP 2 mg IVP once Route: IVP; Site: right antecubital; mb9 20:33 Follow up: Response: No adverse reaction mb9 20:38 Drug: Ondansetron IVP 4 mg IVP once; over 2 minutes Route: IVP; Site: right antecubital;mb9 21:15 Follow up: Response: No adverse reaction mb9 20:40 Drug: Decadron - Dexamethasone IVP 10 mg IVP once Route: IVP; Site: right antecubital; mb9 21:15 Follow up: Response: No adverse reaction mb9 20:46 Drug: Ketorolac IVP 30 mg IVP once Route: IVP; Site: right antecubital; mb9 21:15 Follow up: Response: No adverse reaction mb9 20:46 Drug: Diazepam PO 5 mg PO once Route: PO; mb9 21:15 Follow up: Response: No adverse reaction mb9 20:47 Drug: morphine IVP or IV 4 mg IVP once over 4 mins Route: IVP; Infused Over: 4 mins; mb9 Site: right antecubital; 21:15 Follow up: Response: No adverse reaction mb9 Disposition Summary: 11/27/23 20:22 Discharge Ordered Notes: Location: Home clarita Condition: Stable clarita Diagnosis - Low back pain clarita - Other intervertebral disc degeneration, lumbar region clarita - Other intervertebral disc displacement, lumbosacral region clarita Followup: ms3 - With: Private Physician - When: 2 - 3 days - Reason: Recheck today's complaints Followup: clarita - With: Reuben Sequeira MD - When: 2 - 3 days - Reason: Recheck today's complaints, Re-evaluation by your physician Followup: clarita - With: Den Falcon MD - When: 2 - 3 days - Reason: Recheck today's complaints, Re-evaluation by your physician Discharge Instructions: - Herniated Disk clarita - Musculoskeletal Pain clarita - Sciatica clarita - Degenerative Disk Disease clarita - Sciatica, [id number] clarita - Discharge Summary Sheet ms3 - Acute Back Pain, Adult ms3 Forms: - Medication Reconciliation Form [facility] - Antibiotic Education clarita - Prescription Opioid Use [facility] - Patient Portal Instructions [facility] - Leadership Thank You Letter [facility] Prescriptions: - acetaminophen-codeine 300-30 mg Oral tablet - take 2 tablet ORAL route every 6 hours; 20 tablet; Refills: 0, Product [facility] Selection Permitted - dexamethasone 4 mg Oral tablet - take 1 tablet ORAL route once daily; 4 tablet; Refills: 0, Product Selection clarita Permitted - diclofenac sodium 25 mg Oral tablet, delayed release (enteric coated) - take 1 tablet ORAL route 3 times per day; 21 tablet; Refills: 0, Product [facility] Selection Permitted - Cyclobenzaprine 5 mg Oral tablet - take 1 tablet ORAL route 3 times per day As needed; 21 tablet; Refills: 0, [facility] Product Selection Permitted Signatures: Dispatcher [employer] EDEduardo Dos Santos MD MD cha Sims, Marcus, DO DO ms3 Citlali Jacob, RN RN mb9 Corrections: (The following items were deleted from the chart) 15:23 15:23 Lumbar Spine Wo Con+MRI.RAD.BRZ ordered. EDMS EDMS 16:47 15:29 . ms3 ms3
--- NOTE | 2023-11-27 20:30 | RAD REPORT ---
EXAM DESCRIPTION: MRI - Lumbar Spine Wo Mk - 11/27/2023 8:14 pm CLINICAL HISTORY: PAIN COMPARISON: No comparisons TECHNIQUE: Multiplanar multisequence MRI of the lumbar spine performed, withoutintravenous gadoliniu m contrast. FINDINGS: Preserved lumbar lordosis without spondylolisthesis. Vertebral body heights are well main tained. Small hemangiomas seen within body of L3, and the left aspect of S1, where the lesion demonst rates some preserved T2 signal, suggesting atypical features. No suspicious marrow signal. No paraspi nal masses or edema. Conus terminates at the appropriate level. Cauda equina roots are unremarkable, with no clumping or t hickening. T12-L1: No significant findings. L1-L2: No significant findings. L2-L3: No significant findings. L3-L4 level: No significant findings. L4-L5 level: Mild broad-based disc bulge. Mild facet arthropathy bilaterally. No central canal or for aminal stenosis. L5-S1 level: Minimal anterolisthesis of L5 over S1 not exceeding 3 mm. Broad-based posterior disc bul ge with superimposed left subarticular disc protrusion with an associated annular hyperintensity zone . Moderate facet changes worse on the left. No significant central canal stenosis. Mild left neural f oraminal narrowing. IMPRESSION: Spondylotic changes of the lower lumbar spine, most notably at L5-S1, where findings con tribute to mild left neural foraminal narrowing. Left subarticular zone annular hyperintensity zone/t ear at that level.
[2023-11-27] MEDS ORDERED: MORPHINE 4 MG/ML SYR ONE (20:39)
[2023-11-27] MEDS ORDERED: KETOROLAC 30 MG/ML INJ ONE (20:39)
[2023-11-27] MEDS ORDERED: dexAMETHasone 10 MG/ML VIAL ONE (20:39)
[2023-11-27] MEDS ORDERED: ONDANSETRON 4 MG/2 ML VIAL ONE (20:39)
[2023-11-29 17:56] VITALS: BP 146/86; TEMP 98; O2SAT 100
== END 2023-11-27 21:16 | disposition home or self-care (01) ==
LOC: ER 14:49
DX: M54.50 Low back pain, unspecified (principal); M51.36 Other intervertebral disc degeneration, lumbar region; M51.26 Other intervertebral disc displacement, lumbar region; Z88.0 Allergy status to penicillin; Z98.84 Bariatric surgery status
CPT/HCPCS: 72148; 96375; 96374; 99285; J1100; J2405

== ENCOUNTER 2024-02-17 12:02 | Emergency (ER) | payer OTHER ==
[2024-02-17] MEDS ORDERED: FLEET ENEMA ADULT PR ONE (12:41)
--- NOTE | 2024-02-17 13:15 | ER ---
Nurse's Notes [facility] Name: Gill Gordon Age: 33 yrs Sex: Female : 1990 Arrival Date: 02/17/2024 Time: 12:02 Bed 20 Private MD: Diagnosis: Constipation Presentation: 02/16 12:10 Chief complaint: Patient states: Constipation for 2 weeks with N/V and abdominal pain. ll1 Coronavirus screen: Client denies travel out of the [place] in the last 14 days. At this time, the client does not indicate any symptoms associated with coronavirus-19. Ebola Screen: Patient denies travel to an Ebola-affected area in the 21 days before illness onset. Initial Sepsis Screen: Does the patient meet any 2 criteria? No. Patient's initial sepsis screen is negative. Does the patient have a suspected source of infection? No. Patient's initial sepsis screen is negative. Risk Assessment: Do you want to hurt yourself or someone else? Patient reports no desire to harm self or others. Onset of symptoms was February 04, 2024. 12:10 Method Of Arrival: Ambulatory ll1 12:10 Acuity: ÁNGELA 3 ll1 Triage Assessment: 12:14 General: Appears uncomfortable, Behavior is calm, cooperative, appropriate for age. ll1 Pain: Complains of pain in abdomen Pain currently is 10 out of 10 on a pain scale. Quality of pain is described as aching, crampy. Neuro: No deficits noted. GI: Reports lower abdominal pain, upper abdominal pain, constipation, cramping, nausea, vomiting. 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 - Infectious Disease History:: Denies. - Social history:: Smoking status: Patient denies any tobacco usage or history of. Screenin:15 [facility] ED Fall Risk Assessment (Adult) History of falling in the last 3 months, me1 including since admission No falls in past 3 months (0 pts) Confusion or Disorientation No (0 pts) Intoxicated or Sedated No (0 pts) Impaired Gait No (0 pts) Mobility Assist Device Used No (0 pt) Altered Elimination No (0 pt) Score/Fall Risk Level 0 - 2 = Low Risk Maintained a safe environment, Provided non-skid footwear, Hourly rounding (assess needs \T\ fall precautionary measures) done. Abuse screen: Denies threats or abuse. Nutritional screening: No deficits noted. Tuberculosis screening: No symptoms or risk factors identified. Assessment: 12:15 General: Appears uncomfortable, ill, well groomed, well developed, well nourished, me1 Behavior is calm, cooperative, appropriate for age, Reports Constipation for 2 weeks with N/V and abdominal pain. Pain: Complains of pain in abdomen Pain does not radiate. Pain currently is 4 out of 10 on a pain scale. Quality of pain is described as crampy, Pain began gradually, 2 weeks ago, worsened over time Is intermittent. 12:15 Neuro: Level of Consciousness is awake, alert, obeys commands, Oriented to person, me1 place, time, situation, Appropriate for age. Cardiovascular: Patient's skin is warm and dry. Respiratory: Airway is patent Respiratory effort is even, unlabored, Respiratory pattern is regular, symmetrical. GI: Abdomen is round distended, Bowel sounds present X 4 quads. Abd is soft and non tender X 4 quads. : No signs and/or symptoms were reported regarding the genitourinary system. EENT: No signs and/or symptoms were reported regarding the EENT system. Derm: Skin is intact, is healthy with good turgor, Skin is pink, warm \T\ dry. Musculoskeletal: No signs and/or symptoms reported regarding the musculoskeletal system. Vital Signs: 12:10 BP 133 / 99; Pulse 100; Resp 17; Temp 98.8; Pulse Ox 100% ; Weight 71.67 kg; Height 5 ll1 ft. 0 in. ; Pain 10/10; 13:00 BP 128 / 87; Pulse 98; Resp 17; Temp 98.4; Pulse Ox 100% ; me1 12:10 Body Mass Index 30.86 (71.67 kg, 152.4 cm) ll1 12:10 Pain Scale: Adult ll1 ED Course: 12:04 Patient arrived in ED. ra3 12:06 Arm band placed on. ll1 12:08 Juanis Gordon FNP-C [facility]. kb 12:08 Dawit Mckinney MD is Attending Physician. kb 12:11 Triage completed. ll1 12:15 Patient has correct armband on for positive identification. Bed in low position. Call me1 light in reach. Side rails up X2. Provided Education on: POC. Verbalized understanding.. Client placed on continuous cardiac and pulse oximetry monitoring. NIBP monitoring applied. Pulse ox on. NIBP on. 12:15 No provider procedures requiring assistance completed. Patient did not have IV access me1 during this emergency room visit. 12:37 Denise Dunn, RN is Primary Nurse. me1 Administered Medications: 12:46 Drug: Fleet Enema KS 133 ml KS once; may repeat once Route: KS; me1 13:03 Follow up: Response: No adverse reaction; Marked relief of symptoms; patient had a me1 large bowel movement and verbalizes relief Medication: 12:15 VIS not applicable for this client. me1 Intake: Outcome: 13:15 Discharge ordered by MD. kb 13:38 Discharged to home ambulatory, me1 13:38 Condition: stable 13:38 Discharge instructions given to patient, Instructed on discharge instructions, follow up and referral plans. Demonstrated understanding of instructions, follow-up care, 13:39 Patient left the ED. me1 Signatures: Juanis Gordon FNP-C REGISTERED NURSE CARDIAC TELEMETRY-Leonardo Moody RN RN ll1 Denise Dunn, RN RN me1 Monica Layne ra3 Corrections: (The following items were deleted from the chart) 13:05 12:10 Chief complaint: Patient states: Constipation for 2 weeks with N/V and abdominal me1 pain ll1
--- NOTE | 2024-02-17 13:15 | EDPHYS ---
Physician Documentation [facility] Name: Gill Gordon Age: 33 yrs Sex: Female : 1990 Arrival Date: 02/17/2024 Time: 12:02 Bed 20 Private MD: ED Physician Dawit Mckinney HPI: 02/16 13:13 This 33 yrs old Black Female presents to ER via Ambulatory with complaints of kb Constipation - x2wks. 13:13 Pt is a 33 year old female who presents for constipation for 2 weeks. States she has a kb large amount of stool at her rectum, has been able to remove some digitally, but there is still a large formed amount. States she would like to try an enema vs digital disimpaction. . 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 - Infectious Disease History:: Denies. - Social history:: Smoking status: Patient denies any tobacco usage or history of. ROS: 13:11 Constitutional: As per HPI kb Exam: 13:11 Constitutional: This is a well developed, well nourished patient who is awake, alert, kb and in no acute distress. Head/Face: Normocephalic, atraumatic. ENT: Moist Mucous membranes Cardiovascular: Regular rate Respiratory: Respirations even and unlabored. No increased work of breathing. Talking in full sentences Abdomen/GI: Soft, non-tender. No distention Skin: Warm, dry with normal turgor. Normal color. MS/ Extremity: Pulses equal, no cyanosis. Neurovascular intact. Full, normal range of motion. Neuro: Awake and alert, GCS 15, oriented to person, place, time, and situation. Moves all extremities. Normal gait. Vital Signs: 12:10 BP 133 / 99; Pulse 100; Resp 17; Temp 98.8; Pulse Ox 100% ; Weight 71.67 kg; Height 5 ll1 ft. 0 in. ; Pain 10/10; 13:00 BP 128 / 87; Pulse 98; Resp 17; Temp 98.4; Pulse Ox 100% ; me1 12:10 Body Mass Index 30.86 (71.67 kg, 152.4 cm) ll1 12:10 Pain Scale: Adult ll1 MDM: 12:08 Patient medically screened. kb 13:12 Differential diagnosis: constipation, fecal impaction, bowel obstruction. Data kb reviewed: vital signs, nurses notes. Test considered but Not performed: Labs: cbc, cmp considered but pt is nontoxic in appearance with normal vs. CT: ct abd considered but pt has no abd pain or tenderness. Counseling: I had a detailed discussion with the patient and/or guardian regarding the historical points, exam findings, and any diagnostic results supporting the discharge/admit diagnosis, the need for outpatient follow up, a family practitioner, to return to the emergency department if symptoms worsen or persist or if there are any questions or concerns that arise at home. ED course: Pt had large BM after enema and is feeling much better. . Administered Medications: 12:46 Drug: Fleet Enema IA 133 ml IA once; may repeat once Route: IA; me1 13:03 Follow up: Response: No adverse reaction; Marked relief of symptoms; patient had a me1 large bowel movement and verbalizes relief Disposition Summary: 02/17/24 13:15 Discharge Ordered Notes: Location: Home kb Condition: Stable kb Diagnosis - Constipation kb Followup: kb - With: Emergency Department - When: As needed - Reason: Worsening of condition Followup: kb - With: Private Physician - When: 2 - 3 days - Reason: Recheck today's complaints, Continuance of care, Re-evaluation by your physician Discharge Instructions: - Discharge Summary Sheet kb - Constipation, Adult, [id number] kb - Fecal Impaction kb Forms: - Medication Reconciliation Form kb - Antibiotic Education kb - Prescription Opioid Use kb - Patient Portal Instructions kb - Leadership Thank You Letter kb Addendum: 02/19/2024 17:55 I was immediately available for consultation during this patient's visit. I did not e c2 personally see the patient or discuss the patient with the TONE. . Signatures: Juanis Gordon, NICK-C NICK-Leonardo Moody RN RN ll1 Denise Dunn RN RN me1 Dawit Mckinney MD MD 2
[2024-02-17 13:59] VITALS: O2SAT 100
[2024-02-17 14:01] VITALS: BP 133/99; TEMP 98.8
== END 2024-02-17 13:39 | disposition home or self-care (01) ==
LOC: ER 12:02
DX: K59.00 Constipation, unspecified (principal)

== ENCOUNTER 2024-05-19 11:59 | Emergency (ER) | payer OTHER ==
--- NOTE | 2024-05-19 12:45 | RAD REPORT ---
EXAMINATION: ONE VIEW CHEST XR CLINICAL INDICATION: Female, 33 years old.,CHEST PAIN TECHNIQUE: Frontal chest projection is submitted. Examination is limited by patient positioning and t echnique. COMPARISON: 01/05/2023 FINDINGS: The lungs are well inflated and clear. No pneumothorax or sizable effusion. The heart is normal in s ize. Mediastinal contours are unremarkable. IMPRESSION: No acute intrathoracic abnormalities.
[2024-05-19 12:53] LABS: Absolute Lymphocytes (CBC) 2.1 K/uL (0.7-4.9); Absolute Monocytes 0.3 K/uL (0.1-1.3); Absolute Neutrophil 2.6 K/uL (1.8-8.0); Basophils % 0.3 % (0-1.3); Eosinophils % 0.2 % (0-4.4); Hematocrit 37.3 % (36.0-45.0); Hemoglobin 12.7 g/dL (12.0-15.0); Lymphocytes % 41.9 % (15.3-44.8); MCH 32.3 pg (27.0-35.0); MPV 7.6 fL (7.6-11.3); Monocytes % 6.4 % (3.3-12.3); Neutrophils % 51.2 % (41.7-73.7); Platelets 204 thou/uL (152-406); RBC Red Blood Cell Count 3.93 M/uL (3.86-4.86); Red Cell Distribution Width 13.1 % (12.1-15.2)
[2024-05-19] MEDS ORDERED: IPRATROPIUM BROM 0.5MG/2.5ML ONE (12:54)
[2024-05-19] MEDS ORDERED: ALBUTEROL 2.5 MG/3 ML NEB SOL ONE (12:54)
[2024-05-19 13:11] LABS: ALT/SGPT 18 U/L (13-56); AST/SGOT 14 U/L (15-37); Albumin 3.6 g/dL (3.4-5.0); Albumin/Globulin Ratio 0.9 (1.1-1.8); Alkaline Phosphatase 48 U/L (45-117); Anion Gap 9.1 mEq/L (5.0-15.0); BUN Blood Urea Nitrogen 12 mg/dL (7-18); Bicarbonate 24 mEq/L (21-32); Bilirubin Total 0.4 mg/dL (0.2-1.0); Globulin 3.9 g/dL (2.3-3.5); Glomerular Filtration Rate 79 ml/min (=/>90); Glucose Level 85 mg/dL (74-106); Magnesium 1.9 mg/dL (1.6-2.4); NT PRO-BNP 36 pg/mL (<125); Potassium 3.1 mEq/L (3.5-5.1); Protein, Total 7.5 g/dL (6.4-8.2); Sodium Level 137 mEq/L (136-145)
[2024-05-19 13:13] LABS: Bilirubin Direct < 0.2 mg/dL (0-0.2); Bilirubin Indirect, Calculated 0.2 mg/dL (0.2-0.8)
[2024-05-19 13:25] LABS: PT Prothrombin Time 12.7 SECONDS (9.4-12.5); Protime INR 1.21
[2024-05-19] MEDS ORDERED: POTASSIUM 25 MEQ EFFERV TAB ONE (13:38)
[2024-05-19] MEDS ORDERED: DIAZEPAM 10 MG/2 ML INJ SYRINGE ONE (14:47)
[2024-05-19] MEDS ORDERED: LEVETIRACETAM 500 MG/5 ML VIAL IV ONE (15:19)
[2024-05-19] MEDS ORDERED: NA CHLORIDE 0.9% 100 ML ONE (15:20)
--- NOTE | 2024-05-19 16:22 | RAD REPORT ---
EXAM: CT Head Brain Wo Cont HISTORY: SZ COMPARISON: 01/05/2023 TECHNIQUE: Multiple contiguous axial images were obtained for a CT of the brain without contrast. Sag ittal and coronal reformats were performed. One or more of the following dose reduction techniques were used: Automated exposure control, adjus tment of the mA and kV according to patient size, and iterative reconstruction. Unless otherwise specified, incidental findings do not require dedicated imaging follow-up. FINDINGS: No evidence of hydrocephalus, intracranial hemorrhage, or extra-axial fluid collection. The brain is normal in morphology. Expanded partially empty sella again seen. The calvarium is intact. The visualized paranasal sinuses and mastoid air cells are essentially clear . IMPRESSION: No evidence of acute intracranial abnormality.
[2024-05-19] MEDS ORDERED: NA CHLORIDE 0.9% 1,000 ML ONE (16:24)
--- NOTE | 2024-05-19 16:33 | EDPHYS ---
Physician Documentation [facility] Name: Gill Gordon Age: 33 yrs Sex: Female : 1990 Arrival Date: 05/19/2024 Time: 11:59 Bed 24 Private MD: ED Physician Alex Jurado HPI: 05/19 14:12 This 33 yrs old Black Female presents to ER via EMS with complaints of Chest Pain. sb4 14:12 Patient reports chest pain after running after a child outside in the cold. Feels like sb4 she inhaled a lot of cold air and that is causing her chest to hurt. Is also complaining of tingling in her hands and feet. Does not report any heart or lung issues. Does report a history of chronic migraines and bulging disks in her lower back. 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 - Infectious Disease History:: Denies. - Social history:: Smoking status: Patient denies any tobacco usage or history of. ROS: 14:56 Constitutional: Negative for fever, chills, and weight loss, sb4 14:56 Cardiovascular: Positive for chest pain, 14:56 Neuro: Positive for tingling, of the right arm, left arm, right leg and left leg, 14:56 All other systems are negative, Exam: 14:58 Head/Face: Normocephalic, atraumatic. Eyes: Extra-ocular motions intact. Periorbital sb4 areas with no swelling, redness, or edema. ENT: Mucous membranes moist. Cardiovascular: Regular rate and rhythm with a normal S1 and S2. Abdomen/GI: Soft, non-tender, no distension. Neuro: Awake and alert, GCS 15, oriented to person, place, time, and situation. Motor strength 5/5 in all extremities. Sensory grossly intact. 14:58 Constitutional: The patient appears alert, awake, well groomed, anxious, 14:58 Respiratory: the patient does not display signs of respiratory distress, Respirations: normal, Breath sounds: wheezing: expiratory is heard diffusely, Vital Signs: 12:08 BP 130 / 91; Pulse 88; Resp 16; Temp 97.4; Pulse Ox 100% ; Weight 70.31 kg; Height 4 me1 ft. 11 in. ; Pain 10/10; 13:00 BP 117 / 72; Pulse 83; Resp 18; Pulse Ox 100% on R/A; me1 14:00 BP 104 / 74; Pulse 91; Resp 17; Pulse Ox 100% on R/A; me1 14:30 BP 117 / 77; Pulse 88; Resp 11; Pulse Ox 100% ; me1 15:16 BP 116 / 80; Pulse 86; Resp 14; Pulse Ox 100% on R/A; me1 16:00 BP 117 / 79; Pulse 96; Resp 11; Pulse Ox 100% ; me1 17:00 BP 110 / 75; Pulse 75; Resp 15; Pulse Ox 100% ; me1 18:00 BP 112 / 78; Pulse 82; Resp 15; Pulse Ox 100% ; me1 19:00 BP 112 / 84; Pulse 81; Resp 12; Pulse Ox 100% on R/A; me1 19:30 BP 106 / 79; Pulse 85; Resp 14; Pulse Ox 100% on R/A; me1 20:16 BP 118 / 79; Pulse 83; Resp 17; Temp 98.3; Pulse Ox 100% on R/A; me1 12:08 Body Mass Index 31.31 (70.31 kg, 149.86 cm) me1 12:08 Pain Scale: Adult me1 MDM: 12:04 Medical Screening Exam initiated sb4 14:58 ED course: patient was incontinent of urine twice. she complains of chronic lower back sb4 pain secondary to bulging discs, nothing new/acute. she did fall today while chasing the children. states she "cannot feel her legs" will order MRI lumbar spine to rule out spinal cord pathology. 15:45 ED course: staff nuclear medicine technologist reported seizure like activity while patient was in MRI- sb4 generalized body shaking, legs flailing. after that stopped, she states that patient was gasping for air. I went to MRI to assess patient, she was obtunded, partially following commands- appeared post ictal. MRI was unable to be completed. 16:33 Data reviewed: vital signs, nurses notes, lab test result(s), EKG, radiologic studies, [facility] I have discussed the patient's presentation/case with the attending Emergency Department Physician;. Management of patient was discussed with the following: Java Architect: Dr. Sequeira, recommends transfer for EEG . Counseling: I had a detailed discussion with the patient and/or guardian regarding the historical points, exam findings, and any diagnostic results supporting the discharge/admit diagnosis, lab results, radiology results, the need to transfer to another facility, for higher level of care. ED course: discussed with patient and family need for transfer, they request restorationism. 16:35 ED course: reassessed patient- sleepy but responsive to verbal stimuli. answers [facility] questions and follows commands appropriately. complains of headache and her body feeling weird. denies any chest pain. 18:16 Management of patient was discussed with the following: Java Architect: neurologist at [address], agrees to consult . 05/19 12:13 Order name: Basic Metabolic Panel; Complete Time: 13:14 [facility] 05/19 12:13 Order name: CBC with Diff; Complete Time: 12:57 [facility] 05/19 12:13 Order name: LFT's; Complete Time: 13:14 [facility] 05/19 12:13 Order name: Magnesium; Complete Time: 13:14 [facility] 05/19 12:13 Order name: NT PRO-BNP; Complete Time: 13:14 [facility] 05/19 12:13 Order name: PT-INR; Complete Time: 13:25 [facility] 05/19 12:13 Order name: Troponin HS; Complete Time: 13:14 [facility] 05/19 12:13 Order name: Test, Serum; Complete Time: 13:23 [facility] 05/19 16:27 Order name: Lactate w/ 2H reflex if indic.; Complete Time: 17:09 [facility] 05/19 16:27 Order name: CK; Complete Time: 17:09 [facility] 05/19 12:13 Order name: XRAY Chest (1 view); Complete Time: 12:47 [facility] 05/19 15:18 Order name: Head Brain Wo Cont; Complete Time: 16:23 [facility] 05/19 12:13 Order name: EKG; Complete Time: 12:14 [facility] 05/19 12:13 Order name: Cardiac monitoring; Complete Time: 12:46 [facility] 05/19 12:13 Order name: EKG - Nurse/Tech; Complete Time: 12:46 sb4 05/19 12:13 Order name: IV Saline Lock; Complete Time: 12:48 sb4 05/19 12:13 Order name: Labs collected and sent; Complete Time: 12:48 sb4 05/19 12:13 Order name: O2 Per Protocol; Complete Time: 12:48 sb4 05/19 12:13 Order name: O2 Sat Monitoring; Complete Time: 12:48 sb4 EC:59 Rate is 74 beats/min. Rhythm is regular, Normal Sinus Rhythm. VA interval is normal at sb4 146 msec. QRS interval is normal at 78 msec. QT interval is normal at 376 msec. No Q waves. T waves are Normal. No ST changes noted. Clinical impression: Normal ECG. Interpreted by me. Reviewed by me. Administered Medications: 12:58 Drug: DuoNeb Nebulize (3:1) (2.5 mg - 0.5 mg) 3 ml Nebulizer once Route: Nebulizer; me1 13:15 Follow up: Response: No adverse reaction; Wheezing diminished me1 13:39 Drug: Potassium PO Effervescent Tablet 50 mEq PO once; dissolve in 4 ounces of water or me1 juice Route: PO; 14:44 Follow up: Response: No adverse reaction me1 14:52 Drug: Diazepam IVP 5 mg IVP once; pre MRI Route: IVP; Site: right antecubital; me1 15:13 Follow up: Response: No adverse reaction; Anxiety decreased me1 15:25 Drug: Keppra IV 1000 mg IV at calculated rate once Route: IV; Rate: calculated rate; me1 Site: right antecubital; 15:34 Follow up: Response: No adverse reaction; IV Status: Completed infusion; IV Intake: me1 100ml 16:26 Drug: NS 0.9% IV 1000 ml IV at 1 bolus Per protocol; to be given as a bolus over 60 me1 minutes Route: IV; Rate: 1 bolus; Site: right antecubital; 18:28 Follow up: Response: No adverse reaction; IV Status: Completed infusion; IV Intake: me1 1000ml 18:34 Drug: fentaNYL (PF) IVP 50 mcg IVP once Route: IVP; Site: right antecubital; me1 19:01 Follow up: Response: No adverse reaction; Pain is decreased me1 20:01 Drug: Ativan IVP 2 mg IVP once Route: IVP; Site: right antecubital; me1 20:07 Follow up: Response: No adverse reaction; Other; Other: seizure stopped me1 20:06 CANCELLED (Physician Discretion): ativan1 mg IVP once sb4 Disposition Summary: 05/19/24 16:32 Transfer Ordered Notes: Reason: Higher level of care sb4 Condition: Fair sb4 Problem: new sb4 Symptoms: are unchanged sb4 Transfer Location: [facility](05/19/24 16:49) sb4 Accepting Physician: Dr. Sawant(05/19/24 20:18) me1 Diagnosis - Other seizures - new onset sb4 Forms: - Medication Reconciliation Form sb4 - SBAR form sb4 Addendum: 05/23/2024 09:38 Co-signature as Attending Physician, Alex Jurado MD I reviewed the patient's care r n provided by the Advanced Practice Provider and agree with the diagnosis and treatment plan. Signatures: Dispatcher [employer] EDAlex Driscoll MD MD rn Brown, Sophia, PA-C PA-C sb4 Denise Dunn RN RN me1 Corrections: (The following items were deleted from the chart) 05/19 16:15 15:45 ED course: staff nuclear medicine technologist reported seizure like activity while patient was in MRI- sb4 generalized body shaking, legs flailing. after that stopped, she states that patient was gasping for air. I went to MRI to assess patient, she was obtunded, partially following commands- appeared post ictal. sb4 16:27 16:27 LACTATE+C.LAB.BRZ ordered. EDMS EDMS 16:27 16:27 CREATINE PHOSPHOKINASE+C.LAB.BRZ ordered. EDMS EDMS 16:49 16:32 neuro sb4 sb4 16:49 16:32 [facility] [facility] sb4 sb4 17:21 17:21 URINE DRUG SCREEN+UC.LAB.BRZ ordered. EDMS EDMS 17:21 17:21 Urinalysis W/Microscopic+U.LAB.BRZ ordered. EDMS EDMS 18:25 16:49 neuro sb4 sb4 20:06 20:02 Ativan IVP 1 mg IVP once ordered. sb4 sb4 20:18 18:25 Dr. Sawant sb4 me1
--- NOTE | 2024-05-19 16:33 | ER ---
Nurse's Notes [facility] Name: Gill Gordon Age: 33 yrs Sex: Female : 1990 Arrival Date: 05/19/2024 Time: 11:59 Bed 24 Private MD: Diagnosis: Other seizures-new onset Presentation: 05/19 12:08 Chief complaint: EMS states: toned out to [employer] school for chest pain. A student was me1 running off and patient sprinted about 50-100 yards and then started having tightness/burning to chest 02/13. Coronavirus screen: Vaccine status: Patient reports receiving the 2nd dose of the covid vaccine. Ebola Screen: No symptoms or risks identified at this time. Initial Sepsis Screen: Does the patient meet any 2 criteria? No. Patient's initial sepsis screen is negative. Does the patient have a suspected source of infection? No. Patient's initial sepsis screen is negative. Risk Assessment: Do you want to hurt yourself or someone else? Patient reports no desire to harm self or others. Onset of symptoms was May 19, 2024 at 11:00. 12:08 Method Of Arrival: EMS: [facility] ct1 12:08 Acuity: ÁNGELA 3 me1 Triage Assessment: 12:11 General: Appears uncomfortable, well groomed, well developed, well nourished, Behavior me1 is calm, cooperative, appropriate for age, Reports chest pain after running 50-100 yards after a student. Pain: Complains of pain in chest Pain does not radiate. Pain currently is 10 out of 10 on a pain scale. Quality of pain is described as burning, tight Pain began suddenly, Is continuous. EENT: No signs and/or symptoms were reported regarding the EENT system. Neuro: Level of Consciousness is awake, alert, obeys commands, Oriented to person, place, time, situation, Appropriate for age. Cardiovascular: Reports chest pain, shortness of breath, Patient's skin is warm and dry. Respiratory: Airway is patent Trachea midline Respiratory effort is even, unlabored, Respiratory pattern is regular, symmetrical. GI: No signs and/or symptoms were reported involving the gastrointestinal system. : No signs and/or symptoms were reported regarding the genitourinary system. Derm: Skin is intact, is healthy with good turgor, Skin is pink, warm \T\ dry. Musculoskeletal: No signs and/or symptoms reported regarding the musculoskeletal system. 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 - Infectious Disease History:: Denies. - Social history:: Smoking status: Patient denies any tobacco usage or history of. Screenin:15 [facility] ED Fall Risk Assessment (Adult) History of falling in the last 3 months, me1 including since admission No falls in past 3 months (0 pts) Confusion or Disorientation No (0 pts) Intoxicated or Sedated No (0 pts) Impaired Gait No (0 pts) Mobility Assist Device Used No (0 pt) Altered Elimination No (0 pt) Score/Fall Risk Level 0 - 2 = Low Risk Maintained a safe environment, Provided non-skid footwear, Hourly rounding (assess needs \T\ fall precautionary measures) done. Abuse screen: Denies threats or abuse. Nutritional screening: No deficits noted. Tuberculosis screening: No symptoms or risk factors identified. Assessment: 12:15 General: See triage assessment.. me1 13:48 Reassessment: Patient has been incontinent of urine x2 since arrival. Pericare done, me1 sheets and gown changed and purewick applied at this time. VERONIQUE Floyd informed. Pain: Complains of pain in chest Pain currently is 5 out of 10 on a pain scale. 19:19 Reassessment: Called to give report. No answer. me1 19:47 Reassessment: nurse to nurse report given to BREA Starkey. 1 20:00 Reassessment:. me1 20:15 General: Patient seizing, rec'd order for ativan, seizing stopped. EMS at bedside for ct1 transfer to [facility]. at bedside. Vital Signs: 12:08 BP 130 / 91; Pulse 88; Resp 16; Temp 97.4; Pulse Ox 100% ; Weight 70.31 kg; Height 4 me1 ft. 11 in. ; Pain 10/10; 13:00 BP 117 / 72; Pulse 83; Resp 18; Pulse Ox 100% on R/A; me1 14:00 BP 104 / 74; Pulse 91; Resp 17; Pulse Ox 100% on R/A; me1 14:30 BP 117 / 77; Pulse 88; Resp 11; Pulse Ox 100% ; me1 15:16 BP 116 / 80; Pulse 86; Resp 14; Pulse Ox 100% on R/A; me1 16:00 BP 117 / 79; Pulse 96; Resp 11; Pulse Ox 100% ; me1 17:00 BP 110 / 75; Pulse 75; Resp 15; Pulse Ox 100% ; me1 18:00 BP 112 / 78; Pulse 82; Resp 15; Pulse Ox 100% ; me1 19:00 BP 112 / 84; Pulse 81; Resp 12; Pulse Ox 100% on R/A; me1 19:30 BP 106 / 79; Pulse 85; Resp 14; Pulse Ox 100% on R/A; me1 20:16 BP 118 / 79; Pulse 83; Resp 17; Temp 98.3; Pulse Ox 100% on R/A; me1 12:08 Body Mass Index 31.31 (70.31 kg, 149.86 cm) me1 12:08 Pain Scale: Adult ct1 ED Course: 12:03 Patient arrived in ED. me1 12:04 Lou Natarajan PA-C is PHCP. sb4 12:04 Alex Jurado MD is Attending Physician. sb4 12:11 Triage completed. me1 12:11 Arm band placed on Patient placed in an exam room. me1 12:15 Patient has correct armband on for positive identification. Bed in low position. Call [facility] light in reach. Side rails up X2. Provided Education on: POC. Verbalized understanding.. Client placed on continuous cardiac and pulse oximetry monitoring. NIBP monitoring applied. bulk sugar handler on. Pulse ox on. NIBP on. 12:15 No provider procedures requiring assistance completed. Patient maintains SpO2 me1 saturation greater than 95% on room air. 12:40 Denise Dunn, RN is Primary Nurse. me1 12:43 XRAY Chest (1 view) In Process Unspecified. EDMS 12:48 Test, Serum Sent. me1 12:48 Basic Metabolic Panel Sent. me1 12:48 CBC with Diff Sent. me1 12:48 LFT's Sent. me1 12:48 Magnesium Sent. me1 12:48 NT PRO-BNP Sent. me1 12:48 PT-INR Sent. me1 12:48 Troponin HS Sent. me1 12:48 Initial lab(s) drawn, by me, sent to lab. Inserted saline lock: 22 gauge in right me1 antecubital area, using aseptic technique. 15:18 Head Brain Wo Cont In Process Unspecified. EDMS 16:36 initiated transfer to [facility]. bd 16:40 pt denied due to no capacity at this time Per Randa. bd 16:42 Lactate w/ 2H reflex if indic. Sent. me1 16:42 CK Sent. me1 16:53 initiated transfer to [facility]. bd 18:55 pt accepted in transfer to [facility] rm [address] Francheska Sawant admin approval given bd by Edilia Hunt RN. 20:17 Patient transferred, IV remains in place. me1 Administered Medications: 12:58 Drug: DuoNeb Nebulize (3:1) (2.5 mg - 0.5 mg) 3 ml Nebulizer once Route: Nebulizer; [facility] 13:15 Follow up: Response: No adverse reaction; Wheezing diminished me1 13:39 Drug: Potassium PO Effervescent Tablet 50 mEq PO once; dissolve in 4 ounces of water or ct1 juice Route: PO; 14:44 Follow up: Response: No adverse reaction me1 14:52 Drug: Diazepam IVP 5 mg IVP once; pre MRI Route: IVP; Site: right antecubital; ct1 15:13 Follow up: Response: No adverse reaction; Anxiety decreased ct1 15:25 Drug: Keppra IV 1000 mg IV at calculated rate once Route: IV; Rate: calculated rate; ct1 Site: right antecubital; 15:34 Follow up: Response: No adverse reaction; IV Status: Completed infusion; IV Intake: me1 100ml 16:26 Drug: NS 0.9% IV 1000 ml IV at 1 bolus Per protocol; to be given as a bolus over 60 me1 minutes Route: IV; Rate: 1 bolus; Site: right antecubital; 18:28 Follow up: Response: No adverse reaction; IV Status: Completed infusion; IV Intake: me1 1000ml 18:34 Drug: fentaNYL (PF) IVP 50 mcg IVP once Route: IVP; Site: right antecubital; me1 19:01 Follow up: Response: No adverse reaction; Pain is decreased me1 20:01 Drug: Ativan IVP 2 mg IVP once Route: IVP; Site: right antecubital; me1 20:07 Follow up: Response: No adverse reaction; Other; Other: seizure stopped me1 20:06 CANCELLED (Physician Discretion): ativan1 mg IVP once sb4 Medication: 12:15 VIS not applicable for this client. me1 Intake: 15:34 IV: 100ml; Total: 100ml. me1 18:28 IV: 1000ml; Total: 1100ml. me1 Outcome: 16:32 ER care complete, transfer ordered by . sb4 20:17 Transferred by ground EMS to [facility], X-rays sent w/ patient. me1 20:17 Condition: stable 20:17 Instructed on the need for transfer, 20:18 Patient left the ED. me1 Signatures: Dispatcher [employer] EDMS Marce Solis Heidy, RN RN ha1 Lou Natarajan, PA-C PA-C sb4 Denise Dunn RN RN me1 Corrections: (The following items were deleted from the chart) 18:28 17:14 BP 110 / 75; Pulse 75bpm; Resp 15bpm; Pulse Ox 100%; me1 me1
[2024-05-19] MEDS ORDERED: FENTANYL CITR 100 MCG/2 ML ONE (18:31)
[2024-05-19] MEDS ORDERED: LORazepam 2 MG/ML VIAL ONE (20:04)
[2024-05-20 17:05] VITALS: BP 118/79; TEMP 98.3; O2SAT 100
--- NOTE | 2024-05-22 12:04 | EKG ---
Test Date: 2024-05-19 Test Time: 12:50:43 Dial Equipment Engineer: KALEY MEASUREMENT RESULTS: Intervals: Rate: 74 VT: 146 QRSD: 78 QT: 376 QTc: 417 [place]: P: 39 VT: 146 QRS: 8 T: 21 INTERPRETIVE STATEMENTS: Normal sinus rhythm Normal ECG Compared to ECG 01/05/2023 18:38:26 No significant changes Electronically Signed On 05-22-24 12:00:51 HOT PACKER by Xiang Nails
== END 2024-05-19 20:18 | disposition short-term general hospital (02) ==
LOC: ER 11:59
DX: R56.9 Unspecified convulsions (principal); R07.9 Chest pain, unspecified
CPT/HCPCS: 96361; 93005; 85025; 80048; 36415; 83735; 82550; 84703; 85610; 80076; 83605; 84484; 83880; 70450; 71045; 96375; 96374; 99285; J1953; J7613; J7644; J3360; J3010; J7030

== ENCOUNTER 2024-05-22 15:45 | Inpatient (IN) | payer OTHER ==
[2024-05-22 16:23] LABS: Absolute Lymphocytes (CBC) 2.7 K/uL (0.7-4.9); Absolute Monocytes 0.4 K/uL (0.1-1.3); Absolute Neutrophil 2.4 K/uL (1.8-8.0); Basophils % 0.8 % (0-1.3); Eosinophils % 0.5 % (0-4.4); Hematocrit 36.1 % (36.0-45.0); MCH 31.9 pg (27.0-35.0); MCHC 33.2 g/dL (32.0-36.0); MCV 96.1 fL (80-100); MPV 8.2 fL (7.6-11.3); Monocytes % 7.6 % (3.3-12.3); Neutrophils % 43.1 % (41.7-73.7); Platelets 193 thou/uL (152-406); RBC Red Blood Cell Count 3.76 M/uL (3.86-4.86); Red Cell Distribution Width 13.1 % (12.1-15.2)
[2024-05-22] MEDS: levETIRAcetam 1,000 MG in NA CHLORIDE 0.9% 100 ML IV ONE (16:30)
[2024-05-22 16:49] LABS: ALT/SGPT 15 U/L (13-56); Albumin 3.3 g/dL (3.4-5.0); Albumin/Globulin Ratio 0.9 (1.1-1.8); Alkaline Phosphatase 45 U/L (45-117); Anion Gap 8.6 mEq/L (5.0-15.0); BUN Blood Urea Nitrogen 13 mg/dL (7-18); Bicarbonate 25 mEq/L (21-32); Bilirubin Total 0.3 mg/dL (0.2-1.0); Globulin 3.6 g/dL (2.3-3.5); Glomerular Filtration Rate 106 ml/min (=/>90); Glucose Level 89 mg/dL (74-106); Magnesium 1.9 mg/dL (1.6-2.4); Potassium 3.6 mEq/L (3.5-5.1); Protein, Total 6.9 g/dL (6.4-8.2); Sodium Level 140 mEq/L (136-145)
[2024-05-22 16:50] LABS: AST/SGOT < 10 U/L (15-37); Bilirubin Direct < 0.2 mg/dL (0-0.2); Bilirubin Indirect, Calculated 0.1 mg/dL (0.2-0.8)
--- NOTE | 2024-05-22 17:31 | RAD REPORT ---
EXAMINATION: CT HEAD WITHOUT CONTRAST CLINICAL INDICATION: Female, 33 years old.recurrent seizure TECHNIQUE: Axial CT images from the skull base to the vertex without intravenous contrast. Coronal an d sagittal reformatted images were created from the data set. One or more of the following dose reduction techniques were used: Automated exposure control, adjustment of the mA and/or kV according to patient size, and/or iterative reconstruction. Unless otherwise specified, incidental findings do not require dedicated imaging follow-up. [id number]. COMPARISON: 05/19/2024 FINDINGS: INTRACRANIAL: No acute intracranial hemorrhage. No hydrocephalus. No mass effect or midline shift. No significant white matter disease.Empty sella, typically normal variant. VASCULATURE: No visualized abnormalities in the arteries or dural venous sinuses. SCALP/SKULL: No significant soft tissue or osseous abnormalities. SINUSES: The visualized paranasal sinuses and mastoid air cells are predominantly clear. IMPRESSION: No acute intracranial abnormality.
--- NOTE | 2024-05-22 17:44 | ER ---
Nurse's Notes [facility] Name: Gill Gordon Age: 33 yrs Sex: Female : 1990 Arrival Date: 05/22/2024 Time: 15:45 Bed 3 Private MD: Diagnosis: Breakthrough seizure, recurrent seizure, headache Presentation: 05/22 15:54 Chief complaint: Patient states: two seizures within the last 20 minutes. Pt discharged ss from [facility] within the last 24 hours for new onset seizures. Prescribed Keppra, but the prescription was just filled at the pharmacy. Coronavirus screen: Client denies travel out of the [place] in the last 14 days. Ebola Screen: Patient denies exposure to infectious person. Patient denies travel to an Ebola-affected area in the 21 days before illness onset. Initial Sepsis Screen: Does the patient meet any 2 criteria? No. Patient's initial sepsis screen is negative. Does the patient have a suspected source of infection? No. Patient's initial sepsis screen is negative. Risk Assessment: Do you want to hurt yourself or someone else? Patient reports no desire to harm self or others. Onset of symptoms was May 22, 2024. 15:54 Method Of Arrival: EMS: [facility] 15:54 Acuity: ÁNGELA 3 ss Historical: - Allergies: 15:57 Amoxicillin; ss 15:57 PENICILLINS; ss - PMHx: 15:57 Migraine; PCOS; ss 15:58 seizures; ss - PSHx: 15:57 gastric sleeve; Total abdominal hysterectomy; ss - Infectious Disease History:: Denies. - Social history:: Smoking status: Patient denies any tobacco usage or history of. Screenin:00 [facility] ED Fall Risk Assessment (Adult) History of falling in the last 3 months, rs5 including since admission No falls in past 3 months (0 pts) Confusion or Disorientation No (0 pts) Intoxicated or Sedated No (0 pts) Impaired Gait No (0 pts) Mobility Assist Device Used No (0 pt) Altered Elimination No (0 pt) Score/Fall Risk Level 0 - 2 = Low Risk Oriented to surroundings, Maintained a safe environment. 16:36 Abuse screen: Denies threats or abuse. Denies injuries from another. Nutritional kj2 screening: No deficits noted. Tuberculosis screening: Never had TB. Assessment: 15:54 General: Appears in no apparent distress. comfortable, Behavior is calm, cooperative. ss Pain: Complains of pain in head in entire Pain currently is 7 out of 10 on a pain scale. Quality of pain is described as aching, Pain began after seizure Is continuous. Neuro: Level of Consciousness is awake, alert, obeys commands, Oriented to person, place, time, situation, Merchandising Director are equal bilaterally Moves all extremities. Full function Speech is normal, Facial symmetry appears normal, Pupils are PERRLA, Denies blurred vision dizziness. Respiratory: Airway is patent Respiratory effort is even, unlabored, Respiratory pattern is regular, symmetrical. GI: Patient currently denies diarrhea, nausea, vomiting. EENT: Oral mucosa is moist. Derm: Skin is intact, is healthy with good turgor, Skin is dry, Skin is pink, warm \T\ dry. normal. 16:15 Reassessment: pt cleansed of urinary incontinence. Linens changed. ss 16:16 Reassessment: faxed order for Keppra 1000 mg IV. Spoke with pharmacist Germain. ss 17:34 Reassessment: Patient and/or family updated on plan of care and expected duration. Pain rs5 level reassessed. Patient is alert, oriented x 3, equal unlabored respirations, skin warm/dry/pink. 18:48 Reassessment: Patient and/or family updated on plan of care and expected duration. Pain rs5 level reassessed. Patient is alert, oriented x 3, equal unlabored respirations, skin warm/dry/pink. Vital Signs: 15:54 BP 91 / 51; Pulse 80; Resp 12; Pulse Ox 100% on R/A; Weight 70.31 kg; Height 4 ft. 11 ss in. ; 17:34 BP 112 / 74; Pulse 77; Resp 17; Pulse Ox 99% ; rs5 18:48 BP 110 / 72; Pulse 70; Resp 17; Pulse Ox 99% ; rs5 15:54 Body Mass Index 31.31 (70.31 kg, 149.86 cm) ss Justin Coma Score: 15:58 Eye Response: spontaneous(4). Motor Response: obeys commands(6). Verbal Response: ss oriented(5). Total: 15. ED Course: 15:52 Patient arrived in ED. sp3 15:52 Desiree Min MD is Attending Physician. sp3 15:57 Triage completed. ss 15:58 Arm band placed on right wrist. ss 16:00 Patient has correct armband on for positive identification. Bed in low position. Call kj2 light in reach. Side rails up X2. Adult w/ patient. Seizure precautions initiated. 16:00 No provider procedures requiring assistance completed. rs5 16:10 Maintain EMS IV. Dressing intact. Good blood return noted. Site clean \T\ dry. Gauge \T\ kj 2 site: 18 gauge in L AC. Flushed with 10 mL NS. 17:12 CT Head Brain wo Cont In Process Unspecified. EDMS 17:43 Raf Jurado MD is Hospitalizing Provider. sp3 Administered Medications: 16:35 Drug: Keppra IV 1000 mg IV at bolus once Route: IV; Rate: bolus; Site: left antecubital;kj2 17:35 Follow up: Response: No adverse reaction; IV Status: Completed infusion; IV Intake: rs5 100ml Medication: 17:34 VIS not applicable for this client. rs5 Intake: 17:35 IV: 100ml; Total: 100ml. rs5 Outcome: 17:44 Decision to Hospitalize by Provider. sp3 20:34 Patient left the ED. jb4 Signatures: Dispatcher [employer] EDMS Ashleigh Paul RN RN ss Den Swain RN RN jb4 Desiree Min MD MD sp3 Edenilson Thompson, RN RN rs5 Lesley Burrows, RN RN kj2 Corrections: (The following items were deleted from the chart) 15:58 15:57 Home Meds: Seizures; [facility] 17:01 15:54 Chief complaint: Patient states: two seizures within the last 20 minutes. Pt ss discharged from [facility] within the past 24 hours for new onset seizures. Prescribed Keppra, but the prescription was just filled at the pharmacy. ss
--- NOTE | 2024-05-22 17:44 | EDPHYS ---
Physician Documentation [facility] Name: Gill Gordon Age: 33 yrs Sex: Female : 1990 Arrival Date: 05/22/2024 Time: 15:45 Bed 3 Private MD: ED Physician Desiree Min HPI: 05/22 17:38 This 33 yrs old Black Female presents to ER via EMS with complaints of Seizure. sp3 17:38 33-year-old female with history of PCOS, migraines and new seizures over the last few sp3 weeks. Patient initially had her first seizure last week and was evaluated here and transferred to [facility] where they did a full evaluation including EEG. Patient states that they attempted MRI and is not sure whether it was completed properly or not if she had a seizure while getting contrast dye. She was released there on Keppra but has not been able to fill it due to the pharmacy not having it and they had to switch it to [facility]. So she has not had any Keppra today. Last dose was yesterday morning. The discharge dose from the hospital at [facility] was 1 g twice daily which I believe is quite high. Today patient had 2 seizures [id number] with subsequent postictal period which EMS confirmed. She has not had any seizure activity for them or in the ED. She denies any trauma, neck pain, chest pain, shortness of breath, body pain, or any other signs or symptoms on ROS at this time. She only complains of mild headache.. Historical: - Allergies: 15:57 Amoxicillin; ss 15:57 PENICILLINS; ss - PMHx: 15:57 Migraine; PCOS; ss 15:58 seizures; ss - PSHx: 15:57 gastric sleeve; Total abdominal hysterectomy; ss - Infectious Disease History:: Denies. - Social history:: Smoking status: Patient denies any tobacco usage or history of. ROS: 17:39 Constitutional: Negative for fever, chills, and weight loss, Eyes: Negative for injury, sp3 pain, redness, and discharge, Neck: Negative for injury, pain, and swelling, Cardiovascular: Negative for chest pain, palpitations, and edema, Respiratory: Negative for shortness of breath, cough, wheezing, and pleuritic chest pain, Abdomen/GI: Negative for abdominal pain, nausea, vomiting, diarrhea, and constipation, Back: Negative for injury and pain, MS/Extremity: Negative for injury and deformity, Skin: Negative for injury, rash, and discoloration, Psych: Negative for depression, anxiety, suicide ideation, homicidal ideation, and hallucinations, Allergy/Immunology: Negative for hives, rash, and allergies, Endocrine: Negative for neck swelling, polydipsia, polyuria, polyphagia, and marked weight changes, Hematologic/Lymphatic: Negative for swollen nodes, abnormal bleeding, and unusual bruising, 17:39 All other systems are negative, Exam: 17:40 Constitutional: This is a well developed, well nourished patient who is awake, alert, sp3 and in no acute distress. Head/Face: Normocephalic, atraumatic. Eyes: Pupils equal round and reactive to light, extra-ocular motions intact. Lids and lashes normal. Conjunctiva and sclera are non-icteric and not injected. Cornea within normal limits. Periorbital areas with no swelling, redness, or edema. ENT: Nares patent. No nasal discharge, no septal abnormalities noted. External auditory canals are clear. Oropharynx with no redness, swelling, or masses, exudates, or evidence of obstruction, uvula midline. Mucous membranes moist. Neck: Trachea midline, no thyromegaly or masses palpated, and no cervical lymphadenopathy. Supple, full range of motion without nuchal rigidity, or vertebral point tenderness. No Meningismus. Chest/axilla: Normal chest wall appearance and motion. Nontender with no deformity. No lesions are appreciated. Cardiovascular: Regular rate and rhythm with a normal S1 and S2. No gallops, murmurs, or rubs. Normal PMI, no JVD. No pulse deficits. Respiratory: Lungs have equal breath sounds bilaterally, clear to auscultation and percussion. No rales, rhonchi or wheezes noted. No increased work of breathing, no retractions or nasal flaring. Abdomen/GI: Soft, non-tender, with normal bowel sounds. No distension or tympany. No guarding or rebound. No evidence of tenderness throughout. Back: No spinal tenderness. No costovertebral tenderness. Full range of motion. Skin: Warm, dry with normal turgor. Normal color with no rashes, no lesions, and no evidence of cellulitis. MS/ Extremity: Pulses equal, no cyanosis. Neurovascular intact. Full, normal range of motion. Neuro: Awake and alert, GCS 15, oriented to person, place, time, and situation. Cranial nerves II-XII grossly intact. Motor strength 5/5 in all extremities. Sensory grossly intact. Cerebellar exam normal. Normal gait. Psych: Awake, alert, with orientation to person, place and time. Behavior, mood, and affect are within normal limits. 17:40 Constitutional: The patient appears Initially patient was postictal but has now returned to baseline and is alert and oriented x 4. Vital Signs: 15:54 BP 91 / 51; Pulse 80; Resp 12; Pulse Ox 100% on R/A; Weight 70.31 kg; Height 4 ft. 11 ss in. ; 17:34 BP 112 / 74; Pulse 77; Resp 17; Pulse Ox 99% ; rs5 18:48 BP 110 / 72; Pulse 70; Resp 17; Pulse Ox 99% ; rs5 15:54 Body Mass Index 31.31 (70.31 kg, 149.86 cm) ss Justin Coma Score: 15:58 Eye Response: spontaneous(4). Motor Response: obeys commands(6). Verbal Response: ss oriented(5). Total: 15. MDM: 15:59 Medical Screening Exam initiated sp3 17:40 Data reviewed: vital signs, nurses notes, old medical records, lab test result(s), sp3 radiologic studies. ED course: 33-year-old female with recurrent seizure, missed dose of medication that were new. Differential diagnosis includes breakthrough seizure, seizure due to missed medication, other intracranial or metabolic process. CT scan of the head is negative and labs are normal. I discussed the case with Dr. Sequeira who agrees the patient needs to be observed for 23 hours and I have already given 1 g IV Keppra. Dosing this has been sorted out in the morning with close follow-up. He said that he will see patient in consultation.. 05/22 15:55 Order name: Basic Metabolic Panel; Complete Time: 17:05 sp3 05/22 15:55 Order name: CBC with Diff; Complete Time: 16:43 sp3 05/22 15:55 Order name: Hepatic Function; Complete Time: 17:05 sp3 05/22 15:55 Order name: Magnesium; Complete Time: 17:05 sp3 05/22 15:55 Order name: Urinalysis w/ reflexes sp3 05/22 15:55 Order name: CT Head Brain wo Cont; Complete Time: 17:37 sp3 05/22 15:55 Order name: EKG; Complete Time: 15:55 sp3 05/22 15:55 Order name: Cardiac monitoring; Complete Time: 16:16 sp3 05/22 15:55 Order name: IV Saline Lock; Complete Time: 16:16 sp3 05/22 15:55 Order name: Labs collected and sent; Complete Time: 16:16 sp3 05/22 15:55 Order name: NPO; Complete Time: 16:16 sp3 05/22 15:55 Order name: O2 Per Protocol; Complete Time: 16:16 sp3 05/22 15:55 Order name: O2 Sat Monitoring; Complete Time: 16:16 sp3 Administered Medications: 16:35 Drug: Keppra IV 1000 mg IV at bolus once Route: IV; Rate: bolus; Site: left antecubital;kj2 17:35 Follow up: Response: No adverse reaction; IV Status: Completed infusion; IV Intake: rs5 100ml Disposition Summary: 05/22/24 17:44 Hospitalization Ordered Notes: Hospitalization Status: Observation sp3 Provider: Raf Jurado sp3 Location: Telemetry/MedSurg (observation) sp3 Condition: Stable sp3 Problem: an acute exacerbation sp3 Symptoms: have worsened sp3 Bed/Room Type: Standard sp3 Room Assignment: [facility](05/22/24 17:51) ja1 Diagnosis - Breakthrough seizure, recurrent seizure, headache sp3 Forms: - Medication Reconciliation Form sp3 - SBAR form sp3 - Leadership Thank You Letter sp3 Signatures: Dispatcher [employer] Marce Castaneda Shelby, RN RN ss Markell Brown RN RN ja1 Desiree Min MD MD sp3 Lesley Burrows RN RN kj2 Edenilson Thompson RN rs5 Corrections: (The following items were deleted from the chart) 15:58 15:57 Home Meds: Seizures; ss ss 17:51 17:44 sp3 bd 17:51 17:51 225 ja1
--- NOTE | 2024-05-22 17:51 | P.HP ---
Certification for Inpatient Patient admitted to: Observation With expected LOS: <2 Midnights Patient will require the following post-hospital care: None Practitioner: I am a practitioner with admitting privileges, knowledge of patient current condition, hospital course, and medical plan of care. Services: Services provided to patient in accordance with Admission requirements found in Title 42 Section 412.3 of the Code of Federal Regulations Patient History Date of Service: 05/22/24 Reason for admission: Seizures History of Present Illness: 33-year-old female with history of migraines, constipation, chronic back pain with recent diagnosis of psychogenic nonepileptic seizures presents emergency department with chief complaint of seizure. She was recently hospitalized from 05/19 to 05/21 at [facility] for seizures. During the hospitalization she underwent continuous video EEG monitoring and did have an event which was deemed to be nonepileptic in nature. She also had a CT scan of her head, MRI and an echo which were negative for any acute findings. Neurology at their facility recommended starting Keppra 1000 mg twice daily. She was discharged on 05/21 and was unable to corn picker her medications until this evening, she missed 2 doses of Keppra at home. She is also prescribed tramadol for chronic back pain but she denies taking this since discharge, she was counseled to discontinue this medication as it lowers the seizure threshold. Family reports that she had 2 witnessed episodes at home with seizure-like activity primarily affecting the left side of her body and her eyes rolled back in her head the first episode lasted around 3 minutes and then 2 minutes later had another episode that lasted about 5 minutes. These were similar to previous. Labs and CT head in the ER unremarkable, will admit under observation and discuss further with neurology. Allergies No Known Allergies Allergy (Unverified 09/26/11 19:49) - Past Medical/Surgical History -: Migraines -: Nonepileptic seizures - Social History Alcohol use: No CD- Drugs: No Caffeine use: Yes Place of Residence: Home Review of Systems 10-point ROS is otherwise unremarkable Neurological: Seizures Physical Examination - Physical Exam General: Alert, In no apparent distress, Oriented x3 HEENT: Atraumatic, PERRLA, Mucous membr. moist/pink, EOMI, Sclerae nonicteric Neck: Supple, 2+ carotid pulse no bruit, No LAD, Without JVD or thyroid abnormality Respiratory: Clear to auscultation bilaterally, Normal air movement Cardiovascular: Regular rate/rhythm, Normal S1 S2 Gastrointestinal: Normal bowel sounds, No tenderness Musculoskeletal: No tenderness Integumentary: No rashes Neurological: Normal speech, Normal strength at 5/5 x4 extr - Studies Laboratory Data (last 24 hrs) 05/22/24 05/22/24 16:04 16:04 WBC 5.50 Hgb 12.0 Hct 36.1 Plt Count 193 Sodium 140 Potassium 3.6 BUN 13 Creatinine 0.75 Glucose 89 Magnesium 1.9 Total Bilirubin 0.3 AST < 10 L ALT 15 Alkaline Phosphatase 45 Assessment and Plan - Plan Assessment: Seizure disorder-nonepileptiform/PNES Chronic back pain Plan: Seizure disorder-nonepileptiform/PNES Recent hospitalization 05/19 through 05/21 at [facility] Had continuous video EEG which captured an event-nonepileptiform/PNES also had CT head/MRI head, echo which were negative for acute findings She was started on Keppra 1000 mg twice daily, was unable to pick it up on first day of discharge Missed 2 doses, had 2 seizures at home today witnessed by family primarily affecting left side of her body Was loaded with Keppra in ED, also loaded during her hospitalization at [facility] Continue Keppra 1000 g twice daily, neurology consultation placed Discontinue tramadol Chronic back pain Discontinue tramadol DVT PPX: Lovenox Code status: Full Discharge Plan: Home Plan to discharge in: 24 Hours - Advance Directives Does patient have a Living Will: No Does patient have a Durable POA for Healthcare: No - Code Status/Comfort Care Code Status Assessed: Yes (Full code) Critical Care: No Time Spent Managing Pts Care (In Minutes): 62
[2024-05-22] MEDS: LORazepam 2 MG/ML VIAL ONE (21:06)
[2024-05-22] MEDS: NA CHLORIDE 0.9% 1,000 ML IV SCH (21:16)
[2024-05-22] MEDS: LORazepam 2 MG/ML VIAL IV PRN (21:17)
[2024-05-22] MEDS: ACETAMINOPHEN 325 MG TABLET PO PRN (21:24)
[2024-05-23 03:14] VITALS: O2SAT 100; BMI 29.9
[2024-05-23] MEDS: KETOROLAC 30 MG/ML INJ IV ONE (04:26)
[2024-05-23 05:14] LABS: Absolute Lymphocytes (CBC) 2.2 K/uL (0.7-4.9); Absolute Monocytes 0.4 K/uL (0.1-1.3); Basophils % 0.5 % (0-1.3); Eosinophils % 0.8 % (0-4.4); Hematocrit 34.3 % (36.0-45.0); Hemoglobin 11.5 g/dL (12.0-15.0); Lymphocytes % 48.6 % (15.3-44.8); MCH 32.2 pg (27.0-35.0); MCHC 33.6 g/dL (32.0-36.0); MCV 95.9 fL (80-100); Monocytes % 7.6 % (3.3-12.3); Neutrophils % 42.5 % (41.7-73.7); Nucleated Red Blood Cells % 0.1 % (0-0); Platelets 175 thou/uL (152-406); RBC Red Blood Cell Count 3.57 M/uL (3.86-4.86); Red Cell Distribution Width 13.1 % (12.1-15.2)
[2024-05-23 05:45] LABS: Anion Gap 9.8 mEq/L (5.0-15.0); Potassium 3.8 mEq/L (3.5-5.1); Thyroid Stimulating Hormone 1.74 uIU/mL (0.358-3.740)
[2024-05-23] MEDS: FENTANYL CITR 100 MCG/2 ML IV ONE (08:34)
[2024-05-23] MEDS: POTASSIUM CL SA 10 MEQ TAB PO ONE (08:35)
[2024-05-23] MEDS: levETIRAcetam 500 MG TAB PO SCH (08:35)
[2024-05-23] MEDS: ENOXAPARIN 40 MG/0.4 ML SQ SCH (08:36)
[2024-05-23] MEDS: UBRELVY 100 MG PO SCH (09:00)
--- NOTE | 2024-05-23 14:31 | P.PN ---
Date of Service: 05/23/24 Subjective: Had 1 episode of seizure-like activity overnight Family at bedside ROS: 10 point ROS as noted above, otherwise negative Physical exam GEN: Alert, oriented, NAD HEENT: Normal conjunctiva, sclera anicteric CV: Regular rate and rhythm, no edema Pulm: Nonlabored respirations on room air ABD: Soft, nontender, nondistended MSK: No joint tenderness Integumentary: No rashes Neuro: Normal speech, normal affect Vitals reviewed Assessment: Seizure disorder-nonepileptiform/PNES Chronic back pain Plan: Seizure disorder-nonepileptiform/PNES Recent hospitalization 05/19 through 05/21 at [facility] Had continuous video EEG which captured an event-nonepileptiform/PNES also had CT head/MRI head, echo which were negative for acute findings She was started on Keppra 1000 mg twice daily, was unable to pick it up on first day of discharge Missed 2 doses, had 2 seizures at home today witnessed by family primarily affecting left side of her body Was loaded with Keppra in ED, also loaded during her hospitalization at [facility] Continue Keppra 1000 g twice daily, neurology consultation placed Discontinue tramadol Had 1 additional episode of seizure-like activity overnight Stable today, complaints of numbness/tingling/neuropathy in extremities Also with persistent headache Neurology to evaluate this afternoon Chronic back pain Discontinue tramadol DVT PPX: Lovenox Code status: Full Discharge Plan: Home Plan to discharge in: 24 Hours Time Spent Managing Pts Care (In Minutes): 35
[2024-05-23] MEDS: DIVALPROEX DR 250 MG TAB PO SCH (15:54)
--- NOTE | 2024-05-23 19:20 | CON ---
Reason For Consultation: Consultation called because of seizures. History Of Present Illness: Ms. Gordon is a 33-year-old patient, who was seen in clinic for migrain es and syncopal episodes, which have previously been identified as possible seizures. She has had ab out 5 syncopal episodes over several years; however, more recently, she was witnessed by her mother t o have an apparent complex partial seizure with secondary generalization. The event occurred around the . She was sitting in a car with her mom when she suddenly started shaking the left arm, whic h was flexed. Her head turned to the left and extended and eyes rolled around and the leg was extend ed. She slumped out of the chair. That activity continued for about a minute and she was confused f or at least 5 or 10 minutes following that episode. She was seen at [facility] in [place] and wa s admitted and had about a 24-hour or so epilepsy monitoring study where an event was captured and it was identified as a nonepileptic event. Reportedly, a head CT scan, brain MRI, and echocardiogram w ere negative for any acute ischemic hemorrhagic changes. Nevertheless, the Neurology in [place] star bushra IV Keppra and she was discharged home on Keppra 1000 mg twice daily. She was discharged on the 05 11, and received doses before leaving [facility], but was unable to fill the morning dose and sh e had the event prior to coming to the hospital. The patient and her mom report that since that even t she has had a total of about 8 similar episodes, last was earlier this morning. She did receive an other gram of Keppra while in the emergency room and was sent up to the floor with Keppra 1000 mg twi ce daily. She does report some and some tingling in her hands and fingers with the medica tions. The patient was alert, interactive, and had no signs of seizures at the time of my evaluation . She had a CT scan of her head in the emergency room is unremarkable. Laboratory Studies: Showed essentially normal complete blood count with differential. Comprehensive metabolic panel was unremarkable. TSH 1.74. Sodium normal, potassium normal, chloride slightly rita vated 110, calcium 8.5, magnesium 1.9. Liver function studies normal. Urinalysis is pending and uri ne drug screen also pending. I did discuss changes in medication for possible reducing risk of seizu res in addition to potential and non-epileptic seizures. The patient then begin Depakote 250 mg twic e daily with a plan to taper off Keppra. Also, after discharge, she should have a 3-day ambulatory v ideo EEG monitoring study for event characterization. Past Medical History: As noted, migraines and reported syncopal episodes. Allergies: NO KNOWN DRUG ALLERGIES. Family History: Noncontributory. Surgical History: None. Medications At Home: Previously not taking any medications. Review of Systems: Prior to her episode, she had no fevers, chills, nausea, vomiting, myalgias, arthralgias, rash, heada ches, weight change. No psychiatric issues. She does have chronic back pain and migraine as noted. Physical Examination: Vital Signs: Blood pressure is 94/51, pulse 86, respiratory rate 15, temperature 98.5, oxygen satura tion 100%. Weight 148 pounds. Height 4 feet 11. BMI 30.0. General: Ms. Gordon is lying in bed. Mother is at bedside. She is normocephalic, atraumatic. Scl erae are anicteric. Oropharynx pink and moist. Neck: Supple. Chest: Clear. Heart: Regular. Extremities: Show no clubbing, cyanosis, or edema. Neurological: She is alert and oriented to person, place, time, situation. Follows all commands tg ropriately. Cranial nerves 2 through 12 are intact. Motor upper and lower extremity 5/5 proximally and distally. Intact sensation upper and lower extremity. Reflexes 2+ upper and lower extremities, symmetric. Coordination intact. She did go up and ambulate to the bathroom and did feel a little un steady, likely related to the initiation of a high dosage of Keppra. Assessment: Ms. Gordon is a 33-year-old patient with history of migraines and multiple syncopal epi sodes and possible seizures versus pseudoseizures. 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 She is on Keppra, st ill having some events, but the Keppra was just only recently initiated. She does appear to have rodney e effects of excess amounts of Keppra, but she has just started on the medication. Discussion about taking another medication that may reduce the frequency of headaches, which she said actually since she has had severe daily headaches and Ubrelvy, which she has taken in the past did not help v yumiko well. She did have some other medication likely Demerol that made a difference with the headache . Plan: 1.We will have Depakote 250 mg twice daily. 2.We will use Ubrelvy 100 mg to abort headaches. 3.For now, continue Keppra 1000 mg twice daily. 4.Folic acid 1 mg daily. 5.She may keep a log/record diary of any possible seizures. 6.She may be discharged in the morning and will have scheduled an ambulatory video-EEG monitoring [facility] over 3 days to help characterize events and to determine if they are interictal activity that may help point to a diagnosis of epilepsy and the specific type and location of onset. The patient was in agreement with this. This was discussed with her and she will likely be discharged in the morning again on the regimen as noted. MARJORIE/BRINA Voice ID: [id number] Report ID: [id number]
[2024-05-23] MEDS: MORPHINE 2 MG/ML SYR IV PRN (21:14)
[2024-05-23 21:53] LABS: Urine Bacteria <20 /HPF (<20); Urine Bilirubin NEGATIVE (Negative); Urine Blood Trace (Negative); Urine Clarity Extremely Turbid (Clear); Urine Color Light-Yellow (Yellow); Urine Crystals Unidentified Few /HPF (None Seen); Urine Culture Reflex Order NOT NEEDED; Urine Glucose NEGATIVE (Negative); Urine Ketones NEGATIVE (Negative); Urine Microscopic Reflex YN ORDER UMIC; Urine Mucus Slight /HPF (None Seen); Urine Nitrite NEGATIVE (Negative); Urine Protein TRACE (Negative); Urine Urobilinogen 1+ (Normal); Urine WBC Clump Rare /HPF (None Seen); Urine Yeast (Budding) Trace /HPF (None Seen)
[2024-05-23 22:01] LABS: Barbiturates NEGATIVE (NEGATIVE); Benzodiazepines POSITIVE (NEGATIVE); Cocaine NEGATIVE (NEGATIVE); METHAMPHETAM NEGATIVE (NEGATIVE); Methadone NEGATIVE (NEGATIVE); Opiates NEGATIVE (NEGATIVE); Phencyclidine NEGATIVE (NEGATIVE); THC Cannibis NEGATIVE (NEGATIVE)
[2024-05-24 06:44] LABS: Absolute Lymphocytes (CBC) 2.6 K/uL (0.7-4.9); Absolute Monocytes 0.3 K/uL (0.1-1.3); Basophils % 0.5 % (0-1.3); Hematocrit 32.1 % (36.0-45.0); Hemoglobin 10.8 g/dL (12.0-15.0); Lymphocytes % 66.2 % (15.3-44.8); MCH 32.4 pg (27.0-35.0); MCHC 33.7 g/dL (32.0-36.0); MCV 96.4 fL (80-100); MPV 8.1 fL (7.6-11.3); Monocytes % 6.6 % (3.3-12.3); Neutrophils % 25.7 % (41.7-73.7); Nucleated Red Blood Cells % 0.3 % (0-0); Platelets 175 thou/uL (152-406); RBC Red Blood Cell Count 3.33 M/uL (3.86-4.86); Red Cell Distribution Width 12.9 % (12.1-15.2)
[2024-05-24 10:01] LABS: Atypical Lymphocytes 2 %; Blood Morphology Comment NOT SEEN (NOT SEEN); Differential Total Cells Count 100; Lymphocytes 79 % (15-42); Monocytes 2 % (0-10); Platelet Estimate ADEQ; Platelets Clumped FEW; Segmented Neutrophils 19 % (40-80)
--- NOTE | 2024-05-24 10:08 | P.DS ---
Admission Date: 05/23/24 Discharge Date: 05/24/24 Disposition: ROUTINE DISCHARGE Discharge Condition: GOOD Reason for Admission: Seizures Consultations: Neurology-Dr. Sequeira Brief History of Present Illness: 33-year-old female with history of migraines, constipation, chronic back pain with recent diagnosis of psychogenic nonepileptic seizures presents emergency department with chief complaint of seizure. She was recently hospitalized from 05/19 to 05/[address] [facility] for seizures. During the hospitalization she underwent continuous video EEG monitoring and did have an event which was deemed to be nonepileptic in nature. She also had a CT scan of her head, MRI and an echo which were negative for any acute findings. Neurology at their facility recommended starting Keppra 1000 mg twice daily. She was discharged on 05/21 and was unable to pickle pumper her medications until this evening, she missed 2 doses of Keppra at home. She is also prescribed tramadol for chronic back pain but she denies taking this since discharge, she was counseled to discontinue this medication as it lowers the seizure threshold. Family reports that she had 2 witnessed episodes at home with seizure-like activity primarily affecting the left side of her body and her eyes rolled back in her head the first episode lasted around 3 minutes and then 2 minutes later had another episode that lasted about 5 minutes. These were similar to previous. Labs and CT head in the ER unremarkable, will admit under observation and discuss further with neurology. Hospital Course: Assessment: Seizure disorder-nonepileptiform/PNES Chronic back pain 33-year-old female with history of migraines, constipation, chronic back pain with recent diagnosis of psychogenic nonepileptic seizures presents emergency department with chief complaint of seizure. She was recently hospitalized from 05/19 to 05/[address] [facility] for seizures. During the hospitalization she underwent continuous video EEG monitoring and did have an event which was deemed to be nonepileptic in nature. She also had a CT scan of her head, MRI and an echo which were negative for any acute findings. Neurology at their facility recommended starting Keppra 1000 mg twice daily. She was discharged on 05/21 and was unable to pickle pumper her medications until this evening, she missed 2 doses of Keppra at home. She is also prescribed tramadol for chronic back pain but she denies taking this since discharge, she was counseled to discontinue this medication as it lowers the seizure threshold. Family reports that she had 2 witnessed episodes at home with seizure-like activity primarily affecting the left side of her body and her eyes rolled back in her head the first episode lasted around 3 minutes and then 2 minutes later had another episode that lasted about 5 minutes. These were similar to previous. Labs and CT head in the ER unremarkable, patient was admitted to the hospital fo r further evaluation of ongoing seizures. During her hospitalization she had another episode overnight of seizure. She was seen by neurology who recommended addition of Depakote 250 mg by mouth twice daily and follow-up in 7 to 10 days in his clinic. She is to continue the Keppra 1000 mg twice daily, neurology plans to slowly increase Depakote outpatient and decrease Keppra dose. Patient counseled to keep a log of seizure-like activity and follow-up closely with neurology. No driving until cleared by neurology. Neurology also plans on setting up further outpatient prolonged EEG testing. Vital Signs/Physical Exam: Temp Pulse Resp BP Pulse Ox 98.0 F 74 15 114/70 98 05/24/24 08:00 05/24/24 09:33 05/24/24 08:00 05/24/24 09:33 05/24/24 08:00 General: Alert, In no apparent distress, Oriented x3 HEENT: Atraumatic, PERRLA Neck: Supple, JVD not distended Respiratory: Clear to auscultation bilaterally, Normal air movement Cardiovascular: Regular rate/rhythm, Normal S1 S2 Gastrointestinal: Normal bowel sounds, No tenderness Musculoskeletal: No tenderness Integumentary: No rashes Neurological: Normal speech, Normal tone, Normal affect Laboratory Data at Discharge: WBC 3.90 thou/uL (4.3-10.9) L 05/24/24 05:53 Hgb 10.8 g/dL (12.0-15.0) L 05/24/24 05:53 Hct 32.1 % (36.0-45.0) L 05/24/24 05:53 Plt Count 175 thou/uL (152-406) 05/24/24 05:53 Sodium 141 mEq/L (136-145) 05/24/24 05:53 Potassium 4.0 mEq/L (3.5-5.1) 05/24/24 05:53 BUN 16 mg/dL (7-18) 05/24/24 05:53 Creatinine 0.72 mg/dL (0.55-1.02) 05/24/24 05:53 Glucose 89 mg/dL (74-106) 05/24/24 05:53 Magnesium 1.9 mg/dL (1.6-2.4) 05/22/24 16:04 Total Bilirubin 0.3 mg/dL (0.2-1.0) 05/22/24 16:04 AST < 10 U/L (15-37) L 05/22/24 16:04 ALT 15 U/L (13-56) 05/22/24 16:04 Alkaline Phosphatase 45 U/L (45-117) 05/22/24 16:04 Home Medications: Ubrogepant [Ubrelvy] 100 mg PO BIDP PRN 05/22/24 levETIRAcetam [Keppra*] 1,000 mg PO BID 05/22/24 Divalproex Sodium [Depakote] 250 mg PO BID #120 tab 05/24/24 New Medications: Divalproex Sodium [Depakote] 250 mg PO BID #120 tab Physician Discharge Instructions: 33-year-old female with history of migraines, constipation, chronic back pain with recent diagnosis of psychogenic nonepileptic seizures presents emergency department with chief complaint of seizure. She was recently hospitalized from 05/19 to 05/[address] [facility] for seizures. During the hospitalization she underwent continuous video EEG monitoring and did have an event which was deemed to be nonepileptic in nature. She also had a CT scan of her head, MRI and an echo which were negative for any acute findings. Neurology at their facility recommended starting Keppra 1000 mg twice daily. She was discharged on 05/21 and was unable to pickle pumper her medications until this evening, she missed 2 doses of Keppra at home. She is also prescribed tramadol for chronic back pain but she denies taking this since discharge, she was counseled to discontinue this medication as it lowers the seizure threshold. Family reports that she had 2 witnessed episodes at home with seizure-like activity primarily affecting the left side of her body and her eyes rolled back in her head the first episode lasted around 3 minutes and then 2 minutes later had another episode that lasted about 5 minutes. These were similar to previous. Labs and CT head in the ER unremarkable, patient was admitted to the hospital for further evaluation of ongoing seizures. During her hospitalization she had another episode overnight of seizure. She was seen by neurology who recommended addition of Depakote 250 mg by mouth twice daily and follow-up in 7 to 10 days in his clinic. She is to continue the Keppra 1000 mg twice daily, neurology plans to slowly increase Depakote outpatient and decrease Keppra dose. Patient counseled to keep a log of seizure-like activity and follow-up closely with neurology. No driving until cleared by neurology. Neurology also plans on setting up further outpatient prolonged EEG testing. Diet: Regular Activity: no driving Followup: Reuben Sequeira MD [ASSOCIATE-ACTIVE - CAN ADMIT] - 1 Week Vinicius Bailey MD [Primary Care Provider] - 1 Week Time spent managing pt's care (in minutes): 45
--- NOTE | 2024-05-24 11:40 | RAD REPORT ---
EXAMINATION: CT HEAD WITHOUT CONTRAST CT CERVICAL SPINE WITHOUT CONTRAST CLINICAL INDICATION: Female, 33 years old. fall, seizure TECHNIQUE: Axial CT images from the skull base to the vertex without intravenous contrast. Axial CT i mages through the cervical spine were obtained without intravenous contrast. Sagittal and coronal reformatted images were created from the data set. Coronal and sagittal reformatted images were creat ed from the data set. One or more of the following dose reduction techniques were used: Automated exposure control, adjustment of the mA and/or kV according to patient size, and/or iterative reconstr uction. Unless otherwise specified, incidental findings do not require dedicated imaging follow-up. [id number]. COMPARISON: 05/22/2024 FINDINGS: Head: INTRACRANIAL: No acute intracranial hemorrhage. No hydrocephalus. No mass effect or midline shift. No significant white matter disease VASCULATURE: No visualized abnormalities in the arteries or dural venous sinuses. SCALP/SKULL: No significant soft tissue or osseous abnormalities. SINUSES: The visualized paranasal sinuses and mastoid air cells are predominantly clear. Cervical spine: ALIGNMENT: The cervical spine has normal alignment without scoliosis or spondylolisthesis. BONE: Vertebral body heights are maintained. No aggressive osseous lesions. DEGENERATIVE CHANGES: None significant. SOFT TISSUE: No significant abnormalities in the soft tissue of the neck. The visualized lung apices are clear. IMPRESSION: No acute intracranial abnormality. No acute fracture or traumatic malalignment of the cervical spine.
[2024-05-24] MEDS: ONDANSETRON 4 MG/2 ML VIAL IV PRN (12:27)
--- NOTE | 2024-05-24 13:59 | P.PN ---
Date of Service: 05/24/24 Subjective: Had another syncopal/seizure episode today ROS: 10 point ROS as noted above, otherwise negative Physical exam GEN: Alert, oriented, NAD HEENT: Normal conjunctiva, sclera anicteric CV: Regular rate and rhythm, no edema Pulm: Nonlabored respirations on room air ABD: Soft, nontender, nondistended MSK: No joint tenderness Integumentary: No rashes Neuro: Normal speech, normal affect Vitals reviewed Assessment: Seizure disorder-nonepileptiform/PNES/mixed seizure disorder Chronic back pain Plan: Seizure disorder-nonepileptiform/PNES/mixed seizure disorder First ever seizure on 05/19 Recent hospitalization 05/19 through 05/21 at [facility] Had continuous video EEG which captured an event-nonepileptiform/PNES also had CT head/MRI head, echo which were negative for acute findings She was started on Keppra 1000 mg twice daily, was unable to pick it up on first day of discharge Missed 2 doses, had 2 seizures at home witnessed by family primarily affecting left side of her body Was loaded with Keppra in ED, also loaded during her hospitalization at [facility] Continue Keppra 1000 g twice daily, neurology consultation placed Neurology saw patient recommended addition of Depakote 250 mg by mouth twice daily which was started evening of 05/23 Patient did not have seizure overnight, was planning on DC but around the time of discharge patient was in the restroom and had a syncopal event/suspected seizure with shaking affecting left arm/hand, unresponsive to painful/verbal stimulus for approximately 3 minutes. This resolved spontaneously, she did seem to have a period of confusion after the witnessed episode, she did hit her head so repeat CT head/C-spine was obtained which was negative for acute findings. Case was again discussed with neurology who recommended transfer for continuous EEG monitoring given recurrent episodes as well as increasing the Depakote to 500 mg twice daily Patient was also reportedly following neurology outpatient for recurrent syncopal episodes around diagnosed for many years now Discontinue tramadol Chronic back pain Discontinue tramadol DVT PPX: Lovenox Code status: Full Discharge Plan: Home Plan to discharge in: 24 Hours Time Spent Managing Pts Care (In Minutes): 35
[2024-05-24] MEDS: DIVALPROEX DR 250 MG TAB PO SCH (19:35)
[2024-05-24 21:54] VITALS: BP 116/69; TEMP 98.2
== END 2024-05-24 20:30 | disposition short-term general hospital (02) | DRG 880 ==
LOC: ER 15:45 → ERHOLD 17:40 → 2ND 19:07 → OBSVTOIN 05-23 17:13
PROVIDERS: ADMIT Hospitalist; ATTEND Hospitalist
DX: F44.5 Conversion disorder with seizures or convulsions (principal); G89.29 Other chronic pain; M54.9 Dorsalgia, unspecified; E28.2 Polycystic ovarian syndrome; G62.9 Polyneuropathy, unspecified; Z88.0 Allergy status to penicillin; Z88.1 Allergy status to other antibiotic agents; Z98.84 Bariatric surgery status; Z90.710 Acquired absence of both cervix and uterus; Z91.148 Patient's other noncompliance with medication regimen for other reason
CPT/HCPCS: 36415; 70450; 72125; 80048; 80076; 80307; 81001; 82947; 83735; 84439; 84443; 85025; 96365; 99284; G0378; J1650; J1953; J2270; J2405; J3010; J7030

== ENCOUNTER 2024-05-30 12:57 | Emergency (ER) | payer OTHER ==
[2024-05-30] MEDS ORDERED: D50W 25 GM/50 ML SYRINGE IV ONE ×4 (13:30→20:52)
[2024-05-30 14:20] LABS: Specific Gravity 1.007 (1.005-1.030); Sqamous Epithelial <5 /HPF (None Seen); Urine Bacteria 20-50 /HPF (<20); Urine Bilirubin NEGATIVE (Negative); Urine Blood Negative (Negative); Urine Clarity Turbid (Clear); Urine Color Colorless (Yellow); Urine Culture Reflex Order NOT NEEDED; Urine Glucose NEGATIVE (Negative); Urine Ketones NEGATIVE (Negative); Urine Microscopic Reflex YN ORDER UMIC; Urine Nitrite NEGATIVE (Negative); Urine Protein NEGATIVE (Negative); Urine RBC <5 /HPF (None Seen); Urine Urobilinogen Normal (Normal); Urine WBC <5 /HPF (<5)
[2024-05-30 14:39] LABS: ALT/SGPT 20 U/L (13-56); Albumin 4.1 g/dL (3.4-5.0); Albumin/Globulin Ratio 1.1 (1.1-1.8); Alkaline Phosphatase 52 U/L (45-117); Anion Gap 9.4 mEq/L (5.0-15.0); BUN Blood Urea Nitrogen 12 mg/dL (7-18); Bicarbonate 24 mEq/L (21-32); Bilirubin Total 0.4 mg/dL (0.2-1.0); Globulin 3.9 g/dL (2.3-3.5); Glomerular Filtration Rate 94 ml/min (=/>90); Glucose Level 84 mg/dL (74-106); Potassium 3.4 mEq/L (3.5-5.1); Sodium Level 139 mEq/L (136-145)
[2024-05-30 14:40] LABS: AST/SGOT < 10 U/L (15-37)
[2024-05-30 14:59] LABS: Absolute Lymphocytes (CBC) 2.7 K/uL (0.7-4.9); Absolute Monocytes 0.4 K/uL (0.1-1.3); Absolute Neutrophil 2.2 K/uL (1.8-8.0); Basophils % 0.7 % (0-1.3); Eosinophils % 0.3 % (0-4.4); Hematocrit 33.3 % (36.0-45.0); Hemoglobin 11.5 g/dL (12.0-15.0); Lymphocytes % 50.2 % (15.3-44.8); MCH 33.1 pg (27.0-35.0); MCHC 34.6 g/dL (32.0-36.0); MCV 95.8 fL (80-100); MPV 7.9 fL (7.6-11.3); Monocytes % 7.8 % (3.3-12.3); Nucleated Red Blood Cells % 0.1 % (0-0); Platelets 199 thou/uL (152-406); RBC Red Blood Cell Count 3.48 M/uL (3.86-4.86); Red Cell Distribution Width 12.9 % (12.1-15.2)
[2024-05-30] MEDS ORDERED: ACETAMINOPHEN 500 MG TAB ONE (15:18)
[2024-05-30] MEDS ORDERED: CEFTRIAXONE 1000 MG/VIAL ONE (15:18)
[2024-05-30] MEDS ORDERED: DEXTROSE 10%-WATER 1,000 ML IV ONE (16:32)
[2024-05-30] MEDS ORDERED: levETIRAcetam 500 MG TAB ONE (17:56)
[2024-05-30] MEDS ORDERED: DIVALPROEX DR 250 MG TAB PO ONE (17:57)
--- NOTE | 2024-05-30 18:19 | ER ---
Nurse's Notes [facility] Name: Gill Gordon Age: 33 yrs Sex: Female : 1990 Arrival Date: 05/30/2024 Time: 12:57 Bed 16 Private MD: Diagnosis: Hypoglycemia, unspecified;Epileptic seizures related to external causes Presentation: 05/30 13:12 Chief complaint: EMS states: seizure witnessed by parents at home. Coronavirus screen: kj2 Client denies travel out of the [place] in the last 14 days. Ebola Screen: No symptoms or risks identified at this time. Initial Sepsis Screen: Does the patient meet any 2 criteria? No. Patient's initial sepsis screen is negative. Does the patient have a suspected source of infection? No. Patient's initial sepsis screen is negative. Risk Assessment: Do you want to hurt yourself or someone else? Patient reports no desire to harm self or others. Onset of symptoms was May 30, 2024. 13:12 Method Of Arrival: EMS kj2 13:12 Acuity: ÁNGELA 3 kj2 16:26 Acuity: ÁNGELA 2 ap3 Triage Assessment: 13:14 General: Appears in no apparent distress. Pain: Complains of pain in headache Pain kj2 currently is 6 out of 10 on a pain scale. Neuro: Level of Consciousness is awake, alert, obeys commands, Oriented to person, place, time, situation. Cardiovascular: Patient's skin is warm and dry. Respiratory: Airway is patent Respiratory effort is unlabored. GI: No signs and/or symptoms were reported involving the gastrointestinal system. : No signs and/or symptoms were reported regarding the genitourinary system. 21:04 General: Behavior is calm, cooperative. 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 - Infectious Disease History:: Denies. - Social history:: Smoking status: Patient denies any tobacco usage or history of. Screenin:15 [facility] ED Fall Risk Assessment (Adult) History of falling in the last 3 months, kj2 including since admission Yes- single mechanical fall (1 pt) Confusion or Disorientation No (0 pts) Intoxicated or Sedated No (0 pts) Impaired Gait No (0 pts) Mobility Assist Device Used No (0 pt) Altered Elimination No (0 pt) Score/Fall Risk Level 0 - 2 = Low Risk Maintained a safe environment, Hourly rounding (assess needs \T\ fall precautionary measures) done. Abuse screen: Denies threats or abuse. Denies injuries from another. Nutritional screening: No deficits noted. Tuberculosis screening: No symptoms or risk factors identified. Assessment: 13:16 General: see triage assessment. kj2 14:15 Reassessment: Patient appears in no apparent distress at this time. Patient and/or kj2 family updated on plan of care and expected duration. Pain level reassessed. Patient is alert, oriented x 3, equal unlabored respirations, skin warm/dry/pink. 15:29 Reassessment: Patient appears in no apparent distress at this time. Patient and/or kj2 family updated on plan of care and expected duration. Pain level reassessed. Patient is alert, oriented x 3, equal unlabored respirations, skin warm/dry/pink. RN gave patient chips, juice and pudding. 16:25 Reassessment: patient had 1 seizure on the toilet, staff assisted patient to wheelchair kj2 then in bed, POC glucose checked. 17:30 Reassessment: Patient appears in no apparent distress at this time. Patient and/or kj2 family updated on plan of care and expected duration. Pain level reassessed. Patient is alert, oriented x 3, equal unlabored respirations, skin warm/dry/pink. 18:44 Reassessment: nurse to nurse report attempted, asked to call back as they are doing kj2 shift change report. 19:20 Reassessment: Patient appears in no apparent distress at this time. Patient and/or kj2 family updated on plan of care and expected duration. Pain level reassessed. Patient is alert, oriented x 3, equal unlabored respirations, skin warm/dry/pink. 21:02 Reassessment: Patient appears in no apparent distress at this time. Patient and/or kj2 family updated on plan of care and expected duration. Pain level reassessed. Patient is alert, oriented x 3, equal unlabored respirations, skin warm/dry/pink. Vital Signs: 13:12 BP 125 / 79; Pulse 70; Resp 18; Pulse Ox 100% on R/A; Weight 70.31 kg; Height 5 ft. 0 kj2 in. ; Pain 0/10; 14:39 BP 109 / 75; Pulse 73; Resp 18; Pulse Ox 100% ; kj2 15:29 BP 116 / 66; Pulse 75; Resp 18; Pulse Ox 100% ; kj2 16:30 BP 100 / 64; Pulse 86; Resp 20; Pulse Ox 100% on R/A; kj2 17:30 BP 90 / 54; Pulse 89; Resp 20; Pulse Ox 98% on R/A; kj2 18:45 BP 110 / 71; Pulse 82; Resp 20; Pulse Ox 100% on R/A; kj2 21:02 BP 131 / 71; Pulse 82; Resp 20; Temp 98; Pulse Ox 100% on R/A; kj2 13:12 Body Mass Index 30.27 (70.31 kg, 152.4 cm) kj2 13:12 Pain Scale: Adult kj2 ED Course: 13:01 Patient arrived in ED. eb 13:01 Matteo Collier MD is Attending Physician. bo1 13:10 Lesley Burrows, BREA is Primary Nurse. kj2 13:13 Triage completed. kj2 13:16 Patient has correct armband on for positive identification. Bed in low position. Call kj2 light in reach. Adult w/ patient. Provided Education on: call light. 13:16 Arm band placed on Patient placed in an exam room, on a stretcher. kj2 14:19 CBC with Diff Sent. kj2 14:19 CMP Sent. kj2 17:38 initiated a transfer with Zain De Santiago from the [facility] Transfer [place]. eb 18:[address] Wilson the hospitalist intrusion analyst for [facility] with Dr. Collier for eb patient transfer consultation. 18:11 administrative approval given by Zain De Santiago / patient has been accepted to [facility] eb [facility] room 1242 / Dr. Jack Wilson has accepted the patient in transfer/ report to be called to [phone]. 21:03 No provider procedures requiring assistance completed. Patient transferred, IV remains kj2 in place. Administered Medications: 13:40 Drug: D50W IVP 50 ml IVP once; (1 amp) Route: IVP; Site: left antecubital; kj2 15:49 Follow up: Response: No adverse reaction kj2 15:27 Drug: Rocephin IV 1 grams IV at bolus once; Given slow IV push per pharmacy kj2 instructions Route: IV; Rate: bolus; Site: left antecubital; 15:49 Follow up: Response: No adverse reaction kj2 15:28 Drug: Acetaminophen PO 1000 mg PO once Route: PO; kj2 15:50 Follow up: Response: No adverse reaction kj2 16:27 Drug: D50W IVP 50 ml IVP once; (1 amp) Route: IVP; Site: left antecubital; kj2 18:47 Follow up: Response: No adverse reaction kj2 16:38 Drug: D10 in Water IVP 1000 ml IVP once Route: IVP; Site: left antecubital; kj2 18:47 Follow up: Response: No adverse reaction kj2 18:03 Drug: Keppra PO 1000 mg PO once Route: PO; kj2 18:46 Follow up: Response: No adverse reaction kj2 18:03 Drug: Valproic Acid PO 125 mg PO once Route: PO; kj2 18:46 Follow up: Response: No adverse reaction kj2 20:13 Drug: D50W IVP 50 ml IVP once; (1 amp) Route: IVP; Site: left antecubital; kj2 20:13 Follow up: Response: No adverse reaction kj2 20:59 Drug: D50W IVP 50 ml IVP once; (1 amp) Route: IVP; Site: left antecubital; kj2 20:59 Follow up: Response: Medication Administered at Departure kj2 21:00 Drug: D10 in Water IVP 500 ml IVP once Route: IVP; Site: left antecubital; kj2 21:00 Follow up: Response: Medication Administered at Departure kj2 Medication: 13:16 VIS not applicable for this client. kj2 Outcome: 18:19 ER care complete, transfer ordered by MD. leger 21:04 Transferred by ground EMS to [facility], [facility], kj2 21:04 Condition: stable 21:04 Instructed on the need for transfer, 21:04 Patient left the ED. kj2 Signatures: Marianela Casper RN RN ap3 Caridad Roman Benjamin, MD MD bo1 Lesley Burrows RN RN kj2 Corrections: (The following items were deleted from the chart) 13:17 13:11 General: Appears in no apparent distress. Behavior is kj2 kj2
--- NOTE | 2024-05-30 18:19 | EDPHYS ---
Physician Documentation [facility] [place], [place] Name: Gill Gordon Age: 33 yrs Sex: Female : 1990 Arrival Date: 05/30/2024 Time: 12:57 Bed 16 Private MD: ED Physician Matteo Collier HPI: 05/30 17:36 This 33 yrs old Black Female presents to ER via EMS with complaints of Seizure. bo1 17:36 Character of seizure(s): Incontinence: incontinent of bladder, Left sided twitching bo1 with a low BGL - Per EMS 47 then 43, arrival to [facility] it was 39. Seizure onset: just prior to arrival, Seizures started May 19 suddenly. Context: occurred at work. Seizure Hx: Seizure medications: Keppra, valproic acid. Associated injury: The patient did not suffer any apparent associated injury. EMS care: none. The patient has experienced similar episodes in the past, several times, today's symptoms are similar, Seizures getting more frequent. The patient has been recently been admitted at [facility], Pt was referred to [facility] but pt signed out after not being satisfied with her care. Minimal post ictal sxs but pt feels cold and is weak. 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 - Infectious Disease History:: Denies. - Social history:: Smoking status: Patient denies any tobacco usage or history of. ROS: 17:40 Constitutional: Negative for fever, chills, and weight loss bo1 17:40 Constitutional: Positive for fatigue, poor PO intake, 17:40 Neck: Negative for pain with movement, pain at rest, 17:40 Cardiovascular: Negative for chest pain, 17:40 Respiratory: Negative for cough, shortness of breath, 17:40 Abdomen/GI: Negative for abdominal pain, nausea and vomiting, 17:40 Skin: Negative for rash, 17:40 Neuro: Positive for seizure activity, weakness, 17:40 All other systems are negative, Exam: 18:24 Constitutional: This is a well developed, well nourished patient who is arousable in bo1 mild acute distress. 18:24 Constitutional: The patient appears in no acute distress, Weak and will arouse when spoken to 18:24 Head/face: Exam is negative for acute changes, 18:24 Eyes: Sclera: icterus, is not appreciated, 18:24 Neck: External neck: is normal, no acute changes, 18:24 Chest/axilla: 18:24 Cardiovascular: Rate: normal, Rhythm: regular, Pulses: no pulse deficits are appreciated, 18:24 Respiratory: the patient does not display signs of respiratory distress, Respirations: normal, no acute changes, Breath sounds: are clear throughout, no acute changes, 18:24 Abdomen/GI: Palpation: abdomen is soft and non-tender, 18:24 Neuro: Orientation: is normal, Mentation: is normal, Memory: is normal, no acute changes, seizure activity, focal in nature is displayed by patient, Minimal post-ictal symptoms - atypical, Non-focal exam neuro barriga, Vital Signs: 13:12 BP 125 / 79; Pulse 70; Resp 18; Pulse Ox 100% on R/A; Weight 70.31 kg; Height 5 ft. 0 kj2 in. ; Pain 0/10; 14:39 BP 109 / 75; Pulse 73; Resp 18; Pulse Ox 100% ; kj2 15:29 BP 116 / 66; Pulse 75; Resp 18; Pulse Ox 100% ; kj2 16:30 BP 100 / 64; Pulse 86; Resp 20; Pulse Ox 100% on R/A; kj2 17:30 BP 90 / 54; Pulse 89; Resp 20; Pulse Ox 98% on R/A; kj2 18:45 BP 110 / 71; Pulse 82; Resp 20; Pulse Ox 100% on R/A; kj2 21:02 BP 131 / 71; Pulse 82; Resp 20; Temp 98; Pulse Ox 100% on R/A; kj2 13:12 Body Mass Index 30.27 (70.31 kg, 152.4 cm) kj2 13:12 Pain Scale: Adult kj2 MDM: 13:02 Medical Screening Exam initiated bo1 18:19 Differential diagnosis: Possible insulinoma or other unknown causes of hypokalemia - bo1 Hypoglycemia causing the seizures is the ongoing theory. Data reviewed: vital signs, lab test result(s). Consideration of Admission/Observation Patient was admitted/placed on observation. Management of patient was discussed with the following: Hospitalist: Dr Kanika ANDERSON - transfer to [facility] due to Dr Hua ANDERSON having made that decision prior admission for higher level of care. Pt agrees reluctantly. Family in support. I considered the following discharge prescriptions or medication management in the emergency department Medications were administered in the Emergency Department. See MAR. Special discussion: Due to higher level of care, decision to revisit transfer was done and discussed with hospitalist at [facility]. ED course: Pt has progressive hypoglycemic episodes to a low of 23 when in the bathroom on the commode, she had a seizure. 19:41 ED course: Pt has recurrent BGL of 75 with pt's here now. Discussed the ongoing [facility] plan of action and findings so far. No questions or objections. Will administer D50 IV since pt has started to lower her glucose level and that she is yet to be transported. Her intake of PO is limited by her gastric surgery hx. 05/30 13:26 Order name: CBC with Diff; Complete Time: 15:17 05/30 13:26 Order name: CMP; Complete Time: 15:17 05/30 13:26 Order name: Urinalysis w/ reflexes; Complete Time: 14:39 bo05/30 13:26 Order name: Test, Serum; Complete Time: 14:39 05/30 13:37 Order name: Glucose, Ancillary Testing; Complete Time: 14:39 EDMT 05/30 14:58 Order name: Glucose, Ancillary Testing; Complete Time: 15:17 MT 05/30 16:39 Order name: Glucose, Ancillary Testing; Complete Time: 16:47 MT 05/30 17:14 Order name: Glucose, Ancillary Testing; Complete Time: 17:20 EDMT 05/30 19:47 Order name: Glucose, Ancillary Testing; Complete Time: 20:16 MT 05/30 20:57 Order name: Glucose, Ancillary Testing EDMT 05/30 13:26 Order name: IV Saline Lock; Complete Time: 14:18 05/30 13:26 Order name: Labs collected and sent; Complete Time: 14:18 bo05/30 14:37 Order name: Labs - recollect needed: recollect the cbc; Complete Time: 15:49 eb Administered Medications: 13:40 Drug: D50W IVP 50 ml IVP once; (1 amp) Route: IVP; Site: left antecubital; kj2 15:49 Follow up: Response: No adverse reaction kj2 15:27 Drug: Rocephin IV 1 grams IV at bolus once; Given slow IV push per pharmacy kj2 instructions Route: IV; Rate: bolus; Site: left antecubital; 15:49 Follow up: Response: No adverse reaction kj2 15:28 Drug: Acetaminophen PO 1000 mg PO once Route: PO; kj2 15:50 Follow up: Response: No adverse reaction kj2 16:27 Drug: D50W IVP 50 ml IVP once; (1 amp) Route: IVP; Site: left antecubital; kj2 18:47 Follow up: Response: No adverse reaction kj2 16:38 Drug: D10 in Water IVP 1000 ml IVP once Route: IVP; Site: left antecubital; kj2 18:47 Follow up: Response: No adverse reaction kj2 18:03 Drug: Keppra PO 1000 mg PO once Route: PO; kj2 18:46 Follow up: Response: No adverse reaction kj2 18:03 Drug: Valproic Acid PO 125 mg PO once Route: PO; kj2 18:46 Follow up: Response: No adverse reaction kj2 20:13 Drug: D50W IVP 50 ml IVP once; (1 amp) Route: IVP; Site: left antecubital; kj2 20:13 Follow up: Response: No adverse reaction kj2 20:59 Drug: D50W IVP 50 ml IVP once; (1 amp) Route: IVP; Site: left antecubital; kj2 20:59 Follow up: Response: Medication Administered at Departure kj2 21:00 Drug: D10 in Water IVP 500 ml IVP once Route: IVP; Site: left antecubital; kj2 21:00 Follow up: Response: Medication Administered at Departure kj2 Disposition Summary: 05/30/24 18:19 Transfer Ordered Notes: Transfer Location: [facility] bo1 Reason: Higher level of care bo1 Condition: Fair bo1 Problem: new bo1 Symptoms: have improved bo1 Accepting Physician: [facility] - Hospitalist Dr Katie ANDERSON (sp?)(05/30/24 21:04) kj2 Diagnosis - Hypoglycemia, unspecified bo1 - Epileptic seizures related to external causes bo1 Forms: - Medication Reconciliation Form bo1 - SBAR form bo1 Signatures: Dispatcher [employer] EDMS Caridad Roman Benjamin, MD MD bo1 Lesley Burrows, RN RN kj2 Corrections: (The following items were deleted from the chart) 13: 13:27 CBC+H.LAB.BRZ ordered. EDMS EDMS 13: 13:27 COMPREHENSIVE METABOLIC PANEL+C.LAB.BRZ ordered. EDMS EDMS 13: 13:27 Urinalysis+U.LAB.BRZ ordered. EDMS EDMS 13: 13:27 TEST, SERUM+SC.LAB.BRZ ordered. EDMS EDMS 21:04 18:19 [facility] - Hospitalist Dr Katie ANDERSON (sp?) bo1 kj2
[2024-05-30] MEDS ORDERED: DEXTROSE 10%-WATER 500 ML IV ONE (20:52)
[2024-05-31 00:50] VITALS: O2SAT 100
[2024-05-31 00:51] VITALS: BP 131/71; TEMP 98
== END 2024-05-30 21:04 | disposition short-term general hospital (02) ==
LOC: ER 12:57
DX: G40.509 Epileptic seizures related to external causes, not intractable, without status epilepticus (principal); E16.2 Hypoglycemia, unspecified
CPT/HCPCS: 85025; 81001; 36415; 84703; 82947 ×6; 80053; 96375; 96374; 99285; J0696

== ENCOUNTER 2024-07-22 20:26 | Emergency (ER) | payer OTHER ==
[2024-07-22] MEDS ORDERED: D5 0.45 NS 1,000 ML IV ONE (21:27)
[2024-07-22 21:53] LABS: Absolute Eosinophils 0.1 K/uL (0-0.5); Absolute Lymphocytes (CBC) 2.3 K/uL (0.7-4.9); Absolute Monocytes 0.4 K/uL (0.1-1.3); Absolute Neutrophil 2.5 K/uL (1.8-8.0); Basophils % 0.9 % (0-1.3); Eosinophils % 1.1 % (0-4.4); Hematocrit 28.6 % (36.0-45.0); Hemoglobin 9.7 g/dL (12.0-15.0); Lymphocytes % 43.8 % (15.3-44.8); MCHC 33.8 g/dL (32.0-36.0); MCV 97.8 fL (80-100); MPV 7.6 fL (7.6-11.3); Monocytes % 6.9 % (3.3-12.3); Neutrophils % 47.3 % (41.7-73.7); Nucleated Red Blood Cells % 0.1 % (0-0); Platelets 358 thou/uL (152-406); RBC Red Blood Cell Count 2.93 M/uL (3.86-4.86); Red Cell Distribution Width 13.9 % (12.1-15.2)
--- NOTE | 2024-07-22 21:53 | RAD REPORT ---
EXAMINATION: ONE VIEW CHEST XR CLINICAL INDICATION: BLUNT CHEST TRAUMA TECHNIQUE: Frontal chest projection is submitted. Examination is limited by patient positioning and t echnique. COMPARISON: No prior exam. FINDINGS: The lungs are well inflated and clear. The heart is upper limit of normal in size. No displaced fract ures identified. IMPRESSION: No acute intrathoracic abnormalities.
[2024-07-22 21:54] LABS: Specific Gravity 1.018 (1.005-1.030)
[2024-07-22 21:56] LABS: Barbiturates NEGATIVE (NEGATIVE); Benzodiazepines NEGATIVE (NEGATIVE); Cocaine NEGATIVE (NEGATIVE); METHAMPHETAM NEGATIVE (NEGATIVE); Methadone NEGATIVE (NEGATIVE); Opiates POSITIVE (NEGATIVE); Phencyclidine NEGATIVE (NEGATIVE); THC Cannibis NEGATIVE (NEGATIVE)
[2024-07-22 21:58] LABS: Anion Gap 7.4 mEq/L (5.0-15.0); Potassium 3.4 mEq/L (3.5-5.1); Troponin High Sensitivity 3.2 pg/mL (<58.9)
--- NOTE | 2024-07-22 22:19 | RAD REPORT ---
EXAM: CT brain without contrast HISTORY: fall COMPARISON: 05/22/2024 TECHNIQUE: Multiple contiguous axial images were obtained and a CT of the brain without contrast. Sag ittal and coronal reformats were performed. One or more of the following dose reduction techniques were used: Automated exposure control, adjust ment of the mA and/or kV according to patient size, and/or iterative reconstruction. FINDINGS: No evidence of hydrocephalus, intracranial hemorrhage, or extra-axial fluid collection. The brain is normal in morphology. Partially empty sella configuration noted. No evidence of midline shift or areas of brain edema. The calvarium is intact. The visualized paranasal sinuses and mastoid air cells are essentially clear . IMPRESSION: No evidence of acute intracranial abnormality.
--- NOTE | 2024-07-22 22:22 | RAD REPORT ---
EXAM: CT CHEST, ABDOMEN AND PELVIS WITH CONTRAST CLINICAL INDICATION: fall onto abdomen TECHNIQUE: CT chest, abdomen and pelvis was performed, following the administration of contrast, as p er department protocol. Axial, sagittal and coronal reconstructions were obtained. One or more of the following dose reduction techniques were used: Automated exposure control, adjustment of the mA a nd/or kV according to patient size, and/or iterative reconstruction. Unless otherwise specified, incidental findings do not require dedicated imaging follow-up. COMPARISON: No prior exam. FINDINGS: LUNGS: No evidence of airspace or interstitial process. No nodules. PLEURA: No pleural effusion. No pneumothorax. MEDIASTINUM AND LYMPH NODES: No mediastinal mass or fluid collection. Normal size mediastinal, hilar, and axillary lymph nodes. OSSEOUS STRUCTURES AND CHEST WALL: Intact. LIVER: Normal in size and contour. No focal lesion or biliary dilatation. Grossly unremarkable gallbl adder. PANCREAS: No mass, ductal dilation, or aziza-pancreatic fluid. SPLEEN: Normal size. No focal lesion. ADRENALS: Normal; no mass. KIDNEYS: Normal size and contour. No hydronephrosis. URINARY BLADDER: Normal contour. GASTROINTESTINAL TRACT: No bowel obstruction, free air, significant free fluid or abscess. Moderate s tool is retained throughout the colon. Postsurgical changes are present about the stomach. APPENDIX: Normal appendix. LYMPH NODES: No lymphadenopathy. MUSCULOSKELETAL: No acute or suspicious osseous abnormality. OTHER: Mild free fluid in the pelvis. IMPRESSION: No acute abnormalities seen in the chest, abdomen or pelvis. Moderate stool retained in the colon. Postsurgical changes of gastric bypass.
[2024-07-22] MEDS ORDERED: ONDANSETRON 4 MG/2 ML VIAL ONE (23:32)
[2024-07-22] MEDS ORDERED: MORPHINE 4 MG/ML SYR ONE (23:34)
[2024-07-23] MEDS ORDERED: METOCLOPRAMIDE 10 MG/2mL INJ ONE (00:07)
--- NOTE | 2024-07-23 02:17 | EDPHYS ---
Physician Documentation [facility] Name: Gill Gordon Age: 34 yrs Sex: Female : 1990 Arrival Date: 07/22/2024 Time: 20:26 Bed 7 Private MD: ED Physician Joseph Bell HPI: 07/22 21:12 This 34 yrs old Black Female presents to ER via Ambulatory with complaints of Syncope, sp4 Probable Seizure, Fall Injury. 07/23 21:16 34-year-old female presents with complaint of syncope low blood sugar and possible sp4 seizure , history of recent Senthil-en-Y gastric bypass on 07/07/2024 discharged from the hospital 07/10/2024. Patient has had trouble controlling her blood sugar at home with blood sugar dipping below normal causing syncope.. 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 - Infectious Disease History:: Denies. - Social history:: Smoking status: Patient denies any tobacco usage or history of. - Family history:: not pertinent. ROS: 07/23 21:16 Constitutional: Negative for fever, chills, and weight loss, positive hypoglycemia, sp4 positive syncope, positive for fall at home , positive abdominal pain, positive head injury, positive headache. All other systems are negative, Exam: 21:16 Abdomen/GI: Bowel sounds: normal, Small scars after recent Senthil-en-Y gastric bypass sp4 clean dry and intact., 21:16 Constitutional: This is a well developed, well nourished patient who is awake, alert, and in no acute distress. Head/Face: Normocephalic, atraumatic. Eyes: Pupils equal round and reactive to light, extra-ocular motions intact. Lids and lashes normal. Conjunctiva and sclera are not injected. Cornea within normal limits. Periorbital areas with no swelling, redness, or edema. ENT: Nares patent. No nasal discharge, no septal abnormalities noted. Tympanic membranes are normal and external auditory canals are clear. Oropharynx with no redness, swelling, or masses, exudates, or evidence of obstruction, uvula midline. Mucous membranes moist. Neck: Trachea midline, no thyromegaly or masses palpated, and no cervical lymphadenopathy. Supple, full range of motion without nuchal rigidity, or vertebral point tenderness. Chest/axilla: Normal chest wall appearance and motion. Nontender with no deformity. No lesions are appreciated. Cardiovascular: Regular rate and rhythm with a normal S1 and S2. No gallops, murmurs, or rubs. Normal PMI, no JVD. No pulse deficits. Respiratory: Lungs have equal breath sounds bilaterally, clear to auscultation and percussion. No rales, rhonchi or wheezes noted. No increased work of breathing, no retractions or nasal flaring. Abdomen/GI: Soft, with normal bowel sounds. No distension or tympany. No guarding or rebound. No evidence of tenderness throughout. Back: No spinal tenderness. No costovertebral tenderness. Skin: Warm, dry with normal turgor. Normal color with no rashes, no lesions, and no evidence of cellulitis. MS/ Extremity: Pulses equal, no cyanosis. Neurovascular intact. Full, normal range of motion. Neuro: Awake and alert, GCS 15, oriented to person, place, time, and situation. Cranial nerves II-XII grossly intact. Motor strength 5/5 in all extremities. Sensory grossly intact. Psych: Awake, alert, with orientation to person, place and time. Behavior, mood, and affect are within normal limits Vital Signs: 07/22 20:53 BP 112 / 73; Pulse 81; Resp 18; Temp 99; Pulse Ox 100% ; Weight 65.32 kg; Height 4 ft. vc1 11 in. ; Pain 10/10; 21:04 BP 110 / 69; Pulse 75; Resp 18; Pulse Ox 100% ; al5 21:15 BP 111 / 79; Pulse 72; Resp 15; Pulse Ox 100% ; al5 21:30 BP 107 / 75; Pulse 69; Resp 15; Pulse Ox 100% ; al5 22:00 BP 106 / 77; Pulse 69; Resp 14; Pulse Ox 100% ; al5 23:30 BP 115 / 82; Pulse 67; Resp 14; Pulse Ox 100% ; al5 07/23 00:03 BP 117 / 76; Pulse 69; Resp 16; Pulse Ox 100% on R/A; jb4 01:11 BP 98 / 66; Pulse 63; Resp 16; Pulse Ox 100% on R/A; jb4 01:30 BP 94 / 68; Pulse 61; Resp 16; Pulse Ox 100% ; al5 02:00 BP 95 / 65; Pulse 62; Resp 15; Pulse Ox 100% ; al5 02:30 BP 95 / 65; Pulse 61; Resp 15; Pulse Ox 100% ; al5 07/22 20:53 Body Mass Index 29.08 (65.32 kg, 149.86 cm) vc1 07/22 20:53 Pain Scale: Adult vc1 [place] Coma Score: 21:16 Eye Response: spontaneous(4). Motor Response: obeys commands(6). Verbal Response: sp4 oriented(5). Total: 15. MDM: 07/22 21:13 Medical Screening Exam initiated sp4 07/23 21:16 Differential Diagnosis: cardiac arrhythmia, drug effect, GI bleed, pseudo seizure, sp4 seizure, sepsis, vasovagal episode. Data reviewed: vital signs, nurses notes, EMS record, old medical records, lab test result(s), EKG, radiologic studies, CT scan. Consideration of Admission/Observation Escalation of care including admission/observation considered. ED course: Patient felt much improved. Sugars are stable. Stable for discharge home.. 07/22 21:01 Order name: Basic Metabolic Panel; Complete Time: 23:48 vc1 07/22 21:01 Order name: CBC with Diff; Complete Time: 23:48 vc1 07/22 21:01 Order name: Troponin HS; Complete Time: 23:48 vc1 07/22 21:13 Order name: Test, Urine; Complete Time: 23:48 sp4 07/22 21:13 Order name: Urine Drug Screen; Complete Time: 23:48 sp4 07/22 21:25 Order name: Glucose, Ancillary Testing; Complete Time: 23:48 EDMS 07/22 23:53 Order name: Glucose, Ancillary Testing; Complete Time: 00:56 EDMS 07/23 01:49 Order name: Glucose, Ancillary Testing; Complete Time: 02:16 EDMS 07/22 21:01 Order name: XRAY Chest (1 view); Complete Time: 23:48 vc1 07/22 21:34 Order name: CT Head Brain wo Cont; Complete Time: 23:48 sp4 07/22 22:18 Order name: CT CHEST,ABD,PELVIS W/WO; Complete Time: 23:48 EDMS 07/22 21:00 Order name: EKG - Nurse/Tech; Complete Time: 21:16 vc1 07/22 21:00 Order name: Glucose Level; Complete Time: 21:16 vc1 07/22 21:01 Order name: Cardiac monitoring; Complete Time: 21:16 vc1 07/22 21:01 Order name: EKG - Nurse/Tech; Complete Time: 21:16 vc1 07/22 21:01 Order name: IV Saline Lock; Complete Time: 21:16 vc1 07/22 21:01 Order name: Labs collected and sent; Complete Time: 21:16 vc1 07/22 21:01 Order name: O2 Per Protocol; Complete Time: 21:16 vc1 07/22 21:01 Order name: O2 Sat Monitoring; Complete Time: 21:16 vc1 07/23 01:27 Order name: Accucheck Blood Glucose; Complete Time: 01:51 sp4 Administered Medications: 07/22 21:31 Drug: D5-1/2 NS IV 1000 ml IV at 125 ml/hr continuous Route: IV; Rate: 125 ml/hr; Site: al5 right antecubital; 07/23 02:34 Follow up: Response: No adverse reaction; IV Status: Order to discontinue infusion; IV al5 Intake: 600ml 07/22 23:44 Drug: morphine IVP or IV 4 mg IVP once over 4 mins Route: IVP; Infused Over: 4 mins; [facility] Site: right antecubital; 07/23 02:33 Follow up: Response: No adverse reaction; Pain is decreased al5 07/22 23:44 Drug: Ondansetron IVP 4 mg IVP once; over 2 minutes Route: IVP; Site: right antecubital;jb4 07/23 02:33 Follow up: Response: No adverse reaction al5 00:11 Drug: metoCLOPramide IVP 10 mg IVP once; over 1 to 2 minutes Route: IVP; Site: right jb4 antecubital; 02:33 Follow up: Response: No adverse reaction al5 Point of Care Testing: Blood Glucose: 07/22 21:17 Blood Glucose: 67 mg/dL; al5 21:17 patient given juice and a peanut butter and jelly sandwich al5 Ranges: Critical Glucose Levels:Adult <50 mg/dl or >400 mg/dl <40 mg/dl or >180 mg/dl Disposition Summary: 07/23/24 02:17 Discharge Ordered Notes: Location: Home sp4 Problem: new sp4 Symptoms: have improved sp4 Condition: Stable sp4 Diagnosis - Acute hypoglycemic episode, syncope and collapse, acute abdominal wall injury, sp4 acute closed head injury, Fall from standing Followup: sp4 - With: Private Physician - When: 7 - 10 days - Reason: Recheck today's complaints Discharge Instructions: - Discharge Summary Sheet sp4 - Hypoglycemia, [id number] sp4 - Laparoscopic Gastric Bypass Surgery, Care After sp4 Forms: - Patient Portal Instructions sp4 Addendum: 07/26/2024 19:24 [place]: [place] [address]/22/2024 normal sinus rhythm normal EKG, sinus rhythm rate 74, s p4 no ST elevation or depression, normal axis, no ectopy, normal intervals, no acute ischemic changes.. Signatures: Dispatcher [employer] EDMS Den Swain RN RN jb4 Radha Ferrera RN RN vc1 Joseph Bell MD MD sp4 Marianela Jose RN RN al5 Corrections: (The following items were deleted from the chart) 07/22 22:18 21:35 Chest Abdomen Pelvis W Con+CT.RAD.BRZ ordered. EDMS EDMS
--- NOTE | 2024-07-23 02:17 | ER ---
Nurse's Notes [facility] Name: Gill Gordon Age: 34 yrs Sex: Female : 1990 Arrival Date: 07/22/2024 Time: 20:26 Bed 7 Private MD: Diagnosis: Acute hypoglycemic episode, syncope and collapse, acute abdominal wall injury, acute closed head injury, Fall from standing Presentation: 07/22 20:53 Chief complaint: Patient states: gastric bypass on 07/08, today woke up face down on the vc1 floor. Unknown if seizure or syncopal episode. Coronavirus screen: Client denies travel out of the [place] in the last 14 days. At this time, the client does not indicate any symptoms associated with coronavirus-19. Ebola Screen: Patient negative for fever greater than or equal to 101.5 degrees Fahrenheit, and additional compatible Ebola Virus Disease symptoms Patient denies exposure to infectious person. Patient denies travel to an Ebola-affected area in the 21 days before illness onset. No symptoms or risks identified at this time. Initial Sepsis Screen: Does the patient meet any 2 criteria? No. Patient's initial sepsis screen is negative. Does the patient have a suspected source of infection? No. Patient's initial sepsis screen is negative. Risk Assessment: Do you want to hurt yourself or someone else? Patient reports no desire to harm self or others. Onset of symptoms was July 22, 2024. 20:53 Method Of Arrival: Ambulatory vc1 20:53 Acuity: ÁNGELA 3 vc1 Triage Assessment: 21:01 General: Appears in no apparent distress. Behavior is calm, cooperative, appropriate vc1 for age. Pain: Complains of pain in right upper quadrant, left upper quadrant, right lower quadrant and left lower quadrant Pain does not radiate. Pain currently is 10 out of 10 on a pain scale. Noted to be grimacing, Also complains of passing blood clots vaginally. EENT: No deficits noted. No signs and/or symptoms were reported regarding the EENT system. Neuro: Level of Consciousness is awake, alert, obeys commands, Oriented to person, place, time, situation, Appropriate for age Reports a syncopal episode. Cardiovascular: Capillary refill < 3 seconds Patient's skin is warm and dry. Respiratory: Airway is patent Respiratory effort is even, unlabored, Respiratory pattern is regular, symmetrical. GI: Abdomen is non-distended, scar from recent senthil en y Reports lower abdominal pain, upper abdominal pain. : Reports vaginal bleeding that is bright red, with clots. Derm: Skin is intact, is healthy with good turgor, Skin is dry, Skin is normal. Musculoskeletal: Circulation, motion, and sensation intact. Range of motion: intact in all extremities. 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 - Infectious Disease History:: Denies. - Social history:: Smoking status: Patient denies any tobacco usage or history of. - Family history:: not pertinent. Screenin:58 [facility] ED Fall Risk Assessment (Adult) History of falling in the last 3 months, vc1 including since admission Yes- physiologic fall (2 pts) Confusion or Disorientation No (0 pts) Intoxicated or Sedated No (0 pts) Impaired Gait No (0 pts) Mobility Assist Device Used No (0 pt) Altered Elimination No (0 pt) Score/Fall Risk Level 0 - 2 = Low Risk Oriented to surroundings, Maintained a safe environment, Educated pt \T\ family on fall prevention, incl call for assistance when getting out of bed, Hourly rounding (assess needs \T\ fall precautionary measures) done. Abuse screen: Denies threats or abuse. Nutritional screening: No deficits noted. Tuberculosis screening: No symptoms or risk factors identified. Assessment: 21:00 General: Appears in no apparent distress. comfortable, Behavior is calm, cooperative. al5 Pain: Complains of pain in head and abdomen. Neuro: Level of Consciousness is awake, alert, obeys commands, Oriented to person, place, time, situation. Cardiovascular: Capillary refill < 3 seconds Patient's skin is warm and dry. Rhythm is sinus rhythm. Respiratory: Airway is patent Respiratory effort is even, unlabored, Respiratory pattern is regular, symmetrical. GI: Abdomen is flat, non-distended, Reports lower abdominal pain, upper abdominal pain. : No signs and/or symptoms were reported regarding the genitourinary system. EENT: No signs and/or symptoms were reported regarding the EENT system. Derm: Skin is intact, is healthy with good turgor, Skin is pink, warm \T\ dry. normal. Musculoskeletal: No signs and/or symptoms reported regarding the musculoskeletal system. 07/23 00:03 Reassessment: Patient appears in no apparent distress at this time. Patient and/or jb4 family updated on plan of care and expected duration. Pain level reassessed. Patient is alert, oriented x 3, equal unlabored respirations, skin warm/dry/pink. 01:11 Reassessment: Patient appears in no apparent distress at this time. Patient and/or jb4 family updated on plan of care and expected duration. Pain level reassessed. Patient is alert, oriented x 3, equal unlabored respirations, skin warm/dry/pink. 02:38 Reassessment: Patient appears in no apparent distress at this time. Patient and/or al5 family updated on plan of care and expected duration. Pain level reassessed. Patient is alert, oriented x 3, equal unlabored respirations, skin warm/dry/pink. Vital Signs: 07/22 20:53 BP 112 / 73; Pulse 81; Resp 18; Temp 99; Pulse Ox 100% ; Weight 65.32 kg; Height 4 ft. vc1 11 in. ; Pain 10/10; 21:04 BP 110 / 69; Pulse 75; Resp 18; Pulse Ox 100% ; al5 21:15 BP 111 / 79; Pulse 72; Resp 15; Pulse Ox 100% ; al5 21:30 BP 107 / 75; Pulse 69; Resp 15; Pulse Ox 100% ; al5 22:00 BP 106 / 77; Pulse 69; Resp 14; Pulse Ox 100% ; al5 23:30 BP 115 / 82; Pulse 67; Resp 14; Pulse Ox 100% ; al5 07/23 00:03 BP 117 / 76; Pulse 69; Resp 16; Pulse Ox 100% on R/A; jb4 01:11 BP 98 / 66; Pulse 63; Resp 16; Pulse Ox 100% on R/A; jb4 01:30 BP 94 / 68; Pulse 61; Resp 16; Pulse Ox 100% ; al5 02:00 BP 95 / 65; Pulse 62; Resp 15; Pulse Ox 100% ; al5 02:30 BP 95 / 65; Pulse 61; Resp 15; Pulse Ox 100% ; al5 07/22 20:53 Body Mass Index 29.08 (65.32 kg, 149.86 cm) vc1 07/22 20:53 Pain Scale: Adult vc1 Vitals: 00:03 Cardiac Rhythm Assessment Sinus rhythm. jb4 [place] Coma Score: 21:16 Eye Response: spontaneous(4). Motor Response: obeys commands(6). Verbal Response: sp4 oriented(5). Total: 15. ED Course: 07/22 20:36 Patient arrived in ED. jj6 20:55 Triage completed. vc1 20:56 Arm band placed on right wrist. vc1 20:58 Marianela Jose, BREA is Primary Nurse. al5 20:59 No provider procedures requiring assistance completed. Inserted saline lock: 20 gauge al5 in right antecubital area, using aseptic technique. Blood collected. Flushed with 10 mL NS. 21:00 Patient has correct armband on for positive identification. Bed in low position. Call al5 light in reach. Side rails up X2. Provided Education on: plan of care. 21:12 Joseph Bell MD is Attending Physician. sp4 21:31 XRAY Chest (1 view) In Process Unspecified. EDMS 22:12 CT Head Brain wo Cont In Process Unspecified. EDMS 22:18 CT CHEST,ABD,PELVIS W/WO In Process Unspecified. EDMS 07/23 02:42 IV discontinued, intact, bleeding controlled, No redness/swelling at site. Pressure al5 dressing applied. Administered Medications: 07/22 21:31 Drug: D5-1/2 NS IV 1000 ml IV at 125 ml/hr continuous Route: IV; Rate: 125 ml/hr; Site: al5 right antecubital; 07/23 02:34 Follow up: Response: No adverse reaction; IV Status: Order to discontinue infusion; IV al5 Intake: 600ml 07/22 23:44 Drug: morphine IVP or IV 4 mg IVP once over 4 mins Route: IVP; Infused Over: 4 mins; jb4 Site: right antecubital; 07/23 02:33 Follow up: Response: No adverse reaction; Pain is decreased al5 07/22 23:44 Drug: Ondansetron IVP 4 mg IVP once; over 2 minutes Route: IVP; Site: right antecubital;jb4 07/23 02:33 Follow up: Response: No adverse reaction al5 00:11 Drug: metoCLOPramide IVP 10 mg IVP once; over 1 to 2 minutes Route: IVP; Site: right jb4 antecubital; 02:33 Follow up: Response: No adverse reaction al5 Medication: 07/22 20:59 VIS not applicable for this client. al5 Point of Care Testing: Blood Glucose: 21:17 Blood Glucose: 67 mg/dL; al5 21:17 patient given juice and a peanut butter and jelly sandwich al5 Ranges: Intake: 07/23 02:34 IV: 600ml; Total: 600ml. al5 Outcome: 02:17 Discharge ordered by . sp4 02:42 Discharged to home via wheelchair, al5 02:42 Condition: good 02:42 Discharge instructions given to patient, Instructed on discharge instructions, follow up and referral plans. Demonstrated understanding of instructions, follow-up care, 02:43 Patient left the ED. al5 Signatures: Dispatcher [employer] EDDen Ribeiro RN RN jb4 Breann Kamara jj6 Radha Ferrera RN RN vc1 Joseph Bell MD MD sp4 Marianela Jose RN RN al5 Corrections: (The following items were deleted from the chart) 07/22 22:18 22:12 In radiology for Chest Abdomen Pelvis W Con+CT.RAD.BRZ. EDMS EDMS
[2024-07-23 10:24] VITALS: TEMP 99; O2SAT 100
[2024-07-23 10:53] VITALS: BP 95/65
--- NOTE | 2024-07-23 12:27 | EKG ---
Test Date: 2024-07-22 Test Time: 21:07:20 Digital Computer Systems Analyst: KESHA MEASUREMENT RESULTS: Intervals: Rate: 74 FL: 156 QRSD: 74 QT: 366 QTc: 406 [place]: P: 71 FL: 156 QRS: 34 T: 17 INTERPRETIVE STATEMENTS: Normal sinus rhythm Normal ECG Compared to ECG 05/19/2024 12:50:43 No significant changes Electronically Signed On 07-23-24 12:25:08 CDT by Xiang Nails
== END 2024-07-23 02:43 | disposition home or self-care (01) ==
LOC: ER 20:26
DX: E16.2 Hypoglycemia, unspecified (principal); S39.91XA Unspecified injury of abdomen, initial encounter; S09.90XA Unspecified injury of head, initial encounter; W18.30XA Fall on same level, unspecified, initial encounter; Z98.84 Bariatric surgery status
CPT/HCPCS: 96361; 93005; 85025; 80048; 36415; 81025; 82947 ×3; 84484; 80307; 70450; 71270; 74178; 71045; 96375; 96374; 99284; Q9967; J2765; J2405; J7799

== ENCOUNTER 2024-07-28 07:38 | Emergency (ER) | payer OTHER ==
[2024-07-28] MEDS ORDERED: LEVETIRACETAM 500 MG/5 ML VIAL IV ONE (08:04)
[2024-07-28] MEDS ORDERED: DIPHENHYDRAMINE 50 MG/ML VIAL ONE (08:04)
[2024-07-28] MEDS ORDERED: METOCLOPRAMIDE 10 MG/2mL INJ ONE (08:04)
[2024-07-28] MEDS ORDERED: NA CHLORIDE 0.9% 100 ML ONE (08:05)
[2024-07-28 08:13] LABS: Absolute Eosinophils 0.1 K/uL (0-0.5); Absolute Lymphocytes (CBC) 1.7 K/uL (0.7-4.9); Absolute Monocytes 0.3 K/uL (0.1-1.3); Absolute Neutrophil 1.3 K/uL (1.8-8.0); Basophils % 0.9 % (0-1.3); Eosinophils % 1.5 % (0-4.4); Hematocrit 28.6 % (36.0-45.0); Hemoglobin 9.7 g/dL (12.0-15.0); Lymphocytes % 50.9 % (15.3-44.8); MCH 32.7 pg (27.0-35.0); MCHC 33.7 g/dL (32.0-36.0); MCV 97.1 fL (80-100); MPV 7.8 fL (7.6-11.3); Monocytes % 8.6 % (3.3-12.3); Neutrophils % 38.1 % (41.7-73.7); Nucleated Red Blood Cells % 0.1 % (0-0); Platelets 250 thou/uL (152-406); RBC Red Blood Cell Count 2.95 M/uL (3.86-4.86); Red Cell Distribution Width 14.2 % (12.1-15.2)
[2024-07-28 08:26] LABS: Anion Gap 7.2 mEq/L (5.0-15.0); Potassium 3.2 mEq/L (3.5-5.1)
--- NOTE | 2024-07-28 08:27 | RAD REPORT ---
EXAM: CT brain without contrast HISTORY: Seizure COMPARISON: May 2024 TECHNIQUE: Multiple contiguous axial images were obtained and a CT of the brain without contrast.. Sagittal and coronal reconstruction performed. Automated exposure control, adjustment of the mA and/or kV according to patient size, and/or iterative reconstruction. Unless otherwise specified, incidental f indings do not require dedicated imaging follow-up FINDINGS: Images are somewhat degraded by beam hardening artifact. An intracranial bleed is not seen Ventricles are normal caliber No extra-axial fluid collection noted No significant hypodensity within the brain No fluid within the visualized sinuses or mastoids noted. IMPRESSION: No acute intracranial abnormality noted. If the patient continues to have symptoms to suggest an acute intracranial abnormality then MRI of th e brain would be recommended.
[2024-07-28 08:28] LABS: Specific Gravity 1.006 (1.005-1.030); Sqamous Epithelial None Seen /HPF (None Seen); Urine Bacteria <20 /HPF (<20); Urine Bilirubin NEGATIVE (Negative); Urine Blood Negative (Negative); Urine Clarity Clear (Clear); Urine Color Colorless (Yellow); Urine Culture Reflex Order NOT NEEDED; Urine Glucose NEGATIVE (Negative); Urine Ketones NEGATIVE (Negative); Urine Micro Reflex YN NO BILL MICROSCOPIC; Urine Mucus Slight /HPF (None Seen); Urine Nitrite NEGATIVE (Negative); Urine Protein NEGATIVE (Negative); Urine RBC <5 /HPF (None Seen); Urine Urobilinogen Normal (Normal); Urine WBC <5 /HPF (<5); Urine pH 7.5 (5.0-7.0)
--- NOTE | 2024-07-28 09:09 | ER ---
Nurse's Notes [facility] Name: Gill Gordon Age: 34 yrs Sex: Female : 1990 Arrival Date: 07/28/2024 Time: 07:38 Bed 7 Private MD: Diagnosis: Headache;Other seizures Presentation: 07/28 07:42 Chief complaint: EMS states: DE [place] ROS[place] AND SEIZURE AT HOME, WITNESSED BY EMS. Coronavirus bp screen: At this time, the client does not indicate any symptoms associated with coronavirus-19. Ebola Screen: No symptoms or risks identified at this time. Initial Sepsis Screen: Does the patient meet any 2 criteria? No. Patient's initial sepsis screen is negative. Does the patient have a suspected source of infection? No. Patient's initial sepsis screen is negative. Risk Assessment: Do you want to hurt yourself or someone else? Patient reports no desire to harm self or others. Onset of symptoms was July 28, 2024. Care prior to arrival: Glucose check: 56. 07:42 Method Of Arrival: EMS: [facility] bp 07:42 Acuity: ÁNGELA 3 bp Triage Assessment: 07:46 Headache History: The patient has had previous headaches and this one is similar to bp previous episodes. General: Appears in no apparent distress. Behavior is cooperative, appropriate for age, drowsy. Pain: Complains of pain in head Pain currently is 5 out of 10 on a pain scale. Pain began suddenly, Also complains of no other associated symptoms. EENT: No deficits noted. Neuro: Level of Consciousness is awake, alert, obeys commands, Oriented to Appropriate for age Seizure activity reported prior to arrival. Type of seizure: tonic-clonic seizure. Patient is post-ictal at this time. Cardiovascular: Rhythm is sinus rhythm. Respiratory: No deficits noted. GI: No signs and/or symptoms were reported involving the gastrointestinal system. : No signs and/or symptoms were reported regarding the genitourinary system. Derm: No deficits noted. Musculoskeletal: No deficits noted. Historical: - Allergies: 07:46 Amoxicillin; bp 07:46 PENICILLINS; bp - PMHx: 07:46 low blood sugar (Seizures); PCOS; Migraine; Seizures; bp - PSHx: 07:46 gastric sleeve; senthil n y (July 08); Total abdominal hysterectomy; bp 07:50 Gastric Bypass (due to complication of gastric sleeve); aa5 - Immunization history:: Adult Immunizations up to date. - Infectious Disease History:: Denies. - Social history:: Smoking status: Patient denies any tobacco usage or history of. Screenin:47 [facility] ED Fall Risk Assessment (Adult) History of falling in the last 3 months, bp including since admission No falls in past 3 months (0 pts) Confusion or Disorientation No (0 pts) Intoxicated or Sedated No (0 pts) Impaired Gait No (0 pts) Mobility Assist Device Used No (0 pt) Altered Elimination No (0 pt) Score/Fall Risk Level 0 - 2 = Low Risk. Abuse screen: Denies threats or abuse. Denies injuries from another. Nutritional screening: No deficits noted. Tuberculosis screening: No symptoms or risk factors identified. Assessment: 07:50 General: Appears comfortable, Behavior is calm, cooperative. Pain: Complains of pain in aa5 head Pain currently is 8 out of 10 on a pain scale. Quality of pain is described as aching, throbbing, Is continuous. Neuro: Level of Consciousness is awake, alert, obeys commands, Oriented to person, place, time, situation, Social Media Marketing Manager are weak bilaterally Moves all extremities. Speech is normal, Facial symmetry appears normal. Cardiovascular: Heart tones S1 S2 present Rhythm is regular. Respiratory: Airway is patent Respiratory effort is even, unlabored, Respiratory pattern is regular, symmetrical, Denies cough, shortness of breath labored breathing. GI: Abdomen is non-distended, Bowel sounds present X 4 quads. Abd is soft and non tender X 4 quads. Reports nausea, Patient currently denies vomiting. : No signs and/or symptoms were reported regarding the genitourinary system. EENT: No signs and/or symptoms were reported regarding the EENT system. Derm: Skin is dry, Skin is normal, Skin temperature is warm. Musculoskeletal: Range of motion: intact in all extremities. 07:56 Reassessment: Pt turned head to the left and upper body began shaking mildly, lasting aa5 approximately 20 seconds, O2 sat remained 100% RA, and pt returned to baseline after seizure, no post-ictal period noted, MD was notified. . 08:05 Reassessment: To bedside to administer medication and to complete EKG, pt in CT scan. . aa5 08:10 Reassessment: technology education teacher reported possible seizure, reported pt was able to speak during aa5 seizure, MD was notified. . 09:40 Reassessment:. Neuro: Level of Consciousness is awake, alert, obeys commands, Oriented aa5 to person, place, time, situation. Respiratory: Airway is patent Respiratory effort is even, unlabored, Respiratory pattern is regular, symmetrical. Derm: Skin is dry, Skin is normal, Skin temperature is warm. 09:45 Reassessment: Rechecked FSBG per pt's request, FSBG 75, pt was given orange juice and aa5 pt's mother states "I'll make sure she eats breakfast today". Vital Signs: 07:42 BP 114 / 64; Pulse 74; Resp 15; Temp 98; Pulse Ox 98% ; bp 08:13 BP 106 / 78; Pulse 76; Resp 14 S; Pulse Ox 100% on R/A; aa5 09:00 BP 95 / 66; Pulse 71; Resp 14 S; Pulse Ox 100% on R/A; aa5 09:40 BP 105 / 66; Pulse 71; Resp 16 S; Pulse Ox 100% on R/A; aa5 ED Course: 07:42 Patient arrived in ED. bp 07:45 Triage completed. bp 07:46 Arm band placed on. bp 07:47 Dawit Mckinney MD is Attending Physician. ec2 07:47 Patient has correct armband on for positive identification. bp 07:55 Laura Hernandez, RN is Primary Nurse. aa5 07:55 Urine collected: clean catch specimen, clear. aa5 07:57 Initial lab(s) drawn, by me, sent to lab. Inserted saline lock: 20 gauge in right aa5 antecubital area, using aseptic technique. Blood collected. Flushed with 10 mL NS. 08:07 No provider procedures requiring assistance completed. aa5 08:09 CT Head Brain wo Cont In Process Unspecified. EDMS 08:13 EKG done, by ED staff, reviewed by Dawit Mckinney MD. aa5 09:45 IV discontinued, intact, bleeding controlled, No redness/swelling at site. Pressure aa5 dressing applied. Administered Medications: 08:24 Drug: Keppra IV 1000 mg IV at bolus once Route: IV; Rate: bolus; Site: right bp antecubital; 08:39 Follow up: IV Status: Completed infusion; IV Intake: 100ml aa5 08:24 Drug: metoCLOPramide IVP 10 mg IVP once; over 1 to 2 minutes Route: IVP; Site: right bp antecubital; 08:39 Follow up: Response: No adverse reaction aa5 08:24 Drug: diphenhydrAMINE IVP 25 mg IVP once Route: IVP; Site: right antecubital; bp 08:39 Follow up: Response: No adverse reaction aa5 Medication: 08:07 VIS not applicable for this client. aa5 Intake: 08:39 IV: 100ml; Total: 100ml. aa5 Outcome: 09:09 Discharge ordered by . ec2 09:45 Discharged to home via wheelchair, with family, aa5 09:45 Condition: stable 09:45 Discharge instructions given to patient, family, Instructed on discharge instructions, follow up and referral plans. Demonstrated understanding of instructions, follow-up care, 09:47 Patient left the ED. aa5 Signatures: Dispatcher [employer] Laura Chiu RN RN aa Levy Moss RN RN bp Corral, Edwin, MD MD ec2
--- NOTE | 2024-07-28 09:09 | EDPHYS ---
Physician Documentation [facility] Name: Gill Gordon Age: 34 yrs Sex: Female : 1990 Arrival Date: 07/28/2024 Time: 07:38 Bed 7 Private MD: ED Physician Dawit Mckinney HPI: 07/28 08:18 This 34 yrs old Black Female presents to ER via EMS with complaints of Headache, ec2 Seizure. 08:18 Patient arrives today for evaluation of headache and seizure. Patient reportedly has a ec2 seizure of history history of seizures. Patient reportedly had multiple seizure episodes, is on Depakote as well as Keppra. Patient had an episode visualized by her nurses where she was lucid and answering questions and she was shaking in the upper extremities.. Historical: - Allergies: 07:46 Amoxicillin; bp 07:46 PENICILLINS; bp - PMHx: 07:46 low blood sugar (Seizures); PCOS; Migraine; Seizures; bp - PSHx: 07:46 gastric sleeve; senthil n y (July 08); Total abdominal hysterectomy; bp 07:50 Gastric Bypass (due to complication of gastric sleeve); aa5 - Immunization history:: Adult Immunizations up to date. - Infectious Disease History:: Denies. - Social history:: Smoking status: Patient denies any tobacco usage or history of. ROS: 08:19 Constitutional: as per hpi ec2 Exam: 08:19 Constitutional: GEN: NAD Head: atraumatic Eyes: EOMI Ears: External ears are ec2 normal. CV: regular rate LUNGS: no respiratory distress ABD: non-distended SKIN: no evidence of rashes MSK: no evidence of trauma. Neuro: Cranial nerves II through XII intact, strength intact all 4 extremities. Vital Signs: 07:42 BP 114 / 64; Pulse 74; Resp 15; Temp 98; Pulse Ox 98% ; bp 08:13 BP 106 / 78; Pulse 76; Resp 14 S; Pulse Ox 100% on R/A; aa5 09:00 BP 95 / 66; Pulse 71; Resp 14 S; Pulse Ox 100% on R/A; aa5 09:40 BP 105 / 66; Pulse 71; Resp 16 S; Pulse Ox 100% on R/A; aa5 MDM: 07:47 Medical Screening Exam initiated ec2 08:18 ED course: EKG independently reviewed and interpreted by me, shows normal sinus rhythm, ec2 rate 71, no acute ST segment elevations, intervals are nonactionable.. 08:19 Data reviewed: vital signs, nurses notes. ED course: Patient arrives today for headache ec2 as well as reported seizure activity with an intact neurologic examination. Will obtain lab work and CT imaging. Suspect possible known seizure history, possible nonepileptiform seizures.. 09:08 ED course: Lab work is reassuring, CT scan of the head with no acute intracranial ec2 process. On reassessment patient well-appearing no acute distress will discharge home. Return precautions given.. 07/28 07:52 Order name: Basic Metabolic Panel; Complete Time: 08:43 ec2 07/28 07:52 Order name: CBC with Diff; Complete Time: 08:43 ec2 07/28 07:52 Order name: Test, Serum; Complete Time: 08:50 ec2 07/28 07:53 Order name: UAM; Complete Time: 08:43 ec2 07/28 07:52 Order name: CT Head Brain wo Cont; Complete Time: 08:43 ec2 07/28 07:52 Order name: EKG; Complete Time: 07:52 ec2 07/28 07:52 Order name: Cardiac monitoring; Complete Time: 08:17 ec2 07/28 07:52 Order name: EKG - Nurse/Tech; Complete Time: 08:17 ec2 07/28 07:52 Order name: IV Saline Lock; Complete Time: 07:55 ec2 07/28 07:52 Order name: Labs collected and sent; Complete Time: 07:55 ec2 07/28 07:52 Order name: O2 Per Protocol; Complete Time: 07:56 ec2 07/28 07:52 Order name: O2 Sat Monitoring; Complete Time: 07:56 ec2 Administered Medications: 08:24 Drug: Keppra IV 1000 mg IV at bolus once Route: IV; Rate: bolus; Site: right bp antecubital; 08:39 Follow up: IV Status: Completed infusion; IV Intake: 100ml aa5 08:24 Drug: metoCLOPramide IVP 10 mg IVP once; over 1 to 2 minutes Route: IVP; Site: right bp antecubital; 08:39 Follow up: Response: No adverse reaction aa5 08:24 Drug: diphenhydrAMINE IVP 25 mg IVP once Route: IVP; Site: right antecubital; bp 08:39 Follow up: Response: No adverse reaction aa5 Disposition Summary: 07/28/24 09:09 Discharge Ordered Notes: Location: Home ec2 Condition: Stable ec2 Diagnosis - Headache ec2 - Other seizures ec2 Followup: ec2 - With: Private Physician - When: - Reason: Re-evaluation by your physician Discharge Instructions: - Discharge Summary Sheet ec2 - Seizure, Adult ec2 Forms: - Medication Reconciliation Form ec2 - Antibiotic Education ec2 - Prescription Opioid Use ec2 - Patient Portal Instructions ec2 - Leadership Thank You Letter ec2 Signatures: Dispatcher [employer] Laura Chiu RN RN aa5 Levy Moss RN RN bp Dawit Mckinney MD MD ec2 Corrections: (The following items were deleted from the chart) 07:53 07:53 Urinalysis W/Microscopic+U.LAB.BRZ ordered. SANDRA FLORES
[2024-07-28 10:01] VITALS: TEMP 98
[2024-07-28 10:07] VITALS: BP 106/78; O2SAT 100
--- NOTE | 2024-07-28 12:00 | EKG ---
Test Date: 2024-07-28 Test Time: 08:13:40 Care Provider: MELISSA MEASUREMENT RESULTS: Intervals: Rate: 71 W[place]: 192 QRSD: 80 QT: 372 QTc: 404 [place]: P: 67 W[place]: 192 QRS: 30 T: 34 INTERPRETIVE STATEMENTS: Normal sinus rhythm Normal ECG Compared to ECG 07/22/2024 21:07:20 No significant changes Electronically Signed On 07-28-24 11:59:09 CDT by Xiang Nails
== END 2024-07-28 09:47 | disposition home or self-care (01) ==
LOC: ER 07:38
DX: R51.9 Headache, unspecified (principal); G40.89 Other seizures
CPT/HCPCS: 93005; 85025; 81001; 80048; 36415; 84703; 82947; 70450; 96375; 96374; 99284; J1953; J2765; J1200

== ENCOUNTER 2024-08-13 11:04 | Emergency (ER) | payer OTHER ==
[2024-08-13 12:14] LABS: Absolute Lymphocytes (CBC) 2.2 K/uL (0.7-4.9); Absolute Monocytes 0.4 K/uL (0.1-1.3); Absolute Neutrophil 2.1 K/uL (1.8-8.0); Basophils % 0.8 % (0-1.3); Hematocrit 32.6 % (36.0-45.0); Lymphocytes % 45.8 % (15.3-44.8); MCH 32.7 pg (27.0-35.0); MCHC 33.7 g/dL (32.0-36.0); MCV 97.2 fL (80-100); MPV 8.1 fL (7.6-11.3); Monocytes % 9.1 % (3.3-12.3); Neutrophils % 43.3 % (41.7-73.7); Nucleated Red Blood Cells % 0.1 % (0-0); Platelets 211 thou/uL (152-406); RBC Red Blood Cell Count 3.36 M/uL (3.86-4.86); Red Cell Distribution Width 13.9 % (12.1-15.2)
[2024-08-13 12:35] LABS: Albumin 3.8 g/dL (3.4-5.0); Albumin/Globulin Ratio 1.2 (1.1-1.8); Anion Gap 5.7 mEq/L (5.0-15.0); Bilirubin Total 0.2 mg/dL (0.2-1.0); Globulin 3.3 g/dL (2.3-3.5); Potassium 3.7 mEq/L (3.5-5.1); Protein, Total 7.1 g/dL (6.4-8.2)
[2024-08-13] MEDS ORDERED: MORPHINE 4 MG/ML SYR ONE (14:09)
--- NOTE | 2024-08-13 14:15 | RAD REPORT ---
EXAMINATION: CT Abdomen Pelvis W Contrast CLINICAL INDICATION: Female, 34 years old. ABD PAIN TECHNIQUE: CT abdomen and pelvis was performed, after the administration of IV contrast[facility] Axial, sagittal and coronal reconstructions were obtained. One or more of the following dose reduction techniques were used: Automated exposure control, adjustment of the mA and k V according to patient size, and iterative reconstruction. Unless otherwise specified, incidental findings do not require dedicated imaging follow-up. COMPARISON: 07/22/2024 CT abdomen and pelvis. Lumbar spine CT 03/17/2020. FINDINGS: LOWER CHEST: The visualized lung bases are clear. LIVER: Normal in size and contour. No focal lesion. BILIARY SYSTEM: Status post cholecystectomy. SPLEEN: Normal size. No focal lesion. PANCREAS: No mass, ductal dilation, or aziza-pancreatic fluid. ADRENALS: Normal; no mass. KIDNEYS: Normal size and contour. No hydronephrosis. URINARY BLADDER: Unremarkable. GASTROINTESTINAL TRACT: Sequelae of gastric bypass. Stable mild pelvic ascites. No evidence of free a ir, bowel obstruction or abscess. APPENDIX: Normal appendix. LYMPH NODES: No lymphadenopathy. MUSCULOSKELETAL: No acute or suspicious osseous abnormality. Stable lucent lesions involving right as pect of L3 and left aspect of S1, suggesting small hemangiomas. ADDITIONAL FINDINGS: Collapse cystic lesion along the left dome of the bladder, with marginal enhance ment measuring 2.1 cm, may represent a recently ruptured ovarian cyst. IMPRESSION: Stable mild pelvic ascites. No other acute or concerning abnormalities seen in the abdomen or pelvis. Other stable findings as above.
--- NOTE | 2024-08-13 15:10 | EDPHYS ---
Physician Documentation [facility] Name: Gill Gordon Age: 34 yrs Sex: Female : 1990 Arrival Date: 08/13/2024 Time: 11:04 Bed 11 Private MD: ED Physician Luiz Brewster HPI: 08/13 14:43 This 34 yrs old Black Female presents to ER via Ambulatory with complaints of ms3 Dizziness, Bloody Stools. 14:43 34-year-old female with past medical history of low blood sugar, seizures, migraine, ms3 PCOS resents to the emergency department for abdominal cramping. Patient states she is status post Senthil-en-Y on 07/07/2024. Patient states she is noticing blood when wiping after bowel movement. Patient states her discomfort is a 9/10. Patient denies any alleviating or inciting factors. Patient states that discomfort is described as pressure, burning, cramping.. 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 - Infectious Disease History:: Denies. - Social history:: Smoking status: Patient denies any tobacco usage or history of. ROS: 14:43 Constitutional: Negative for fever, and chills. Cardiovascular: Negative for chest ms3 pain, and palpitations. Respiratory: Negative for shortness of breath, cough, wheezing, and pleuritic chest pain, 14:43 Abdomen/GI: Positive for abdominal pain, rectal bleeding, Exam: 14:19 ECG was reviewed by the Attending Physician. ms3 14:43 Constitutional: This is a well developed, well nourished patient who is awake, alert, ms3 and in no acute distress. Cardiovascular: Regular rate and rhythm with a normal S1 and S2. No gallops, murmurs, or rubs. Normal PMI, no JVD. No pulse deficits. Respiratory: Lungs have equal breath sounds bilaterally, clear to auscultation and percussion. No rales, rhonchi or wheezes noted. No increased work of breathing, no retractions or nasal flaring. 14:43 Abdomen/GI: Inspection: abdomen appears normal, Bowel sounds: normal, Palpation: mild abdominal tenderness, Rectal exam: rectal tone normal, Stool: No stool in vault, no blood noted on glove, hemorrhoid(s), are not appreciated, Mohan, OMS III, Vital Signs: 11:47 BP 108 / 78; Pulse 84; Resp 16; Temp 97.4; Pulse Ox 100% on R/A; Weight 65.77 kg; Pain iw 10/10; 15:21 BP 101 / 67; Pulse 63; Resp 16; Pulse Ox 100% ; ll1 11:47 Pain Scale: Adult iw MDM: 11:56 Medical Screening Exam initiated ms3 14:43 Differential diagnosis: GI bleed, Bowel obstruction versus postop surgical ms3 complication. Data reviewed: vital signs, nurses notes, lab test result(s), radiologic studies, and as a result, I will discharge patient. I considered the following discharge prescriptions or medication management in the emergency department Medications were administered in the Emergency Department. See MAR. Counseling: I had a detailed discussion with the patient and/or guardian regarding the historical points, exam findings, and any diagnostic results supporting the discharge/admit diagnosis, lab results, radiology results, the need for outpatient follow up, to return to the emergency department if symptoms worsen or persist or if there are any questions or concerns that arise at home. Special discussion: Based on the patient's Hx, exam, and Dx evaluation, there is no indication for emergent surgery or inpatient Tx. It is understood by the patient/guardian that if the Sx's persist or worsen they need to return immediately for re-evaluation. 15:11 Management of patient was discussed with the following: Dr Walters, automotive parts salesperson for Dr eliecer Sauceda. Patient can follow up in clinic. Can discharge with Robkunal. ED course: On reevaluation patient symptoms improved, discussed my conversation with Dr. Walters with patient. All questions were answered. Return precautions discussed include worsening symptoms, or any other concerns. CBC significant for mild anemia, patient remains hemodynamically stable. Rectal exam without blood on glove. Patient is without nausea or vomiting in the emergency department. Patient to follow-up in 1 to 2 days. All questions were answered. Return precautions discussed include increased bleeding, increased pain, worsening symptoms, or any other concerns. 08/13 11:49 Order name: CBC with Diff; Complete Time: 14:04 ms3 08/13 11:49 Order name: CMP; Complete Time: 14:04 ms3 08/13 11:55 Order name: CT Abd/Pelvis - IV Contrast Only; Complete Time: 14:17 ms3 08/13 11:49 Order name: IV Saline Lock; Complete Time: 12:15 ms3 08/13 11:49 Order name: Labs collected and sent; Complete Time: 12:16 ms3 08/13 11:49 Order name: EKG - Nurse/Tech; Complete Time: 12:15 ms3 EC:19 Rate is 79 beats/min. Rhythm is regular. QRS [place] is Normal. [place] interval is normal. QRS ms3 interval is normal. Clinical impression: Normal ECG. Interpreted by me. Reviewed by me. Administered Medications: 14:12 Drug: morphine IVP or IV 4 mg IVP once over 4 mins {Note: pain 10/10, RASS 0.} Route: ll1 IVP; Infused Over: 4 mins; Site: right antecubital; 15:21 Follow up: Response: No adverse reaction; Pain is decreased; RASS: Alert and Calm (0) ll1 Disposition Summary: 08/13/24 15:09 Discharge Ordered Notes: Location: Home ms3 Condition: Stable ms3 Diagnosis - Abdominal pain, Generalized ms3 - Rectal Bleeding ms3 - Anemia, unspecified ms3 Followup: ms3 - With: Private Physician - When: 1 - 2 days - Reason: Recheck today's complaints Discharge Instructions: - Discharge Summary Sheet ms3 - Abdominal Pain, Adult ms3 - Rectal Bleeding, [id number] ms3 Forms: - Work release form [id number] - Medication Reconciliation Form ms3 - Antibiotic Education ms3 - Prescription Opioid Use ms3 - Patient Portal Instructions ms3 - Leadership Thank You Letter ms3 Prescriptions: - methocarbamol 750 mg Oral tablet - take 1 tablet ORAL route 3 times per day; 15 tablet; Refills: 0, Product ms3 Selection Permitted Signatures: Dispatcher [employer] Sharla Abreu RN RN iw Leonardo Oneill RN RN ll1 Luiz Brewster DO DO ms3 Corrections: (The following items were deleted from the chart) 11:49 11:49 CBC+H.LAB.BRZ ordered. EDMS EDMS 11:49 11:49 COMPREHENSIVE METABOLIC PANEL+C.LAB.BRZ ordered. EDMS EDMS
--- NOTE | 2024-08-13 15:10 | ER ---
Nurse's Notes [facility] Name: Gill Gordon Age: 34 yrs Sex: Female : 1990 Arrival Date: 08/13/2024 Time: 11:04 Bed 11 Private MD: Diagnosis: Abdominal pain, Generalized;Rectal Bleeding;Anemia, unspecified Presentation: 08/13 11:47 Chief complaint: Patient states: woke up this morning with abd cramping and bright red iw blood in her stool , she had gastric bypass surgery on July 07 and her surgeon recommended for her to come and be seen. Coronavirus screen: At this time, the client does not indicate any symptoms associated with coronavirus-19. Ebola Screen: No symptoms or risks identified at this time. Initial Sepsis Screen: Does the patient meet any 2 criteria? No. Patient's initial sepsis screen is negative. Does the patient have a suspected source of infection? No. Patient's initial sepsis screen is negative. Risk Assessment: Do you want to hurt yourself or someone else? Patient reports no desire to harm self or others. Onset of symptoms was August 13, 2024. 11:47 Method Of Arrival: Ambulatory iw 11:47 Acuity: ÁNGELA 3 iw DIRECTOR EMBALMER: 15:22 LMP N/A - control method, Not ll1 Historical: - Allergies: 11:49 Amoxicillin; iw 11:49 PENICILLINS; iw - PMHx: 11:49 low blood sugar (Seizures); Migraine; PCOS; Seizures; iw - PSHx: 11:49 gastric sleeve; Gastric Bypass (due to complication of gastric sleeve); senthil n y (July 0); Total abdominal hysterectomy; - Immunization history:: Adult Immunizations up to date. - Infectious Disease History:: Denies. - Social history:: Smoking status: Patient denies any tobacco usage or history of. Screenin:58 [facility] ED Fall Risk Assessment (Adult) History of falling in the last 3 months, ll1 including since admission No falls in past 3 months (0 pts) Confusion or Disorientation No (0 pts) Intoxicated or Sedated No (0 pts) Impaired Gait No (0 pts) Mobility Assist Device Used No (0 pt) Altered Elimination No (0 pt) Score/Fall Risk Level 0 - 2 = Low Risk Maintained a safe environment, Hourly rounding (assess needs \T\ fall precautionary measures) done. Abuse screen: Denies threats or abuse. Nutritional screening: No deficits noted. Tuberculosis screening: No symptoms or risk factors identified. Assessment: 13:57 General: Appears uncomfortable, Behavior is calm, cooperative, appropriate for age. ll1 Pain: Complains of pain in abdomen. GI: Reports lower abdominal pain, upper abdominal pain, cramping, diarrhea, rectal bleeding. 15:21 Reassessment: No changes from previously documented assessment. Patient and/or family ll1 updated on plan of care and expected duration. Pain level reassessed. Patient is alert, oriented x 3, equal unlabored respirations, skin warm/dry/pink. Vital Signs: 11:47 BP 108 / 78; Pulse 84; Resp 16; Temp 97.4; Pulse Ox 100% on R/A; Weight 65.77 kg; Pain iw 10/10; 15:21 BP 101 / 67; Pulse 63; Resp 16; Pulse Ox 100% ; ll1 11:47 Pain Scale: Adult iw ED Course: 11:08 Patient arrived in ED. al6 11:29 Luiz Brewster DO is Attending Physician. ms3 11:49 Triage completed. iw 11:49 Arm band placed on. iw 12:16 CBC with Diff Sent. cc6 12:16 CMP Sent. cc6 13:07 CT Abd/Pelvis - IV Contrast Only In Process Unspecified. EDMS 13:57 Leonardo Oneill, RN is Primary Nurse. ll1 13:59 Patient has correct armband on for positive identification. Bed in low position. ll1 Provided Education on: ER procedures and process. 13:59 Patient placed in an exam room, on a stretcher. ll1 14:57 contacted answering service for dr harding at [phone], call was returned by Dr gato Felipe who is coving for dr harding. 15:22 No provider procedures requiring assistance completed. IV discontinued, intact, ll1 bleeding controlled, No redness/swelling at site. Pressure dressing applied. Administered Medications: 14:12 Drug: morphine IVP or IV 4 mg IVP once over 4 mins {Note: pain 10/10, RASS 0.} Route: ll1 IVP; Infused Over: 4 mins; Site: right antecubital; 15:21 Follow up: Response: No adverse reaction; Pain is decreased; RASS: Alert and Calm (0) ll1 Medication: 13:58 VIS not applicable for this client. ll1 Outcome: 15:09 Discharge ordered by . ms3 15:22 Discharged to home ambulatory, ll1 15:22 Condition: stable 15:22 Discharge instructions given to patient, Instructed on discharge instructions, follow up and referral plans. Demonstrated understanding of instructions, follow-up care, 15:22 Patient left the ED. 1 Signatures: Dispatcher [employer] EDMS Marce Solis Irene, RN RN iw Leonardo Oneill RN RN ll1 Luiz Brewster DO DO ms3 Antonietta Spears cc6 Alicia Johnson al6
[2024-08-13 15:44] VITALS: TEMP 97.4; O2SAT 100
[2024-08-13 15:46] VITALS: BP 101/67
--- NOTE | 2024-08-14 11:49 | EKG ---
Test Date: 2024-08-13 Test Time: 12:13:41 Maintenance Representative: ALYCIA MEASUREMENT RESULTS: Intervals: Rate: 79 ID: [id number] QRSD: 66 QT: 360 QTc: 412 [place]: P: 82 ID: [id number] QRS: 30 T: 53 INTERPRETIVE STATEMENTS: Normal sinus rhythm Normal ECG Compared to ECG 07/28/2024 08:13:40 No significant changes Electronically Signed On 08-14-24 11:48:31 CDT by Xiang Nails
== END 2024-08-13 15:22 | disposition home or self-care (01) ==
LOC: ER 11:04
DX: R10.84 Generalized abdominal pain (principal); K62.5 Hemorrhage of anus and rectum; D64.9 Anemia, unspecified; Z98.84 Bariatric surgery status
CPT/HCPCS: 85025; 36415; 80053; 74177; Q9967; 93005

== ENCOUNTER 2024-09-24 21:13 | Emergency (ER) | payer OTHER ==
[2024-09-24] MEDS ORDERED: LEVETIRACETAM 500 MG/5 ML VIAL IV ONE (21:24)
[2024-09-24] MEDS ORDERED: NA CHLORIDE 0.9% 100 ML ONE (21:24)
[2024-09-24 22:15] LABS: Absolute Eosinophils 0.1 K/uL (0-0.5); Absolute Lymphocytes (CBC) 2.7 K/uL (0.7-4.9); Absolute Monocytes 0.4 K/uL (0.1-1.3); Basophils % 0.6 % (0-1.3); Eosinophils % 1.6 % (0-4.4); Hematocrit 30.1 % (36.0-45.0); Hemoglobin 10.3 g/dL (12.0-15.0); Lymphocytes % 52.3 % (15.3-44.8); MCH 32.6 pg (27.0-35.0); MCHC 34.3 g/dL (32.0-36.0); MPV 7.8 fL (7.6-11.3); Monocytes % 7.8 % (3.3-12.3); Neutrophils % 37.7 % (41.7-73.7); Nucleated Red Blood Cells % 0.1 % (0-0); Platelets 195 thou/uL (152-406); RBC Red Blood Cell Count 3.17 M/uL (3.86-4.86); Red Cell Distribution Width 12.9 % (12.1-15.2)
[2024-09-24 22:16] LABS: Specific Gravity 1.005 (1.005-1.030); Urine Bilirubin NEGATIVE (Negative); Urine Blood Negative (Negative); Urine Clarity Clear (Clear); Urine Color Colorless (Yellow); Urine Glucose NEGATIVE (Negative); Urine Ketones NEGATIVE (Negative); Urine Microscopic Reflex YN NO UMIC; Urine Nitrite NEGATIVE (Negative); Urine Protein NEGATIVE (Negative); Urine Urobilinogen Normal (Normal)
[2024-09-24 22:19] LABS: Specific Gravity 1.005 (1.005-1.030)
[2024-09-24 22:31] LABS: Anion Gap 11.1 mEq/L (5.0-15.0); Ferritin 26.1 ng/mL (8-252); Potassium 3.1 mEq/L (3.5-5.1)
--- NOTE | 2024-09-24 22:53 | RAD REPORT ---
EXAMINATION: Head Brain Wo Cont CLINICAL INDICATION: Female, 34 years old.headache, seizure TECHNIQUE: Axial CT images from the skull base to the vertex without intravenous contrast. Coronal an d sagittal reformatted images were created from the data set. One or more of the following dose reduction techniques were used: Automated exposure control, adjustment of the mA and/or kV according to patient size, and/or iterative reconstruction. Unless otherwise specified, incidental findings do not require dedicated imaging follow-up. [id number]. COMPARISON: 07/28/2024 FINDINGS: INTRACRANIAL: No acute intracranial hemorrhage. No hydrocephalus. No mass effect or midline shift. No significant white matter disease. VASCULATURE: No visualized abnormalities in the arteries or dural venous sinuses. SCALP/SKULL: No calvarial fracture identified. No acute soft tissue abnormality. SINUSES: The visualized paranasal sinuses are mostly clear. No significant mastoid fluid. IMPRESSION: No acute intracranial abnormality.
[2024-09-24] MEDS ORDERED: KETOROLAC 30 MG/ML INJ ONE (23:38)
[2024-09-25 00:06] LABS: Differential Total Cells Count 100; Eosinophils 1 % (0-3); Lymphocytes 49 % (15-42); Monocytes 6 % (0-10); Reactive Lymphocytes 1 %; Segmented Neutrophils 41 % (40-80)
[2024-09-25 00:07] LABS: Blood Morphology Comment NOT SEEN (NOT SEEN); Platelet Estimate ADEQ
--- NOTE | 2024-09-25 01:12 | ER ---
Nurse's Notes [facility] Name: Gill Gordon Age: 34 yrs Sex: Female : 1990 Arrival Date: 09/24/2024 Time: 21:13 Bed 16 Private MD: Diagnosis: Other seizures Presentation: 09/24 21:32 Chief complaint: Patient states: S/P SEIZURES X4 2 AT HOME AND 2 IN ROUTE WITH EMS. PT br2 WAS GIVEN ATIVAN AND VERSED PER EMS PT AAOX3, SLURRED SPEECH. C/O HEADACHE AND LOWER BACK PAIN. Coronavirus screen: Client denies travel out of the [place] in the last 14 days. Ebola Screen: Patient denies exposure to infectious person. Initial Sepsis Screen: Does the patient meet any 2 criteria? No. Patient's initial sepsis screen is negative. Does the patient have a suspected source of infection? No. Patient's initial sepsis screen is negative. Risk Assessment: Do you want to hurt yourself or someone else? Patient reports no desire to harm self or others. Onset of symptoms is unknown. 21:32 Method Of Arrival: EMS: [facility] br2 21:32 Acuity: ÁNGELA 3 br2 Triage Assessment: 21:35 General: Appears comfortable, slender, Behavior is drowsy. Pain: Complains of pain in br2 face and back Pain currently is 10 out of 10 on a pain scale. Historical: - Allergies: 21:35 Amoxicillin; br2 21:35 PENICILLINS; br2 - PMHx: 21:35 low blood sugar (Seizures); Migraine; PCOS; Seizures; br2 - PSHx: 21:35 Gastric Bypass (due to complication of gastric sleeve); gastric sleeve; Total abdominal br2 hysterectomy; senthil n y (July); - Immunization history:: Adult Immunizations up to date. - Infectious Disease History:: Denies. - Family history:: not pertinent. - Social history:: Smoking status: Patient denies any tobacco usage or history of. Patient uses alcohol, occasionally. - Hospitalizations: : No recent hospitalization is reported. Screenin:45 [facility] ED Fall Risk Assessment (Adult) History of falling in the last 3 months, kj2 including since admission No falls in past 3 months (0 pts) Confusion or Disorientation Yes (5 pts) Intoxicated or Sedated No (0 pts) Impaired Gait No (0 pts) Mobility Assist Device Used No (0 pt) Altered Elimination No (0 pt) Score/Fall Risk Level 3 or more points = High Risk Maintained a safe environment, Hourly rounding (assess needs \T\ fall precautionary measures) done, Utilized family, sitter, or virtual apartment house manager as indicated. Abuse screen: Denies threats or abuse. Denies injuries from another. Nutritional screening: No deficits noted. Tuberculosis screening: No symptoms or risk factors identified. Assessment: 21:45 General: Appears in no apparent distress. Behavior is drowsy. Pain: Denies pain. Neuro: kj2 Level of Consciousness is awake, Oriented to person, place, situation. Cardiovascular: Patient's skin is warm and dry. Respiratory: Airway is patent Respiratory effort is unlabored. GI: No signs and/or symptoms were reported involving the gastrointestinal system. : No signs and/or symptoms were reported regarding the genitourinary system. 22:30 Reassessment: Patient appears in no apparent distress at this time. Patient and/or kj2 family updated on plan of care and expected duration. Pain level reassessed. Patient is alert, oriented x 3, equal unlabored respirations, skin warm/dry/pink. 23:30 Reassessment: Patient appears in no apparent distress at this time. Patient and/or kj2 family updated on plan of care and expected duration. Pain level reassessed. Patient is alert, oriented x 3, equal unlabored respirations, skin warm/dry/pink. 09/25 00:20 General: Appears in no apparent distress. comfortable, Behavior is calm, cooperative. al5 Neuro: Level of Consciousness is awake, alert, obeys commands, Oriented to person, place, time, situation. Cardiovascular: Capillary refill < 3 seconds Patient's skin is warm and dry. Respiratory: Airway is patent Respiratory effort is even, unlabored, Respiratory pattern is regular, symmetrical. GI: No signs and/or symptoms were reported involving the gastrointestinal system. : No signs and/or symptoms were reported regarding the genitourinary system. EENT: No signs and/or symptoms were reported regarding the EENT system. Derm: Skin is intact, is healthy with good turgor, Skin is pink, warm \T\ dry. normal. Musculoskeletal: No signs and/or symptoms reported regarding the musculoskeletal system. 01:32 Reassessment: Patient appears in no apparent distress at this time. No changes from al5 previously documented assessment. Patient and/or family updated on plan of care and expected duration. Pain level reassessed. Patient is alert, oriented x 3, equal unlabored respirations, skin warm/dry/pink. Vital Signs: 09/24 21:32 BP 118 / 77; Pulse 73; Resp 18; Temp 97(TE); Pulse Ox 100% on R/A; Weight 61.69 kg; br2 Height 5 ft. 0 in. ; Pain 10/10; 21:45 BP 107 / 72; Pulse 73; Resp 18; Temp 98; Pulse Ox 100% on R/A; kj2 22:45 BP 92 / 55; Pulse 69; Resp 18; Pulse Ox 100% on R/A; kj2 23:45 BP 110 / 74; Pulse 64; Resp 18; Pulse Ox 100% on R/A; kj2 09/25 00:00 BP 103 / 65; Pulse 75; Resp 16; Pulse Ox 99% on R/A; al5 00:30 BP 104 / 64; Pulse 76; Resp 16; Pulse Ox 99% ; al5 01:00 BP 99 / 66; Pulse 60; Resp 15; Pulse Ox 99% ; al5 09/24 21:32 Body Mass Index 26.56 (61.69 kg, 152.4 cm) br2 09/24 21:32 Pain Scale: Adult br2 ED Course: 09/24 21:15 Patient arrived in ED. rn 21:15 Alex Jurado MD is Attending Physician. rn 21:21 Lesley Burrows, BREA is Primary Nurse. kj2 21:35 Triage completed. br2 21:35 Arm band placed on. br2 21:45 Patient has correct armband on for positive identification. Bed in low position. Call kj2 light in reach. Adult w/ patient. Provided Education on: call light. 22:46 CT Head Brain wo Cont In Process Unspecified. EDMS 09/25 00:50 No provider procedures requiring assistance completed. al5 01:00 Maintain EMS IV. Dressing intact. Good blood return noted. Site clean \T\ dry. Gauge \T\ al 5 site: 20G LAC. Flushed with 10 mL NS. 01:31 IV discontinued. al5 Administered Medications: 09/24 21:34 Drug: Keppra IV 1000 mg IV at calculated rate once Route: IV; Rate: calculated rate; kj2 Site: left antecubital; 09/25 00:22 Follow up: IV Status: Completed infusion; IV Intake: 100ml kj2 09/24 23:47 Drug: Ketorolac IVP 15 mg IVP once Route: IVP; Site: left antecubital; kj2 09/25 00:59 Follow up: Response: No adverse reaction; Pain is decreased al5 Medication: 09/24 21:45 VIS not applicable for this client. kj2 Intake: 09/25 00:22 IV: 100ml; Total: 100ml. kj2 Outcome: 01:12 Discharge ordered by . rn 01:33 Discharged to home via wheelchair, with significant other, al5 01:33 Condition: good 01:33 Discharge instructions given to patient, significant other, Instructed on discharge instructions, follow up and referral plans. Demonstrated understanding of instructions, follow-up care, 01:33 Patient left the ED. al5 Signatures: Dispatcher [employer] EDMS Alex Jurado MD MD rn Langhorst, Amanda RN RN al5 Rosamaria Haynes RN RN br2 Lesley Burrows, RN RN kj2
--- NOTE | 2024-09-25 01:13 | EDPHYS ---
Physician Documentation [facility] Name: Gill Gordon Age: 34 yrs Sex: Female : 1990 Arrival Date: 09/24/2024 Time: 21:13 Bed 16 Private MD: ED Physician Alex Jurado HPI: 09/24 21:18 This 34 yrs old Black Female presents to ER via Unassigned with complaints of seizure. rn 21:18 The patient presents with a history of multiple seizures. Patient presents by EMS for rn multiple seizures. Has had 3-4 seizures today. Has known seizure disorder and on 3 different medication including Topamax and Keppra. Patient given Versed IM initially for for seizure, broke the seizure, had another seizure en route and given ativan. No longer seizing. Patient is awake and reports headache. Patient reports usually gets migraine headaches prior to and following seizures. Last seizure was about a month ago. Patient states recently started back to work and believes her seizures are secondary to stress and low iron.. Historical: - Allergies: 21:35 Amoxicillin; br2 21:35 PENICILLINS; br2 - PMHx: 21:35 low blood sugar (Seizures); Migraine; PCOS; Seizures; br2 - PSHx: 21:35 Gastric Bypass (due to complication of gastric sleeve); gastric sleeve; Total abdominal br2 hysterectomy; senthil n y (July); - Immunization history:: Adult Immunizations up to date. - Infectious Disease History:: Denies. - Family history:: not pertinent. - Social history:: Smoking status: Patient denies any tobacco usage or history of. Patient uses alcohol, occasionally. - Hospitalizations: : No recent hospitalization is reported. ROS: 21:20 Constitutional: Negative for fever, chills, and weight loss, Eyes: Negative for injury, rn pain, redness, and discharge, Neck: Negative for injury, pain, and swelling, Cardiovascular: Negative for chest pain, palpitations, and edema, Respiratory: Negative for shortness of breath, cough, wheezing, and pleuritic chest pain, Abdomen/GI: Negative for abdominal pain, nausea, vomiting, diarrhea, and constipation, Back: Negative for injury and pain, MS/Extremity: Negative for injury and deformity, Skin: Negative for injury, rash, and discoloration, Neuro: Positive for headache and seizure Exam: 21:20 Constitutional: This is a well developed, well nourished patient who is awake, alert, rn and in no acute distress. Head/Face: Normocephalic, atraumatic. Eyes: Pupils equal round and reactive to light, extra-ocular motions intact. Cardiovascular: Regular rate and rhythm. No pulse deficits. Respiratory: No increased work of breathing, no retractions or nasal flaring. Abdomen/GI: Soft, non-tender Skin: No cyanosis or rash MS/ Extremity: Pulses equal, no cyanosis. Neuro: Awake and alert, GCS 15, oriented to person, place, time, and situation. Cranial nerves II-XII grossly intact. Motor strength 5/5 in all extremities. Sensory grossly intact. 09/25 01:49 ECG was reviewed by the Attending Physician. rn Vital Signs: 09/24 21:32 BP 118 / 77; Pulse 73; Resp 18; Temp 97(TE); Pulse Ox 100% on R/A; Weight 61.69 kg; br2 Height 5 ft. 0 in. ; Pain 10/10; 21:45 BP 107 / 72; Pulse 73; Resp 18; Temp 98; Pulse Ox 100% on R/A; kj2 22:45 BP 92 / 55; Pulse 69; Resp 18; Pulse Ox 100% on R/A; kj2 23:45 BP 110 / 74; Pulse 64; Resp 18; Pulse Ox 100% on R/A; kj2 09/25 00:00 BP 103 / 65; Pulse 75; Resp 16; Pulse Ox 99% on R/A; al5 00:30 BP 104 / 64; Pulse 76; Resp 16; Pulse Ox 99% ; al5 01:00 BP 99 / 66; Pulse 60; Resp 15; Pulse Ox 99% ; al5 09/24 21:32 Body Mass Index 26.56 (61.69 kg, 152.4 cm) br2 09/24 21:32 Pain Scale: Adult br2 MDM: 09/24 21:15 Medical Screening Exam initiated rn 23:17 ED course: Patient sleeping comfortably. No further seizure activity. Has been loaded rn with Robert. If does not have any further seizures will discharge home with continuation of medication and follow-up with her neurologist Dr. Sequeira. If patient has another seizure despite medication will admit for observation.. 09/25 01:10 Differential diagnosis: seizure. Data reviewed: vital signs, nurses notes, lab test rn result(s), radiologic studies, CT scan, and as a result, I will discharge patient. Consideration of Admission/Observation Escalation of care including admission/observation considered. Admission considered if patient had another seizure but remained seizure-free for 4 hours. Ambulatory to bathroom without assistance and feeling much better. Workup negative for acute findings. Will discharge home with return precautions and follow-up with neurology.. Counseling: I had a detailed discussion with the patient and/or guardian regarding the historical points, exam findings, and any diagnostic results supporting the discharge/admit diagnosis, lab results, radiology results, the need for outpatient follow up, to return to the emergency department if symptoms worsen or persist or if there are any questions or concerns that arise at home. Special discussion: I discussed with the patient/guardian in detail that at this point there is no indication for admission to the hospital. It is understood, however, that if the symptoms persist or worsen the patient needs to return immediately for re-evaluation. Based on the history and exam findings, there is no indication for further emergent testing or inpatient evaluation. I discussed with the patient/guardian the need to see the neurologist for further evaluation of the symptoms. 09/24 21:16 Order name: Iron Level; Complete Time: : rn 09/24 21:16 Order name: CBC with Diff; Complete Time: 00:13 rn 09/24 21:16 Order name: Basic Metabolic Panel; Complete Time: : rn 09/24 21:16 Order name: Test, Urine; Complete Time: : rn 09/24 21:16 Order name: UA Rfx Srinivasa Cult if indicated; Complete Time: : rn 09/24 21:20 Order name: Magnesium; Complete Time: : rn 09/24 22:21 Order name: Manual Differential; Complete Time: 00:13 EDMS 09/24 21:16 Order name: CT Head Brain wo Cont; Complete Time: 23: rn 09/24 21:16 Order name: EKG; Complete Time: 21: rn 09/24 21:16 Order name: IV Start; Complete Time: 01:00 rn 09/24 21:16 Order name: Cardiac monitoring; Complete Time: 01: rn 09/24 21:16 Order name: O2 Sat Monitoring; Complete Time: 00:50 rn 09/24 21:16 Order name: EKG - Nurse/Tech; Complete Time: 00:59 rn EC:49 Rate is 76 beats/min. Rhythm is regular. QRS [place] is Normal. [place] interval is normal. QRS rn interval is normal. QT interval is normal. No Q waves. T waves are Normal. No ST changes noted. Clinical impression: Normal ECG. Interpreted by me. Reviewed by me. Administered Medications: 09/24 21:34 Drug: Keppra IV 1000 mg IV at calculated rate once Route: IV; Rate: calculated rate; kj2 Site: left antecubital; 09/25 00:22 Follow up: IV Status: Completed infusion; IV Intake: 100ml 2 09/24 23:47 Drug: Ketorolac IVP 15 mg IVP once Route: IVP; Site: left antecubital; kj2 09/25 00:59 Follow up: Response: No adverse reaction; Pain is decreased al5 Disposition Summary: 09/25/24 01:12 Discharge Ordered Notes: Location: Home rn Problem: new rn Symptoms: have improved rn Condition: Stable rn Diagnosis - Other seizures rn Followup: rn - With: Private Physician - When: As needed - Reason: Recheck today's complaints, Re-evaluation by your physician Discharge Instructions: - Discharge Summary Sheet rn - Seizure, Adult rn Forms: - Medication Reconciliation Form rn - Antibiotic international sales manager - Prescription Opioid Use rn - Patient Portal Instructions rn - Leadership Thank You Letter rn Signatures: Dispatcher [employer] EDRI Alex Jurado MD MD rn Riddle, Belinda RN RN br2 Lesley Burrows RN RN kj2 Marianela Jose RN al5 Corrections: (The following items were deleted from the chart) 09/24 21:20 21:20 MAGNESIUM+C.LAB.BRZ ordered. [facility] EDRI 21:20 21:18 Patient presents by EMS for multiple seizures. Has had 3-4 seizures today. Has rn known seizure disorder and on 3 different medication including Topamax and Keppra. Patient given Versed IM initially for for seizure, broke the seizure, had another seizure en route and given ativan. No longer seizing. Patient is awake and reports headache. Patient reports usually gets migraine headaches prior to and following seizures. Last seizure was about a month ago.. rn 09/25 01:00 09/24 21:16 [facility] ordered. rn al5
[2024-09-25 02:20] VITALS: TEMP 98
[2024-09-25 02:25] VITALS: O2SAT 99
[2024-09-25 02:28] VITALS: BP 99/66
--- NOTE | 2024-09-30 12:40 | EKG ---
Test Date: 2024-09-25 Test Time: 00:57:53 Electronic Assembly: KESHA MEASUREMENT RESULTS: Intervals: Rate: 76 UT: 150 QRSD: 76 QT: 398 QTc: 447 [place]: P: 60 UT: 150 QRS: 18 T: 53 INTERPRETIVE STATEMENTS: Normal sinus rhythm Normal ECG Compared to ECG 08/13/2024 12:13:41 No significant changes Electronically Signed On 09-30-24 12:29:13 CDT by Xiang Nails
== END 2024-09-25 01:33 | disposition home or self-care (01) ==
LOC: ER 21:13
DX: G40.909 Epilepsy, unspecified, not intractable, without status epilepticus (principal)
CPT/HCPCS: 96365; 93005; 85025; 80048; 36415; 83735; 81025; 81003; 82728; 70450; 96375; 99284; 96366; J1953

== ENCOUNTER 2024-09-25 12:56 | Emergency (ER) | payer OTHER ==
[2024-09-25] MEDS ORDERED: NA CHLORIDE 0.9% 1,000 ML ONE (13:07)
[2024-09-25] MEDS ORDERED: LORazepam 2 MG/ML VIAL ONE (13:18)
--- NOTE | 2024-09-25 13:23 | RAD REPORT ---
EXAM: CT brain without contrast HISTORY: SEIZURE COMPARISON: 09/24/2024 TECHNIQUE: Multiple contiguous axial images were obtained and a CT of the brain without contrast. Sag ittal and coronal reformats were performed. One or more of the following dose reduction techniques were used: Automated exposure control, adjust ment of the mA and/or kV according to patient size, and/or iterative reconstruction. FINDINGS: There is significant motion artifact present throughout the study. No evidence of hydrocephalus, intracranial hemorrhage, or extra-axial fluid collection. The brain is normal in morphology. No evidence of midline shift or areas of brain edema. The calvarium is intact. The visualized paranasal sinuses and mastoid air cells are essentially clear . IMPRESSION: No evidence of acute intracranial abnormality. Significant motion artifact is present.
[2024-09-25 13:26] LABS: Absolute Eosinophils 0.1 K/uL (0-0.5); Absolute Monocytes 0.3 K/uL (0.1-1.3); Absolute Neutrophil 1.4 K/uL (1.8-8.0); Basophils % 0.6 % (0-1.3); Hematocrit 31.9 % (36.0-45.0); Hemoglobin 10.7 g/dL (12.0-15.0); MCH 32.1 pg (27.0-35.0); MCHC 33.7 g/dL (32.0-36.0); MPV 7.9 fL (7.6-11.3); Monocytes % 8.7 % (3.3-12.3); Neutrophils % 36.7 % (41.7-73.7); Nucleated Red Blood Cells % 0.1 % (0-0); Platelets 207 thou/uL (152-406); RBC Red Blood Cell Count 3.35 M/uL (3.86-4.86)
[2024-09-25 13:34] LABS: PT Prothrombin Time 12.5 SECONDS (10-13.0); Protime INR 1.1
[2024-09-25 13:54] LABS: ALT/SGPT 29 U/L (13-56); AST/SGOT 15 U/L (15-37); Albumin 3.3 g/dL (3.4-5.0); Alkaline Phosphatase 65 U/L (45-117); Anion Gap 8.5 mEq/L (5.0-15.0); BUN Blood Urea Nitrogen 9 mg/dL (7-18); Bicarbonate 27 mEq/L (21-32); Bilirubin Total 0.3 mg/dL (0.2-1.0); Globulin 3.2 g/dL (2.3-3.5); Glomerular Filtration Rate 89 ml/min (=/>90); Glucose Level 92 mg/dL (74-106); Potassium 3.5 mEq/L (3.5-5.1); Protein, Total 6.5 g/dL (6.4-8.2); Sodium Level 142 mEq/L (136-145)
[2024-09-25 13:55] LABS: Bilirubin Direct < 0.2 mg/dL (0-0.2); Bilirubin Indirect, Calculated 0.1 mg/dL (0.2-0.8)
[2024-09-25] MEDS ORDERED: KETOROLAC 30 MG/ML INJ ONE (14:32)
[2024-09-25] MEDS ORDERED: ONDANSETRON 4 MG/2 ML VIAL ONE (14:32)
[2024-09-25] MEDS ORDERED: LEVETIRACETAM 500 MG/5 ML VIAL IV ONE (14:33)
[2024-09-25] MEDS ORDERED: NA CHLORIDE 0.9% 100 ML ONE (14:33)
[2024-09-25] MEDS ORDERED: DIVALPROEX DR 250 MG TAB PO ONE (14:33)
[2024-09-25] MEDS ORDERED: FENTANYL CITR 100 MCG/2 ML ONE (14:33)
--- NOTE | 2024-09-25 15:01 | ER ---
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 Coronavirus screen: At this time, the client does not indicate any symptoms associated with coronavirus-19. Ebola Screen: No symptoms or risks identified at this time. Initial Sepsis Screen: Does the patient meet any 2 criteria? No. Patient's initial sepsis screen is negative. Does the patient have a suspected source of infection? No. Patient's initial sepsis screen is negative. Risk Assessment: Do you want to hurt yourself or someone else? Patient reports no desire to harm self or others. 12:59 Method Of Arrival: EMS: [facility] iw 12:59 Acuity: ÁNGELA 3 iw 13:15 Onset of symptoms was September 25, 2024. Care prior to arrival: Glucose check: 76. iw Transition of care: patient was not received from another setting of care. Triage Assessment: 13:45 General: Appears in no apparent distress. comfortable, Behavior is. Neuro: Level of iw Consciousness is awake, alert, obeys commands, Oriented to person, place, time, situation. Historical: - Allergies: 13:03 Amoxicillin; iw 13:03 PENICILLINS; iw - PMHx: 13:03 Migraine; PCOS; Seizures; low blood sugar (Seizures); iw - PSHx: 13:03 Gastric Bypass (due to complication of gastric sleeve); gastric sleeve; senthil n y; Total iw abdominal hysterectomy; - Immunization history:: Adult Immunizations. - Infectious Disease History:: Denies. - Social history:: Smoking status: . Screenin:33 [facility] ED Fall Risk Assessment (Adult) History of falling in the last 3 months, iw including since admission No falls in past 3 months (0 pts) Confusion or Disorientation No (0 pts) Intoxicated or Sedated No (0 pts) Impaired Gait No (0 pts) Mobility Assist Device Used No (0 pt) Altered Elimination No (0 pt) Score/Fall Risk Level 0 - 2 = Low Risk Oriented to surroundings, Maintained a safe environment. Abuse screen: Denies threats or abuse. Nutritional screening: No deficits noted. Tuberculosis screening: No symptoms or risk factors identified. Assessment: 13:33 Reassessment: pt appears to be sleeping, mother at bedside, pt still remains drowsy. iw 14:00 Reassessment: pt with seizure activity , jerking of upper body, lasted approx 30 iw seconds, pt incontinent of urine , linens changed, pt able to stand up to get into chair , family at bedside. 14:27 Reassessment: Patient appears in no apparent distress at this time. Patient and/or iw family updated on plan of care and expected duration. Pain level reassessed. Patient is alert, oriented x 3, equal unlabored respirations, skin warm/dry/pink. 14:49 Reassessment: Patient appears in no apparent distress at this time. Patient and/or iw family updated on plan of care and expected duration. Pain level reassessed. Patient is alert, oriented x 3, equal unlabored respirations, skin warm/dry/pink. Vital Signs: 13:00 BP 91 / 60; Pulse 70; Resp 16; Temp 98.1(A); Pulse Ox 100% on R/A; iw 13:33 BP 111 / 80; Pulse 66; Resp 16 S; Pulse Ox 99% ; iw 14:50 BP 114 / 75; Pulse 64; Resp 16; Pulse Ox 99% on R/A; iw Justin Coma Score: 13:45 Eye Response: spontaneous(4). Motor Response: obeys commands(6). Verbal Response: iw oriented(5). Total: 15. ED Course: 12:57 Patient arrived in ED. iw 12:59 Sharla Tang, RN is Primary Nurse. iw 13:01 Eduardo Serrato MD is Attending Physician. clarita 13:03 Triage completed. iw 13:11 EKG done, by ED staff, reviewed by Eduardo Serrato MD. nh2 13:13 Inserted saline lock: 20 gauge in right antecubital area, using aseptic technique. iw Blood collected. Flushed with 10 mL NS. 13:17 CT Head Brain wo Cont In Process Unspecified. EDMS 13:40 Patient has correct armband on for positive identification. Seizure precautions iw initiated. Client placed on continuous cardiac and pulse oximetry monitoring. NIBP monitoring applied. library monitor on. 15:00 Reuben Sequeira MD is Referral Physician. clarita 15:36 No provider procedures requiring assistance completed. IV discontinued, intact, iw bleeding controlled, No redness/swelling at site. Pressure dressing applied. Administered Medications: 13:00 Drug: NS 0.9% IV 1000 ml IV at 1000 ml once; to be given as a bolus over 60 minutes iw Route: IV; Rate: 1000 ml; Site: right antecubital; 14:15 Follow up: IV Status: Completed infusion iw 14:06 Drug: Ativan IVP 2 mg IVP once Route: IVP; Site: right antecubital; iw 15:00 Follow up: Response: No adverse reaction iw 14:48 Drug: Keppra IV 1000 mg IV at per protocol once Route: IV; Rate: per protocol; Site: iw right antecubital; 15:05 Follow up: IV Status: Completed infusion iw 14:49 Drug: Depakote PO 500 mg PO once Route: PO; iw 15:30 Follow up: Response: No adverse reaction iw 14:49 Drug: fentaNYL (PF) IVP 50 mcg IVP once Route: IVP; Site: right antecubital; iw 15:10 Follow up: Response: No adverse reaction; Pain is decreased iw 14:49 Drug: Ondansetron IVP 8 mg IVP once; over 2 minutes Route: IVP; Site: right antecubital;iw 15:30 Follow up: Response: No adverse reaction; Nausea is decreased iw 14:49 Drug: Ketorolac IVP 15 mg IVP once Route: IVP; Site: right antecubital; iw 15:15 Follow up: Response: No adverse reaction; Pain is decreased iw Medication: 13:35 VIS not applicable for this client. iw Outcome: 15:01 Discharge ordered by . clarita 15:35 Discharged to home via wheelchair, with family, iw 15:35 Condition: good 15:35 Discharge instructions given to patient, family, Instructed on discharge instructions, follow up and referral plans. medication usage, Demonstrated understanding of instructions, follow-up care, medications, 15:36 Prescriptions given X 2, iw 15:36 Patient left the ED. iw Signatures: Dispatcher [employer] Eduardo Coley MD MD cha Williams, Irene, RN RN iw Nadeem Horn, Ivan [facility] Corrections: (The following items were deleted from the chart) 13:41 13:00 BP 91 / 60; Pulse 70bpm; Resp 16bpm; Pulse Ox 100% RA; iw iw
--- NOTE | 2024-09-25 15:02 | EDPHYS ---
Physician Documentation [facility] Name: Gill Gordon Age: 34 yrs Sex: Female : 1990 Arrival Date: 09/25/2024 Time: 12:56 Bed 7 Private MD: Eduardo Hernandez HPI: 09/25 14:55 This 34 yrs old Black Female presents to ER via EMS with complaints of Seizure. clarita 14:55 The patient presents with a history of multiple seizures, an unknown number. Character clarita of seizure(s): Loss of consciousness: the patient experienced loss of consciousness, Motor activity: generalized, Incontinence: none, Apnea: the patient did not experience apnea, Circulation: the patient did not experience evidence of pulse disturbance. Seizure onset: this morning, today. Context: the seizure(s) was witnessed, by family. Seizure Hx: Last seizure: The patient's last seizure was approximately 1 day(s) ago. Associated injury: The patient did not suffer any apparent associated injury. EMS care: none. Current symptoms: Currently, the patient is not experiencing any symptoms. The patient has experienced similar episodes in the past, multiple times. Historical: - Allergies: 13:03 Amoxicillin; iw 13:03 PENICILLINS; iw - PMHx: 13:03 Migraine; PCOS; Seizures; low blood sugar (Seizures); iw - PSHx: 13:03 Gastric Bypass (due to complication of gastric sleeve); gastric sleeve; senthil n y; Total iw abdominal hysterectomy; - Immunization history:: Adult Immunizations. - Infectious Disease History:: Denies. - Social history:: Smoking status: . ROS: 14:56 Constitutional: Negative for fever, chills, and weight loss, Eyes: Negative for injury, clarita pain, redness, and discharge, ENT: Negative for injury, pain, and discharge, Neck: Negative for injury, pain, and swelling, Cardiovascular: Negative for chest pain, palpitations, and edema, Respiratory: Negative for shortness of breath, cough, wheezing, and pleuritic chest pain, Abdomen/GI: Negative for abdominal pain, nausea, vomiting, diarrhea, and constipation, Back: Negative for injury and pain, : Negative for injury, bleeding, discharge, and swelling, MS/Extremity: Negative for injury and deformity, Skin: Negative for injury, rash, and discoloration, Psych: Negative for depression, anxiety, suicide ideation, homicidal ideation, and hallucinations, Allergy/Immunology: Negative for hives, rash, and allergies, Endocrine: Negative for neck swelling, polydipsia, polyuria, polyphagia, and marked weight changes, Hematologic/Lymphatic: Negative for swollen nodes, abnormal bleeding, and unusual bruising, 14:56 Neuro: Positive for altered mental status, dizziness, seizure activity, weakness, Exam: 14:57 Constitutional: This is a well developed, well nourished patient who is awake, alert, clarita and in no acute distress. Head/Face: Normocephalic, atraumatic. Eyes: Pupils equal round and reactive to light, extra-ocular motions intact. Lids and lashes normal. Conjunctiva and sclera are non-icteric and not injected. Cornea within normal limits. Periorbital areas with no swelling, redness, or edema. ENT: Nares patent. No nasal discharge, no septal abnormalities noted. Tympanic membranes are normal and external auditory canals are clear. Oropharynx with no redness, swelling, or masses, exudates, or evidence of obstruction, uvula midline. Mucous membranes moist. Neck: Trachea midline, no thyromegaly or masses palpated, and no cervical lymphadenopathy. Supple, full range of motion without nuchal rigidity, or vertebral point tenderness. No Meningismus. Chest/axilla: Normal chest wall appearance and motion. Nontender with no deformity. No lesions are appreciated. Cardiovascular: Regular rate and rhythm with a normal S1 and S2. No gallops, murmurs, or rubs. Normal PMI, no JVD. No pulse deficits. Respiratory: Lungs have equal breath sounds bilaterally, clear to auscultation and percussion. No rales, rhonchi or wheezes noted. No increased work of breathing, no retractions or nasal flaring. Abdomen/GI: Soft, non-tender, with normal bowel sounds. No distension or tympany. No guarding or rebound. No evidence of tenderness throughout. Back: No spinal tenderness. No costovertebral tenderness. Full range of motion. Skin: Warm, dry with normal turgor. Normal color with no rashes, no lesions, and no evidence of cellulitis. MS/ Extremity: Pulses equal, no cyanosis. Neurovascular intact. Full, normal range of motion., bilateral aka Neuro: Awake and alert, GCS 15, oriented to person, place, time, and situation. Cranial nerves II-XII grossly intact. Motor strength 5/5 in all extremities. Sensory grossly intact. Cerebellar exam normal. Normal gait. Psych: Awake, alert, with orientation to person, place and time. Behavior, mood, and affect are within normal limits. 15:02 ECG was reviewed by the Attending Physician. [facility] Vital Signs: 13:00 BP 91 / 60; Pulse 70; Resp 16; Temp 98.1(A); Pulse Ox 100% on R/A; iw 13:33 BP 111 / 80; Pulse 66; Resp 16 S; Pulse Ox 99% ; iw 14:50 BP 114 / 75; Pulse 64; Resp 16; Pulse Ox 99% on R/A; iw Jsutin Coma Score: 13:45 Eye Response: spontaneous(4). Motor Response: obeys commands(6). Verbal Response: iw oriented(5). Total: 15. MDM: 13:01 Medical Screening Exam initiated clarita 14:58 Differential diagnosis: cerebral vascular accident, drug overdose, cardiac arrhythmia, clarita seizure, TIA. Data reviewed: vital signs, nurses notes, lab test result(s), EKG, radiologic studies, CT scan. Consideration of Admission/Observation Escalation of care including admission/observation considered. I considered the following discharge prescriptions or medication management in the emergency department Medications were administered in the Emergency Department. See MAR. Independent interpretation of the following test(s) in the Emergency Department EKG: See my EKG interpretation above. Test considered but Not performed: MRI: no mri brain. Historians other than the Patient: EMS: ems well informed. Care significantly affected by the following chronic conditions: migraine, seizure, hypoglycemia. Counseling: I had a detailed discussion with the patient and/or guardian regarding the historical points, exam findings, and any diagnostic results supporting the discharge/admit diagnosis, lab results, radiology results, the need for outpatient follow up, for definitive care, a family practitioner, a neurologist. 09/25 13:02 Order name: Acetaminophen; Complete Time: 14:17 [facility] 09/25 13:02 Order name: Basic Metabolic Panel; Complete Time: 14:17 [facility] 09/25 13:02 Order name: CBC with Diff; Complete Time: 14:17 [facility] 09/25 13:02 Order name: ETOH Level; Complete Time: 14:17 [facility] 09/25 13:02 Order name: Hepatic Function; Complete Time: 14:17 [facility] 09/25 13:02 Order name: PT-INR; Complete Time: 14:17 [facility] 09/25 13:02 Order name: Ptt, Activated; Complete Time: 14:17 [facility] 09/25 13:02 Order name: Salicylate; Complete Time: 14:17 [facility] 09/25 14:08 Order name: Depakote; Complete Time: 14:54 09/25 13:03 Order name: CT Head Brain wo Cont; Complete Time: 14:17 [facility] 09/25 13:02 Order name: EKG - Nurse/Tech; Complete Time: 13:12 [facility] 09/25 13:02 Order name: IV Saline Lock; Complete Time: 13:14 [facility] 09/25 13:02 Order name: Labs collected and sent; Complete Time: 13:14 [facility] 09/25 13:02 Order name: Seizure Precautions; Complete Time: 13:41 clarita EC:02 Rate is 74 beats/min. Rhythm is regular. QRS Harper is Normal. FL interval is normal. QRS clarita interval is normal. QT interval is normal. No Q waves. T waves are Normal. No ST changes noted. Clinical impression: NSR w/ Non-specific ST/T Changes and No evidence of ischemia. Interpreted by me. Reviewed by me. Administered Medications: 13:00 Drug: NS 0.9% IV 1000 ml IV at 1000 ml once; to be given as a bolus over 60 minutes iw Route: IV; Rate: 1000 ml; Site: right antecubital; 14:15 Follow up: IV Status: Completed infusion iw 14:06 Drug: Ativan IVP 2 mg IVP once Route: IVP; Site: right antecubital; iw 15:00 Follow up: Response: No adverse reaction iw 14:48 Drug: Keppra IV 1000 mg IV at per protocol once Route: IV; Rate: per protocol; Site: iw right antecubital; 15:05 Follow up: IV Status: Completed infusion iw 14:49 Drug: Depakote PO 500 mg PO once Route: PO; iw 15:30 Follow up: Response: No adverse reaction iw 14:49 Drug: fentaNYL (PF) IVP 50 mcg IVP once Route: IVP; Site: right antecubital; iw 15:10 Follow up: Response: No adverse reaction; Pain is decreased iw 14:49 Drug: Ondansetron IVP 8 mg IVP once; over 2 minutes Route: IVP; Site: right antecubital;iw 15:30 Follow up: Response: No adverse reaction; Nausea is decreased iw 14:49 Drug: Ketorolac IVP 15 mg IVP once Route: IVP; Site: right antecubital; iw 15:15 Follow up: Response: No adverse reaction; Pain is decreased iw Disposition Summary: 09/25/24 15:01 Discharge Ordered Notes: Location: Home clarita Problem: new clarita Symptoms: have improved clarita Condition: Stable clarita Diagnosis - Other seizures clarita Followup: clarita - With: Private Physician - When: 2 - 3 days - Reason: Recheck today's complaints, Continuance of care, Re-evaluation by your physician Followup: clarita - With: Reuben Sequeira MD - When: 2 - 3 days - Reason: Recheck today's complaints, Re-evaluation by your physician Discharge Instructions: - Discharge Summary Sheet clarita - Seizure, Adult clarita - Epilepsy, [id number] [facility] Forms: - Medication Reconciliation Form clarita - Antibiotic Education clarita - Prescription Opioid Use clarita - Patient Portal Instructions clarita - Leadership Thank You Letter clarita - Work release form ap3 Prescriptions: - Depakote 250 mg Oral Tablet - take 1 tablet ORAL route every 8 hours; 90 tablet; Refills: 0, Product clarita Selection Permitted - Keppra 500 mg Oral tablet - take 2 tablet ORAL route every 12 hours; 60 tablet; Refills: 0, Product clarita Selection Permitted Signatures: Dispatcher [employer] EDEduardo Dos Santos MD MD cha Williams, Irene, RN RN iw Corrections: (The following items were deleted from the chart) 13:03 13:03 ACETAMINOPHEN+C.LAB.BRZ ordered. EDMS EDMS 13:03 13:03 BASIC METABOLIC PANEL+C.LAB.BRZ ordered. EDMS EDMS 13:03 13:03 CBC+H.LAB.BRZ ordered. EDMS EDMS 13:03 13:03 ETHANOL+C.LAB.BRZ ordered. EDMS EDMS 13:03 13:03 HEPATIC FUNCTION+C.LAB.BRZ ordered. EDMS EDMS 13:03 13:03 PROTIME (+INR)+COAG.LAB.BRZ ordered. EDMS EDMS 13:03 13:03 Test, Urine+UC.LAB.BRZ ordered. EDMS EDMS 13: 13:03 PTT, ACTIVATED+COAG.LAB.BRZ ordered. EDMS EDMS 13: 13:03 SALICYLATE+C.LAB.BRZ ordered. EDMS EDMS 13:03 13:03 URINE DRUG SCREEN+UC.LAB.BRZ ordered. EDMS EDMS 13: 13:03 UA Rfx Srinivasa Cult if indicated+U.LAB.BRZ ordered. EDMS EDMS 13:04 13:04 Head Brain Wo Cont+CT.RAD.BRZ ordered. EDMS EDMS 13:14 13:02 Suicide Screening ([place]) ordered. clarita iw 14:09 14:09 VALPROIC ACID (DEPAKOTE)+C.LAB.BRZ ordered. EDMS EDMS
[2024-09-25 15:41] VITALS: TEMP 98.1
[2024-09-25 15:42] VITALS: O2SAT 99
[2024-09-25 15:44] VITALS: BP 114/75
--- NOTE | 2024-09-30 12:36 | EKG ---
Test Date: 2024-09-25 Test Time: 13:08:42 Technical Applications Scientist: FELIPE MEASUREMENT RESULTS: Intervals: Rate: 74 OR: 158 QRSD: 70 QT: 384 QTc: 426 [place]: P: 71 OR: 158 QRS: 41 T: 59 INTERPRETIVE STATEMENTS: Normal sinus rhythm Septal infarct, age undetermined Abnormal ECG Compared to ECG 09/25/2024 00:57:53 Myocardial infarct finding now present Electronically Signed On 09-30-24 12:27:15 CDT by Xiang Nails
== END 2024-09-25 15:36 | disposition home or self-care (01) ==
LOC: ER 12:56
DX: G40.909 Epilepsy, unspecified, not intractable, without status epilepticus (principal)
CPT/HCPCS: 96365; 96361; 93005; 85025; 80048; 36415; 85610; 80076; 80164; 85730; 70450; 96375; 99285; 80143; 80179; 82077; J1953; J3010; J2405; J7030

== ENCOUNTER 2024-09-30 16:05 | Emergency (ER) | payer OTHER ==
[2024-09-30] MEDS ORDERED: ACETAMINOPHEN 500 MG TAB ONE (16:23)
[2024-09-30] MEDS ORDERED: KETOROLAC 30 MG/ML INJ ONE (16:23)
[2024-09-30 16:26] LABS: Absolute Lymphocytes (CBC) 2.1 K/uL (0.7-4.9); Absolute Monocytes 0.4 K/uL (0.1-1.3); Absolute Neutrophil 1.9 K/uL (1.8-8.0); Basophils % 0.7 % (0-1.3); Eosinophils % 0.9 % (0-4.4); Hematocrit 35.9 % (36.0-45.0); Hemoglobin 11.9 g/dL (12.0-15.0); Lymphocytes % 46.6 % (15.3-44.8); MCH 31.7 pg (27.0-35.0); MCHC 33.2 g/dL (32.0-36.0); MCV 95.5 fL (80-100); Monocytes % 8.3 % (3.3-12.3); Neutrophils % 43.5 % (41.7-73.7); Nucleated Red Blood Cells % 0.1 % (0-0); Platelets 222 thou/uL (152-406); RBC Red Blood Cell Count 3.76 M/uL (3.86-4.86); Red Cell Distribution Width 13.1 % (12.1-15.2)
[2024-09-30 16:49] LABS: ALT/SGPT 33 U/L (13-56); Albumin 3.3 g/dL (3.4-5.0); Albumin/Globulin Ratio 0.9 (1.1-1.8); Alkaline Phosphatase 65 U/L (45-117); BUN Blood Urea Nitrogen 12 mg/dL (7-18); Bicarbonate 23 mEq/L (21-32); Bilirubin Total 0.3 mg/dL (0.2-1.0); Globulin 3.8 g/dL (2.3-3.5); Glomerular Filtration Rate 75 ml/min (=/>90); Glucose Level 81 mg/dL (74-106); Protein, Total 7.1 g/dL (6.4-8.2); Sodium Level 143 mEq/L (136-145)
[2024-09-30 16:54] LABS: AST/SGOT 25 U/L (15-37); Bilirubin Direct < 0.2 mg/dL (0-0.2); Bilirubin Indirect, Calculated 0.1 mg/dL (0.2-0.8); Troponin High Sensitivity < 3.0 pg/mL (<58.9)
--- NOTE | 2024-09-30 17:06 | RAD REPORT ---
EXAMINATION: ONE VIEW CHEST XR CLINICAL INDICATION: CHEST PAIN TECHNIQUE: Frontal chest projection is submitted. Examination is limited by patient positioning and t echnique. COMPARISON: 07/22/2024 FINDINGS: The lungs are well inflated and clear. The heart is normal in size. No displaced fractures identified . IMPRESSION: No acute intrathoracic abnormalities.
--- NOTE | 2024-09-30 17:25 | RAD REPORT ---
EXAM: CT brain without contrast HISTORY: headache, trauma COMPARISON: 05/24/2024 TECHNIQUE: Multiple contiguous axial images were obtained and a CT of the brain without contrast. Sag ittal and coronal reformats were performed. One or more of the following dose reduction techniques were used: Automated exposure control, adjust ment of the mA and/or kV according to patient size, and/or iterative reconstruction. FINDINGS: No evidence of hydrocephalus, intracranial hemorrhage, or extra-axial fluid collection. The brain is normal in morphology. No evidence of midline shift or areas of brain edema. The calvarium is intact. The visualized paranasal sinuses and mastoid air cells are essentially clear . EXAM: CT of the cervical spine without contrast HISTORY: Neck pain, injury headache, trauma TECHNIQUE: Multiple contiguous axial images were obtained in a CT of the cervical spine without contr ast. Sagittal and coronal reformats were performed. FINDINGS: The vertebral bodies demonstrate normal height and alignment. No evidence of acute fracture or subluxation.. No degenerative changes are present. No prevertebral soft tissue swelling is seen. The posterior facets are well aligned. Normal alignment of the skull base with the cervical spine is seen. The lung apices are unremarkable. COMBINED IMPRESSION: No evidence of acute intracranial abnormality. No evidence of acute osseous abnormality of the cervical spine.
--- NOTE | 2024-09-30 18:26 | EDPHYS ---
Physician Documentation [facility] Name: Gill Gordon Age: 34 yrs Sex: Female : 1990 Arrival Date: 09/30/2024 Time: 16:05 Bed 3 Private MD: ED Physician David Momin HPI: 09/30 16:23 This 34 yrs old Black Female presents to ER via EMS with complaints of Seizure. rt 16:23 Patient with history of seizure disorder on Keppra, Topamax, Depakote presents to the rt ED with reportedly 5 seizures today. 1 seizure was witnessed by EMS, terminated with 2 mg of Ativan. Patient states that she got dizzy, felt like a seizure was coming on yesterday and she fell hitting her head. Denies any head trauma today. States that she does have a headache and weakness on the right side. Denies other acute complaints at this time, symptoms are moderate in severity, no other aggravating or alleviating factors.. 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 - Infectious Disease History:: Denies. - Social history:: Smoking status: Patient denies any tobacco usage or history of. - Family history:: not pertinent. ROS: 16:23 Cardiovascular: Negative for chest pain, palpitations, and edema, Respiratory: Negative rt for shortness of breath, cough, wheezing, and pleuritic chest pain, Abdomen/GI: Negative for abdominal pain, nausea, vomiting, diarrhea, and constipation, MS/Extremity: Negative for injury and deformity, 16:23 Constitutional: Positive for fatigue, Negative for fever, 16:23 Neuro: Positive for seizure activity, weakness, Exam: 16:23 Constitutional: This is a well developed, well nourished patient who is awake, alert, rt and in no acute distress. Head/Face: Normocephalic, atraumatic. Chest/axilla: Normal chest wall appearance and motion. Nontender with no deformity. No lesions are appreciated. Cardiovascular: Regular rate and rhythm with a normal S1 and S2. No gallops, murmurs, or rubs. Normal PMI, no JVD. No pulse deficits. Respiratory: Lungs have equal breath sounds bilaterally, clear to auscultation and percussion. No rales, rhonchi or wheezes noted. No increased work of breathing, no retractions or nasal flaring. Abdomen/GI: Soft, non-tender, with normal bowel sounds. No distension or tympany. No guarding or rebound. No evidence of tenderness throughout. MS/ Extremity: Pulses equal, no cyanosis. Neurovascular intact. Full, normal range of motion. 16:23 Neuro: Drift noted on the right upper, right lower extremities, sensation intact, no cranial nerve deficits, 17:02 ECG was reviewed by the Attending Physician. rt Vital Signs: 16:07 BP 98 / 74; Pulse 89; Resp 17; Temp 98.3; Pulse Ox 100% ; Weight 63.05 kg; Height 5 ft. jl7 0 in. ; Pain 10/10; 16:30 BP 113 / 80; Pulse 82; Resp 18; Pulse Ox 100% ; kn 18:01 BP 110 / 87; Pulse 83; Resp 16; Pulse Ox 100% ; kn 18:31 BP 113 / 53; Pulse 82; Resp 16; Pulse Ox 100% ; kn 16:07 Body Mass Index 27.15 (63.05 kg, 152.4 cm) jl7 16:07 Pain Scale: Adult jl7 Justin Coma Score: 16:09 Eye Response: spontaneous(4). Motor Response: obeys commands(6). Verbal Response: jl7 oriented(5). Total: 15. MDM: 16:06 Medical Screening Exam initiated rt 19:03 Differential diagnosis: Breakthrough seizure, subtherapeutic antiepileptic, chronic rt headache. Data reviewed: vital signs, nurses notes, lab test result(s), EKG, radiologic studies. I considered the following discharge prescriptions or medication management in the emergency department Medications were administered in the Emergency Department. See MAR. Independent interpretation of the following test(s) in the Emergency Department CT Scan: My interpretation is No intracranial hemorrhage seen on my interpretation of CT scan images. Care significantly affected by the following chronic conditions: Seizure disorder. Counseling: I had a detailed discussion with the patient and/or guardian regarding the historical points, exam findings, and any diagnostic results supporting the discharge/admit diagnosis, lab results, radiology results, the need for outpatient follow up. Response to treatment: the patient's symptoms have markedly improved after treatment. Special discussion: I discussed with the patient/guardian in detail that at this point there is no indication for admission to the hospital. It is understood, however, that if the symptoms persist or worsen the patient needs to return immediately for re-evaluation. ED course: Right-sided weakness resolved, suspect Holden's paralysis, do not suspect CVA. 09/30 16:07 Order name: Basic Metabolic Panel; Complete Time: : rt 09/30 16:07 Order name: CBC with Diff; Complete Time: :09/30 16:07 Order name: LFT's; Complete Time: :09/30 16:07 Order name: Troponin HS; Complete Time: :09/30 16:09 Order name: Depakote; Complete Time: 17:09/30 16:07 Order name: XRAY Chest (1 view); Complete Time: :09/30 16:07 Order name: CT Head C Spine; Complete Time: 17:09/30 16:07 Order name: EKG; Complete Time: 16:09/30 16:07 Order name: Cardiac monitoring; Complete Time: 16:09/30 16:07 Order name: EKG - Nurse/Tech; Complete Time: 16:09/30 16:07 Order name: IV Saline Lock; Complete Time: 16:09/30 16:07 Order name: Labs collected and sent; Complete Time: 16:09/30 16:07 Order name: O2 Per Protocol; Complete Time: :09/30 16:07 Order name: O2 Sat Monitoring; Complete Time: 16: rt EC:02 Rate is 81 beats/min. Rhythm is regular, Normal Sinus Rhythm with No ectopy. QRS Guin rt is Normal. [place] interval is normal. QRS interval is normal. QT interval is normal. No Q waves. T waves are Normal. No ST changes noted. Interpreted by me. Administered Medications: 16:37 Drug: Ketorolac IVP 15 mg IVP once Route: IVP; Site: left antecubital; jl7 16:37 Drug: Acetaminophen PO 1000 mg PO once Route: PO; jl7 18:49 Drug: Droperidol IVP 1.25 mg IVP once Route: IVP; Site: left antecubital; kn 18:58 Follow up: Response: No adverse reaction kn Disposition Summary: 09/30/24 18:26 Discharge Ordered Notes: Location: Home rt Problem: an acute exacerbation rt Symptoms: have improved rt Condition: Stable rt Diagnosis - Breakthrough seizure rt - Headache rt Followup: rt - With: Private Physician - When: 2 - 3 days - Reason: Discharge Instructions: - Discharge Summary Sheet rt - Seizure, Adult rt Forms: - Medication Reconciliation Form rt - Antibiotic Education rt - Prescription Opioid Use rt - Patient Portal Instructions rt - Leadership Thank You Letter rt Signatures: Dispatcher [employer] Dianne Krishna RN RN jl7 David Momin MD MD rt RASHAWN PANIAGUA RN RN kn Corrections: (The following items were deleted from the chart) 16:22 16:08 TEST, SERUM+SC.LAB.BRZ ordered. EDMS EDMS
--- NOTE | 2024-09-30 18:26 | ER ---
Nurse's Notes [facility] Name: Gill Gordon Age: 34 yrs Sex: Female : 1990 Arrival Date: 09/30/2024 Time: 16:05 Bed 3 Private MD: Diagnosis: Breakthrough seizure;Headache Presentation: 09/30 16:07 Chief complaint: EMS states: Toned out for seizure, hx of seizures, 2mg Ativan given jl7 IV. Coronavirus screen: At this time, the client does not indicate any symptoms associated with coronavirus-19. Ebola Screen: No symptoms or risks identified at this time. Initial Sepsis Screen: Does the patient meet any 2 criteria? No. Patient's initial sepsis screen is negative. Does the patient have a suspected source of infection? No. Patient's initial sepsis screen is negative. Risk Assessment: Do you want to hurt yourself or someone else? Patient reports no desire to harm self or others. Onset of symptoms is unknown. 16:07 Method Of Arrival: EMS: [facility] 16:07 Acuity: ÁNGELA 2 [facility] 16:07 Care prior to arrival: Medication(s) given: 2mg Ativan IV initiated. 20 GA, in the left jl7 antecubital area, Glucose check: 70. Triage Assessment: 16:09 General: Appears in no apparent distress. uncomfortable, Behavior is calm, cooperative. jl7 Pain: Complains of pain in [place]. Neuro: Lopes Agitation-Sedation Scale (RASS): 0 - Alert and Calm Level of Consciousness is awake, alert, obeys commands, Oriented to person, place, time, situation. Cardiovascular: Patient's skin is warm and dry. Respiratory: Airway is patent Respiratory effort is even, unlabored, Respiratory pattern is regular, symmetrical. Derm: Skin is pink, warm \T\ dry. 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 - Infectious Disease History:: Denies. - Social history:: Smoking status: Patient denies any tobacco usage or history of. - Family history:: not pertinent. Screenin:30 [facility] ED Fall Risk Assessment (Adult) History of falling in the last 3 months, jl7 including since admission Yes- physiologic fall (2 pts) Confusion or Disorientation No (0 pts) Intoxicated or Sedated No (0 pts) Impaired Gait No (0 pts) Mobility Assist Device Used No (0 pt) Altered Elimination No (0 pt) Score/Fall Risk Level 0 - 2 = Low Risk Oriented to surroundings, Maintained a safe environment. Abuse screen: Denies threats or abuse. Denies injuries from another. Nutritional screening: No deficits noted. Tuberculosis screening: No symptoms or risk factors identified. Assessment: 16:30 General: See triage. jl7 18:01 Reassessment: pt sleeping quietly in bed, easily awakened, vss, will continue to kn monitor pt. family at bedside. Vital Signs: 16:07 BP 98 / 74; Pulse 89; Resp 17; Temp 98.3; Pulse Ox 100% ; Weight 63.05 kg; Height 5 ft. jl7 0 in. ; Pain 10/10; 16:30 BP 113 / 80; Pulse 82; Resp 18; Pulse Ox 100% ; kn 18:01 BP 110 / 87; Pulse 83; Resp 16; Pulse Ox 100% ; kn 18:31 BP 113 / 53; Pulse 82; Resp 16; Pulse Ox 100% ; kn 16:07 Body Mass Index 27.15 (63.05 kg, 152.4 cm) jl7 16:07 Pain Scale: Adult jl7 Justin Coma Score: 16:09 Eye Response: spontaneous(4). Motor Response: obeys commands(6). Verbal Response: jl7 oriented(5). Total: 15. ED Course: 16:06 Patient arrived in ED. ss 16:06 David Momin MD is Attending Physician. rt 16:07 Dianne Matos RN is Primary Nurse. jl7 16:08 Triage completed. jl7 16:09 Arm band placed on right wrist. jl7 16:30 Patient has correct armband on for positive identification. Bed in low position. Call ishan light in reach. Side rails up X2. Seizure precautions initiated. Provided Education on: use of call evangelista. Client placed on continuous cardiac and pulse oximetry monitoring. NIBP monitoring applied. pvc monitor on. Pulse ox on. Warm blanket given. 16:30 Initial lab(s) drawn, by me, sent to lab. EKG done, by ED staff, reviewed by David Momin MD. 16:30 Maintain EMS IV. Dressing intact. Good blood return noted. Site clean \T\ dry. Gauge \T\ jl 7 site: 20 left AC. Flushed with 10 mL NS. 16:59 XRAY Chest (1 view) In Process Unspecified. EDMS 17:08 CT Head C Spine In Process Unspecified. EDMS 18:49 No provider procedures requiring assistance completed. IV discontinued. kn Administered Medications: 16:37 Drug: Ketorolac IVP 15 mg IVP once Route: IVP; Site: left antecubital; 7 16:37 Drug: Acetaminophen PO 1000 mg PO once Route: PO; jl7 18:49 Drug: Droperidol IVP 1.25 mg IVP once Route: IVP; Site: left antecubital; kn 18:58 Follow up: Response: No adverse reaction Medication: 16:30 VIS not applicable for this client. ishan Outcome: 18:26 Discharge ordered by . rt 18:49 Discharged to home ambulatory, via wheelchair, with family, kn 18:49 Condition: stable 18:49 Discharge instructions given to patient, family, Instructed on discharge instructions, follow up and referral plans. 18:59 Patient left the ED. kn Signatures: Dispatcher [employer] EDMS Ashleigh Paul, RN RN Dianne Matos RN RN jl7 [place], Ryan, MD MD rt RASHAWN PANIAGUA RN RN kn
[2024-09-30] MEDS ORDERED: droPERidol 5 MG/2 ML VIAL ONE ×2 (18:43→18:46)
[2024-09-30 19:03] VITALS: TEMP 98.3; O2SAT 100
[2024-09-30 19:09] VITALS: BP 113/53
--- NOTE | 2024-10-01 11:14 | EKG ---
Test Date: 2024-09-30 Test Time: 16:34:47 Histopath Tech: TIFFANIE MEASUREMENT RESULTS: Intervals: Rate: 81 [place]: 146 QRSD: 76 QT: 344 QTc: 399 [place]: P: 63 [place]: 146 QRS: 8 T: 33 INTERPRETIVE STATEMENTS: Normal sinus rhythm Normal ECG Compared to ECG 09/25/2024 13:08:42 Myocardial infarct finding no longer present Electronically Signed On 10-01-24 11:12:51 CDT by Xiang Nails
== END 2024-09-30 18:59 | disposition home or self-care (01) ==
LOC: ER 16:05
DX: G40.909 Epilepsy, unspecified, not intractable, without status epilepticus (principal); R51.9 Headache, unspecified; R53.1 Weakness
CPT/HCPCS: 93005; 85025; 80048; 36415; 80076; 80164; 84484; 70450; 72125; 71045; 96375; 96374; 99285; J1790

== ENCOUNTER 2024-12-26 11:33 | Emergency (ER) | payer OTHER ==
--- OUTSIDE RECORDS SUMMARY | 2024-12-26 11:38 | XMS REPORT | Clinical Summary ---
Author Name Unknown Organization [facility] Address [address] [place] [address] Care Team Providers Care Pediatric Pathologist Name Role Phone Unavailable Primary Care Provider Unavailabl e Allergies Active Allergy Reactions Criticality Noted Date Comments Amoxicillin Rash Low 10/03/2024 Medications levETIRAcetam (KEPPRA) 1000 mg tablet Take 1 tablet (1,000 mg) by mouth twice daily. Active divalproex (DEPAKOTE) [address] tablet Take 1 tablet (125 mg) by mouth twice daily. Active topiramate (TOPAMAX) 50 mg tablet Take 1 tablet (50 mg) by mouth twice daily. Active ubrogepant 100 mg tab Take 100 mg by mouth 2 (two) times a day as needed (migraines). 5 Active polyethylene glycol (GLYCOLAX) 17 gram/dose powderIndicatio ns:History of sleeve gastrectomy Take 17 g by mouth daily. Stir and dissolve in any 4 to 8 ounces of beverage then drink solution daily as directed. 510 g 10/09/2024 9:45 AM CDT 5 Active senna-docusate (SENOKOT-S) 8.6 mg-50 mg tabletIndicatio ns:History of sleeve gastrectomy Take 1 tablet by mouth twice daily. 60 tablet 10/09/2024 9:09 AM CDT 5 Active sucralfate (CARAFATE) 100 mg/mL suspensionIndic ations:History of sleeve gastrectomy Take 10 mL (1,000 mg) by mouth 4 (four) times a day. 414 mL 10/09/2024 9:09 AM CDT 5 Active omeprazole (PriLOSEC) 40 MG capsuleIndicati ons:Gastric ulcer Take 1 capsule (40 mg) by mouth 2 (two) times a day before meals. Take 1 capsule (40 mg) by mouth twice a day for 4 weeks, followed by 20 mg twice a day until repeat EGD 60 capsule 10/09/2024 9:09 AM CDT 5 Active omeprazole (PriLOSEC) 20 mg capsuleIndicati ons:Gastric ulcer Take 1 capsule (20 mg) by mouth 2 (two) times a day before meals. 60 capsule 10/09/2024 9:09 AM CDT 5 Active pantoprazole (PROTONIX) 40 mg EC tablet Take 1 tablet (40 mg) by mouth 2 (two) times a day before meals. 10/09/19 25 Discontinu ed(Stop Taking at Discharge) polyethylene glycol (GLYCOLAX) 17 gram/dose powderIndicatio ns:History of sleeve gastrectomy Take 17 g by mouth daily. 510 g 5 10/09/19 25 Discontinu ed(Reorder ) senna-docusate (SENOKOT-S) 8.6 mg-50 mg tabletIndicatio ns:History of sleeve gastrectomy Take 1 tablet by mouth twice daily. 60 tablet 5 10/09/19 25 Discontinu ed(Reorder ) sucralfate (CARAFATE) 100 mg/mL suspensionIndic ations:History of sleeve gastrectomy Take 10 mL (1,000 mg) by mouth 4 (four) times a day. 420 mL 5 10/09/19 25 Discontinu ed(Reorder ) pantoprazole (PROTONIX) 40 mg EC tabletIndicatio ns:History of sleeve gastrectomy Take 1 tablet (40 mg) by mouth every morning before breakfast for 60 days. 30 tablet 1 5 10/09/19 25 Discontinu ed(Reorder ) pantoprazole (PROTONIX) 40 mg EC tabletIndicatio ns:History of sleeve gastrectomy Take 1 tablet (40 mg) by mouth every morning before breakfast for 60 days. 30 tablet 1 5 10/10/19 25 Discontinu ed(Stop Taking at Discharge) Active Problems Problem Noted Date Diagnosed Date Headache 10/09/2024 Severe protein-calorie malnutrition 10/07/2024 Hematochezia 10/04/2024 Seizure 10/03/2024 Assessment & Plan (10/04/2024 3:09 PM CDT): Reports history of seizure since 05/2024, has been more frequent up to 6 times per day in the past week. She feels Keppra makes her lethargic. Note that seizures often occur when her blood glucose is on the lower side. Neurology evaluated the patient.Recommend no changes with seizure medications as patient is due to see and follow-up with OSH neurologist on Sunday. Recommend to continue current antiepileptic medications Seizure precautions Continue Keppra 1000 mg twice daily Continue divalproex DR tablet 125 mg twice daily Continue Topamax 50 mg twice daily Assessment & Plan (10/03/2024 9:22 PM CDT): Reports history of seizure since 05/2024, has been more frequent up to 6 times per day in the past week. She feels Keppra makes her lethargic. Note that seizures often occur when her blood glucose is on the lower side. CT head:No acute intracranial abnormality is seen. Continue home regimen of Depakote, Keppra Neurology consulted, visit pending. Gastric ulcer 10/03/2024 Assessment & Plan (10/04/2024 3:31 PM CDT): CT angiogram abdomen pelvis:No active arterial contrast extravasation into the gastrointestinal tract is identified. - Patient reports having 3-4 bloody bowel movements and vomited once yesterday. Continue Protonix Bid ; Hemoglobin stable at 11.8. GI consulted, planning for possible EGD/colonoscopy on Sunday. Pending notes from GI - clear liquid diet tomorrow with bowel regimen Assessment & Plan (10/03/2024 9:22 PM CDT): CT angiogram abdomen pelvis:No active arterial contrast extravasation into the gastrointestinal tract is identified. Continue home regimen of Protonix twice for gastric ulcer. Hemoglobin stable at 11.9. GI consulted, please follow-up. 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 - Patient reports having 3-4 bloody bowel movements and vomited once yesterday. Continue Protonix Bid ; Hemoglobin stable at 11.8. GI consulted, planning for possible EGD/colonoscopy on Sunday. Pending notes from GI - clear liquid diet tomorrow with bowel regimen Assessment & Plan (10/03/2024 9:22 PM CDT): CT angiogram abdomen pelvis:No active arterial contrast extravasation into the gastrointestinal tract is identified. Continue home regimen of Protonix twice for gastric ulcer. Hemoglobin stable at 11.9. GI consulted, please follow-up. History of sleeve gastrectomy 10/03/2024 Assessment & Plan (10/04/2024 3:31 PM CDT): CT angiogram abdomen pelvis:No active arterial contrast extravasation into the gastrointestinal tract is identified. - Patient reports having 3-4 bloody bowel movements and vomited once yesterday. Continue Protonix Bid ; Hemoglobin stable at 11.8. GI consulted, planning for possible EGD/colonoscopy on Sunday. Pending notes from GI - clear liquid diet tomorrow with bowel regimen Assessment & Plan (10/03/2024 9:22 PM CDT): CT angiogram abdomen pelvis:No active arterial contrast extravasation into the gastrointestinal tract is identified. Continue home regimen of Protonix twice for gastric ulcer. Hemoglobin stable at 11.9. GI consulted, please follow-up. Hematemesis 10/03/2024 Assessment & Plan (10/04/2024 3:31 PM CDT): CT angiogram abdomen pelvis:No active arterial contrast extravasation into the gastrointestinal tract is identified. - Patient reports having 3-4 bloody bowel movements and vomited once yesterday. Continue Protonix Bid ; Hemoglobin stable at 11.8. GI consulted, planning for possible EGD/colonoscopy on Sunday. Pending notes from GI - clear liquid diet tomorrow with bowel regimen Assessment & Plan (10/03/2024 9:22 PM CDT): CT angiogram abdomen pelvis:No active arterial contrast extravasation into the gastrointestinal tract is identified. Continue home regimen of Protonix twice for gastric ulcer. Hemoglobin stable at 11.9. GI consulted, please follow-up. Migraine 10/03/2024 Assessment & Plan (10/04/2024 3:09 PM CDT): Reports chronic headache/migraine. Acetaminophen 1gm IV x 1, morphine, Reglan IV given. continue home regimen of topiramate twice daily. - pending EEG -Tylenol as needed Assessment & Plan (10/03/2024 9:22 PM CDT): Chronic. Continue home regimen of topiramate twice daily. Hypoglycemia 10/03/2024 Assessment & Plan (10/04/2024 3:09 PM CDT): Patient denies any history of diabetes. Continue to monitor glucose levels. Accu-Chek ordered 4 times daily. Assessment & Plan (10/03/2024 9:22 PM CDT): Monitor glucose levels. Accu-Chek ordered 4 times daily. Melena 10/03/2024 Assessment & Plan (10/04/2024 3:31 PM CDT): CT angiogram abdomen pelvis:No active arterial contrast extravasation into the gastrointestinal tract is identified. - Patient reports having 3-4 bloody bowel movements and vomited once yesterday. Continue Protonix Bid ; Hemoglobin stable at 11.8. GI consulted, planning for possible EGD/colonoscopy on Sunday. Pending notes from GI - clear liquid diet tomorrow with bowel regimen Assessment & Plan (10/03/2024 9:22 PM CDT): CT angiogram abdomen pelvis:No active arterial contrast extravasation into the gastrointestinal tract is identified. Continue home regimen of Protonix twice for gastric ulcer. Hemoglobin stable at 11.9. GI consulted, please follow-up. Gastrointestinal hemorrhage 10/03/2024 Assessment & Plan (10/04/2024 3:31 PM CDT): CT angiogram abdomen pelvis:No active arterial contrast extravasation into the gastrointestinal tract is identified. - Patient reports having 3-4 bloody bowel movements and vomited once yesterday. Continue Protonix Bid ; Hemoglobin stable at 11.8. GI consulted, planning for possible EGD/colonoscopy on Sunday. Pending notes from GI - clear liquid diet tomorrow with bowel regimen Assessment & Plan (10/03/2024 9:22 PM CDT): CT angiogram abdomen pelvis:No active arterial contrast extravasation into the gastrointestinal tract is identified. Continue home regimen of Protonix twice for gastric ulcer. Hemoglobin stable at 11.9. GI consulted, please follow-up. Encounters Date Type Department Care Team Description 10/08/2024 Results [facility]astroenterology, Hepatology & Nutrition [address] [facility] [address]g, [address]th [place] [address] Francheska Mcgill MD Pathology Biopsy Interpretation 10/06/2024 4:43 PM CDT Anesthesia Event [facility] [address] [facility] [address]g, 5th [place] [address] Nikki Spann MD Silva, Jason M, CRNA 10/06/2024 2:27 PM CDT - 10/06/2024 3:32 PM CDT [facility] [address] [facility] [address], 5th [place] [address] Francheska Mcgill MD DIAGNOSTIC UPPER GASTROINTESTINAL ENDOSCOPY 10/04/2024 Prep for Surgery [facility]astroenterology[facility] Hepatology & Nutrition [address] [facility] [address], [address]th [place] [address] Jermain Min PA Hematemesis (Primary Dx); Hematochezia 10/03/2024 11:59 PM CDT Anesthesia Event [facility] [address] [facility] [address], 1st [place] [address] Robert Ramírez, RT 10/03/2024 3:53 PM CDT - 10/09/2024 9:30 AM CDT Hospital Encounter [place] [address] [place] [id number] Veronika Marvin MD Hita, MD Rachel Lynn Patrick, MD Bhise, MD Roseanna Ragland Noman, MD Leal Alviarez, Daniel J, MD Leung, MD Kurt Seizure (Primary Dx); Gastrointestinal hemorrhage; Hematemesis; Hematochezia; Melena; History of sleeve gastrectomy; History of bypass of stomach; Gastric ulcer Discharge Disposition: Home 10/03/2024 Travel after 12/27/2023 Surgical History Surgery Date Site/Laterality Comments GASTRIC BYPASS 07/05/2024 - 08/04/2024 [place] ESOPHAGOGASTRODUODENOSCOP Y TRANSORAL DIAGNOSTIC 10/06/2024 Esophagus/N/A Procedure: DIAGNOSTIC UPPER GASTROINTESTINAL ENDOSCOPY; Surgeon: Francheska Mcgill MD; Location: MAIN ENDOSCOPY; Service: GASTROENTEROLOGY [place] COLONOSCOPY FLX DX W/JADEN J SPEC WHEN PFRMD 10/06/2024 N/A Procedure: DIAGNOSTIC FLEXIBLE COLONOSCOPY PROXIMAL TO SPLENIC FLEXURE; Surgeon: Francheska Mcgill MD; Location: MAIN ENDOSCOPY; Service: GASTROENTEROLOGY Medical History Medical History Date Comments Migraine sice childhood Family History Medical History Relation Name Comments -Other cancer Father Ovarian cancer Mother Relation Name Status Comments Father Mother Social History Tobacco Use Types Packs/Day Years Used Date Smoking Tobacco: Never Smokeless Tobacco: Never Tobacco Cessation:Counseling Given: Not Answered Alcohol Use Standard Drinks/Week Comments Yes 0 (1 standard drink = 0.6 oz pur e alcohol) occasional Comments No Sex and Gender Information Value Date Recorded Sex Assigned at Not on file Legal Sex Female 3:30 PM CDT Gender Identity Not on file Sexual Orientation Not on file 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 on file Not on file Not on file Obstetrics History Para Term AB IAB SAB Ectopic Multiple Livin g Live Births 2 Last Filed Vital Signs Vital Sign Reading Time Taken Comments Blood Pressure 102/72 10/09/2024 7:40 AM CDT Pulse 69 10/09/2024 7:40 AM CDT Temperature 36.9 °C (98.4 °F) 10/09/2024 7:40 AM CD T Respiratory Rate 17 10/09/2024 7:40 AM CDT Oxygen Saturation 98% 10/09/2024 7:40 AM CDT Inhaled Oxygen Concentration - - Weight 61.8 kg (136 lb 3.9 oz) 10/06/2024 9:06 A M CDT Height 152.4 cm (5') 10/06/2024 9:06 AM CDT Body Mass Index 26.61 10/06/2024 9:06 AM CDT Plan of Treatment Health Maintenance Due Date Last Done Comments COVID-19 Vaccine (2023-2 5 season) 2024 08/21/2020, 08/01/2020 Influenza Vaccine (#1) 2025 Pneumococcal Vaccine Aged Out No long er eligible based on patient's age to complete this topic Procedures Procedure Name Priority Date/Time Associated Diagnosis Comments POC GLUCOSE SCREEN Routine 10/09/2024 7:41 AM CDT .CBC Routine 10/09/2024 2:00 AM CDT COMPREHENSIVE METABOLIC PANEL Routine 2:00 AM CDT PHOSPHORUS LEVEL Routine 10/09/2024 2:00 AM CDT MAGNESIUM LEVEL Routine 10/09/2024 2:00 AM CDT COMPLETE BLOOD COUNT W/ DIFFERENTIAL Routine 10/09/2024 2:00 AM CDT POC GLUCOSE SCREEN Routine 10/08/2024 9:31 PM CDT POC GLUCOSE SCREEN Routine 10/08/2024 5:44 PM CDT POC GLUCOSE SCREEN Routine 10/08/2024 12:43 PM CDT XR ABDOMEN 1 VW PORTABLE Routine 025 10:45 AM CDT POC GLUCOSE SCREEN Routine 10/08/2024 7:47 AM CDT .CBC Routine 10/08/2024 1:49 AM CDT COMPREHENSIVE METABOLIC PANEL Routine 1:49 AM CDT PHOSPHORUS LEVEL Routine 10/08/2024 1:49 AM CDT MAGNESIUM LEVEL Routine 10/08/2024 1:49 AM CDT COMPLETE BLOOD COUNT W/ DIFFERENTIAL Routine 10/08/2024 1:49 AM CDT POC GLUCOSE SCREEN Routine 10/07/2024 10:39 PM CDT POC GLUCOSE SCREEN Routine 10/07/2024 7:45 PM CDT POC GLUCOSE SCREEN Routine 10/07/2024 2:48 PM CDT COMPREHENSIVE METABOLIC PANEL Routine 3:25 AM CDT PHOSPHORUS LEVEL Routine 10/07/2024 3:25 AM CDT MAGNESIUM LEVEL Routine 10/07/2024 3:25 AM CDT .CBC Routine 10/07/2024 3:24 AM CDT COMPLETE BLOOD COUNT W/ DIFFERENTIAL Routine 10/07/2024 3:24 AM CDT POC GLUCOSE SCREEN Routine 10/06/2024 10:13 PM CDT POC GLUCOSE SCREEN Routine 10/06/2024 5:51 PM CDT PATHOLOGY BIOPSY INTERPRETATION Routine 10/06/2024 5:02 PM CDT Hematemesis Hematochezia POC GLUCOSE SCREEN Routine 10/06/2024 4:53 PM CDT [place] COLONOSCOPY FLX DX W/JADEN J SPEC WHEN PFRMD 10/06/2024 4:33 PM CDT Hematemesis Hematochezia [place] ESOPHAGOGASTRODUODENOSCOP Y TRANSORAL DIAGNOSTIC 10/06/2024 4:33 PM CDT Hematemesis Hematochezia POC GLUCOSE SCREEN Routine 10/06/2024 4:19 PM CDT TYPE AND SCREEN STAT 10/06/2024 3:25 PM CDT CONFIRM ABORH TYPE STAT 10/06/2024 3:18 PM CDT POC GLUCOSE SCREEN Routine 10/06/2024 1:37 PM CDT VENOUS BLOOD GAS PLUS Routine 10/06/2024 10:29 AM CDT HC PROCALCITONIN (PCT) Routine 10:29 AM CDT BLOOD CULTURE Routine 10/06/2024 10:29 AM CDT EEG Routine 10/06/2024 10:18 AM CDT URINALYSIS WITH MICROSCOPIC IF INDICATED Routine 10/06/2024 10:18 AM CDT URINALYSIS WITH MICROSCOPIC IF INDICATED Routine 10/06/2024 10:18 AM CDT URINE CULTURE Routine 10/06/2024 10:18 AM CDT POC GLUCOSE SCREEN Routine 10/06/2024 10:14 AM CDT .CBC Routine 10/06/2024 3:11 AM CDT PROTHROMBIN TIME Routine 10/06/2024 3:11 AM CDT COMPREHENSIVE METABOLIC PANEL Routine 3:11 AM CDT PHOSPHORUS LEVEL Routine 10/06/2024 3:11 AM CDT MAGNESIUM LEVEL Routine 10/06/2024 3:11 AM CDT COMPLETE BLOOD COUNT W/ DIFFERENTIAL Routine 10/06/2024 3:11 AM CDT POC GLUCOSE SCREEN Routine 10/05/2024 11:09 PM CDT POC GLUCOSE SCREEN Routine 10/05/2024 7:05 PM CDT POC GLUCOSE SCREEN Routine 10/05/2024 5:48 PM CDT POC GLUCOSE SCREEN Routine 10/05/2024 12:34 PM CDT POC GLUCOSE SCREEN Routine 10/05/2024 8:11 AM CDT COMPREHENSIVE METABOLIC PANEL Add-On 2:42 AM CDT .CBC Routine 10/05/2024 2:42 AM CDT PHOSPHORUS LEVEL Routine 10/05/2024 2:42 AM CDT MAGNESIUM LEVEL Routine 10/05/2024 2:42 AM CDT COMPLETE BLOOD COUNT W/ DIFFERENTIAL Routine 10/05/2024 2:42 AM CDT POC GLUCOSE SCREEN Routine 10/04/2024 11:30 PM CDT POC GLUCOSE SCREEN Routine 10/04/2024 10:00 PM CDT POC GLUCOSE SCREEN Routine 10/04/2024 7:50 PM CDT POC GLUCOSE SCREEN Routine 10/04/2024 3:21 PM CDT POC GLUCOSE SCREEN Routine 10/04/2024 11:50 AM CDT POC GLUCOSE SCREEN Routine 10/04/2024 9:52 AM CDT HEMOGLOBIN A1C STAT 10/04/2024 7:14 AM CDT .CBC Routine 10/04/2024 7:14 AM CDT PHOSPHORUS LEVEL Routine 10/04/2024 7:14 AM CDT MAGNESIUM LEVEL Routine 10/04/2024 7:14 AM CDT BASIC METABOLIC PANEL, CALCI UM TOTAL Routine 10/04/2024 7:14 AM CDT COMPLETE BLOOD COUNT W/ DIFFERENTIAL Routine 10/04/2024 7:14 AM CDT EKG, 12-LEAD (PORTABLE) STAT 10/04/2024 POC GLUCOSE SCREEN Routine 10/03/2024 11:20 PM CDT POC GLUCOSE SCREEN Routine 10/03/2024 10:50 PM CDT DRUG SCREEN, URINE Routine 10/03/2024 8:11 PM CDT HUMAN CHORIONIC GONADOTROPIN , QUALITATIVE Routine 10/03/2024 8:11 PM CDT CTA ABDOMEN PELVIS W WO CONTRAST STAT 10/03/2024 6:58 PM CDT FOLATE LEVEL Routine 10/03/2024 5:45 PM CDT VITAMIN B12 LEVEL Routine 10/03/2024 5:45 PM CDT POC GLUCOSE SCREEN Routine 10/03/2024 5:42 PM CDT POC VENOUS BLOOD GAS + LACTATE Routine 0 10/03/2024 4:23 PM CDT .CBC Routine 10/03/2024 4:20 PM CDT APTT Routine 10/03/2024 4:20 PM CDT PROTHROMBIN TIME Routine 10/03/2024 4:20 PM CDT PHOSPHORUS LEVEL Routine 10/03/2024 4:20 PM CDT MAGNESIUM LEVEL Routine 10/03/2024 4:20 PM CDT COMPREHENSIVE METABOLIC PANEL Routine 4:20 PM CDT COMPLETE BLOOD COUNT W/ DIFFERENTIAL Routine 10/03/2024 4:[address] HEAD WO CONTRAST STAT 10/03/2024 4:06 PM CDT POC GLUCOSE SCREEN Routine 10/03/2024 3:54 PM CDT after 12/27/2023 Results * POC Glucose Screen - Fingerstick (10/09/2024 7:41 AM CDT) Only the most recent of29 resultswithin the time period is included. Glucose Screen 86 70 - 99 mg/dL 10/09/2024 7:42 AM CDT [facility] POC Sample Type Capillary 10/09/2024 7:42 AM CDT [facility] Blood 10/09/2024 7:41 AM CDT 10/09/2024 7:42 AM CDT Narrative [facility] - 10/09/2024 7:42 AM CDT Capillary blood samples, e.g. obtained by fingerstick, may have inaccurate results in patients with decreased peripheral blood flow. Method description: All results are measured using Electrochemistry test methodology. The glucose in the sample mixes with the reagents on the test strip. The reaction produces an electric current. The amount of current produced is proportional to the glucose concentration in the blood. All POC Glucose screen test results, including critical values, must be interpreted and evaluated in the context of the patients' clinical findings. It is recommended to confirm any questionable test results by core lab methodology. us Kurt Campbell MD POCT ORDERABLES - DEVICE Final R esult [facility] Unless otherwise noted, all lab tests performed by: Division of Pathology and Laboratory Medicine [address] [place] [address] * (ABNORMAL) .CBC (10/09/2024 2:00 AM CDT) Only the most recent of7 resultswithin the time period is included. White Blood Cell 5.1 4.1 - 10.5 K/uL 10/09/2024 2:39 AM CDT [facility] Red Blood Cell 3.49(L) 3.99 - 5.46 M/uL 10/09/2024 2:39 AM CDT [facility] Hemoglobin 10.7(L) 12.2 - 15.3 g/dL 10/09/2024 2:39 AM CDT [facility] Hematocrit 32.9(L) 36.4 - 46.8 % 10/09/2024 2:39 AM CDT [facility] Mean Cell Volume 94 82 - 99 fL 10/09/2024 2:39 AM CDT [facility] Mean Cell Hemoglobin 30.7 26.6 - 33.2 pg 10/09/2024 2:39 AM CDT [facility] Mean Cell Hemoglobin Concentration 32.5 31.1 - 35.2 g/dL 10/09/2024 2:39 AM CDT [facility] RDW-SD 42.7 37.5 - 49.7 fL 10/09/2024 2:39 AM CDT [facility] Red Cell Diameter Width 12.3 11.6 - 15.5 % 10/09/2024 2:39 AM CDT [facility] Platelet 183 160 - 397 K/uL 10/09/2024 2:39 AM CDT [facility] Mean Platelet Volume 10.3 9.1 - 12.6 fL 10/09/2024 2:39 AM CDT [facility] INRBC 0.0 0.0 - 0.1 /100 WBC 10/09/2024 2:39 AM CDT [facility] Comment: The INRBC (instrument NRBC) value reflects the enumeration of nucleated red blood cells contained in a 200uL sample of whole blood analyzed by the instrument. This value may differ from the NRBC value reported in a manual differential, which is based on a 100 cell differential. Neutrophil % 37.7(L) 43.2 - 72.7 % 10/09/2024 2:39 AM CDT [facility] Lymphocyte % 52.3(H) 16.8 - 46.2 % 10/09/2024 2:39 AM CDT [facility] Monocyte % 7.4 5.1 - 12.5 % 10/09/2024 2:39 AM CDT [facility] Eosinophil % 2.2 0.4 - 6.3 % 10/09/2024 2:39 AM CDT [facility] Basophil % 0.4 0.2 - 1.4 % 10/09/2024 2:39 AM CDT [facility] IGRE % 0.0(L) 0.1 - 1.5 % 10/09/2024 2:39 AM CDT [facility] Comment:The IGRE% includes M etamyelocytes, Myelocytes and Promyelocytes. Neutrophil Abs 1.93(L) 1.95 - 7.25 K/uL 10/09/2024 2:39 AM CDT [facility] Lymphocyte Abs 2.67 1.01 - 3.24 K/uL 10/09/2024 2:39 AM CDT [facility] Monocyte Abs 0.38 0.24 - 0.85 K/uL 10/09/2024 2:39 AM CDT [facility] Eosinophil Abs 0.11 0.02 - 0.50 K/uL 10/09/2024 2:39 AM CDT [facility] Basophil Abs 0.02 0.02 - 0.09 K/uL 10/09/2024 2:39 AM CDT [facility] IG Abs 0.00(L) 0.01 - 0.12 K/uL 10/09/2024 2:39 AM [facility] Blood Peripheral blood specimen / Unknown Venipuncture / Unknown 10/09/2024 2:00 AM CDT 10/09/2024 2:32 AM CDT us David Lmjohn Shultz APRN LAB BLOOD ORDERABLES Final Result [facility] Unless otherwise noted, all lab tests performed by: Division of Pathology and Laboratory Medicine [address] [place] [address] * (ABNORMAL) Comprehensive Metabolic Panel (10/09/2024 2:00 AM CDT) Only the most recent of6 resultswithin the time period is included. Bilirubin Total <0.3 0.0 - 1.2 mg/dL 10/09/2024 3:07 AM CDT [facility] Comment:Indocyanine Green (I CG) may cause falsely elevated bilirubin results. Total and direct bilirubin must not be measured from samples containing indocyanine green. False elevation of total bilirubin can be seen in patients with IgG concentrations above 28 g/L. eGFR 109 >=60 mL/min/1. 73 sq. m 10/09/2024 3:07 AM CDT [facility] Comment: The eGFRcr is calculated with the 2020 CKD-EPI creatinine equation using creatinine, patient's age, and sex for adults 18 years of age and older. Other factors, especially muscle mass, may affect accuracy and need to be considered. According to the Kidney Disease: Improving Global Outcomes (KDIGO) CKD Work Group 2012 Clinical Practice Guideline, chronic kidney disease (CKD) is defined as the abnormalities of kidney structure or function, present for more than 3 months, with implications for health. CKD should be classified by cause, GFR category, and albuminuria category. KDIGO guidelines provide the following GFR categories. Stage / Description / GFR mL/min/1.73 m2: G1* / Normal or high / >= 90 G2* / Mildly decreased / 60-89 G3a / Mildly to moderately decreased / 45-59 G3b / Moderately to severely decreased / 30-44 G4 / Severely decreased / 15-29 G5 / Kidney failure / <15 *In the absence of evidence of kidney damage, neither G1 nor G2 fulfill criteria for CKD. Tot Protein 6.2(L) 6.4 - 8.3 gm/dL 10/09/2024 3:07 AM CDT [facility] Calcium Level Total 8.5 8.2 - 10.2 mg/dL 10/09/2024 3:07 AM [facility] Alkaline Phosphatase 58 35 - 104 U/L 10/09/2024 3:07 AM [facility] Albumin Level 3.6 3.5 - 5.2 gm/dL 10/09/2024 3:07 AM [facility] AST 16 <=32 U/L 10/09/2024 3:07 AM [facility] ALT 16 <=33 U/L 10/09/2024 3:07 AM [facility] Sodium Level 142 136 - 145 mmol/L 10/09/2024 3:07 AM [facility] Potassium Level 3.9 3.4 - 4.5 mmol/L 10/09/2024 3:07 AM [facility] Chloride 113(H) 98 - 107 mmol/L 10/09/2024 3:07 AM [facility] CO2 19(L) 22 - 29 mmol/L 10/09/2024 3:07 AM [facility] Anion Gap 10 4 - 14 mmol/L 10/09/2024 3:07 AM [facility] Creatinine 0.73 0.51 - 0.95 mg/dL 10/09/2024 3:07 AM [facility] BUN 11 6 - 23 mg/dL 10/09/2024 3:07 AM [facility] Glucose Level 84 70 - 99 mg/dL 10/09/2024 3:07 AM [facility] Comment: Effective 12/01/15, the glucose reference intervals have been updated based on [place] [employer] guidelines (Standards of Medical Care in Diabetes 2016. Diabetes Care 2016; 39: S13-S22). Fasting blood glucose: Normal: 70-99 mg/dL Impaired fasting glucose (increased risk for diabetes or pre-diabetes): 100-125 mg/dL Diabetes mellitus: >/=126 mg/dL Random blood glucose: Normal: 70-199 mg/dL Note: Random glucose >100 mg/dL is associated with increased risk for diabetes. Blood Peripheral blood specimen / Unknown Venipuncture / Unknown 10/09/2024 2:00 AM CDT 10/09/2024 2:32 AM CDT us Tong Farrar MD LAB BLOOD ORDERABLES F inal Result Performing Organization Address City/[facility]/ZIP Co de Phone Number [facility] Unless otherwise noted, all lab tests performed by: Division of Pathology and Laboratory Medicine [address] [place] [id number] * Phosphorus Level (10/09/2024 2:00 AM CDT) Only the most recent of7 resultswithin the time period is included. Phosphorus Level 3.5 2.5 - 4.5 mg/dL 10/09/2024 3:07 AM CDT [facility] Blood Peripheral blood specimen / Unknown Venipuncture / Unknown 10/09/2024 2:00 AM CDT 10/09/2024 2:32 AM CDT us David Shultz APRN LAB BLOOD ORDERABLES Final Result Performing Organization Address [facility] Co de Phone Number [facility] Unless otherwise noted, all lab tests performed by: Division of Pathology and Laboratory Medicine [address] [place] [id number] * Magnesium Level (10/09/2024 2:00 AM CDT) Only the most recent of7 resultswithin the time period is included. Magnesium Level 2.0 1.6 - 2.6 mg/dL 10/09/2024 3:07 AM CDT [facility] Blood Peripheral blood specimen / Unknown Venipuncture / Unknown 10/09/2024 2:00 AM CDT 10/09/2024 2:32 AM CDT us David Shultz APRN LAB BLOOD ORDERABLES Final Result Performing Organization Address City/[facility] Co de Phone Number [facility] Unless otherwise noted, all lab tests performed by: Division of Pathology and Laboratory Medicine [address] [place] [id number] * XR Abdomen 1 View Portable (10/08/2024 10:45 AM CDT) Anatomical Region Laterality Modality Abdomen Digital Radiogra phy 10/08/2024 11:5 2 AM CDT Impressions 10/08/2024 12:00 PM CDT Nonobstructed bowel gas pattern. Narrative 10/08/2024 12:00 PM CDT FULL RESULT: Examination: XR ABDOMEN 1 VW PORTABLE on 10/08/2024 10:45 AM Clinical History: Seizure Indication: Abdominal Pain. Comparison: CT dated 10/03/2024 TECHNIQUE: XR ABDOMEN 1 VW PORTABLE FINDINGS: Cholecystectomy clips. Scattered gas in the bowel. No abnormally dilated bowel loops. No evidence for gross ascites. Clips in the left abdomen. Stable osseous structures. Procedure Note Princess Smith MD - 10/08/2024 FULL RESULT: Examination: XR ABDOMEN 1 VW PORTABLE on 10/08/2024 10:45 AM Clinical History: Seizure Indication: Abdominal Pain. Comparison: CT dated 10/03/2024 TECHNIQUE: XR ABDOMEN 1 VW PORTABLE FINDINGS: Cholecystectomy clips. Scattered gas in the bowel. No abnormally dilatedbowel loops. No evidence for gross ascites. Clips in the left abdomen.Stable osseous structures. IMPRESSION: Nonobstructed bowel gas pattern. [facility] IMG DIAGNOSTIC IMAGING ORD ERABLES Final Result * Pathology Biopsy Interpretation (10/06/2024 5:02 PM CDT) Submitted Clinical History Hematemesis [K92.0] Hematochezia [K92.1] 10/08/2024 9:44 AM CDT [facility] Diagnosis A: Stomach, a. anastomosis ulcer: Small bowel mucosa with focal intramucosal hemorrhage and lymphangiectasia. No dysplasia or carcinoma identified. 10/08/2024 9:44 AM CDT [facility] at 0944 CDT Gross Description A: Stomach, a. anastomosis ulcer: Two marcos-white pieces of tissue measuring 0.1 and 0.3 cm, entirely submitted in A1. GM 10/08/2024 9:44 AM CDT [facility] Biomarker Block(s) NA 10/08/2024 9:44 AM CDT [facility] Disclaimer "Some tests reported here may have been developed and performance characteristics determined by [facility] Pathology and Laboratory Medicine. These tests have not been specifically cleared or approved by the U.S. Food and Drug Administration. If applicable, controls were reviewed and showed appropriate reactivity." 10/08/2024 9:44 AM CDT [facility] Tissue (Stomach) 10/06/2024 5:02 PM CDT 10/07/2024 8:23 AM CDT Francheska Mcgill MD LAB PATHOLOGY ORDERAB LES Final Result [address] [address], [place] * 3 Day Type and Screen (10/06/2024 3:25 PM CDT) ABORh O POS 10/06/2024 2:18 PM CDT [facility] ABSC Negative 10/06/2024 2:18 PM CDT [facility] Clot Expiration 10/09/2024 23:59 10/06/2024 2:18 PM CDT [facility] Historical Record Check No History 10/06/2024 2:18 PM CDT [facility] Blood Peripheral blood specimen / Unknown Venipuncture / Unknown 10/06/2024 3:25 PM CDT 10/06/2024 3:29 PM CDT Francheska Mcgill MD BLOOD BANK TEST ORDER SADI Final Result [facility] [address] [place] [address] [id number] [place] [address] * Confirm ABORh (10/06/2024 3:18 PM CDT) ABORh Confirm O POS 10/06/2024 2:48 PM CDT [facility] Blood Peripheral blood specimen / Unknown Venipuncture / Unknown 10/06/2024 3:18 PM CDT 10/06/2024 3:25 PM CDT us Francheska Mcgill MD BLOOD BANK TEST ORDER SADI Final Result Performing Organization Address [facility] Co de Phone Number [facility] [address] [place] [address] [id number] [place] [address] * Procalcitonin (10/06/2024 10:29 AM CDT) Procalcitonin <0.04 <=0.08 ng/mL 10/06/2024 11:27 AM CDT [facility] Blood Peripheral blood specimen / Unknown Venipuncture / Unknown 10/06/2024 10:29 AM CDT 10/06/2024 10:36 AM CDT Narrative [facility] - 10/06/2024 11:27 AM CDT Procalcitonin > 2.00 ng/mL: Procalcitonin levels above 2.00 ng/mL are highly suggestive of a high risk for systematic bacterial infection/ severe sepsis and/or septic shock. Procalcitonin < 0.50 ng/mL: Procalcitonin levels below 0.50 ng/mL are at low risk for progression to severe sepsis and/ or septic shock. Procalcitonin (ProCT) between 0.15 and 2.0 ng/mL do not exclude infection, because localized infections (without systemic signs) may be associated with such low levels. Results greater than 400 ng/mL may not be reliable due to the matrix effect with extended dilution as it exceeds the mechanical engineering technician's recommended limit. Caution should be exercised when interpreting such values and done in conjunction with clinical context. us Tong Farrar MD LAB BLOOD ORDERABLES F inal Result [facility] Unless otherwise noted, all lab tests performed by: Division of Pathology and Laboratory Medicine [address] [place] [address] * (ABNORMAL) VBG+ (10/06/2024 10:29 AM CDT) Venous Sodium 145 136 - 146 mmol/L 10/06/2024 10:41 AM T [facility] Venous Potassium 4.1 3.4 - 4.5 mmol/L 10/06/2024 10:41 AM CDT [facility] Venous Chloride 113(H) 98 - 106 mmol/L 10/06/2024 10:41 AM CDT [facility] Venous Glucose 80 70 - 105 mg/dL 10/06/2024 10:41 AM T [facility] V Hgb 12.2 12.0 - 16.0 g/dL 10/06/2024 10:41 AM T [facility] Venous Hematocrit 38 37 - 48 % 10/06/2024 10:41 AM T [facility] Venous Lactate 0.9 0.5 - 1.6 mmol/L 10/06/2024 10:41 AM T [facility] Venous Ionized Calcium 1.20 1.15 - 1.29 mmol/L 10/06/2024 10:41 AM T [facility] pH Venous 7.33 7.32 - 7.43 10/06/2024 10:41 AM [facility] P CO2 Venous 43.6 41.0 - 51.0 mmHg 10/06/2024 10:41 AM T [facility] P O2 Venous 18 mmHg 10/06/2024 10:41 AM T [facility] Bicarbonate Venous 23 21 - 28 mmol/L 10/06/2024 10:41 AM T [facility] V Anion Gap 9 7 - 16 mmol/L 10/06/2024 10:41 AM T [facility] Base Excess Venous -3(L) -2 - 3 mmol/L 10/06/2024 10:41 AM [facility] Oxygen Saturation Venous 22 % 10/06/2024 10:41 AM [facility] Oxygen FLOW Rate/ FiO2 10/06/2024 10:41 AM [facility] O2 Therapy 10/06/2024 10:41 AM CDT [facility] Blood Peripheral blood specimen / Unknown Venipuncture / Unknown 10/06/2024 10:29 AM CDT 10/06/2024 10:36 AM CDT us Tong Farrar MD LAB BLOOD ORDERABLES F inal Result [facility] Unless otherwise noted, all lab tests performed by: Division of Pathology and Laboratory Medicine [address] [place] [address] * Blood Culture (10/06/2024 10:29 AM CDT) Blood Culture No Growth. 10/11/2024 12:00 PM CDT [facility] Blood (Arm, Left) Venipuncture / Unknown 10/06/2024 10:29 AM CDT 10/06/2024 10:35 AM CDT us Tong Farrar MD MICROBIOLOGY - GENERAL ORDERABLES Final Result Performing Organization Address City/[facility] Co de Phone Number [facility] Unless otherwise noted, all lab tests performed by: Division of Pathology and Laboratory Medicine [address] [place] [address] * EEG (10/06/2024 10:18 AM CDT) Narrative Isa Gavin MD - 10/06/2024 10:00 AM CDT Isa Gavin MD 10/06/2024 7:25 PM EEG Report - 20 minute routine wake/drowsy EEG at bedside Date: 10/06/24 Introduction: Patient is a 34 year old female with concern for seizures. Technical Summary: During wake there is a well sustained posterior dominant rhythm of 10 Hz that is symmetrical. No epileptiform discharges or focal abnormalities are seen. No seizures recorded. Impression: This is a normal routine EEG in wake only. us Tong Farrar MD NEUROLOGY ORDERABLES F inal Result * Urinalysis w/Microscopic if Indicated (10/06/2024 10:18 AM CDT) Urine Appearance Clear Clear 10/07/19 11:13 AM CDT [facility] Urine Color Colorless Colorless, Straw, Yellow, Dark Yellow, Straw-Yellow 10/06/2024 11:13 AM CDT [facility] Urine Specific [place] 1.006 1.003 - 1.035 10/06/2024 11:13 AM CDT [facility] Urine pH 7.5 5.0 - 8.0 10/06/2024 11:13 AM CDT [facility] Urine Glucose Negative Negative mg/dL 10/06/2024 11:13 AM CDT [facility] Urine Ketones Negative Negative mg/dL 10/06/2024 11:13 AM CDT [facility] Urine Blood Negative Negative 10/06/2024 11:13 AM CDT [facility] Urine Protein Negative Negative mg/dL 10/06/2024 11:13 AM CDT [facility] Urine Bilirubin Negative Negative 11:13 AM CDT [facility] Urine Urobilinogen Negative Negative 10/06/2024 11:13 AM CDT [facility] Urine Nitrite Negative Negative 10/06/2024 11:13 AM CDT [facility] Urine Leukocyte Esterase Negative Negative 10/06/2024 11:13 AM CDT [facility] Urine Voided urine specimen / Unknown Non-blood Collection / Unknown 10/06/2024 10:18 AM CDT 10/06/2024 10:58 AM CDT Narrative [facility] - 10/06/2024 11:13 AM CDT Some reporting parameters within the Urinalysis test have changed due to the implementation of new instrumentation in the Main [place], allowing greater sensitivity of measurement. Urinalysis results reported by the [facility] using existing instrumentation, as well as Urinalysis testing performed manually or by back-up methodology at the main [place], will remain relatively unchanged. New reporting parameters and units will now be reported for all campuses. No microscopic exam performed; physiochemical findings are negative us Tong Farrar MD URINE ORDERABLES Final Result Performing Organization Address [facility] Co de Phone Number [facility] Unless otherwise noted, all lab tests performed by: Division of Pathology and Laboratory Medicine [address] [place] [id number] * Urine Culture (10/06/2024 10:18 AM CDT) [facility] Urine Culture No Growth. 10/08/2024 10:44 AM CDT [facility] Urine Voided urine specimen / Unknown Non-blood Collection / Unknown 10/06/2024 10:18 AM CDT 10/06/2024 10:58 AM CDT us Tong Farrar MD MICROBIOLOGY - GENERAL ORDERABLES Final Result Performing Organization Address [facility] de Phone Number [facility] Unless otherwise noted, all lab tests performed by: Division of Pathology and Laboratory Medicine [address] [place] [phone] * (ABNORMAL) Prothrombin Time (10/06/2024 3:11 AM CDT) Only the most recent of2 resultswithin the time period is included. [facility] Prothrombin Time 16.1(H) 12.2 - 14.4 second(s) 10/06/2024 4:46 AM CDT [facility] International Normalization Ratio 1.28(H) 0.91 - 1.10 10/06/2024 4:46 AM CDT [facility] Blood Peripheral blood specimen / Unknown Venipuncture / Unknown 10/06/2024 3:11 AM CDT 10/06/2024 4:11 AM CDT us Tong Farrar MD LAB BLOOD ORDERABLES F inal Result Performing Organization Address [facility] Co de Phone Number [facility] Unless otherwise noted, all lab tests performed by: Division of Pathology and Laboratory Medicine [address] [place] [phone] * (ABNORMAL) Basic Metabolic Panel- Total Calcium (10/04/2024 7:14 AM CDT) eGFR 106 >=60 mL/min/1.7 3 sq. m 10/04/2024 7:48 AM T [facility] Comment: The eGFRcr is calculated with the 2020 CKD-EPI creatinine equation using creatinine, patient's age, and sex for adults 18 years of age and older. Other factors, especially muscle mass, may affect accuracy and need to be considered. According to the Kidney Disease: Improving Global Outcomes (KDIGO) CKD Work Group 2012 Clinical Practice Guideline, chronic kidney disease (CKD) is defined as the abnormalities of kidney structure or function, present for more than 3 months, with implications for health. CKD should be classified by cause, GFR category, and albuminuria category. KDIGO guidelines provide the following GFR categories. Stage / Description / GFR mL/min/1.73 m2: G1* / Normal or high / >= 90 G2* / Mildly decreased / 60-89 G3a / Mildly to moderately decreased / 45-59 G3b / Moderately to severely decreased / 30-44 G4 / Severely decreased / 15-29 G5 / Kidney failure / <15 *In the absence of evidence of kidney damage, neither G1 nor G2 fulfill criteria for CKD. Calcium Level Total 8.8 8.2 - 10.2 mg/dL 10/04/2024 7:48 AM CDT [facility] Sodium Level 139 136 - 145 mmol/L 10/04/2024 7:48 AM T [facility] Potassium Level 4.1 3.4 - 4.5 mmol/L 10/04/2024 7:48 AM T [facility] Chloride 109(H) 98 - 107 mmol/L 10/04/2024 7:48 AM CDT [facility] CO2 17(L) 22 - 29 mmol/L 10/04/2024 7:48 AM CDT [facility] Anion Gap 13 4 - 14 mmol/L 10/04/2024 7:48 AM CDT [facility] Creatinine 0.75 0.51 - 0.95 mg/dL 10/04/2024 7:48 AM CDT [facility] BUN 12 6 - 23 mg/dL 10/04/2024 7:48 AM CDT [facility] Glucose Level 83 70 - 99 mg/dL 10/04/2024 7:48 AM CDT [facility] Comment: Effective 12/01/15, the glucose reference intervals have been updated based on [place] [employer] guidelines (Standards of Medical Care in Diabetes 2016. Diabetes Care 2016; 39: S13-S22). Fasting blood glucose: Normal: 70-99 mg/dL Impaired fasting glucose (increased risk for diabetes or pre-diabetes): 100-125 mg/dL Diabetes mellitus: >/=126 mg/dL Random blood glucose: Normal: 70-199 mg/dL Note: Random glucose >100 mg/dL is associated with increased risk for diabetes. Blood Peripheral blood specimen / Unknown Venipuncture / Unknown 10/04/2024 7:14 AM CDT 10/04/2024 7:26 AM CDT David Shultz [facility] [facility] LAB BLOOD ORDERABLES Final Result Performing Organization Address [facility] de Phone Number [facility] Unless otherwise noted, all lab tests performed by: Division of Pathology and Laboratory Medicine [address] [place] [id number] * Hemoglobin A1c (10/04/2024 7:14 AM CDT) Hemoglobin A1c 5.3 4.3 - 5.6 % 10/04/2024 3:28 PM CDT [facility] Blood Peripheral blood specimen / Unknown Venipuncture / Unknown 10/04/2024 7:14 AM CDT 10/04/2024 7:26 AM CDT Narrative [facility] - 10/04/2024 3:28 PM CDT HbA1c values >=6.5% are diagnostic of diabetes mellitus. Diagnosis should be confirmed by repeat testing. Therapeutic Action suggested: >8.0% HbA1c; Goal of therapy: <7.0% HbA1c us Zuleika Saldaña APRN LAB BLOOD ORDERABLES Final Result Performing Organization Address City/[facility] Co de Phone Number [facility] Unless otherwise noted, all lab tests performed by: Division of Pathology and Laboratory Medicine [address] [place] [phone] * EKG, 12-Lead (Portable) (10/04/2024) us Kelsey Min MD ECG ORDERABLES Final Result [facility] * Urine Drug Screen STAT, Qualitative, Without Confirmation (10/03/2024 8:11 PM CDT) Drug Screen, Urine See Scanned Result 10/04/2024 1:03 PM CDT [facility] Urine Voided urine specimen / Unknown Non-blood Collection / Unknown 10/03/2024 8:11 PM CDT 10/03/2024 8:57 PM CDT Narrative [facility] - 10/04/2024 1:03 PM CDT Drugs reported as positive have not been confirmed by a second method and should be used for medical purpose only. To order confirmation testing, contact laboratory. note: Below are cut-off Concentrations for all urine drugs of abuse performed in the laboratory. Any value below the cut-off is considered negative. Some drugs listed in the table may not be included in this panel. Description Cut-off concentration Amphetamine 1000 ng/mL Barbituates 200 ng/mL Benzodiazepines 200 ng/mL Cocaine metabolites 300 ng/mL Fentanyl 1 ng/mL Methadone 300 ng/mL Opiates 300 ng/mL Phencyclidine 25 ng/mL Propoxyphene 300 ng/mL Marijuana Metabolites 50 ng/mL us Veronika Marvin MD URINE ORDERABLES Final Result [facility], [facility] [address] [place] [address], [place] * U HCG (10/03/2024 8:11 PM CDT) Urine Human Chorionic Gonadotropin Qualitative Negative Negative 10/03/2024 9:09 PM CDT [facility] Urine (Urine Clean Catch) Non-blood Collection / Unknown 10/03/2024 8:11 PM CDT 10/03/2024 8:58 PM CDT Narrative [facility] - 10/03/2024 9:09 PM CDT Very dilute urine specimens may cause false negative results. Suggest repeat in 48 hours with a first morning voided urine or request quantitative serum beta HCG test. The ICON 20 hCG Serum/Urine test employs a solid phase chromatographic immunoassay technology to selectively detect elevated levels of hCG in urine with a high degree of sensitivity. Veronika Marvin MD URINE ORDERABLES Final Result [facility] Unless otherwise noted, all lab tests performed by: Division of Pathology and Laboratory Medicine [facility] [place] [address] * CT Angiogram Abdomen Pelvis with and without Contrast (10/03/2024 6:58 PM CDT) Anatomical Region Laterality Modality Vascular, Abdomen, Pelvis Comput ed Tomography 10/03/2024 7:02 PM CDT Impressions 10/03/2024 7:19 PM CDT No active arterial contrast extravasation into the gastrointestinal tract is identified. ACTIONABLE ITEMS/RECOMMENDATIONS*: None. *An Actionable Finding is a finding that may be unrelated to the original reason for imaging but potentially actionable, meaning further investigation may be necessary. The Actionable Findings Vigilance Unit (AFVU) assists medical providers with responding to additional radiologic findings that are unexpected and potentially actionable. Narrative 10/03/2024 7:19 PM CDT Examination: CTA ABDOMEN PELVIS W WO CONTRAST on 10/03/2024 6:58 PM. Clinical History: Seizure disorder. Indication: upper and lower GI bleeding. Comparison: None available. TECHNIQUE: CTA of the abdomen and pelvis with and without intravenous contrast. 3D reconstructions were created on an independent workstation. FINDINGS: Lower Thorax: No suspicious pulmonary nodules in the lung bases. Hepatobiliary: Focal fatty infiltration adjacent to the proximal ligament. Punctate too small to characterize hypodensities. No biliary dilatation.Gallbladder is surgically absent Spleen: No splenomegaly. Pancreas: No mass or ductal dilatation. Adrenal Glands: No mass. Kidneys, Ureters, Bladder: No hydronephrosis. Too small to characterize right renal hypodensity No bladder mass. 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 No small or large bowel dilation. No active extravasation within the gastrointestinal tract is identified. Pelvic Organs: Uterus is surgically absent. Left ovarian corpus luteal cyst measuring 2.2 cm. Peritoneum/Retroperitoneum: Trace fluid in the pelvis Vessels: Normal Lymph Nodes: No lymphadenopathy. Musculoskeletal: L3 vertebral body 1.7 cm focal lesion is likely hemangioma Procedure Note Yeny Penn MD - 10/03/2024 Examination: CTA ABDOMEN PELVIS W WO CONTRAST on 10/03/2024 6:58 PM. Clinical History: Seizure disorder. Indication: upper and lower GI bleeding. Comparison: None available. TECHNIQUE: CTA of the abdomen and pelvis with and without intravenouscontrast. 3D reconstructions were created on an independent workstation. FINDINGS: Lower Thorax: No suspicious pulmonary nodules in the lung bases. Hepatobiliary: Focal fatty infiltration adjacent to the proximal ligament.Punctate too small to characterize hypodensities. No biliarydilatation.Gallbladder is surgically absent Spleen: No splenomegaly. Pancreas: No mass or ductal dilatation. Adrenal Glands: No mass. Kidneys, Ureters, Bladder: No hydronephrosis. Too small to characterizeright renal hypodensity No bladder mass. Gastrointestinal Tract: Sleeve gastric and gastrojejunal bypass changesare present. No small or large bowel dilation. No active extravasationwithin the gastrointestinal tract is identified. Pelvic Organs: Uterus is surgically absent. Left ovarian corpus lutealcyst measuring 2.2 cm. Peritoneum/Retroperitoneum: Trace fluid in the pelvis Vessels: Normal Lymph Nodes: No lymphadenopathy. Musculoskeletal: L3 vertebral body 1.7 cm focal lesion is likelyhemangioma IMPRESSION: No active arterial contrast extravasation into the gastrointestinal tractis identified. ACTIONABLE ITEMS/RECOMMENDATIONS*: None. *An Actionable Finding is a finding that may be unrelated to the originalreason for imaging but potentially actionable, meaning furtherinvestigation may be necessary. The Actionable Findings Vigilance Unit(AFVU) assists medical providers with responding to additional radiologicfindings that are unexpected and potentially actionable. us Kelsey Min MD IMG CT ORDERABLES Final Result * Folate Level (10/03/2024 5:45 PM CDT) Folate Level 6.9 4.8 - 24.2 ng/mL 10/03/2024 6:26 PM CDT [facility] Is patient fasting? No 10/03/2024 6:26 PM CDT [facility] Comment:A fasting specimen i s recommended and results obtained from non-fasting specimens should be interpreted with caution using reference ranges based on fasting status and in conjunction with clinical context. Blood Peripheral blood specimen / Unknown Venipuncture / Unknown 10/03/2024 5:45 PM CDT 10/03/2024 5:49 PM CDT Narrative [facility] - 10/03/2024 6:26 PM CDT Reference range established based on adult population. us Pavel Solorzano MD LAB BLOOD ORDERABLES Final R esult Performing Organization Address [facility] Co de Phone Number [facility] Unless otherwise noted, all lab tests performed by: Division of Pathology and Laboratory Medicine [address] [place] [id number] * Vitamin B12 Level (10/03/2024 5:45 PM CDT) Vitamin B12 Level 654 232 - 1,245 pg/mL 10/03/2024 6:26 PM CDT [facility] Is patient fasting? No 10/03/2024 6:26 PM CDT [facility] Comment:A fasting specimen i s recommended and results obtained from non-fasting specimens should be interpreted with caution using reference ranges based on fasting status and in conjunction with clinical context. Blood Peripheral blood specimen / Unknown Venipuncture / Unknown 10/03/2024 5:45 PM CDT 10/03/2024 5:49 PM CDT Narrative [facility] - 10/03/2024 6:26 PM CDT Reference range established based on adult population. us Pavel Solorzano MD LAB BLOOD ORDERABLES Final R esult Performing Organization Address [facility] Co de Phone Number [facility] Unless otherwise noted, all lab tests performed by: Division of Pathology and Laboratory Medicine [address] [place] [id number] * (ABNORMAL) POC VBG+LAC (10/03/2024 4:23 PM CDT) POC VB pH. 7.274(L) 7.310 - 7.410 10/03/2024 4:41 PM CDT [facility] POC VB pCO2. 48.0 41.0 - 51.0 mmHg 10/03/2024 4:41 PM CDT [facility] POC VB pO2. <15 mmHg 10/03/2024 4:41 PM CDT [facility] Comment: Result is outside of instrument's reportable range. For results not consistent with patient's clinical condition, it is recommended to confirm the test result by sending a new specimen to the core laboratory where a different methodology will be employed. POC VB TCO2 24 24 - 29 mmol/L 10/03/2024 4:41 PM CDT [facility] POC VB Bicarb 22.2(L) 23.0 - 28.0 mmol/L 10/03/2024 4:41 PM CDT [facility] POC VB Base Excess -5(L) -2 - 3 mmol/L 10/03/2024 4:41 PM CDT [facility] POC VB O2 Sat 10/03/2024 4:41 PM CDT [facility] Comment: Calculated parameter cannot be resulted due to one or more parameters on which it is dependent being outside of the instrument's reportable range. It is recommended to confirm the test result by sending a new specimen to the core laboratory where a different methodology will be employed. POC VB LAC 1.28 0.50 - 1.70 mmol/L 10/03/2024 4:41 PM CDT [facility] POC FiO2 10/03/2024 4:41 PM CDT [facility] POC Sample Type Venous 4:41 PM CDT [facility] Blood 10/03/2024 4:23 PM CDT 10/03/2024 4:41 PM CDT Narrative [facility] - 10/03/2024 4:41 PM CDT Method description: The i-STAT is an analyzer used for in vitro quantification of various analytes in whole blood. The device uses a single disposable cartridge which contains microfabricated sensors, a calibration solution, fluidics system, and a waste chamber. Each test cartridge contains chemically sensitive biosensors on a silicon chip that are configured to perform specific tests. The microfabricated sensors measure analyte concentration by an electrochemical assay. Veronika Marvin MD POCT ORDERABLES - DEVICE Final Result Performing Organization Address [facility]/ZIP Co de Phone Number [facility] Unless otherwise noted, all lab tests performed by: Division of Pathology and Laboratory Medicine [address] [place] [phone] * aPTT (10/03/2024 4:20 PM CDT) Activated PTT 27.3 24.8 - 35.6 second(s) 10/03/2024 5:21 PM CDT [facility] Blood Peripheral blood specimen / Unknown Venipuncture / Unknown 10/03/2024 4:20 PM CDT 10/03/2024 4:26 PM CDT Kelsey Min MD LAB BLOOD ORDERABLES Final Resu lt Performing Organization Address [facility] Co de Phone Number [facility] Unless otherwise noted, all lab tests performed by: Division of Pathology and Laboratory Medicine [address] [place] [phone] * CT Head without Contrast (10/03/2024 4:06 PM CDT) Anatomical Region Laterality Modality Head Computed Tomogra phy 10/03/2024 4:37 PM CDT Impressions 10/03/2024 5:09 PM CDT No acute intracranial abnormality is seen. ACTIONABLE ITEMS/RECOMMENDATIONS*: None. *An Actionable Finding is a finding that may be unrelated to the original reason for imaging but potentially actionable, meaning further investigation may be necessary. The Actionable Findings Vigilance Unit (AFVU) assists medical providers with responding to additional radiologic findings that are unexpected and potentially actionable. I personally reviewed these image(s) along with the resident's/fellow's interpretations, certify that if a procedure was performed I was physically present, and agree with the final report. Narrative 10/03/2024 5:09 PM CDT FULL RESULT: Examination: CT HEAD WO CONTRAST on 10/03/2024 4:06 PM. CLINICAL HISTORY: Seizures, no history of malignancy INDICATION: Seizures, seizures COMPARISON: None. TECHNIQUE: CT head without IV contrast was performed. FINDINGS: Intracranial: There is no acute hemorrhage or large vascular territory infarct. There is no mass effect or midline shift. The ventricles and extra-axial spaces are appropriate for age. Bone: There are no suspicious lytic or sclerotic calvarial and skull base lesions. Extracranial: The orbits are unremarkable. The visualized paranasal sinuses are predominantly clear. The mastoid air cells are clear. Procedure Note Imani Mera MD - 10/03/2024 FULL RESULT: Examination: CT HEAD WO CONTRAST on 10/03/2024 4:06 PM. CLINICAL HISTORY: Seizures, no history of malignancy INDICATION: Seizures, seizures COMPARISON: None. TECHNIQUE: CT head without IV contrast was performed. FINDINGS: Intracranial: There is no acute hemorrhage or large vascular territory infarct. There is no mass effect or midline shift. The ventricles and extra-axial spaces are appropriate for age. Bone: There are no suspicious lytic or sclerotic calvarial and skull baselesions. Extracranial: The orbits are unremarkable. The visualized paranasal sinuses are predominantly clear. The mastoid air cells are clear. IMPRESSION: No acute intracranial abnormality is seen. ACTIONABLE ITEMS/RECOMMENDATIONS*: None. *An Actionable Finding is a finding that may be unrelated to the originalreason for imaging but potentially actionable, meaning furtherinvestigation may be necessary. The Actionable Findings Vigilance Unit(AFVU) assists medical providers with responding to additional radiologicfindings that are unexpected and potentially actionable. I personally reviewed these image(s) along with the resident's/fellow'sinterpretations, certify that if a procedure was performed I wasphysically present, and agree with the final report. Kelsey Min MD IMG CT ORDERABLES Final Result after 12/27/2023 Insurance [facility] Member Subscriber Plan / Payer (Ef fective 2024-Present) Name:Gill Gordon Caridad Relation to Subscriber:Self Name:Gill Gordon Payer ID:[id number] (NAIC) Type:HMO Address: [place] [id number] [facility] Member Subscriber Plan / Payer (Ef fective 2024-Present) Name:Serafin Gordonmargo Mclena Relation to Subscriber:Self Name:Gill Gordon Caridad Payer ID:[id number] (NAIC) Type:O Address: [place] [id number] Advance Directives * Full Code (Latest Code Status on File) Date Activated Date Inactivated Comments 10/03/2024 3:31 PM Update based o n Advanced Directive Documentation * Full Code Date Activated Date Inactivated Comments 10/03/2024 3:30 PM 10/03/2024 3:31 PM Update based on Advanced Directive Documentation
[2024-12-26 12:26] LABS: Absolute Lymphocytes (CBC) 1.5 K/uL (0.7-4.9); Hematocrit 34.2 % (36.0-45.0); Hemoglobin 11.4 g/dL (12.0-15.0); MCH 30.8 pg (27.0-35.0); MCHC 33.2 g/dL (32.0-36.0); MCV 92.7 fL (80-100); MPV 7.7 fL (7.6-11.3); Nucleated RBC Absolute Count 0.0 (0-0); Nucleated Red Blood Cells % 0.1 % (0-0); RBC Red Blood Cell Count 3.69 M/uL (3.86-4.86); White Blood Count 3.80 thou/uL (4.3-10.9)
[2024-12-26 12:47] LABS: Anion Gap 7.8 mEq/L (5.0-15.0); BUN Blood Urea Nitrogen 12 mg/dL (7-18); Glucose Level 89 mg/dL (74-106); NT PRO-BNP 46 pg/mL (<125); Potassium 3.8 mEq/L (3.5-5.1)
[2024-12-26 12:49] LABS: Troponin High Sensitivity < 3.0 pg/mL (<58.9)
--- NOTE | 2024-12-26 13:19 | RAD REPORT ---
EXAM: Chest Single View HISTORY: 34 years Female CHEST PAIN COMPARISON: No prior exams FINDINGS: LUNGS/PLEURA: The lungs are clear. No pleural effusions or pneumothorax. No pulmonary edema. CARDIAC/MEDIASTINUM: The cardiac silhouette is within normal limits. UPPER ABDOMEN: No significant abnormality. BONES: No acute abnormality. LINES/TUBES/OTHER: N/A IMPRESSION: No evidence of acute cardiopulmonary disease.
--- NOTE | 2024-12-26 13:50 | EDPHYS ---
Physician Documentation [facility] Name: Gill Gordon Age: 34 yrs Sex: Female : 1990 Arrival Date: 12/26/2024 Time: 11:33 Bed 11 Private MD: ED Physician Desiree Min HPI: 12/26 14:54 This 34 yrs old Black Female presents to ER via Ambulatory with complaints of Chest dr5 Pain, Seizure. 14:54 Onset: The symptoms/episode began/occurred yesterday. 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 Patient states that she had a seizure yesterday. Patient states that she takes Tegretol for migraines, Depakote and Keppra for epilepsy. Patient states that she sees Dr. Sequeira for her seizures. Patient denies headache, chest pain, shortness of breath, abdominal pain, nausea, vomiting, diarrhea on exam. Patient reports that she is here to make sure that her electrolytes are within normal limits due to her gastric bypass surgery.. 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 - Infectious Disease History:: Denies. - Social history:: Smoking status: Patient denies any tobacco usage or history of. ROS: 14:54 Constitutional: as per hpi dr5 Exam: 14:54 Constitutional: This is a well developed, well nourished patient who is awake, alert, dr5 and in no acute distress. Head/Face: Normocephalic, atraumatic. Eyes: Pupils equal round and reactive to light, extra-ocular motions intact. Lids and lashes normal. Conjunctiva and sclera are non-icteric and not injected. Cornea within normal limits. Periorbital areas with no swelling, redness, or edema. Neck: Trachea midline, no thyromegaly or masses palpated, and no cervical lymphadenopathy. Supple, full range of motion without nuchal rigidity, or vertebral point tenderness. No Meningismus. Chest/axilla: Normal chest wall appearance and motion. Nontender with no deformity. No lesions are appreciated. Cardiovascular: Regular rate and rhythm with a normal S1 and S2. Normal PMI, no JVD. No pulse deficits. Respiratory: Lungs have equal breath sounds bilaterally, clear to auscultation. No rales, rhonchi or wheezes noted. No increased work of breathing, no retractions or nasal flaring. Abdomen/GI: Soft, non-tender, non-distended Back: No spinal tenderness. No costovertebral tenderness. Full range of motion. Skin: Warm, dry with normal turgor. Normal color with no rashes, no lesions, and no evidence of cellulitis. MS/ Extremity: Pulses equal, no cyanosis. Neurovascular intact. Full, normal range of motion. Neuro: Awake and alert, GCS 15, oriented to person, place, time, and situation. Cranial nerves II-XII grossly intact. Motor strength 5/5 in all extremities. Sensory grossly intact. Cerebellar exam normal. Normal gait. Vital Signs: 11:41 BP 127 / 90; Pulse 77; Resp 17; Temp 98; Pulse Ox 100% ; Weight 64.86 kg; Height 5 ft. me1 0 in. ; Pain 9/10; 13:57 BP 132 / 86; Pulse 76; Resp 17; Temp 98.1; Pulse Ox 100% ; hb 14:14 BP 114 / 72; Pulse 69; Resp 16; Pulse Ox 100% ; Pain 9/10; cm10 11:41 Body Mass Index 27.93 (64.86 kg, 152.4 cm) me1 11:41 Pain Scale: Adult me1 14:14 Pain Scale: Adult cm10 MDM: 11:42 Medical Screening Exam initiated dr5 14:54 Differential diagnosis: viral Infection, bacterial infection, Electrolyte abnormality dr5 NSTEMI, STEMI, new onset congestive heart failure, malnourishment. Data reviewed: vital signs, nurses notes, lab test result(s), cardiac enzymes, troponin i, CBC, white blood cell count, hemoglobin, hematocrit, platelets, electrolytes, sodium, potassium, chloride, serum bicarbonate, BUN, creatinine, serum glucose, EKG, radiologic studies, plain films. Consideration of Admission/Observation Escalation of care including admission/observation considered. Escalation considered patient found to have elevated BNP or elevated troponin. Independent interpretation of the following test(s) in the Emergency Department. Independent interpretation of the following test(s) in the Emergency Department X-Ray: My interpretation is Independent review of x-ray did not reveal infiltrates concerning for pneumonia. Care significantly affected by the following chronic conditions: Epilepsy, migraine. Care significantly affected by the following Social Determinants of Health: Poor access to healthcare and/or lack of insurance, Poor access to transportation, Problems related to employment. Counseling: I had a detailed discussion with the patient and/or guardian regarding the historical points, exam findings, and any diagnostic results supporting the discharge/admit diagnosis, the presence of at least one elevated blood pressure reading (>120/80) during this emergency department visit, lab results, radiology results, the need for outpatient follow up, for definitive care, a family practitioner, a neurologist, to return to the emergency department if symptoms worsen or persist or if there are any questions or concerns that arise at home. Special discussion: I discussed with the patient/guardian in detail that at this point there is no indication for admission to the hospital. It is understood, however, that if the symptoms persist or worsen the patient needs to return immediately for re-evaluation. Based on the history and exam findings, there is no indication for further emergent testing or inpatient evaluation. I discussed with the patient/guardian the need to see the primary care provider for further evaluation of the symptoms. ED course: Patient remained headache and chest pain-free during stay in ER. All labs discussed with patient and she reports that she went to make sure her labs were okay. Patient denies any symptoms on discharge. All questions answered. Strict ER precautions given. Patient reports that she takes her seizure medication as prescribed.. 12/26 12:06 Order name: Basic Metabolic Panel; Complete Time: 13:12/26 12:06 Order name: CBC with Diff; Complete Time: 13:12/26 12:06 Order name: NT PRO-BNP; Complete Time: 13:12/26 12:06 Order name: Troponin HS; Complete Time: 13:12/26 12:06 Order name: XRAY Chest (1 view); Complete Time: 13:12/26 12:06 Order name: Cardiac monitoring; Complete Time: 13:55 dr5 12/26 12:06 Order name: EKG - Nurse/Tech; Complete Time: 12: dr5 12/26 12:06 Order name: IV Saline Lock; Complete Time: 12: dr5 12/26 12:06 Order name: Labs collected and sent; Complete Time: 12: dr5 12/26 12:06 Order name: O2 Per Protocol; Complete Time: 13:55 dr5 12/26 12:06 Order name: O2 Sat Monitoring; Complete Time: 13:56 dr5 EC:43 Rate is 74 beats/min. Rhythm is regular. QRS [place] is Normal. [place] interval is normal at dr5 158 msec. QRS interval is normal at 68 msec. QT interval is normal at 374 msec. Clinical impression: Normal ECG and No evidence of ischemia. Administered Medications: No medications were administered Disposition Summary: 12/26/24 13:50 Discharge Ordered Notes: Location: Home dr5 Condition: Stable dr5 Diagnosis - Headache dr5 Followup: dr5 - With: Emergency Department - When: As needed - Reason: Worsening of condition Followup: dr5 - With: Private Physician - When: 1 - 2 days - Reason: Recheck today's complaints, Continuance of care, Re-evaluation by your physician Discharge Instructions: - Discharge Summary Sheet dr5 - Migraine Headache dr5 Forms: - Medication Reconciliation Form dr5 - Prescription Opioid Use dr5 - Patient Portal Instructions dr5 - Leadership Thank You Letter dr5 Prescriptions: - Tramadol 50 mg Oral Tablet - take 1 tablet ORAL route every 8 hours as needed; 12 tablet; Refills: 0, dr5 Product Selection Permitted Signatures: Dispatcher [employer] EDDenise Owen RN RN me1 Eric Davidson, SOCCER PLAYER-C SOCCER PLAYER-Cdr5 Corrections: (The following items were deleted from the chart) 12:06 12:06 BASIC METABOLIC PANEL+C.LAB.BRZ ordered. EDMS EDMS 12: 12:06 CBC+H.LAB.BRZ ordered. EDMS EDMS 12:06 12:06 PROBNP+C.LAB.BRZ ordered. EDMS EDMS 12:06 12:06 Troponin High Sensitivity+C.LAB.BRZ ordered. EDMS EDMS 12:06 12:06 Chest Single View+RAD.RAD.BRZ ordered. EDCA EDMS
--- NOTE | 2024-12-26 13:50 | ER ---
Nurse's Notes [facility] Name: Gill Gordon Age: 34 yrs Sex: Female : 1990 Arrival Date: 12/26/2024 Time: 11:33 Bed 11 Private MD: Diagnosis: Headache Presentation: 12/26 11:41 Chief complaint: Patient states: midsternal CP that started this morning, Does not me1 radiate. 9/10 "throbbing", [place] 9/10 for the past few days. Had a seizure last night per . Takes keppra, depakote, topamax. Coronavirus screen: Vaccine status: Patient reports receiving the 2nd dose of the covid vaccine. Ebola Screen: No symptoms or risks identified at this time. Risk Assessment: Do you want to hurt yourself or someone else? Patient reports no desire to harm self or others. Onset of symptoms was December 26, 2024 at 07:30. 11:41 Method Of Arrival: Ambulatory nj1 11:41 Acuity: ÁNGELA 3 me1 11:41 Initial Sepsis Screen: Does the patient meet any 2 criteria? No. Patient's initial hb sepsis screen is negative. Does the patient have a suspected source of infection? No. Patient's initial sepsis screen is negative. Triage Assessment: 11:41 General: Appears uncomfortable, well groomed, well developed, well nourished, Behavior hb is calm, cooperative, appropriate for age, Reports midsternal CP that started this morning, Does not radiate. 9/10 "throbbing", [place] 9/10 for the past few days. Had a seizure last night per . Pain: Complains of pain in head and chest Pain does not radiate. Pain currently is 9 out of 10 on a pain scale. Quality of pain is described as throbbing, Pain began 2-3 days ago. Is continuous. EENT: No signs and/or symptoms were reported regarding the EENT system. Neuro: Level of Consciousness is awake, alert, obeys commands, Oriented to person, place, time, situation, Appropriate for age Seizure activity last night. Neuro: Reports headache. Cardiovascular: Patient's skin is warm and dry. Cardiovascular: Reports chest pain. Respiratory: Airway is patent Respiratory effort is even, unlabored, Respiratory pattern is regular, symmetrical. GI: No signs and/or symptoms were reported involving the gastrointestinal system. : No signs and/or symptoms were reported regarding the genitourinary system. Derm: Skin is intact, is healthy with good turgor, Skin is normal. Musculoskeletal: No signs and/or symptoms reported regarding the musculoskeletal system. P[employer]OX [employer]KER: : LMP N/A - Hysterectomy, Not me1 Historical: - Allergies: : Amoxicillin; me1 11:43 PENICILLINS; me1 - PMHx: 11:43 Herniated disc (Unknown); low blood sugar (Unknown); Migraine; PCOS; Seizures; me1 - PSHx: 11:43 Cholecystectomy; Gastric Bypass (due to complication of gastric sleeve); gastric me1 sleeve; senthil n y; Total abdominal hysterectomy; - Immunization history:: Adult Immunizations up to date. - Infectious Disease History:: Denies. - Social history:: Smoking status: Patient denies any tobacco usage or history of. Screenin: [facility] ED Fall Risk Assessment (Adult) History of falling in the last 3 months, hb including since admission No falls in past 3 months (0 pts) Confusion or Disorientation No (0 pts) Intoxicated or Sedated No (0 pts) Impaired Gait No (0 pts) Mobility Assist Device Used No (0 pt) Altered Elimination No (0 pt) Score/Fall Risk Level 0 - 2 = Low Risk Maintained a safe environment, Provided non-skid footwear, Hourly rounding (assess needs \\T\\ fall precautionary measures) done. Abuse screen: Denies threats or abuse. Nutritional screening: No deficits noted. Tuberculosis screening: No symptoms or risk factors identified. Assessment: :43 Reassessment: See triage assessment. hb 14:14 Reassessment: Patient appears in no apparent distress at this time. Patient and/or cm10 family updated on plan of care and expected duration. Pain level reassessed. Patient is alert, oriented x 3, equal unlabored respirations, skin warm/dry/pink. General: Appears in no apparent distress. comfortable, Behavior is calm, cooperative, appropriate for age. Pain: Complains of pain in head Pain currently is 8 out of 10 on a pain scale. Neuro: No deficits noted. Level of Consciousness is awake, alert, obeys commands, Oriented to person, place, time, situation, Appropriate for age. Respiratory: No deficits noted. Airway is patent Respiratory effort is even, unlabored, Respiratory pattern is regular, symmetrical. Vital Signs: 11:41 BP 127 / 90; Pulse 77; Resp 17; Temp 98; Pulse Ox 100% ; Weight 64.86 kg; Height 5 ft. me1 0 in. ; Pain 9/10; 13:57 BP 132 / 86; Pulse 76; Resp 17; Temp 98.1; Pulse Ox 100% ; hb 14:14 BP 114 / 72; Pulse 69; Resp 16; Pulse Ox 100% ; Pain 9/10; cm10 11:41 Body Mass Index 27.93 (64.86 kg, 152.4 cm) me1 11:41 Pain Scale: Adult me1 14:14 Pain Scale: Adult cm10 ED Course: 11:40 Patient arrived in ED. me1 11:42 [facility]C [facility]5 11:42 Desiree Min MD is Attending Physician. dr5 11:43 Triage completed. me1 11:43 Arm band placed on Patient placed in waiting room. me1 11:43 Patient has correct armband on for positive identification. Bed in low position. Call hb light in reach. Side rails up X 1. Provided Education on: POC. Verbalized understanding.. Client placed on continuous cardiac and pulse oximetry monitoring. NIBP monitoring applied. manager monitoring on. Pulse ox on. NIBP on. 11:43 No provider procedures requiring assistance completed. hb 11:44 EKG done, by ED staff, reviewed by Eric FELTON. me1 12:21 Initial lab(s) drawn, by laboratory scientist, sent to lab. Inserted saline lock: 20 gauge in right ts3 antecubital area, using aseptic technique. Blood collected. Flushed with 10 mL NS. 13:08 XRAY Chest (1 view) In Process Unspecified. EDMS 14:15 IV discontinued, intact, bleeding controlled, No redness/swelling at site. Pressure cm10 dressing applied. Administered Medications: No medications were administered Medication: 11:43 VIS not applicable for this client. hb Outcome: 13:50 Discharge ordered by . dr5 14:15 Discharged to home ambulatory, cm10 14:15 Condition: good 14:15 Discharge instructions given to patient, Instructed on discharge instructions, follow up and referral plans. medication usage, Demonstrated understanding of instructions, follow-up care, medications, Prescriptions given X 1, 14:15 Patient left the ED. cm10 Signatures: Dispatcher [employer] EDZahira Renee RN BREA Shelly Tong RN RN cm10 Denise Dunn RN RN me1 Eric Davidson, CASE FITTER-C CASE FITTER-Cdr5 Maggie Hilario ts3 Corrections: (The following items were deleted from the chart) 11:44 11:41 64.86 kg; Height 5 ft. 0 in.; BMI: 27.9; Pain 9, Adult; me1 me1 13:54 11:41 Chief complaint: Patient states: midsternal CP that started this morning, Does hb not radiate. 01/14 "throbbing", [place] 01/14 for the past few days. Had a seizure last night per . Takes keppra, depakote, topamax. me1
[2024-12-26 15:11] VITALS: O2SAT 100
[2024-12-26 15:12] VITALS: TEMP 98.1
[2024-12-26 15:14] VITALS: BP 114/72
== END 2024-12-26 14:15 | disposition home or self-care (01) ==
LOC: ER 11:33
DX: R51.9 Headache, unspecified (principal); Z98.84 Bariatric surgery status
CPT/HCPCS: 36415; 71045; 80048; 83880; 84484; 85025; 93005; 99284

== ENCOUNTER 2025-01-28 15:21 | Emergency (ER) | payer OTHER ==
--- OUTSIDE RECORDS SUMMARY | 2025-01-28 15:25 | XMS REPORT | Clinical Summary ---
Author Name Unknown Organization [facility] [place] Address [address] [place] [address] Care Team Providers Care Assurance Associate Name Role Phone Unavailable Primary Care Provider [...] Center - Gastroenterology, Hepatology & Nutrition [address], 7th [place] [address] Francheska Mcgill MD Pathology Biopsy Interpretation 10/06/2024 4:43 PM CDT Anesthesia Event [facility] [address], 5th [place] [address] Nikki Spann MD Silva, Jason M, CRNA 10/06/2024 2:27 PM CDT - 10/06/2024 3:32 PM CDT [facility] [address], 5th [place] [address] Francheska Mcgill MD DIAGNOSTIC UPPER GASTROINTESTINAL ENDOSCOPY 10/04/2024 Prep for Surgery [facility] - Gastroenterology, Hepatology & Nutrition [address], 7th [place] [address] Jermain Min PA Hematemesis (Primary Dx); Hematochezia 10/03/2024 11:59 PM CDT Anesthesia Event [facility] Diagnostic Imaging [address], 1st [place] [address] Robert Ramírez, RT 10/03/2024 3:53 PM CDT - 10/09/2024 9:30 AM CDT Hospital Encounter [place] 11 [address] [place] [address] Veronika Marvin MD Hita, MD Rachel Lynn Patrick, MD Bhise, MD Roseanna Ragland Noman, MD Leal Alviarez, Daniel J, MD Leung, MD Kurt Seizure (Primary Dx); Gastrointestinal hemorrhage; Hematemesis; Hematochezia; Melena; History of sleeve gastrectomy; History of bypass of stomach; Gastric ulcer Discharge Disposition: Home 10/03/2024 Travel after 01/29/2024 Surgical History Surgery Date Site/Laterality Comments GASTRIC BYPASS 07/05/2024 - 08/04/2024 [place] ESOPHAGOGASTRODUODENOSCOP Y TRANSORAL DIAGNOSTIC 10/06/2024 Esophagus/N/A Procedure: DIAGNOSTIC UPPER GASTROINTESTINAL ENDOSCOPY; Surgeon: Francheska Mcgill MD; Location: MAIN ENDOSCOPY; Service: GASTROENTEROLOGY [place] COLONOSCOPY FLX DX W/AJDEN J SPEC WHEN PFRMD 10/06/2024 N/A Procedure: [...] Due Date Last Done Comments COVID-19 Vaccine (2024-2 6 season) 2025 08/21/2020, 08/01/2020 Influenza Vaccine (#1) 2025 Pneumococcal [...] GLUCOSE SCREEN Routine 10/06/2024 4:53 PM CDT [place] COLONOSCOPY FLX DX W/JADEN J SPEC WHEN PFRMD 10/06/2024 4:33 PM CDT Hematemesis Hematochezia [place] ESOPHAGOGASTRODUODENOSCOP Y TRANSORAL DIAGNOSTIC 10/06/2024 4:33 PM [...] SCREEN Routine 10/03/2024 3:54 PM CDT after 01/29/2024 Results * POC Glucose Screen - Fingerstick (10/09/2024 7:41 AM CDT) Only the most recent of29 resultswithin the time period is included. Glucose Screen 86 70 - 99 mg/dL 10/09/2024 7:42 AM CDT [facility] POC Sample Type Capillary 10/09/2024 7:42 AM CDT [facility] Blood 10/09/2024 7:41 AM CDT 10/09/2024 7:42 AM CDT Narrative [facility] - 10/09/2024 7:42 AM CDT Capillary blood [...] ORDERABLES - DEVICE Final R esult [facility] Unless otherwise noted, all lab tests performed by: Division of Pathology and Laboratory Medicine [address] [place] [address] * (ABNORMAL) .CBC (10/09/2024 2:00 AM CDT) Only the most recent of7 resultswithin the time period is included. White Blood Cell 5.1 4.1 - 10.5 K/uL 10/09/2024 2:39 AM CDT [facility] Red Blood Cell 3.49(L) 3.99 - 5.46 M/uL 10/09/2024 2:39 AM CDT [facility] Hemoglobin 10.7(L) 12.2 - 15.3 g/dL 10/09/2024 2:39 AM CDT [facility] Hematocrit 32.9(L) 36.4 - 46.8 % 10/09/2024 2:39 AM CDT [facility] Mean Cell Volume 94 82 - 99 fL 10/09/2024 2:39 AM CDT [facility] Mean Cell Hemoglobin 30.7 26.6 - 33.2 pg 10/09/2024 2:39 AM CDT [facility] Mean Cell Hemoglobin Concentration 32.5 31.1 - 35.2 g/dL 10/09/2024 2:39 AM CDT [facility] RDW-SD 42.7 37.5 - 49.7 fL 10/09/2024 2:39 AM CDT [facility] Red Cell Diameter Width 12.3 11.6 - 15.5 % 10/09/2024 2:39 AM CDT [facility] Platelet 183 160 - 397 K/uL 10/09/2024 2:39 AM CDT [facility] Mean Platelet Volume 10.3 9.1 - 12.6 fL 10/09/2024 2:39 AM CDT [facility] INRBC 0.0 0.0 - 0.1 /100 WBC 10/09/2024 2:39 AM CDT [facility] Comment: The INRBC (instrument NRBC) value reflects the enumeration of nucleated red blood cells contained in a 200uL sample of whole blood analyzed by the instrument. This value may differ from the NRBC value reported in a manual differential, which is based on a 100 cell differential. Neutrophil % 37.7(L) 43.2 - 72.7 % 10/09/2024 2:39 AM CDT [facility] Lymphocyte % 52.3(H) 16.8 - 46.2 % 10/09/2024 2:39 AM CDT [facility] Monocyte % 7.4 5.1 - 12.5 % 10/09/2024 2:39 AM CDT [facility] Eosinophil % 2.2 0.4 - 6.3 % 10/09/2024 2:39 AM CDT [facility] Basophil % 0.4 0.2 - 1.4 % 10/09/2024 2:39 AM CDT [facility] IGRE % 0.0(L) 0.1 - 1.5 % 10/09/2024 2:39 AM CDT [facility] Comment:The IGRE% includes M etamyelocytes, Myelocytes and Promyelocytes. Neutrophil Abs 1.93(L) 1.95 - 7.25 K/uL 10/09/2024 2:39 AM CDT [facility] Lymphocyte Abs 2.67 1.01 - 3.24 K/uL 10/09/2024 2:39 AM CDT [facility] Monocyte Abs 0.38 0.24 - 0.85 K/uL 10/09/2024 2:39 AM CDT [facility] Eosinophil Abs 0.11 0.02 - 0.50 K/uL 10/09/2024 2:39 AM CDT [facility] Basophil Abs 0.02 0.02 - 0.09 K/uL 10/09/2024 2:39 AM CDT [facility] IG Abs 0.00(L) 0.01 - 0.12 K/uL 10/09/2024 2:39 AM [facility] Blood Peripheral blood specimen / Unknown Venipuncture / Unknown 10/09/2024 2:00 AM CDT 10/09/2024 2:32 AM CDT us David Lmjohn Shultz APRN LAB BLOOD ORDERABLES Final Result [facility] Unless otherwise noted, all lab tests performed by: Division of Pathology and Laboratory Medicine [address] [place] [address] * (ABNORMAL) Comprehensive Metabolic Panel (10/09/2024 2:00 AM CDT) Only the most recent of6 resultswithin the time period is included. Bilirubin Total <0.3 0.0 - 1.2 mg/dL 10/09/2024 3:07 AM CDT [facility] Comment:Indocyanine Green (I CG) may cause falsely elevated bilirubin results. Total and direct bilirubin must not be measured from samples containing indocyanine green. False elevation of total bilirubin can be seen in patients with IgG concentrations above 28 g/L. eGFR 109 >=60 mL/min/1. 73 sq. m 10/09/2024 3:07 AM CDT [facility] Comment: The eGFRcr is calculated with the [...] 8.2 - 10.2 mg/dL 10/09/2024 3:07 AM [facility] Alkaline Phosphatase 58 35 - 104 U/L 10/09/2024 3:07 AM [facility] Albumin Level 3.6 3.5 - 5.2 gm/dL 10/09/2024 3:07 AM [facility] AST 16 <=32 U/L 10/09/2024 3:07 AM [facility] ALT 16 <=33 U/L 10/09/2024 3:07 AM [facility] Sodium Level 142 136 - 145 mmol/L 10/09/2024 3:07 AM [facility] Potassium Level 3.9 3.4 - 4.5 mmol/L 10/09/2024 3:07 AM [facility] Chloride 113(H) 98 - 107 mmol/L 10/09/2024 3:07 AM [facility] CO2 19(L) 22 - 29 mmol/L 10/09/2024 3:07 AM [facility] Anion Gap 10 4 - 14 mmol/L 10/09/2024 3:07 AM [facility] Creatinine 0.73 0.51 - 0.95 mg/dL 10/09/2024 3:07 AM [facility] BUN 11 6 - 23 mg/dL 10/09/2024 3:07 AM [facility] Glucose Level 84 70 - 99 mg/dL 10/09/2024 3:07 AM [facility] Comment: Effective 12/01/15, the glucose reference intervals have been updated based on [place] Diabetes Association guidelines (Standards of Medical Care [...] ORDERABLES F inal Result Performing Organization Address City/[facility]/ZIP Co de Phone Number [facility] Unless otherwise noted, all lab tests performed by: Division of Pathology and Laboratory Medicine [address] [place] [id number] * Phosphorus Level (10/09/2024 2:00 AM CDT) Only the most recent of7 resultswithin the time period is included. Phosphorus Level 3.5 2.5 - 4.5 mg/dL 10/09/2024 3:07 AM CDT [facility] Blood Peripheral blood specimen / Unknown Venipuncture / Unknown 10/09/2024 2:00 AM CDT 10/09/2024 2:32 AM CDT us David Shultz APRN LAB BLOOD ORDERABLES Final Result Performing Organization Address [facility] Co de Phone Number [facility] Unless otherwise noted, all lab tests performed by: Division of Pathology and Laboratory Medicine [address] [place] [phone] * Magnesium Level (10/09/2024 2:00 AM CDT) Only the most recent of7 resultswithin the time period is included. Magnesium Level 2.0 1.6 - 2.6 mg/dL 10/09/2024 3:07 AM CDT [facility] Blood Peripheral blood specimen / Unknown Venipuncture / Unknown 10/09/2024 2:00 AM CDT 10/09/2024 2:32 AM CDT us David Shultz APRN LAB BLOOD ORDERABLES Final Result Performing Organization Address City/[facility] Co de Phone Number [facility] Unless otherwise noted, all lab tests performed by: Division of Pathology and Laboratory Medicine [address] [place] [id number] * XR Abdomen 1 View Portable (10/08/2024 [...] osseous structures. IMPRESSION: Nonobstructed bowel gas pattern. [facility] BEHAVIORAL HEALTH WORKER IMG DIAGNOSTIC IMAGING ORD ERABLES Final Result * Pathology Biopsy Interpretation (10/06/2024 5:02 PM CDT) Submitted Clinical History Hematemesis [K92.0] Hematochezia [K92.1] 10/08/2024 9:44 AM CDT [facility] Diagnosis A: Stomach, a. anastomosis ulcer: Small bowel mucosa with focal intramucosal hemorrhage and lymphangiectasia. No dysplasia or carcinoma identified. 10/08/2024 9:44 AM CDT [facility] at 0944 CDT Gross Description A: Stomach, a. anastomosis ulcer: Two macros-white pieces of tissue measuring 0.1 and 0.3 cm, entirely submitted in A1. GM 10/08/2024 9:44 AM CDT [facility] Biomarker Block(s) NA 10/08/2024 9:44 AM CDT [facility] Disclaimer "Some tests reported here may have been developed and performance characteristics determined by [facility] Pathology and Laboratory Medicine. These tests have not been specifically cleared or approved by the U.S. Food and Drug Administration. If applicable, controls were reviewed and showed appropriate reactivity." 10/08/2024 9:44 AM CDT [facility] Tissue (Stomach) 10/06/2024 5:02 PM CDT 10/07/2024 8:23 AM CDT Francheska Mcgill MD LAB PATHOLOGY ORDERAB LES Final Result [address] [address], [place] * 3 Day Type and Screen (10/06/2024 3:25 PM CDT) ABORh O POS 10/06/2024 2:18 PM CDT [facility] ABSC Negative 10/06/2024 2:18 PM CDT [facility] Clot Expiration 10/09/2024 23:59 10/06/2024 2:18 PM CDT [facility] Historical Record Check No History 10/06/2024 2:18 PM CDT [facility] Blood Peripheral blood specimen / Unknown Venipuncture / Unknown 10/06/2024 3:25 PM CDT 10/06/2024 3:29 PM CDT Francheska Mcgill MD BLOOD BANK TEST ORDER SADI Final Result [facility] [address] [place] [address] [id number] [place] [address] * Confirm ABORh (10/06/2024 3:18 PM CDT) ABORh Confirm O POS 10/06/2024 2:48 PM CDT [facility] Blood Peripheral blood specimen / Unknown Venipuncture / Unknown 10/06/2024 3:18 PM CDT 10/06/2024 3:25 PM CDT us Francheska Mcgill MD BLOOD BANK TEST ORDER SADI Final Result Performing Organization Address [facility] Co de Phone Number [facility] [address] [place] [address] [id number] [place] [address] * Procalcitonin (10/06/2024 10:29 AM CDT) Procalcitonin <0.04 <=0.08 ng/mL 10/06/2024 11:27 AM CDT [facility] Blood Peripheral blood specimen / Unknown Venipuncture / Unknown 10/06/2024 10:29 AM CDT 10/06/2024 10:36 AM CDT Narrative [facility] - 10/06/2024 11:27 AM CDT Procalcitonin > [...] with extended dilution as it exceeds the family medicine physician's recommended limit. Caution should be exercised when interpreting such values and done in conjunction with clinical context. us Tong Farrar MD LAB BLOOD ORDERABLES F inal Result [facility] Unless otherwise noted, all lab tests performed by: Division of Pathology and Laboratory Medicine [address] [place] [address] * (ABNORMAL) VBG+ (10/06/2024 10:29 AM CDT) Venous Sodium 145 136 - 146 mmol/L 10/06/2024 10:41 AM T [facility] Venous Potassium 4.1 3.4 - 4.5 mmol/L 10/06/2024 10:41 AM CDT [facility] Venous Chloride 113(H) 98 - 106 mmol/L 10/06/2024 10:41 AM CDT [facility] Venous Glucose 80 70 - 105 mg/dL 10/06/2024 10:41 AM T [facility] V Hgb 12.2 12.0 - 16.0 g/dL 10/06/2024 10:41 AM T [facility] Venous Hematocrit 38 37 - 48 % 10/06/2024 10:41 AM T [facility] Venous Lactate 0.9 0.5 - 1.6 mmol/L 10/06/2024 10:41 AM T [facility] Venous Ionized Calcium 1.20 1.15 - 1.29 mmol/L 10/06/2024 10:41 AM T [facility] pH Venous 7.33 7.32 - 7.43 10/06/2024 10:41 AM [facility] P CO2 Venous 43.6 41.0 - 51.0 mmHg 10/06/2024 10:41 AM T [facility] P O2 Venous 18 mmHg 10/06/2024 10:41 AM T [facility] Bicarbonate Venous 23 21 - 28 mmol/L 10/06/2024 10:41 AM T [facility] V Anion Gap 9 7 - 16 mmol/L 10/06/2024 10:41 AM T [facility] Base Excess Venous -3(L) -2 - 3 mmol/L 10/06/2024 10:41 AM [facility] Oxygen Saturation Venous 22 % 10/06/2024 10:41 AM [facility] Oxygen FLOW Rate/ FiO2 10/06/2024 10:41 AM [facility] O2 Therapy 10/06/2024 10:41 AM CDT [facility] Blood Peripheral blood specimen / Unknown Venipuncture / Unknown 10/06/2024 10:29 AM CDT 10/06/2024 10:36 AM CDT us Tong Farrar MD LAB BLOOD ORDERABLES F inal Result [facility] Unless otherwise noted, all lab tests performed by: Division of Pathology and Laboratory Medicine [address] [place] [address] * Blood Culture (10/06/2024 10:29 AM CDT) Blood Culture No Growth. 10/11/2024 12:00 PM CDT [facility] Blood (Arm, Left) Venipuncture / Unknown 10/06/2024 10:29 AM CDT 10/06/2024 10:35 AM CDT us Tong Farrar MD MICROBIOLOGY - GENERAL ORDERABLES Final Result Performing Organization Address City/[facility] Co de Phone Number [facility] Unless otherwise noted, all lab tests performed by: Division of Pathology and Laboratory Medicine [address] [place] [address] * EEG (10/06/2024 10:18 AM CDT) Narrative [...] Clear Clear 10/07/19 11:13 AM CDT [facility] Urine Color Colorless Colorless, Straw, Yellow, Dark Yellow, Straw-Yellow 10/06/2024 11:13 AM CDT [facility] Urine Specific [place] 1.006 1.003 - 1.035 10/06/2024 11:13 AM CDT [facility] Urine pH 7.5 5.0 - 8.0 10/06/2024 11:13 AM CDT [facility] Urine Glucose Negative Negative mg/dL 10/06/2024 11:13 AM CDT [facility] Urine Ketones Negative Negative mg/dL 10/06/2024 11:13 AM CDT [facility] Urine Blood Negative Negative 10/06/2024 11:13 AM CDT [facility] Urine Protein Negative Negative mg/dL 10/06/2024 11:13 AM CDT [facility] Urine Bilirubin Negative Negative 11:13 AM CDT [facility] Urine Urobilinogen Negative Negative 10/06/2024 11:13 AM CDT [facility] Urine Nitrite Negative Negative 10/06/2024 11:13 AM CDT [facility] Urine Leukocyte Esterase Negative Negative 10/06/2024 11:13 AM CDT [facility] Urine Voided urine specimen / Unknown Non-blood Collection / Unknown 10/06/2024 10:18 AM CDT 10/06/2024 10:58 AM CDT Narrative [facility] - 10/06/2024 11:13 AM CDT Some reporting parameters within the Urinalysis test have changed due to the implementation of new instrumentation in the Main [place], allowing greater sensitivity of measurement. Urinalysis results reported by the [facility] using existing instrumentation, as well as Urinalysis testing performed manually or by back-up methodology at the main [place], will remain relatively unchanged. New reporting parameters and units will now be reported for all campuses. No microscopic exam performed; physiochemical findings are negative us Tong Farrar MD URINE ORDERABLES Final Result Performing Organization Address [facility] Co de Phone Number [facility] Unless otherwise noted, all lab tests performed by: Division of Pathology and Laboratory Medicine [address] [place] [id number] * Urine Culture (10/06/2024 10:18 AM CDT) [facility] Urine Culture No Growth. 10/08/2024 10:44 AM CDT [facility] Urine Voided urine specimen / Unknown Non-blood Collection / Unknown 10/06/2024 10:18 AM CDT 10/06/2024 10:58 AM CDT us Tong Farrar MD MICROBIOLOGY - GENERAL ORDERABLES Final Result Performing Organization Address [facility] de Phone Number [facility] Unless otherwise noted, all lab tests performed by: Division of Pathology and Laboratory Medicine [address] [place] [id number] * (ABNORMAL) Prothrombin Time (10/06/2024 3:11 AM CDT) Only the most recent of2 resultswithin the time period is included. [facility] Prothrombin Time 16.1(H) 12.2 - 14.4 second(s) 10/06/2024 4:46 AM CDT [facility] International Normalization Ratio 1.28(H) 0.91 - 1.10 10/06/2024 4:46 AM CDT [facility] Blood Peripheral blood specimen / Unknown Venipuncture / Unknown 10/06/2024 3:11 AM CDT 10/06/2024 4:11 AM CDT us Tong Farrar MD LAB BLOOD ORDERABLES F inal Result Performing Organization Address [facility] Co de Phone Number [facility] Unless otherwise noted, all lab tests performed by: Division of Pathology and Laboratory Medicine [address] [place] [phone] * (ABNORMAL) Basic Metabolic Panel- Total Calcium (10/04/2024 7:14 AM CDT) eGFR 106 >=60 mL/min/1.7 3 sq. m 10/04/2024 7:48 AM T [facility] Comment: The eGFRcr is calculated with the [...] 10.2 mg/dL 10/04/2024 7:48 AM CDT [facility] Sodium Level 139 136 - 145 mmol/L 10/04/2024 7:48 AM T [facility] Potassium Level 4.1 3.4 - 4.5 mmol/L 10/04/2024 7:48 AM T [facility] Chloride 109(H) 98 - 107 mmol/L 10/04/2024 7:48 AM CDT [facility] CO2 17(L) 22 - 29 mmol/L 10/04/2024 7:48 AM CDT [facility] Anion Gap 13 4 - 14 mmol/L 10/04/2024 7:48 AM CDT [facility] Creatinine 0.75 0.51 - 0.95 mg/dL 10/04/2024 7:48 AM CDT [facility] BUN 12 6 - 23 mg/dL 10/04/2024 7:48 AM CDT [facility] Glucose Level 83 70 - 99 mg/dL 10/04/2024 7:48 AM CDT [facility] Comment: Effective 12/01/15, the glucose reference intervals have been updated based on [place] Diabetes [employer] guidelines (Standards of Medical Care [...] CDT 10/04/2024 7:26 AM CDT David Shultz BEHAVIORAL HEALTH WORKER LAB BLOOD ORDERABLES Final Result Performing Organization Address [facility] de Phone Number [facility] Unless otherwise noted, all lab tests performed by: Division of Pathology and Laboratory Medicine [address] [place] [id number] * Hemoglobin A1c (10/04/2024 7:14 AM CDT) Hemoglobin A1c 5.3 4.3 - 5.6 % 10/04/2024 3:28 PM CDT [facility] Blood Peripheral blood specimen / Unknown Venipuncture / Unknown 10/04/2024 7:14 AM CDT 10/04/2024 7:26 AM CDT Narrative [facility] - 10/04/2024 3:28 PM CDT HbA1c values >=6.5% are diagnostic of diabetes mellitus. Diagnosis should be confirmed by repeat testing. Therapeutic Action suggested: >8.0% HbA1c; Goal of therapy: <7.0% HbA1c us Zuleika Saldaña APRN LAB BLOOD ORDERABLES Final Result Performing Organization Address City/[facility] Co de Phone Number [facility] Unless otherwise noted, all lab tests performed by: Division of Pathology and Laboratory Medicine [address] [place] [phone] * EKG, 12-Lead (Portable) (10/04/2024) us Kelsey Min MD ECG ORDERABLES Final Result [facility] * Urine Drug Screen STAT, Qualitative, Without Confirmation (10/03/2024 8:11 PM CDT) Drug Screen, Urine See Scanned Result 10/04/2024 1:03 PM CDT [facility] Urine Voided urine specimen / Unknown Non-blood Collection / Unknown 10/03/2024 8:11 PM CDT 10/03/2024 8:57 PM CDT Narrative [facility] - 10/04/2024 1:03 PM CDT Drugs reported [...] Veronika Marvin MD URINE ORDERABLES Final Result [facility] [address] [place] [address], [place] * U HCG (10/03/2024 8:11 PM CDT) Urine Human Chorionic Gonadotropin Qualitative Negative Negative 10/03/2024 9:09 PM CDT [facility] Urine (Urine Clean Catch) Non-blood Collection / Unknown 10/03/2024 8:11 PM CDT 10/03/2024 8:58 PM CDT Narrative [facility] - 10/03/2024 9:09 PM CDT Very dilute [...] Marvin MD URINE ORDERABLES Final Result [facility] Unless otherwise noted, all lab tests performed by: Division of Pathology and Laboratory Medicine [facility] [place] [address] * CT Angiogram Abdomen Pelvis with and [...] 24.2 ng/mL 10/03/2024 6:26 PM CDT [facility] Is patient fasting? No 10/03/2024 6:26 PM CDT [facility] Comment:A fasting specimen i s recommended and results obtained from non-fasting specimens should be interpreted with caution using reference ranges based on fasting status and in conjunction with clinical context. Blood Peripheral blood specimen / Unknown Venipuncture / Unknown 10/03/2024 5:45 PM CDT 10/03/2024 5:49 PM CDT Narrative [facility] - 10/03/2024 6:26 PM CDT Reference range established based on adult population. us Pavel Solorzano MD LAB BLOOD ORDERABLES Final R esult Performing Organization Address [facility] Co de Phone Number [facility] Unless otherwise noted, all lab tests performed by: Division of Pathology and Laboratory Medicine [address] [place] [phone] * Vitamin B12 Level (10/03/2024 5:45 PM CDT) Vitamin B12 Level 654 232 - 1,245 pg/mL 10/03/2024 6:26 PM CDT [facility] Is patient fasting? No 10/03/2024 6:26 PM CDT [facility] Comment:A fasting specimen i s recommended and results obtained from non-fasting specimens should be interpreted with caution using reference ranges based on fasting status and in conjunction with clinical context. Blood Peripheral blood specimen / Unknown Venipuncture / Unknown 10/03/2024 5:45 PM CDT 10/03/2024 5:49 PM CDT Narrative [facility] - 10/03/2024 6:26 PM CDT Reference range established based on adult population. us Pavel Solorzano MD LAB BLOOD ORDERABLES Final R esult Performing Organization Address [facility] Co de Phone Number [facility] Unless otherwise noted, all lab tests performed by: Division of Pathology and Laboratory Medicine [address] [place] [phone] * (ABNORMAL) POC VBG+LAC (10/03/2024 4:23 PM CDT) POC VB pH. 7.274(L) 7.310 - 7.410 10/03/2024 4:41 PM CDT [facility] POC VB pCO2. 48.0 41.0 - 51.0 mmHg 10/03/2024 4:41 PM CDT [facility] POC VB pO2. <15 mmHg 10/03/2024 4:41 PM CDT [facility] Comment: Result is outside of instrument's reportable range. For results not consistent with patient's clinical condition, it is recommended to confirm the test result by sending a new specimen to the core laboratory where a different methodology will be employed. POC VB TCO2 24 24 - 29 mmol/L 10/03/2024 4:41 PM CDT [facility] POC VB Bicarb 22.2(L) 23.0 - 28.0 mmol/L 10/03/2024 4:41 PM CDT [facility] POC VB Base Excess -5(L) -2 - 3 mmol/L 10/03/2024 4:41 PM CDT [facility] POC VB O2 Sat 10/03/2024 4:41 PM CDT [facility] Comment: Calculated parameter cannot be resulted due to one or more parameters on which it is dependent being outside of the instrument's reportable range. It is recommended to confirm the test result by sending a new specimen to the core laboratory where a different methodology will be employed. POC VB LAC 1.28 0.50 - 1.70 mmol/L 10/03/2024 4:41 PM CDT [facility] POC FiO2 10/03/2024 4:41 PM CDT [facility] P[facility] Sample Type Venous 4:41 PM CDT [facility] Blood 10/03/2024 4:23 PM CDT 10/03/2024 4:41 PM CDT Narrative [facility] - 10/03/2024 4:41 PM CDT Method description: [...] - DEVICE Final Result Performing Organization Address [facility]/ZIP Co de Phone Number [facility] Unless otherwise noted, all lab tests performed by: Division of Pathology and Laboratory Medicine [address] [place] [id number] * aPTT (10/03/2024 4:20 PM CDT) Activated PTT 27.3 24.8 - 35.6 second(s) 10/03/2024 5:21 PM CDT [facility] Blood Peripheral blood specimen / Unknown Venipuncture / Unknown 10/03/2024 4:20 PM CDT 10/03/2024 4:26 PM CDT Kelsey Min MD LAB BLOOD ORDERABLES Final Resu lt Performing Organization Address [facility] Co de Phone Number [facility] Unless otherwise noted, all lab tests performed by: Division of Pathology and Laboratory Medicine [address] [place] [id number] * CT Head without Contrast (10/03/2024 4:06 [...] MD IMG CT ORDERABLES Final Result after 01/29/2024 Insurance [facility] Member Subscriber Plan / Payer (Ef fective 2024-Present) Name:Gill Gordon Caridad Relation to Subscriber:Self Name:Gill Gordon Payer ID:[id number] (NAIC) Type:HMO Address: [place] [id number] [facility] Member Subscriber Plan / Payer (Ef fective 2024-Present) Name:Serafin Gordonmargo Mclean Relation to Subscriber:Self Name:Gill Gordon Caridad Payer ID:[id number] (NAIC) Type:O Address: [place] [phone] Advance Directives * Full Code (Latest Code Status on File) Date Activated Date Inactivated Comments 10/03/2024 3:31 PM Update based o n Advanced Directive Documentation * Full Code Date Activated Date Inactivated Comments 10/03/2024 3:30 PM 10/03/2024 3:31 PM Update based on Advanced Directive Documentation
[2025-01-28] MEDS ORDERED: LORazepam 2 MG/ML VIAL ONE ×2 (15:33→16:20)
[2025-01-28 16:11] LABS: Urine Microscopic Reflex YN NO UMIC
[2025-01-28] MEDS ORDERED: LEVETIRACETAM 500 MG/5 ML VIAL IV ONE (16:20)
[2025-01-28] MEDS ORDERED: NA CHLORIDE 0.9% 100 ML ONE (16:20)
[2025-01-28 16:28] LABS: Absolute Lymphocytes (CBC) 2.1 K/uL (0.7-4.9); Hematocrit 35.1 % (36.0-45.0); Hemoglobin 11.9 g/dL (12.0-15.0); MCH 31.6 pg (27.0-35.0); MCHC 33.8 g/dL (32.0-36.0); MCV 93.2 fL (80-100); MPV 7.4 fL (7.6-11.3); Nucleated RBC Absolute Count 0.0 (0-0); Nucleated Red Blood Cells % 0.0 % (0-0); RBC Red Blood Cell Count 3.77 M/uL (3.86-4.86); White Blood Count 4.20 thou/uL (4.3-10.9)
[2025-01-28] MEDS ORDERED: FOSPHENYTOIN PE 500 MG/10 ML VIAL ONE (16:32)
[2025-01-28 16:37] LABS: PT Prothrombin Time 12.9 SECONDS (10-13.0); PTT, Activated Partial Thromb 33.7 SECONDS (27.2-37.4); Protime INR 1.15
[2025-01-28 16:57] LABS: ALT/SGPT 24 U/L (13-56); AST/SGOT 14 U/L (15-37); Albumin 3.4 g/dL (3.4-5.0); Albumin/Globulin Ratio 0.9 (1.1-1.8); Alkaline Phosphatase 74 U/L (45-117); Anion Gap 8.6 mEq/L (5.0-15.0); BUN Blood Urea Nitrogen 11 mg/dL (7-18); Bilirubin Indirect, Calculated 0.0 mg/dL (0.2-0.8); Globulin 3.8 g/dL (2.3-3.5); Glucose Level 100 mg/dL (74-106); Potassium 3.6 mEq/L (3.5-5.1)
[2025-01-28 17:01] LABS: METHAMPHETAM NEGATIVE (NEGATIVE); THC Cannibis NEGATIVE (NEGATIVE)
--- NOTE | 2025-01-28 17:06 | RAD REPORT ---
EXAM: CT Head Brain Wo Cont HISTORY: Headache;Seizure COMPARISON: 09/25/2024 TECHNIQUE: Multiple contiguous axial images were obtained for a CT of the brain without contrast. Sag ittal and coronal reformats were performed. One or more of the following dose reduction techniques were used: Automated exposure control, adjus tment of the mA and kV according to patient size, and iterative reconstruction. Unless otherwise specified, incidental findings do not require dedicated imaging follow-up. FINDINGS: No evidence of hydrocephalus, intracranial hemorrhage, or extra-axial fluid collection. The brain is normal in morphology. The calvarium is intact. The visualized paranasal sinuses and mastoid air cells are essentially clear . IMPRESSION: No evidence of acute intracranial abnormality.
[2025-01-28] MEDS ORDERED: METOCLOPRAMIDE 10 MG/2mL INJ ONE (17:22)
[2025-01-28] MEDS ORDERED: DIPHENHYDRAMINE 50 MG/ML VIAL ONE (17:22)
[2025-01-28] MEDS ORDERED: KETOROLAC 30 MG/ML INJ ONE (17:22)
--- NOTE | 2025-01-28 17:35 | EDPHYS ---
Physician Documentation [facility] Name: Gill Gordon Age: 34 yrs Sex: Female : 1990 Arrival Date: 01/28/2025 Time: 15:21 Bed 8 Private MD: YESSI Physician Eduardo Serrato HPI: 01/28 15:30 This 34 yrs old Black Female presents to ER via Unassigned with complaints of Seizure. cp 15:30 The patient presents with a history of multiple seizures. cp 15:30 Character of seizure(s): Loss of consciousness: the patient experienced loss of cp consciousness, Motor activity: generalized, shaking all over, Incontinence: none. Seizure onset: chronic seizures with multiple seizures since yesterday. 15:30 EMS care: none. cp 15:30 Associated injury: The patient did not suffer any apparent associated injury. 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 - Infectious Disease History:: Denies. - Social history:: Smoking status: Patient denies any tobacco usage or history of. ROS: 15:33 Constitutional: Negative for body aches, chills, fever, poor PO intake, cp 15:33 Eyes: Negative for injury, pain, redness, and discharge, cp 15:33 ENT: Negative for drainage from ear(s), ear pain, sore throat, difficulty swallowing, difficulty handling secretions, 15:33 Cardiovascular: Negative for chest pain, edema, palpitations, 15:33 Respiratory: Negative for cough, shortness of breath, wheezing, 15:33 Abdomen/GI: Negative for abdominal pain, vomiting, diarrhea, constipation, 15:33 Back: Negative for pain at rest, pain with movement, 15:33 Neuro: Positive for headache, seizure activity, while in ED, 15:33 All other systems are negative, Exam: 15:37 Constitutional: The patient appears in no acute distress, non-toxic, well developed, cp well nourished, 15:37 Head/Face: Normocephalic, atraumatic. cp 15:37 Eyes: Pupils: equal, round, and reactive to light and accomodation, Conjunctiva: normal, no exudate, no injection, Sclera: no appreciated abnormality, Lids and lashes: appear normal, bilaterally, 15:37 ENT: External ear(s): are unremarkable, Nose: is normal, Mouth: Lips: moist, Oral mucosa: moist, Posterior pharynx: Airway: no evidence of obstruction, patent, 15:37 Neck: C-spine: vertebral tenderness, is not appreciated, crepitus, is not appreciated, 15:37 Chest/axilla: Inspection: normal, Palpation: crepitus, is not appreciated, tenderness, is not appreciated, 15:37 Cardiovascular: Rate: normal, Rhythm: regular, 15:37 Respiratory: the patient does not display signs of respiratory distress, Respirations: normal, no use of accessory muscles, no retractions, labored breathing, is not present, Breath sounds: are clear throughout, no decreased breath sounds, no stridor, no wheezing, 15:37 Abdomen/GI: Inspection: abdomen appears normal, Palpation: abdomen is soft and non-tender, in all quadrants, 15:37 Neuro: Orientation: to person, situation, Mentation: able to follow commands, slow to respond, Cerebellar function: unable to test, the patient is post-ictal, Motor: no focal deficits noted, Sensation: unable to test, the patient is post-ictal, 16:37 ECG was reviewed by the Attending Physician. cp Vital Signs: 15:51 BP 112 / 69; Pulse 88; Resp 16; Temp 98.7(O); Pulse Ox 100% ; Pain 9/10; hb 17:29 BP 106 / 72; Pulse 93; Resp 17; Pulse Ox 100% on R/A; Pain 9/10; hb 19:21 BP 99 / 57; Pulse 72; Resp 20; Temp 98.7; Pulse Ox 100% ; Pain 0/10; bm8 19:54 BP 97 / 61; Pulse 63; Resp 18; Temp 98.7; Pulse Ox 100% ; Pain 0/10; bm8 15:51 Pain Scale: Adult hb 17:29 Pain Scale: Adult hb 19:21 Pain Scale: Adult bm8 19:54 Pain Scale: Adult bm8 [place] Coma Score: 19:21 Eye Response: spontaneous(4). Motor Response: obeys commands(6). Verbal Response: bm8 oriented(5). Total: 15. 19:55 Eye Response: spontaneous(4). Motor Response: obeys commands(6). Verbal Response: bm8 oriented(5). Total: 15. MDM: 15:22 Medical Screening Exam initiated 19:50 Data reviewed: vital signs, nurses notes, lab test result(s), EKG, radiologic studies, cp CT scan. 19:50 I considered the following discharge prescriptions or medication management in the emergency department Medications were administered in the Emergency Department. See MAR. Independent interpretation of the following test(s) in the Emergency Department EKG: See my EKG interpretation above. Test considered but Not performed: MRI: brain. Other Details EEG. Historians other than the Patient: EMS: assists with hpi. Spouse/Significant Other: assists with hpi. Care significantly affected by the following chronic conditions: seizure disorder. Counseling: I had a detailed discussion with the patient and/or guardian regarding the historical points, exam findings, and any diagnostic results supporting the discharge/admit diagnosis, lab results, radiology results, recommendation of transfer for continued monitoring and neurology evaluation. Response to treatment: after initial observed seizure in ED, no other seizure activity observed and/or reported. Refusal of service: The patient/guardian displays adequate decision making capability and despite a detailed discussion of alternatives, benefits, risks, and consequences refuses: transfer for continued care and continuous EEG. Patient and family refuse transfer to [facility] and initial requests to [facility] as requested by family, declined by transfer center. ED course: VSS. HR of 65, SPO2 of 100% on RA. 01/28 15:23 Order name: Acetaminophen; Complete Time: 17:12 cp 01/28 15:23 Order name: Basic Metabolic Panel; Complete Time: 17:12 01/28 17:12 Interpretation: Normal except: CL 112. cp 01/28 15:23 Order name: CBC with Diff; Complete Time: 17:12 cp 01/28 17:12 Interpretation: Normal except: WBC 4.20; RBC 3.77; HGB 11.9; HCT 35.1; MPV 7.4; MEDARDO% cp 41.3; LYM% 49.9; NEUT A 1.7. 01/28 15:23 Order name: ETOH Level; Complete Time: 17:12 cp 01/28 15:23 Order name: Hepatic Function; Complete Time: 17:12 cp 01/28 17:17 Interpretation: Normal except: AST 14; IBILI, CALC 0.0; GLOB 3.8; A/G 0.9. cp 01/28 15:23 Order name: PT-INR; Complete Time: 17:12 cp 01/28 15:23 Order name: Test, Urine; Complete Time: 17:12 cp 01/28 15:23 Order name: Ptt, Activated; Complete Time: 17:12 cp 01/28 15:23 Order name: Salicylate; Complete Time: 17:12 cp 01/28 15:23 Order name: Urine Drug Screen; Complete Time: 17:12 cp 01/28 17:13 Interpretation: Normal except: BZO POSITIVE. cp 01/28 15:27 Order name: UA Rfx Srinivasa Cult if indicated; Complete Time: 17:12 cp 01/28 15:47 Order name: CT Head Brain wo Cont; Complete Time: 17:12 cp 01/28 15:23 Order name: EKG - Nurse/Tech; Complete Time: 16:33 cp 01/28 15:23 Order name: IV Saline Lock; Complete Time: 16:33 cp 01/28 15:23 Order name: Labs collected and sent; Complete Time: 16:33 cp 01/28 15:23 Order name: Suicide Screening ([place]); Complete Time: 16:33 cp 01/28 15:23 Order name: Seizure Precautions; Complete Time: 16:33 cp EC:37 Rhythm is regular. CO interval is normal. QRS interval is normal. QT interval is cp normal. T waves are Inverted in lead aVR. Interpreted by me. Reviewed by me. Administered Medications: 16:33 Drug: Ativan IVP 2 mg IVP once Route: IVP; Site: right antecubital; hb 17:29 Follow up: Response: No adverse reaction hb 16:33 Drug: Fosphenytoin IVPB 1 grams IVPB once; (mix in 50 to 100mL NS) Route: IVPB; Site: hb right antecubital; 17:29 Follow up: Response: No adverse reaction; IV Status: Completed infusion; IV Intake: hb 100ml 17:28 Drug: Droperidol IVP 1.25 mg IVP once Route: IVP; Site: right antecubital; hb 19:24 Follow up: Response: No adverse reaction bm8 17:28 Drug: metoCLOPramide IVP 10 mg IVP once; over 1 to 2 minutes Route: IVP; Site: right hb antecubital; 19:24 Follow up: Response: No adverse reaction bm8 17:28 Drug: Ketorolac IVP 15 mg IVP once Route: IVP; Site: right antecubital; hb 19:23 Follow up: Response: No adverse reaction bm8 17:28 Drug: diphenhydrAMINE IVP 25 mg IVP once Route: IVP; Site: right antecubital; hb 19:23 Follow up: Response: No adverse reaction bm8 18:41 Drug: NS 0.9% IV 1000 ml IV at 1 bolus Per protocol; to be given as a bolus over 120 hb minutes Route: IV; Rate: 1 bolus; Site: right antecubital; 19:23 Follow up: Response: No adverse reaction; IV Status: Completed infusion bm8 Disposition Summary: 01/28/25 19:51 Discharge Ordered Notes: Location: Home cp Problem: an acute exacerbation(01/28/25 19:51) cp Symptoms: have improved(01/28/25 19:51) cp Condition: Stable(01/28/25 19:51) cp Diagnosis - Other seizures(01/28/25 19:51) cp Followup: cp - With: Reuben Sequeira MD - When: 2 - 3 days - Reason: Recheck today's complaints Discharge Instructions: - Discharge Summary Sheet cp - Electroencephalogram, Adult cp - Seizure, Adult cp Forms: - Medication Reconciliation Form cp - Antibiotic Education cp - Prescription Opioid Use cp - Patient Portal Instructions cp - Leadership Thank You Letter cp Signatures: Dispatcher [employer] Eduardo Kramer PA-C PA-C cp Baxter, Heather, RN RN Dion Ibanez RN bm8 Corrections: (The following items were deleted from the chart) 15:23 15:23 ACETAMINOPHEN+C.LAB.BRZ ordered. EDMS EDMS 15:23 15:23 BASIC METABOLIC PANEL+C.LAB.BRZ ordered. EDMS EDMS 15:23 15:23 CBC+H.LAB.BRZ ordered. EDMS EDMS 15:23 15:23 ETHANOL+C.LAB.BRZ ordered. EDMS EDMS 15:23 15:23 HEPATIC FUNCTION+C.LAB.BRZ ordered. EDMS EDMS 15:23 15:23 PROTIME (+INR)+COAG.LAB.BRZ ordered. EDMS EDMS 15:23 15:23 Test, Urine+UC.LAB.BRZ ordered. EDMS EDMS 15:23 15:23 PTT, ACTIVATED+COAG.LAB.BRZ ordered. EDMS EDMS 15:23 15:23 SALICYLATE+C.LAB.BRZ ordered. EDMS EDMS 15:23 15:23 URINE DRUG SCREEN+UC.LAB.BRZ ordered. EDMS EDMS 19:50 17:34 doctor cp cp 19:50 17:34 [employer] cp cp 19:50 17:34 Higher level of care cp cp 19:50 17:34 Stable cp cp 19:50 17:34 an acute exacerbation cp cp 19:50 17:34 have improved cp cp 19:50 17:34 Other seizures cp cp
--- NOTE | 2025-01-28 17:35 | ER ---
Nurse's Notes [facility] Name: Gill Gordon Age: 34 yrs Sex: Female : 1990 Arrival Date: 01/28/2025 Time: 15:21 Bed 8 Private MD: Diagnosis: Other seizures Presentation: 01/28 15:51 Chief complaint: EMS states: Multiple seizures over the last 2 days, c/o headache that hb started yesterday morning. 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 NSR on EKG, VS WNL, BGL 128. Coronavirus screen: At this time, the client does not indicate any symptoms associated with coronavirus-19. Ebola Screen: No symptoms or risks identified at this time. Onset of symptoms was January 27, 2025. 15:51 Method Of Arrival: EMS: [facility] 15:51 Acuity: ÁNGELA 3 hb 16:29 Initial Sepsis Screen: Does the patient meet any 2 criteria? No. Patient's initial hb sepsis screen is negative. Does the patient have a suspected source of infection? No. Patient's initial sepsis screen is negative. Risk Assessment: Do you want to hurt yourself or someone else? Patient reports no desire to harm self or others. [employer]: 19:56 unknown bm8 Historical: - Allergies: 15:55 Amoxicillin; hb 15:55 PENICILLINS; hb - Home Meds: 15:55 Depakote 125 mg oral tablet, delayed release (enteric coated) 2 times per day [Active]; hb Keppra 1,000 mg oral tablet 2 times per day [Active]; Topamax Oral [Active]; - PMHx: 15:55 Herniated disc (Unknown); low blood sugar (Unknown); Migraine; PCOS; Seizures; hb - PSHx: 15:55 Cholecystectomy; Gastric Bypass (due to complication of gastric sleeve); gastric hb sleeve; senthil n y; Total abdominal hysterectomy; - Immunization history:: Adult Immunizations up to date. - Infectious Disease History:: Denies. - Social history:: Smoking status: Patient denies any tobacco usage or history of. Screenin:28 [facility] ED Fall Risk Assessment (Adult) History of falling in the last 3 months, hb including since admission No falls in past 3 months (0 pts) Confusion or Disorientation No (0 pts) Intoxicated or Sedated Yes (3 pts) Impaired Gait No (0 pts) Mobility Assist Device Used No (0 pt) Altered Elimination No (0 pt) Score/Fall Risk Level 3 or more points = High Risk Oriented to surroundings, Maintained a safe environment, Educated pt \T\ family on fall prevention, incl call for assistance when getting out of bed. Abuse screen: Denies threats or abuse. Denies injuries from another. Nutritional screening: No deficits noted. Tuberculosis screening: No symptoms or risk factors identified. Assessment: 16:28 General: Appears in no apparent distress. Behavior is calm, cooperative. Pain: Pain hb currently is 9 out of 10 on a pain scale. Neuro: Level of Consciousness is awake, alert, obeys commands, Oriented to person, place, time, situation, Reports headache. Cardiovascular: Patient's skin is warm and dry. Respiratory: Respiratory effort is even, unlabored, Respiratory pattern is regular, symmetrical. GI: No signs and/or symptoms were reported involving the gastrointestinal system. : No signs and/or symptoms were reported regarding the genitourinary system. EENT: No signs and/or symptoms were reported regarding the EENT system. Derm: Skin is pink, warm \T\ dry. Musculoskeletal: Reports body aches. 17:30 Reassessment: Pt c/o headache 01/14, requesting pain medication. VERONIQUE Clakr notified, hb medicated as ordered. No seizure activity noted since arrival. Family remains at bedside. 19:21 Reassessment: Patient appears in no apparent distress at this time. Patient and/or bm8 family updated on plan of care and expected duration. Pain level reassessed. Patient denies pain at this time. General: Appears in no apparent distress. comfortable, Behavior is calm, cooperative, appropriate for age. Pain: Denies pain. Neuro: No deficits noted. Cardiovascular: Denies chest pain, Capillary refill < 3 seconds in bilateral fingers Patient's skin is warm and dry. Respiratory: Airway is patent Respiratory effort is even, unlabored, Respiratory pattern is regular, symmetrical. GI: No deficits noted. No signs and/or symptoms were reported involving the gastrointestinal system. : No deficits noted. No signs and/or symptoms were reported regarding the genitourinary system. EENT: No deficits noted. No signs and/or symptoms were reported regarding the EENT system. Derm: No deficits noted. No signs and/or symptoms reported regarding the dermatologic system. Musculoskeletal: No deficits noted. No signs and/or symptoms reported regarding the musculoskeletal system. 19:54 Reassessment: Patient appears in no apparent distress at this time. Patient and/or bm8 family updated on plan of care and expected duration. Pain level reassessed. Patient is alert, oriented x 3, equal unlabored respirations, skin warm/dry/pink. Patient denies pain at this time. Patient states feeling better. Patient states symptoms have improved. 19:54 Neuro: No deficits noted. Level of Consciousness is awake, alert, obeys commands, bm8 Oriented to person, place, time, situation, Appropriate for age Denies dizziness, numbness headache. Vital Signs: 15:51 BP 112 / 69; Pulse 88; Resp 16; Temp 98.7(O); Pulse Ox 100% ; Pain 9/10; hb 17:29 BP 106 / 72; Pulse 93; Resp 17; Pulse Ox 100% on R/A; Pain 9/10; hb 19:21 BP 99 / 57; Pulse 72; Resp 20; Temp 98.7; Pulse Ox 100% ; Pain 0/10; bm8 19:54 BP 97 / 61; Pulse 63; Resp 18; Temp 98.7; Pulse Ox 100% ; Pain 0/10; bm8 15:51 Pain Scale: Adult hb 17:29 Pain Scale: Adult hb 19:21 Pain Scale: Adult bm8 19:54 Pain Scale: Adult bm8 [place] Coma Score: 19:21 Eye Response: spontaneous(4). Motor Response: obeys commands(6). Verbal Response: bm8 oriented(5). Total: 15. 19:55 Eye Response: spontaneous(4). Motor Response: obeys commands(6). Verbal Response: bm8 oriented(5). Total: 15. ED Course: 15:21 Patient arrived in ED. bd 15:22 Eduardo Ronquillo PA-C is PHCP. cp 15:22 Eduardo Serrato MD is Attending Physician. cp 15:54 Triage completed. hb 15:57 Arm band placed on. hb 16:02 Urine collected: clean catch specimen, sent to lab. ts3 16:16 Accessed peripheral vein via ultrasound, utilizing dynamic ultrasound technique using hb per hospital protocol. Clean \T\ dry. Dressing intact. Good blood return. Flushes easily. 20g RAC. 16:19 Zahira Hwang, RN is Primary Nurse. hb 16:26 CT Head Brain wo Cont In Process Unspecified. EDMS 16:28 Patient has correct armband on for positive identification. Bed in low position. Call hb light in reach. Side rails up X2. Provided Education on: call light . Client placed on continuous cardiac and pulse oximetry monitoring. NIBP monitoring applied. esl instructor on. Pulse ox on. NIBP on. 16:30 Seizure precautions initiated. hb 16:35 EKG done, by computer technology instructor. reviewed by Eduardo Ronquillo PA-C. ts3 17:38 initiated transfer to [facility] as requested by pt. bd 17:42 pt denied at [facility] due to no capacity and pts being held in ER,per Jagruti. bd 17:[address] [facility]. bd 18:[address] [facility] cancelled due to pt refusing to go to [facility]. bd 19:21 No provider procedures requiring assistance completed. Flushed right antecubital. bm8 19:51 Reuben Sequeira MD is Referral Physician. cp 19:54 IV discontinued, intact, bleeding controlled, No redness/swelling at site. Pressure bm8 dressing applied. Administered Medications: 16:33 Drug: Ativan IVP 2 mg IVP once Route: IVP; Site: right antecubital; hb 17:29 Follow up: Response: No adverse reaction hb 16:33 Drug: Fosphenytoin IVPB 1 grams IVPB once; (mix in 50 to 100mL NS) Route: IVPB; Site: hb right antecubital; 17:29 Follow up: Response: No adverse reaction; IV Status: Completed infusion; IV Intake: hb 100ml 17:28 Drug: Droperidol IVP 1.25 mg IVP once Route: IVP; Site: right antecubital; hb 19:24 Follow up: Response: No adverse reaction bm8 17:28 Drug: metoCLOPramide IVP 10 mg IVP once; over 1 to 2 minutes Route: IVP; Site: right hb antecubital; 19:24 Follow up: Response: No adverse reaction bm8 17:28 Drug: Ketorolac IVP 15 mg IVP once Route: IVP; Site: right antecubital; hb 19:23 Follow up: Response: No adverse reaction bm8 17:28 Drug: diphenhydrAMINE IVP 25 mg IVP once Route: IVP; Site: right antecubital; hb 19:23 Follow up: Response: No adverse reaction bm8 18:41 Drug: NS 0.9% IV 1000 ml IV at 1 bolus Per protocol; to be given as a bolus over 120 hb minutes Route: IV; Rate: 1 bolus; Site: right antecubital; 19:23 Follow up: Response: No adverse reaction; IV Status: Completed infusion bm8 Medication: 16:28 VIS not applicable for this client. hb Intake: 17:29 IV: 100ml; Total: 100ml. hb Outcome: 17:34 ER care complete, transfer ordered by MD. cp 19:51 Discharge ordered by MD. cp 19:54 Discharged to home via wheelchair, with family, bm8 19:54 Condition: stable 19:54 Discharge instructions given to patient, family, Instructed on discharge instructions, follow up and referral plans. no drinking with medication, no driving heavy equipment, medication usage, safety practices, Demonstrated understanding of instructions, follow-up care, medications, Prescriptions given X 20:23 Patient left the ED. bm8 Signatures: Dispatcher [employer] EDMS Marce Solis Corey, PA-Colette PA-Zahira Hogue cp, BREA GUIDRY Dion Ibanez RN RN bm8 Maggie Hilario ts3
[2025-01-28] MEDS ORDERED: NA CHLORIDE 0.9% 1,000 ML ONE (18:30)
[2025-01-28 20:57] VITALS: TEMP 98.7; O2SAT 100
[2025-01-28 21:01] VITALS: BP 97/61
== END 2025-01-28 20:23 | disposition home or self-care (01) ==
LOC: ER 15:21
DX: G40.89 Other seizures (principal)
CPT/HCPCS: 96365; 96361; 93005; 85025; 80048; 36415; 81025; 85610; 80076; 85730; 81003; 80307; 70450; 96375; 99285; 80143; 80179; 82077; Q2009; J2765; J1200; J1790; J7030; J1885; J1953